=== PATIENT | male | born 1940 | race Caucasian/White ===

== ENCOUNTER 2018-10-14 11:51 | Inpatient (IN) | payer MEDICARE, OTHER ==
[~2018-10-14] VITALS: Ht 162.6 cm; Wt 87.8 kg
[~2018-10-14 11:51] MED LIST: ALLO300T2 PO; AMIO200T4 PO; BUPR1PAT22 TD; LISI-552 PO; LOVA20TA2 PO; METF-397 PO; OXYB5TAB9 PO; PIOG45TA65 PO
--- NOTE | 2018-10-14 13:44 | Physical Therapy Evaluation ---
PT Evaluation-General Medical Diagnosis Admission Date Medical Diagnosis: sepsis, spinal abscess Onset Date: Oct 07, 2018 Therapy Diagnosis Therapy Diagnosis: impaired mobility, strength, endurance Height/Weight Height (Feet): 5 Height (Inches): 4.00 Weight (Pounds): 186 Weight (Ounces): 0.0 Precautions Precautions/Isolations: Contact Isolation Referral Physician: Lauri Reason for Referral: Evaluation/Treatment Medical History Pertinent Medical History: Atrial Fib, CABG, CAD, DM, HTN Current History Patient admitted to ICU following hardware replacement of spine due to wound infection. Reviewed History: Yes Social History Home: Single Level Current Living Status: Spouse Entry Into Home: Stairs With Railing PT Steps Into Home: 3 Prior/Core FIM Prior Level of Function Functional [place] Measure 0=Not Assessed/NA 4=Minimal Assistance 1=Total Assistance 5=Supervision or Setup 2=Maximal Assistance 6=Modified [place] 3=Moderate Assistance 7=Complete IndependenceIRFPAI Quality Coding Scale 6 Independent with activity with or without an assistive device 5 Patient requires set up or clean up by helper. Patient completes activity by themselves 4 Supervision or touching assist (CGA). [place] provide cues , steadying assist 3 The helper provides less than half the effort to complete the activity 2 The helper provides more than half the effort to complete the activity 1 Dependent. The helper does all the effort to complete an activity 7 Patient refused to complete or attempt activity 9 The patient did not perform the activity before the current illness or injury 88 Not attempted due to Medical conditions or safety concerns Bed Mobility: 6 Transfers (B,C,W/C) (FIM): 6 Gait: 6 Stairs: 6 Wheelchair Mobility: 6 Patient states he already has a rolling walker, 4 wheeled walker, and wheelchair PT Evaluation-Current Subjective Patient in bed pre tx, agrees to PT, has 10/10 pain in low back and right hip and groin. Nurse notified and he got pain meds. Patient is very tired and has increased pain because he had a lot of bleeding from back earlier and doctor had to cauterize. Pt/Family Goals Patient states he wants fo be able to go back home and take care of himself. Objective Patient Orientation: Person, Place, Situation Attachments: Drains TLSO ROM/Strength ROM Lower Extremities WNL Strenght Lower Extremities 3+/5 gross bilateral lower extremities Neuromuscular (Tone, Coordination, Reflexes) NT Sensory Vision: Functional Hearing: Impaired Sensation Right Lower Extremit: Intact Sensation Left Lower Extremity: Intact Transfers Functional [place] Measure 0=Not Assessed/NA 4=Minimal Assistance 1=Total Assistance 5=Supervision or Setup 2=Maximal Assistance 6=Modified [place] 3=Moderate Assistance 7=Complete IndependenceIRFPAI Quality Coding Scale 6 Independent with activity with or without an assistive device 5 Patient requires set up or clean up by helper. Patient completes activity by themselves 4 Supervision or touching assist (CGA). [place] provide cues , steadying assist 3 The helper provides less than half the effort to complete the activity 2 The helper provides more than half the effort to complete the activity 1 Dependent. The helper does all the effort to complete an activity 7 Patient refused to complete or attempt activity 9 The patient did not perform the activity before the current illness or injury 88 Not attempted due to Medical conditions or safety concerns Transfers (B, C, W/C) (FIM): 3 Scootin Rollin Roll Left to Right (QC): 2 Supine to/from Sit: 3 Sit to/from Stand: 4 bed t/f WC(FIM only if WC use): 4 Sit to Lying (QC): 2 Lying to Sitting/Side of Bed(Q: 2 Sit to Stand (QC): 3 Chair/Obr-hk-Ltcjs Xfer(QC): 3 Patient was only able to perform bed mobility and transfers and a little ambulation. By the time he got to rehab he insisted on going back to bed due to pain and fatigue. Patient performs bed mobility with mod assist, supine <- > sit with mod assist, sit <-> stand with min assist, transfers with min assist. Cues for safety and hand placement. Gait Does the Patient Walk?: Yes Mode of Locomotion: Walk Anticipated Mode of Locomotion: Walk Gait (FIM): 1 Walk 10 feet (QC): 4 Walk 50 ft with 2 Turns(QC): 88 Walk 150 ft (QC): 88 Walking 10ft/uneven surface-QC: 88 Distance: 10' Gait Level of Assist: 4 Gait Persons Needed: 1 Gait Assistive Device: FWW Comments/Gait Description Patient ambulated 10' with a rolling walker with CGA. Gait is very antalgic, slow. He could not walk any more due to pain and fatigue. Wheelchair Training Does the Pt Use a Wheelchair?: Yes Wheelchair (FIM): 1 Type of Wheelchair: Manual Stairs If not tested on admit;explain Patient could not perform stairs due to pain and fatigue. He had recent blood loss from wound in back and had to be cauterized and came to rehab right after. Balance Sitting Static: Fair Sitting Dynamic: Fair Standing Static: Fair Standing Dynamic: Fair Assessment/Needs Patient has impaired mobility, strength, endurance post spinal surgery. He also has a wound vac in back. Rehab Potential: Guarded PT Short Term Goals Short Term Goals Time Frame: Oct 21, 2018 Transfers (B,C,W/C) (FIM): 4 Gait (FIM): 2 Gait Distance Comment: 50' Gait Level of Assist: 4 Gait Assistive Device: FWW PT Equipment Planner Goals Equipment Planner Goals PT Equipment Planner Goals Time Frame: Nov 04, 2018 Transfers (B,C,W/C) (FIM): 5 Sit to Lying (QC): 4 Lying-Sitting on Side/Bed(QC): 4 Sit to Stand (QC): 4 Rollin Roll Left to Right (QC): 4 Chair/Phf-rn-Wgllz Xfer(QC): 4 Car Transfer (QC): 4 Gait (FIM): 5 Distance: 150' Walk 10 feet (QC): 4 Walk 10ft-Uneven Surface(QC): 4 Walk 50ft with 2 Turns (QC): 4 Walk 150 ft (QC): 4 Gait Level of Assist: 5 Gait Assistive Device: FWW Stairs (FIM): 2 # of Steps: 4 1 Step (curb) (QC): 4 4 Steps (QC): 4 Stairs Level Of Assist: 4 PT Plan Problem List Problem List: Activity Tolerance, Functional Strength, Safety, Balance, Gait, Transfer, Bed Mobility, ROM Treatment/Plan Treatment Plan: Continue Plan of Care Treatment Plan: Bed Mobility, Concurrent Therapy, Education, Functional Activity Cris, Functional Strength, Group Therapy, Gait, Safety, Therapeutic Exercise, Transfers Treatment Duration: Nov 04, 2018 Frequency: Modified Program (IRF) Estimated Hrs Per Day: 1.5 hours per day Patient and/or Family Agrees t: Yes Safety Risks/Education Patient Education: Gait Training, Transfer Techniques, Reviewed Precautions, Correct Positioning, W/C Management, Safety Issues Teaching Recipient: Patient Teaching Methods: Demonstration, Discussion Response to Teaching: Reinforcement Needed Discharge Recommendations Plan Patient will perform bed mobility and transfer training, balance and endurance training, functional strengthening, stair training, gait training, and education , to improve functional mobility and independence at home. Therapy D/C Recommendations: Home w/ Family Support Time/GCodes Time In: 1300 Time Out: 1330 Total Billed Treatment Time: 30 Total Billed Treatment 1 visit SHERI 30' DAGOBERTO AGUILAR PT Oct 14, 2018 13:44
[2018-10-14 13:54] VITALS: BP 150/70
[2018-10-14] MEDS ORDERED: ACETAMINOPHEN 325 MG TABLET PO SCH (14:30)
[2018-10-14] MEDS ORDERED: ONDANSETRON 4 MG/2 ML (SDV) Z0FRAN IVP PRN (14:30)
--- NOTE | 2018-10-14 14:32 | Occupational Therapy Eval ---
OT Evaluation-General/PLF Medical Diagnosis Admission Date Oct 14, 2018 at 13:25 Medical Diagnosis: sepsis, spinal abscess Onset Date: Oct 07, 2018 Therapy Diagnosis Therapy Diagnosis: decr self care, weakness, decr funct mob, decr act rinku Height/Weight Height (Feet): 5 Height (Inches): 4.00 Weight (Pounds): 186 Weight (Ounces): 0.0 Precautions Precautions/Isolations: Contact Isolation, Contact/Enteric Isolation (c diff) Referral Physician: Lauri Referral Reason: Evaluation/Treatment Medical History Pertinent Medical History: Atrial Fib, CABG, CAD, DM, HTN Additional Medical History Chronic back pain. BPH, hyperlipidemia. Pt reported cataract surgery and two other surgeries on L eye Current History 05/11/18 back surgery. Has been in SNF and [facility]. Pt had spinal abscess and is now s/p 2 surgeries (10-08, 10-10) to replace hardware. Today he had bleeding in his back and would vac had to be replaced. Also had to cauterize bleeders in back. Reviewed History: Yes Social History Home: Single Level Current Living Status: Spouse Entry Into Home: Stairs With Railing Steps Into Home: 3 ADL-Prior Level of Function Functional [place] Measure 0=Not Assessed/NA 4=Minimal Assistance 1=Total Assistance 5=Supervision or Setup 2=Maximal Assistance 6=Modified [place] 3=Moderate Assistance 7=Complete [place] ADL PLOF Comments Pt and reported that, prior to back surgery in April, he did not need any help taking care of himself. He was able to manage all of his basic ADLs, do things around the house, manage medications and check book. 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 DME/Equipment: Bath Chair, Shower, Tall Toilet OT Current Status Subjective Pt seen in room, up in bed on his side, agreeable to OT. Pain reported 10/10 in back and in L groin. He had pain meds just prior to arrival on the unit. Appearance Alert, cooperative Mental Status/Objective Patient Orientation: Person, Situation Attachments: Central Line, IV, Other-See Comments (wound vac) Current Glasses/Contacts: Yes Hearing Aids: Yes Dentures/Partials: No Hand Dominance: Right Upper Extremity ROM Grossly WFL bilat Upper Extremity Strength Grossly 4/5 bilat ADL-Treatment ADL-Current Pt declined ADLs due to extreme fatigue and pain. He was able to walk only 10 feet with PT with FWW, CGA and needed mod assist with bed mobility. He reported that he hasn't felt like eating much since his surgery. TLSO Functional [place] Measure 0=Not Assessed/NA 4=Minimal Assistance 1=Total Assistance 5=Supervision or Setup 2=Maximal Assistance 6=Modified [place] 3=Moderate Assistance 7=Complete IndependenceIRFPAI Quality Coding Scale 6 Independent with activity with or without an assistive device 5 Patient requires set up or clean up by helper. Patient completes activity by themselves 4 Supervision or touching assist (CGA). [place] provide cues , steadying assist 3 The helper provides less than half the effort to complete the activity 2 The helper provides more than half the effort to complete the activity 1 Dependent. The helper does all the effort to complete an activity 7 Patient refused to complete or attempt activity 9 The patient did not perform the activity before the current illness or injury 88 Not attempted due to Medical conditions or safety concerns Education OT Patient Education: Purpose of tx/functional activities, Rehab process Teaching Recipient: Patient, Family Teaching Methods: Discussion Response to Teaching: Verbalize Understanding OT Short Term Goals Short Term Goals Time Frame: Oct 21, 2018 Eating(FIM): 5 Grooming(FIM): 5 Bathing(FIM): 3 Upper Body Dressing(FIM): 4 Lower Body Dressing(FIM): 3 Toileting(FIM): 3 Toilet/Commode Transfer(FIM): 4 Additional Short Term Goals: 1-Demonstrate ADL Tasks, 2-Verbalize Understanding , 3-ImproveStrength/Cris 1=Demonstrate adherence to instructed precautions during ADL tasks. 2=Patient will verbalize/demonstrate understanding of assistive devices/ modifications for ADL. 3=Patient will improve strength/tolerance for activity to enable patient to perform ADL's. OT Disk Operator Goals Fpc Goals Time Frame: Nov 04, 2018 Eating (FIM): 7 Eating (QC): 6 Groomin Oral Hygiene (QC): 6 Bathing(FIM): 6 Shower/Bathe Self (QC): 6 Upper Body Dressing(FIM): 6 Upper Body Dressing (QC): 6 Lower Body Dressing(FIM): 6 Lower Body Dressing (QC): 6 On/Off Footwear (QC): 6 Toileting(FIM): 6 Toileting Hygiene (QC): 6 Toilet/Commode Transfer(FIM): 6 Toilet/Commode Transfer (QC): 6 Shower Transfer(FIM): 5 (if allowed per wound vac) Additional Goals: 1-Demonstrate ADL Tasks, 2-Verbalize Understanding, 3- ImproveStrength/Cris 1=Demonstrate adherence to instructed precautions during ADL tasks. 2=Patient will verbalize/demonstrate understanding of assistive devices/ modifications for ADL. 3=Patient will improve strength/tolerance for activity to enable patient to perform ADL's. OT Education/Plan Problem List/Assessment Assessment: Decreased Activ Tolerance, Decreased UE Strength, Dependent Transfers, Impaired Bed Mobility, Impaired Self-Care Skills Pt would benefit from skilled OT to increase his independence in basic self care to allow him to safely return home after back surgery Discharge Recommendations Plan/Recommendations: Continue POC Treatment Plan/Plan of Care Treatment,Training & Education: Yes Patient would benefit from OT for education, treatment and training to promote independence in ADL's, mobility, safety and/or upper extremity function for ADL' s. Plan of Care: ADL Retraining, Functional Mobility, Group Exercise/Act as Ind ( education, exercise, activity tolerance, functional activities, socialization), UE Funct Exercise/Act, UE Neuromus Re-Ed/Coord, W/C Management Training Treatment Duration: Nov 04, 2018 Frequency: Modified Program (IRF) Estimated Hrs Per Day: 1.5 hours per day (1.25 to 1.5) Agreement: Yes Rehab Potential: Fair Time/GCodes Start Time: 13:30 Stop Time: 14:10 Total Time Billed (hr/min): 40 Billed Treatment Time visit, 40 minutes evaluation moderate intensity CRISTIAN MERIDA OT Oct 14, 2018 14:32
--- NOTE | 2018-10-14 14:49 | ST Cognitive Linguistic Eval ---
Speech Evaluation-General Medical Diagnosis sepsis, spinal abscess Onset Date: Oct 07, 2018 Therapy Diagnosis Therapy Diagnosis: Cognitive-communication Precautions Precautions: Fall Precautions/Isolations: Contact Isolation Medical History Pertinent Medical History: Atrial Fib, CABG, CAD, DM, HTN Reviewed History: Yes Social History Current Living Status: Spouse Speech PLF-Current Status Prior Level of Function Patient lived at home with his . Prior to back surgery in August he was independent with all daily living tasks. Subjective Patient was pleasant and cooperative. Language Eval: Auditory Comprehends Simple Yes/No Ques: Functional Follows 1-Step Commands: Mild Follows Complex Directions: Moderate Follows General Conversations: Mild Language Eval: Verbal Language Completes Spontaneous Greeting: Functional Produces Auto, Serial Info: Functional Imitates Simple Words/Phrases: Functional Word Finding: Mild Requests Basic Needs: Mild States Basic Personal Info: Mild Expresses Complex Ideas: Moderate Language Evaluation: Reading Did not test. Cognitive Patient Orientation Patient is oriented to all concepts. Objective Cognitive Domain Attention: Mild Memory: Moderate Problem Solving: Mild Executive Functions: Mild Objective Formal/Standardized Tests [facility] Cognitive/Communication Results Memory: for Immediate Recall 3:3, Delayed Recall 3:3, Advanced Recall: 2:3 with cues, Organization/Sequencin-4 step: 3:4, Reasoning Skills: 3:4, Verbal Expression: Automatic: Mild deficit, Responsive Naming: Mild deficit Oral Motor/Speech Production Within Functional Limits Impression Patient is an alert and oriented 78 y/o male who recently underwent back surgery. Formal testing indicates he has mild to moderate memory and problem solving deficits related to his daily needs and immediate living environment. He is recommended for skilled services to address these deficits to achieve his highest potential functional level for optimal safety and independence, Communication/Social Cognition Comprehension: 4 Expression: 4 Social Interaction: 4 Problem Solvin Memory: 3 Speech Patient Assess Expression of Ideas/Wants: Frequently (2) Understanding Verbal Content: Sometimes Understands(2) Brief Interview-Mental Status: Yes Repetition of Three Words: Two (2) Temporal Orientation: Year: Correct (3) Temporal Orientation: Month: Accurate within 5 days(2) Temporal Orientation: Day: Correct (1) Recall : Wear to say "Sock": Yes,after cueing (1) Recall : Color: Yes, no cue required (2) Recall : Bed: Yes, no cue required (2) Memory/Recall Ability: Current season, That he or she is in a hsp/hsp unit Speech Short Term Goals Short Term Goals Short Term Goals 1) Patient will complete memory tasks with 90% accuracy given minimal cuing. 2) Patient will complete problem solving tasks with 90% accuracy given minimal cuing. Time Frame-ST week Speech Business Professor Goals Business Professor Goals Patient will improve memory and problem solving tasks with minimal cues for increased safety and independence at 90% accuracy. Speech-Plan Patient/Family Goals Patient/Family Goals: Patient plans to mreturn home with his after rehab. Treatment Plan Speech Therapy Treatment Plan: Continue Plan of Care Patient will work on memory and problem solving while on the rehab unit. Frequency: Modified Program (IRF) Estimated Hrs Per Day: .5 hour per day Rehab Potential: Guarded Barriers to Learning: Memory Pt/Family Agrees to Plan: Yes Safety Risks/Education Teaching Recipient: Patient, Significant Other Teaching Methods: Discussion Response to Teaching: Verbalize Understanding Time Speech Therapy Time In: 14:15 Speech Therapy Time Out: 14:30 Total Billed Time: 15 Billed Treatment Time 1, MORAIMA Diaz Oct 14, 2018 14:49
[2018-10-14] MEDS: metFORMIN 500 MG (GLUCOPHAGE) TAB PO SCH (16:55)
[2018-10-14] MEDS: LACTOBACILLUS Acidoph/Bulgar 1 GM (LACTINEX) PACKET PO SCH ×2 (16:56→20:18)
[2018-10-14] MEDS: ACETAMINOPHEN 325 MG TABLET PO SCH (17:02)
[2018-10-14] MEDS: VANCOMYCIN ORAL 250 MG/5 ML 120 ML PO SCH ×2 (17:05)
[2018-10-14] MEDS: inSUlin ASPART (NovoLOG) 1 UNIT/0.01 ML (CHARGE PER UNIT) SC SCH ×2 (17:08→20:59)
[2018-10-14] MEDS: CHOLESTYRAMINE 4 GM (QUESTRAN LITE, PREVALITE) PKT PO SCH ×2 (17:08→21:51)
--- NOTE | 2018-10-14 17:12 | Cardiology Progress Note ---
Cardiology SOAP Progress Note Subjective: No cardiac compliants Objective: I&O/Vital Signs 10/14/18 13:54 Temp 98.9 Pulse 70 Resp 16 B/P (MAP) 150/70 (96) Pulse Ox 100 O2 Delivery Room Air Weight (Pounds): 193 Weight (Ounces): 8.0 Weight (Calculated Kilograms): 87.751235 Constitutional: No appears stated age; AAO x 3; No apparent distress, No PERRL , No well-developed, No well-nourished, No other Respiratory: No accessory muscle use, No respiratory distress, No chest tender , No chest expansion is symmetric; chest is bilaterally symmetric; No lungs clear to percussion; lungs clear to auscultation; No crackles, No rhonchi, No rales, No stridor, No wheezing, No pleural rub, No other Cardiovascular: regular rate-rhythm; No irregularly irregular, No extra beats, No parasternal heave is noted, No JVD, No edema, No bradycardia, No tachycardia , No point of maximal impulse, No cardiac thrills are palpable; S1 and S2; No gallop/S3, No gallop/S4, No diastolic murmur, No systolic murmur, No friction rub, No click, No other Gastrointestional: No tender, No soft, No round, No distended, No pulsatile mass, No organomegaly, No guarding, No rebound, No tenderness, No hernia, No mass, No audible bowel sounds, No abnormal bowel sounds, No abdominal bruits, No spleenomegaly, No other Extremities: No normal range of motion, No non-tender, No normal inspection, No pedal edema, No calf tenderness, No normal capillary refill, No pelvis stable , No calf tenderness, No inflammation, No pedal edema, No slow capillary refill , No swelling, No other, No abrasion, No clubbing, No cyanosis, No ecchymosis, No laceration, No no lower extremity edema bilateral, No significant edema, No tenderness, No wound Neurologic/Psychiatric: no motor/sensory deficits, alert, normal mood/affect, oriented x 3 Skin: No normal color, No warm/dry, No cyanosis, No cool, No diaphoresis, No damp, No ecchymosis, No jaundice, No mottled, No pallor, No rash, No tattoos/ piercings, No ulcerations, No rash on exposed areas, No ulcerations on exposed areas, No other A/P: Assessment/Dx: Assessment/Dx: Spinal abscess, Sepsis, UTI, History of CAD, CABG, Atrial fibrillation on amiodarone. LVH, Diastolic dysfunction. Plan: Spinal abscessstatus post I&D. Sepsiscontinue broad-spectrum IV antibiotics as per Dr. Harrison. C. difficile, on contact precautions. Paroxysmal atrial fibrillationcurrently in sinus rhythm. Continue amiodarone. I might consider discontinuing amiodarone but since the patient follows Dr. Soliman in [place] I may defer that decision to him. CAD/history of CABGcontinue lisinopril and statin therapy. Aspirin low dose once okay with Dr. Harrison and Dr. Mc. Will add low dose beta carlie for atrial fibrillation and CAD. LVH, Diastolic dysfunction, Echocardiogram showed normal LV function. Patient follows with Dr. Soliman in [place]. Thank you for your consultation. Please call me if you have any questions. Chato Moyer MD, FACP, FACC, FSCAI, FHRS, CCDS Interventional Cardiology Cardiac Electrophysiology Vascular Medicine and Endovascular Interventions Kiarra MOYER MD Oct 14, 2018 17:12
[2018-10-14 18:00] VITALS: BP 169/79
[2018-10-14] MEDS ORDERED: VANCOMYCIN ORAL SUSPENSION 60 ML BOTTLE PO SCH (18:00)
[2018-10-14] MEDS ORDERED: TROUGH ORDER-PHARMACY XX ONE (19:00)
[2018-10-14 20:00] VITALS: BP 168/74
[2018-10-14] MEDS ORDERED: VANCOMYCIN INJECTION 1,250 MG in NS (IVPB) 250 ML IV SCH (20:00)
[2018-10-14] MEDS: VANCOMYCIN INJECTION 1,000 MG in NS (IVPB) 250 ML IV SCH (20:16)
[2018-10-14] MEDS: OXYBUTYNIN (DITROPAN) 5 MG TAB PO SCH (20:18)
[2018-10-14] MEDS: meTOprolol TARTRATE 25 MG (LOPRESSOR) TABLET PO SCH (20:18)
[2018-10-14] MEDS ORDERED: POLYETHYLENE GLYCOL 17 GM (MIRALAX) PACK PO SCH (21:00)
--- NOTE | 2018-10-14 21:25 | PM&R Post Admission Assessment ---
Post Admission Physician Asses Date seen by provider: Oct 14, 2018 Time seen by provider: 20:55 The preadmission screen agrees with the post admission assessment that the patient is a good candidate for inpatient rehabilitation. The patient will have a comprehensive program of inpatient rehabilitation with a goal of maximizing level of functional independence prior to discharge home with spouse. The patient will have PT/OT ninety minutes per day, each discipline, five days a week for for 2 weeks for gait, strengthening, conditioning, balance, ADLs, any patient/family/caregiver training as necessary. Speech therapy to do cognitive assessment and treat as indicated for 3 to 5 days a week for 2 weeks for 30 to 45 min per day. Rehabilitation nursing to assist with bowel, bladder, skin, wound care,wound vac administration , medication administration, pain management. Core Finisher to assist with discharge planning, community reentry. SCD's for DVT prophylaxis. He appears to be well motivated to participate in three hours of therapy a day. He should be able to tolerate three hours of therapy a day from a medical and surgical standpoint. He should benefit from the three hours of therapy a day. He has a reasonable discharge plan, reasonable discharge rehabilitation goals and a supportive family. He has various comorbidities that need to be closely monitored with medications and treatments adjusted on a daily basis as needed. he may require a 15/7 therapy schedule initially. These include: Postop spinal abscess A FIB DM Hyponatremia Barriers to discharge for this patient who had been independent prior to this are for him to be modified independent to supervision for ADLs and mobility skills prior to discharge home with spouse, so as to lessen the burden of the caregivers. Risks for this patient include: 1. Fall 2. Fracture 3. DVT 4. Pulmonary embolism 5. Wound infection 6. Skin breakdown 7. Contractures 8. Poorly controlled pain 9. Urinary retention 10. UTI 11. Respiratory infection 12. Aspiration 13.recurrent A FIB Estimated Length of Stay: 14 days Prognosis: Rehab prognosis appears good for goal of discharge home with spouse modified independent to supervision for ADLs and mobility skills. Date Identified: Oct 14, 2018 Time Identified: 20:30 Action Plan to Resolve CSMI: Transfer meds reviewed with RN General: Alert, Cooperative, No Acute Distress HEENT: Atraumatic, PERRLA, EOMI, Mucous Memb Moist/Grove, Other ([place] has hearing aids but out for the evening) Neck: Supple, No JVD Lungs: Clear to Auscultation Heart: Regular Rate Abdomen: Normal Bowel Sounds, Soft, No Tenderness Extremities: No Edema Skin: Other (has wound vac over incision) Neuro: Other (cognitive impairment with memory strength 4/5 uppers 3+/5 lowers sensation intact) Psych/Mental Status: Other (Mild memory impairment) SERENA SANTIAGO MD Oct 14, 2018 21:25
--- NOTE | 2018-10-14 23:12 | HISTORY AND PHYSICAL ---
DATE OF SERVICE: 10/14/2018 CHIEF COMPLAINT: Difficulty with walking. HISTORY OF PRESENT ILLNESS: The patient is an 78-year-old male who recently had spinal surgery earlier this year, then had a complication of an infection. He had another procedure 09/02/2018, but still had problems and he was on rehab unit in [place] as well as a senior living unit in [place]. He was eventually transferred to [facility] and followed by his orthospine Dr. Mc and seen in consultation by hospitalist service and cardiology. The patient was placed on IV antibiotics for a spinal abscess associated with fever and sepsis, tachycardia, leukocytosis, rigors. This was brought under control. He had a recent UTI enterococcus, had a course of Cipro for that. He had postop anemia, had a unit packed red blood cells. He had some bleeding from the incision site and he received a cautery with Dr. Mc's staff prior to transfer to rehab unit. He currently has a wound VAC in place. Currently, he fatigues easily. His presents with him and stays overnight. 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 His original spinal surgery was 05/11/2018. He is mod assist for bed mobility. He has a TLSO worn up. He complains of fatigue and pain with ambulation 10 feet with a front wheel walker, contact guard. Speech therapy noted some cognitive deficits and the patient's indicates that this has been since his surgery 09/02/2018. He is mod to max assist for transfers. He requires assistance for his dressing, bathing. He is modified independent for eating, set up for grooming. The patient also developed C. diff bowel colitis, currently is on p.o. vancomycin and has contact precautions. PAST MEDICAL HISTORY: Atrial fibrillation, on amiodarone, left ventricular hypertrophy,Diastolic dysfunction, coronary artery disease status post CABG. PAST SURGICAL HISTORY: As per above. ALLERGIES: KEFLEX, HYDROCODONE. FAMILY HISTORY: Noncontributory. SOCIAL HISTORY: Essentially as per above. They live in a one story home in [place], [place]. indicates that the patient had been independent prior to all this. He is quite hard of hearing and does not have his hearing aids currently. REVIEW OF SYSTEMS: A 10-point review of systems significant for weakness, fatigue, back pain, hearing loss. MEDICATIONS: Vancomycin q.6h. p.o., amiodarone 200 mg p.o. daily, Lipitor 5 mg p.o. daily, amlodipine 5 mg p.o. daily, lisinopril 20 mg p.o. daily, allopurinol 300 mg p.o. daily, Actos 45 mg p.o. daily, MiraLax 17 grams p.o. at bedtime, Lopressor 25 mg p.o. b.i.d., Ditropan 5 mg p.o. t.i.d., Tylenol 650 mg p.o. q.6 hours, metformin 500 mg p.o. b.i.d., Questran 4 grams p.o. q.i.d. a.c. and at bedtime, Lactinex 1 gram p.o. q.i.d. a.c. and at bedtime, sliding scale insulin regimen, Zofran 4 mg q.6 hours p.r.n. nausea or vomiting, tramadol 50 mg 1-2 tablets p.o. q.4 hours p.r.n. moderate pain. PHYSICAL EXAMINATION: GENERAL: Significant for an elderly male lying in bed, quite hard of hearing. No acute distress. VITAL SIGNS: He is afebrile, pulse 79, respirations 20, blood pressure 168/74, O2 sat 93% on room air. HEENT: Quite hard of hearing. Vision and speech grossly intact. No oral lesion is noted. NECK: Supple without mass. HEART: Regular rhythm. CHEST: Clear. ABDOMEN: Soft, nontender, bowel sounds present. EXTREMITIES: No leg edema, no calf tenderness. SKIN: Wound VAC in place. MUSCULOSKELETAL: He has functional active range of motion in all four limbs. NEUROLOGIC: Sensation is grossly intact to touch. Cognition and memory mildly impaired. Strength both lower limbs 3+/5, upper limbs 4/5. He is right hand dominant. IMPRESSION: 1. Ambulatory dysfunction secondary to spinal abscess with sepsis, treated now with wound VAC. 2. Clostridium difficile bowel colitis, on vancomycin p.o. and contact precautions. 3. Atrial fibrillation, controlled with medication. 4. Coronary artery disease, status post CABG. 5. Diabetes mellitus, controlled with medication. 6. Postop anemia status post transfusion. 7. Hyperlipidemia. PLAN: The patient is admitted for a comprehensive program of inpatient rehabilitation with goal of maximizing level of functional independence prior to discharge home with spouse. The patient will have PT, OT 90 minutes per day each discipline 5 days a week for 2 weeks for the above goals in mind. Please see post-admission physician evaluation, which is a separate document for details of plan of care. Speech therapy has done cognitive assessment, will treat as indicated 3 to 5 times a week for 30 to 45 minutes per day regarding improving cognition, memory, compensatory techniques. Rehabilitation nursing assist with bowel, bladder, skin, wound care, medication administration, wound VAC administration, pain management and social media developer with discharge planning, community reentry. Follow up with hospital service and Dr. Mc and cardiology as per the schedule. ESTIMATED LENGTH OF STAY: Two weeks. PROGNOSIS: Rehab prognosis appears good for goal of discharging home with spouse, modified independent to supervision for ADLs and mobility skills. DIET: Regular. CODE STATUS: Full code. Job ID: [id number] DocumentID: [id number] Dictated Date: 10/14/2018 21:39:25 Oil Refinery Process Technician Date: 10/14/2018 23:11:48 Dictated By: SERENA SANTIAGO MD MTDD
[2018-10-15] MEDS: ACETAMINOPHEN 325 MG TABLET PO SCH ×5 (00:12→23:49)
[2018-10-15] MEDS: VANCOMYCIN ORAL 250 MG/5 ML 120 ML PO SCH ×10 (00:12→23:55)
[2018-10-15 06:00] VITALS: BP 160/73
[2018-10-15] MEDS: inSUlin ASPART (NovoLOG) 1 UNIT/0.01 ML (CHARGE PER UNIT) SC SCH ×4 (06:00→21:00)
[2018-10-15] MEDS: CHOLESTYRAMINE 4 GM (QUESTRAN LITE, PREVALITE) PKT PO SCH ×2 (06:20→11:23)
[2018-10-15] MEDS: PIOGLITAZONE 30MG (ACTOS) TAB PO SCH (06:48)
[2018-10-15] MEDS: LACTOBACILLUS Acidoph/Bulgar 1 GM (LACTINEX) PACKET PO SCH ×4 (06:48→20:13)
[2018-10-15] MEDS: metFORMIN 500 MG (GLUCOPHAGE) TAB PO SCH ×2 (06:48→16:49)
--- NOTE | 2018-10-15 08:11 | PM & R (SOAP) Progress Note ---
Subjective This was a face to face visit with the patient. Date Seen by Provider: Oct 15, 2018 Time Seen by Provider: 07:45 Subjective/Events-last exam Patient was seen in his room this AM Patients spouse spent the night Patient c/ o rt groin pain but non tender to palpation and Patient denies hx of OA of the hip will monitor Patient without diarrhea or loose stools but remains with contact precautions due to C DIF bowel colitis continues on Vancomycin, Adjusting well to unit but may require 15/7 therapy schedule due to pain and easy fatigue.Patient mod assist for transfers Review of Systems Musculoskeletal: leg pain Objective Physician Exam Last Set of Vital Signs Vital Signs Date Time Temp Pulse Resp B/P (MAP) Pulse Ox O2 Delivery O2 Flow Rate FiO2 10/15/18 06:00 98.1 71 18 160/73 (102) 93 Room Air Capillary Refill : I&O Intake and Output 10/15/18 00:00 Intake Total 450 ml Output Total 225 ml Balance 225 ml Intake Oral 200 ml IV Total 250 ml Output Urine Total 225 ml # Bowel Movements 1 Daily Weight Change No General: Alert, Cooperative, No Acute Distress HEENT: Atraumatic, PERRLA, EOMI, Mucous Memb Moist/[place], Other ([facility] has hearing aids but out for the evening) Neck: Supple, No JVD Lungs: Clear to Auscultation Heart: Regular Rate Abdomen: Normal Bowel Sounds, Soft, No Tenderness Extremities: No Edema Skin: Other (has wound vac over incision) Neuro: Other (cognitive impairment with memory strength 4/5 uppers 3+/5 lowers sensation intact) Psych/Mental Status: Other (Mild memory impairment) Results Lab Data Laboratory Tests 10/14/18 18:42: Vancomycin Level Trough 20.6H 10/15/18 06:22: Glucometer 119H Assessment/Plan Assessment and Plan Spinal abscess s/p Spinal surgery OSH now with wound vac C dif bowel colitis on Vanco po urinary retention Monitor for improvement with Bladder scanning Consult as needed A FIB controlled with med CAD s/p CABG DM controlled with med Postop anemia s/p transfusion HLP Plan Continue PT/OT/Antibiotics/contact precautions Team Conference 10-19-18 Goal return home with spouse F/U with DR Mc and Hospitalist and [employer] Co-Morbidities that are continuing to impact the rehab process: (include details ) SERENA SANTIAGO MD Oct 15, 2018 08:11
[2018-10-15 09:38] VITALS: BP 153/76
[2018-10-15] MEDS: ALLOPURINOL 300 MG (ZYLOPRIM) TAB PO SCH (09:39)
[2018-10-15] MEDS: OXYBUTYNIN (DITROPAN) 5 MG TAB PO SCH ×3 (09:39→20:13)
[2018-10-15] MEDS: amLODIPine 5 MG (NORVASC) TAB PO SCH (09:39)
[2018-10-15] MEDS: AMIODARONE 200 MG (CORDARONE) TAB PO SCH (09:39)
[2018-10-15] MEDS: lisINopril 20 MG (PRINIVIL) TABLET PO SCH (09:39)
[2018-10-15] MEDS: meTOprolol TARTRATE 25 MG (LOPRESSOR) TABLET PO SCH ×2 (09:39→20:13)
[2018-10-15] MEDS: ATORVASTATIN 10 MG (LIPITOR) TABLET PO SCH (09:40)
--- NOTE | 2018-10-15 09:41 | Physical Therapy Daily Note ---
PT Daily Note-Current Subjective Pt reports (R) groin and lumbar pain 7-8/10 with movement and when sitting upright. Pain Numeric Pain Scale: 7 Location: Right Location Body Site: Thigh Pain Description: Ache, Dull Mental Status Patient Orientation: Person, Place, Time, Situation Attachments: Central Line, Other-See Comments wound vac on lumbar spine Transfers Functional [place] Measure 0=Not Assessed/NA 4=Minimal Assistance 1=Total Assistance 5=Supervision or Setup 2=Maximal Assistance 6=Modified [place] 3=Moderate Assistance 7=Complete IndependenceIRFPAI Quality Coding Scale 6 Independent with activity with or without an assistive device 5 Patient requires set up or clean up by helper. Patient completes activity by themselves 4 Supervision or touching assist (CGA). [place] provide cues , steadying assist 3 The helper provides less than half the effort to complete the activity 2 The helper provides more than half the effort to complete the activity 1 Dependent. The helper does all the effort to complete an activity 7 Patient refused to complete or attempt activity 9 The patient did not perform the activity before the current illness or injury 88 Not attempted due to Medical conditions or safety concerns Transfers (B, C, W/C) (FIM): 3 Scootin Rollin Roll Left to Right (QC): 3 Supine to/from Sit: 3 Sit to/from Stand: 3 Sit to Lying (QC): 3 Sit to Stand (QC): 3 Chair/Loq-vm-Noxrb Xfer(QC): 3 Bed to/from Chair: 3 Car Transfer (QC): 88 Pt was not able to perform the car transfer due to limited activity tolerance and limited ambulation tolerance. Gait Training Does the Patient Walk?: Yes Distance (FIM): 1=up to 49 ft Distance: 18ft Walk 10 feet (QC): 1 Walk 50 ft with 2 Turns(QC): 88 Walk 150 ft (QC): 88 Walking 10ft/uneven surface-QC: 88 Gait Level of Assist: 3 Gait Persons Needed: 2 Gait Assistive Device: FWW Unable to tolerate distance greater than 18ft due to (R) groin and lumbar pain. Wheelchair Training Does the Pt Use a Wheelchair?: No Stair Training Stairs (FIM): 88 Limited activity tolerance in standing, with pt unable to attempt stairs at this time. Exercises Supine Ex: LE Protocol Supine Reps: 15 Seated Therapy Exercises: LE Protocol Seated Reps: 15 Treatments Performed a co-treat with OT. Performed supine roll to side, supine to sit transfer, and worked on seated balance and posture training while sitting edge of bed. Worked with pt on seated exercises and reaching while seated. Pt bathed with OT, and was able to sit edge of bed with pressure applied to the back due to lumbar pain. Pt worked on reaching and balance while donning clothes. Pt performed a SPT from the bed to the commode, and then the commode to the recliner. He required mod assist for all transfers, and +1 for managing the wound vac hardware. Pt shown seated and reclining exercises for (B) UEs and LEs. He was correctly able to demonstrate all of the exercises demonstrated. Assessment Current Status: Good Progress Pt is very willing to participate, and as the pain dissipates, he should be able to transition to more (I) with activity. PT Short Term Goals Short Term Goals Time Frame: Oct 21, 2018 Gait (FIM): 2 Gait Distance Comment: 50' Gait Level of Assist: 4 Gait Assistive Device: FWW PT Halfway Goals Roofing Applicator Goals PT Halfway Goals Time Frame: Nov 04, 2018 Transfers (B,C,W/C) (FIM): 5 Sit to Lying (QC): 4 Lying-Sitting on Side/Bed(QC): 4 Sit to Stand (QC): 4 Rollin Roll Left to Right (QC): 4 Chair/Mgq-sz-Wjuan Xfer(QC): 4 Car Transfer (QC): 4 Gait (FIM): 5 Distance: 150' Walk 10 feet (QC): 4 Walk 10ft-Uneven Surface(QC): 4 Walk 50ft with 2 Turns (QC): 4 Walk 150 ft (QC): 4 Gait Level of Assist: 5 Gait Assistive Device: FWW Stairs (FIM): 2 # of Steps: 4 1 Step (curb) (QC): 4 4 Steps (QC): 4 Stairs Level Of Assist: 4 PT Plan Treatment/Plan Treatment Plan: Continue Plan of Care Treatment Plan: Bed Mobility, Concurrent Therapy, Education, Functional Activity Cris, Functional Strength, Group Therapy, Gait, Safety, Therapeutic Exercise, Transfers Treatment Duration: Nov 04, 2018 Frequency: Modified Program (IRF) Estimated Hrs Per Day: 1.5 hours per day Patient and/or Family Agrees t: Yes Time/GCodes Time In: 0840 Time Out: 929 Total Billed Treatment Time: 50 Total Billed Treatment 1, zahra (50) YI FERNANDEZ PT Oct 15, 2018 09:41
--- NOTE | 2018-10-15 10:05 | Occupational Ther Daily Note ---
OT Current Status-Daily Note Subjective Pt seen in room, up in bed, agreeable to OT. Pain reported 7-8/10 and had recent pain meds. Appearance Alert, cooperative Mental Status/Objective Functional [place] Measure 0=Not Assessed/NA 4=Minimal Assistance 1=Total Assistance 5=Supervision or Setup 2=Maximal Assistance 6=Modified [place] 3=Moderate Assistance 7=Complete [place] Attachments: Central Line, Other-See Comments (wound vac) ADL-Treatment Co-treat with PT due to significant decreased activity tolerance, pain, need for two different professionals to address needs. PT worked on bed mobility, balance, transfers while OT worked on ADLs, UE function. Pt sup-sit EOB for sponge bath, dressing, requiring supine rest breaks due to pain. Toilet/ transfer to [facility] beside bed, then pt walked briefly, using FWW, requiring second person assist to manage wound vac safely. Returned to recliner to brush teeth. Needed help to put TLSO on/off. Pt given one bilat UE ex to do when up and also provided with pink sponge with instructions to squeeze it 20 reps, both to help increase UE strength and manage edema in UEs. Pt left up in recliner, all needs met. Functional [place] Measure 0=Not Assessed/NA 4=Minimal Assistance 1=Total Assistance 5=Supervision or Setup 2=Maximal Assistance 6=Modified [place] 3=Moderate Assistance 7=Complete IndependenceIRFPAI Quality Coding Scale 6 Independent with activity with or without an assistive device 5 Patient requires set up or clean up by helper. Patient completes activity by themselves 4 Supervision or touching assist (CGA). [place] provide cues , steadying assist 3 The helper provides less than half the effort to complete the activity 2 The helper provides more than half the effort to complete the activity 1 Dependent. The helper does all the effort to complete an activity 7 Patient refused to complete or attempt activity 9 The patient did not perform the activity before the current illness or injury 88 Not attempted due to Medical conditions or safety concerns Eating (FIM): 5 (Setup. Able to feed himself and get a drink. No dentures) Eating (QC): 5 (setup) Grooming (FIM): 5 (Setup to brush teeth, wash face and hands, seated) Oral Hygiene (QC): 5 (setup) Bathing (FIM): 3 (70%. Sponge bath, seated at EOB. Rolled side to side for washing bottom.) Bathing Location: L Arm, R Arm, L Upper Leg, R Upper Leg, Chest, Abdomen, Perineal Area Shower/Bathe Self (QC): 3 Upper Body (FIM): 5 (Donned t shirt with setup. Setup to don TLSO) Upper Body Dressing (QC): 5 (setup) Lower Body Dressing (FIM): 2 (Help to doff/don slipper socks, help to get pants over feet. Pt pulled pants to thigh, then help to get pants up over bottom. Stood mod assist) Lower Body Dressing (QC): 2 On/Off Footwear (QC): 1 (Unable ) Toileting (FIM): 1 (Two person assist when using BSC, one to manage standing and one to manage clothing. Unable to wipe in back. Setup with urinal, needing help to empty it) Toileting Hygiene (QC): 1 (Two person) Toilet/Commode Transfer (FIM): 3 (Mod assist bed to BSC beside bed) Toilet Transfer (QC): 3 Shower Transfer(FIM): 0 (Not addressed due to wound vac) Education OT Patient Education: Exercise program, Modified ADL techniques, Progress toward Goal/Update tx plan, Purpose of tx/functional activities, Safety issues, Transfer techniques, Use of adapted equipment Teaching Recipient: Patient, Family Teaching Methods: Demonstration, Discussion Response to Teaching: Verbalize Understanding, Return Demonstration, Reinforcement Needed OT Short Term Goals Short Term Goals Time Frame: Oct 21, 2018 Eating(FIM): 5 Grooming(FIM): 5 Bathing(FIM): 3 Upper Body Dressing(FIM): 4 Lower Body Dressing(FIM): 3 Toileting(FIM): 3 Toilet/Commode Transfer(FIM): 4 Additional Short Term Goals: 1-Demonstrate ADL Tasks, 2-Verbalize Understanding , 3-ImproveStrength/Cris 1=Demonstrate adherence to instructed precautions during ADL tasks. 2=Patient will verbalize/demonstrate understanding of assistive devices/ modifications for ADL. 3=Patient will improve strength/tolerance for activity to enable patient to perform ADL's. OT Special Education Teachers Goals Care Home Goals Time Frame: Nov 04, 2018 Eating (FIM): 7 Eating (QC): 6 Groomin Oral Hygiene (QC): 6 Bathing(FIM): 6 Shower/Bathe Self (QC): 6 Upper Body Dressing(FIM): 6 Upper Body Dressing (QC): 6 Lower Body Dressing(FIM): 6 Lower Body Dressing (QC): 6 On/Off Footwear (QC): 6 Toileting(FIM): 6 Toileting Hygiene (QC): 6 Toilet/Commode Transfer(FIM): 6 Toilet/Commode Transfer (QC): 6 Shower Transfer(FIM): 5 (if allowed per wound vac) Additional Goals: 1-Demonstrate ADL Tasks, 2-Verbalize Understanding, 3- ImproveStrength/Cris 1=Demonstrate adherence to instructed precautions during ADL tasks. 2=Patient will verbalize/demonstrate understanding of assistive devices/ modifications for ADL. 3=Patient will improve strength/tolerance for activity to enable patient to perform ADL's. OT Education/Plan Problem List/Assessment Pt would benefit from skilled OT to increase his independence in basic self care to allow him to safely return home after back surgery Discharge Recommendations Plan/Recommendations: Continue POC Treatment Plan/Plan of Care Patient would benefit from OT for education, treatment and training to promote independence in ADL's, mobility, safety and/or upper extremity function for ADL' s. Plan of Care: ADL Retraining, Functional Mobility, Group Exercise/Act as Ind ( education, exercise, activity tolerance, functional activities, socialization), UE Funct Exercise/Act, UE Neuromus Re-Ed/Coord, W/C Management Training Treatment Duration: Nov 04, 2018 Frequency: Modified Program (IRF) Estimated Hrs Per Day: 1.5 hours per day (1.25 to 1.5) Agreement: Yes Rehab Potential: Fair Time/GCodes Start Time: 08:40 Stop Time: 09:30 Total Time Billed (hr/min): 50 Billed Treatment Time visit, 45 minutes ADL, 5 minutes exercise Co-tx with PT CRISTIAN MERIDA OT Oct 15, 2018 10:05
[2018-10-15] MEDS ORDERED: ENOXAPARIN 40 MG/0.4 ML (LOVENOX) SYR SQ SCH (10:45)
--- NOTE | 2018-10-15 11:53 | Cardiology Progress Note ---
Cardiology SOAP Progress Note Subjective: No cardiac complaints. Objective: I&O/Vital Signs 10/15/18 10/15/18 06:00 09:38 Temp 98.1 Pulse 71 82 Resp 18 B/P (MAP) 160/73 (102) 153/76 (101) Pulse Ox 93 O2 Delivery Room Air 10/15/18 00:00 Intake Total 450 ml Output Total 225 ml Balance 225 ml Weight (Pounds): 193 Weight (Ounces): 8.0 Weight (Calculated Kilograms): 87.473595 Constitutional: No appears stated age; AAO x 3; No apparent distress, No PERRL , No well-developed, No well-nourished, No other Respiratory: No accessory muscle use, No respiratory distress, No chest tender , No chest expansion is symmetric; chest is bilaterally symmetric; No lungs clear to percussion; lungs clear to auscultation; No crackles, No rhonchi, No rales, No stridor, No wheezing, No pleural rub, No other Cardiovascular: regular rate-rhythm; No irregularly irregular, No extra beats, No parasternal heave is noted, No JVD, No edema, No bradycardia, No tachycardia , No point of maximal impulse, No cardiac thrills are palpable; S1 and S2; No gallop/S3, No gallop/S4, No diastolic murmur, No systolic murmur, No friction rub, No click, No other Gastrointestional: No tender, No soft, No round, No distended, No pulsatile mass, No organomegaly, No guarding, No rebound, No tenderness, No hernia, No mass, No audible bowel sounds, No abnormal bowel sounds, No abdominal bruits, No spleenomegaly, No other Extremities: No normal range of motion, No non-tender, No normal inspection, No pedal edema, No calf tenderness, No normal capillary refill, No pelvis stable , No calf tenderness, No inflammation, No pedal edema, No slow capillary refill , No swelling, No other, No abrasion, No clubbing, No cyanosis, No ecchymosis, No laceration, No no lower extremity edema bilateral, No significant edema, No tenderness, No wound Neurologic/Psychiatric: no motor/sensory deficits, alert, normal mood/affect, oriented x 3 Skin: No normal color, No warm/dry, No cyanosis, No cool, No diaphoresis, No damp, No ecchymosis, No jaundice, No mottled, No pallor, No rash, No tattoos/ piercings, No ulcerations, No rash on exposed areas, No ulcerations on exposed areas, No other Results/Procedures: Labs Laboratory Tests 10/14/18 18:42: Vancomycin Level Trough 20.6H 10/15/18 06:22: Glucometer 119H 10/15/18 11:20: Glucometer 125H A/P: Assessment/Dx: Assessment/Dx: Spinal abscess, Sepsis, UTI, History of CAD, CABG, Atrial fibrillation on amiodarone. LVH, Diastolic dysfunction. Plan: Spinal abscessstatus post I&D. Sepsiscontinue broad-spectrum IV antibiotics as per Dr. Harrison. C. difficile, on contact precautions. Paroxysmal atrial fibrillationcurrently in sinus rhythm. Continue amiodarone. I might consider discontinuing amiodarone but since the patient follows Dr. Soliman in [place] I may defer that decision to him. CAD/history of CABGcontinue lisinopril and statin therapy. Aspirin low dose once okay with Dr. Harrison and Dr. Mc. Will add low dose beta carlie for atrial fibrillation and CAD. LVH, Diastolic dysfunction, Echocardiogram showed normal LV function. Patient follows with Dr. Soliman in [place]. Thank you for your consultation. Please call me if you have any questions. Chato Moyer MD, FACP, FACC, FSCAI, FHRS, CCDS Interventional Cardiology Cardiac Electrophysiology Vascular Medicine and Endovascular Interventions Kiarra MOYER MD Oct 15, 2018 11:53 am
--- NOTE | 2018-10-15 13:05 | Progress Note-Hospitalist ---
Subjective HPI/CC On Admission Date Seen by Provider: Oct 15, 2018 Time Seen by Provider: 12:00 Subjective/Events-last exam Patient doing well Lovenox was approved by Dr. Mc since so far out from the spinal surgery No diarrhea and actually constipated so will discontinue Questran and start on gentle dose of MiraLAX and low-dose senna Pain is well-controlled but taking pain medication regularly He reports fatigue and that is likely due to recent critical illness in addition to regular use of narcotics so I counseled him to use the minimal amount Review of Systems General: Fatigue Gastrointestinal: Constipation Musculoskeletal: back pain Objective Exam Vital Signs Vital Signs Date Time Temp Pulse Resp B/P (MAP) Pulse Ox O2 Delivery O2 Flow Rate FiO2 10/15/18 09:38 82 153/76 (101) 10/15/18 06:00 98.1 18 93 Room Air Capillary Refill : General Appearance: No Apparent Distress, WD/WN, Chronically ill Respiratory: Chest Non Tender, Lungs Clear, Normal Breath Sounds, No Accessory Muscle Use, No Respiratory Distress Cardiovascular: Regular Rate, Rhythm, No Edema, No Gallop, No JVD, No Murmur, Normal Peripheral Pulses Neurologic/Psychiatric: Alert, Oriented x3, No Motor/Sensory Deficits, Normal Mood/Affect Results/Procedures Lab Patient resulted labs reviewed. Assessment/Plan Assessment and Plan Assess & Plan/Chief Complaint Assessment: Debility following spinal abscess status post 2 I&D's uncomplicated per Dr Mc C. difficile colitis now appears to be resolved but maintain on face and DC Questran and start MiraLAX Severe anemia due to acute blood loss status post 4 units of blood while on MedSurg and ICU CAD DM CRI Plan: Limit pain meds Miralax and senna Hold Questran Vanc PO Diagnosis/Problems Diagnosis/Problems (1) Intraspinal abscess and granuloma Status: Resolved Resolution Date/Time: 10/15/18 @ 14:02 (2) C. difficile colitis Status: Acute (3) Renal insufficiency Status: Resolved Resolution Date/Time: 10/10/18 @ 09:41 (4) Leukocytosis Status: Resolved Resolution Date/Time: 10/15/18 @ 14:02 (5) Transfusion of blood during current hospitalization Status: Resolved Resolution Date/Time: 10/15/18 @ 14:02 (6) Advanced age Status: Chronic (7) CAD (coronary artery disease) Status: Chronic Qualifiers: Coronary Disease-Associated Artery/Lesion type: [place] artery [place] vs. transplanted heart: [place] heart Associated angina: without angina Qualified Codes: I25.10 - Atherosclerotic heart disease of [place] coronary artery without angina pectoris (8) Atrial fibrillation Status: Chronic Qualifiers: Atrial fibrillation type: paroxysmal Qualified Codes: I48.0 - Paroxysmal atrial fibrillation (9) Hx of CABG Status: Chronic Clinical Quality Measures DVT/VTE Risk/Contraindication: RFS Level Per Nursing on Admit: 4+=Very High MARQUEZ DELATORRE DO Oct 15, 2018 13:05
[2018-10-15] MEDS: POLYETHYLENE GLYCOL 17 GM (MIRALAX) PACK PO SCH ×2 (14:41→20:23)
[2018-10-15] MEDS: SENNA W/DOCUSATE (SENOKOT S) TABLET PO SCH ×2 (14:41→20:23)
[2018-10-15 18:00] VITALS: BP 134/74
[2018-10-15] MEDS: VANCOMYCIN INJECTION 1,000 MG in NS (IVPB) 250 ML IV SCH (20:08)
[2018-10-16 05:30] VITALS: BP 155/75
[2018-10-16] MEDS: VANCOMYCIN ORAL 250 MG/5 ML 120 ML PO SCH ×6 (06:00→18:39)
[2018-10-16] MEDS: inSUlin ASPART (NovoLOG) 1 UNIT/0.01 ML (CHARGE PER UNIT) SC SCH ×4 (06:00→20:24)
[2018-10-16] MEDS: ACETAMINOPHEN 325 MG TABLET PO SCH ×3 (06:10→18:38)
[2018-10-16] MEDS: LACTOBACILLUS Acidoph/Bulgar 1 GM (LACTINEX) PACKET PO SCH ×4 (06:10→20:25)
[2018-10-16] MEDS: PIOGLITAZONE 30MG (ACTOS) TAB PO SCH (06:58)
[2018-10-16] MEDS: metFORMIN 500 MG (GLUCOPHAGE) TAB PO SCH ×2 (06:58→17:04)
[2018-10-16] MEDS: ALLOPURINOL 300 MG (ZYLOPRIM) TAB PO SCH (09:19)
[2018-10-16] MEDS: AMIODARONE 200 MG (CORDARONE) TAB PO SCH (09:19)
[2018-10-16] MEDS: OXYBUTYNIN (DITROPAN) 5 MG TAB PO SCH (09:19)
[2018-10-16] MEDS: lisINopril 20 MG (PRINIVIL) TABLET PO SCH (09:19)
[2018-10-16] MEDS: meTOprolol TARTRATE 25 MG (LOPRESSOR) TABLET PO SCH ×2 (09:19→20:25)
[2018-10-16] MEDS: amLODIPine 5 MG (NORVASC) TAB PO SCH (09:19)
[2018-10-16] MEDS: ATORVASTATIN 10 MG (LIPITOR) TABLET PO SCH (09:20)
[2018-10-16] MEDS: SENNA W/DOCUSATE (SENOKOT S) TABLET PO SCH ×2 (09:21→20:25)
[2018-10-16] MEDS: POLYETHYLENE GLYCOL 17 GM (MIRALAX) PACK PO SCH ×2 (09:22→20:32)
--- NOTE | 2018-10-16 12:25 | Progress Note-Hospitalist ---
Subjective HPI/CC On Admission Date Seen by Provider: Oct 16, 2018 Time Seen by Provider: 12:15 Subjective/Events-last exam Urinary retention noted Urecholine and Pyridium and Flomax will be started and leo cath will be placed if retention continues He did have a leo in the ICU Diarrhea resolved then constipation but now the bowels are moving today with Miralax C diff colitis treatment tolerated well Pain is controlled Constantly wants to go home. Checked meds and labs Review of Systems Gastrointestinal: Constipation Genitourinary: Retention Objective Exam Vital Signs Vital Signs Date Time Temp Pulse Resp B/P (MAP) Pulse Ox O2 Delivery O2 Flow Rate FiO2 10/16/18 09:00 Room Air 10/16/18 05:30 97.8 74 20 155/75 (101) 94 Capillary Refill : General Appearance: No Apparent Distress, WD/WN Respiratory: Chest Non Tender, Lungs Clear, Normal Breath Sounds, No Accessory Muscle Use, No Respiratory Distress Cardiovascular: Regular Rate, Rhythm, No Edema, No Gallop, No JVD, No Murmur, Normal Peripheral Pulses Gastrointestinal: Normal Bowel Sounds, No Organomegaly, No Pulsatile Mass, Non Tender, Soft Neurologic/Psychiatric: Alert, Oriented x3, No Motor/Sensory Deficits, Normal Mood/Affect Results/Procedures Lab Patient resulted labs reviewed. Assessment/Plan Assessment and Plan Assess & Plan/Chief Complaint Assessment: Debility following spinal abscess status post 2 I&D's uncomplicated per Dr Mc Urinary retention acute C. difficile colitis improved after constipation for 2 days now BM today after Miralx and DC Questran Severe anemia due to acute blood loss status post 4 units of blood while on MedSurg and ICU CAD DM CRI Plan: Leo cath prn Urecholine and Pyridium Limit pain meds Miralax and senna Hold Questran Vanc PO Diagnosis/Problems Diagnosis/Problems (1) Intraspinal abscess and granuloma Status: Resolved Resolution Date/Time: 10/15/18 @ 14:02 (2) C. difficile colitis Status: Acute (3) Renal insufficiency Status: Resolved Resolution Date/Time: 10/10/18 @ 09:41 (4) Leukocytosis Status: Resolved Resolution Date/Time: 10/15/18 @ 14:02 (5) Transfusion of blood during current hospitalization Status: Resolved Resolution Date/Time: 10/15/18 @ 14:02 (6) Advanced age Status: Chronic (7) CAD (coronary artery disease) Status: Chronic Qualifiers: Coronary Disease-Associated Artery/Lesion type: [place] artery [place] vs. transplanted heart: [place] heart Associated angina: without angina Qualified Codes: I25.10 - Atherosclerotic heart disease of [place] coronary artery without angina pectoris (8) Atrial fibrillation Status: Chronic Qualifiers: Atrial fibrillation type: paroxysmal Qualified Codes: I48.0 - Paroxysmal atrial fibrillation (9) Hx of CABG Status: Chronic (10) Urinary retention Status: Acute Clinical Quality Measures DVT/VTE Risk/Contraindication: RFS Level Per Nursing on Admit: 4+=Very High MARQUEZ DELATORRE DO Oct 16, 2018 12:25
[2018-10-16] MEDS ORDERED: PHENAZOPYRIDINE 100 MG (PYRIDIUM) TABLET PO ONE (12:30)
[2018-10-16] MEDS: PHENAZOPYRIDINE 100 MG (PYRIDIUM) TABLET PO SCH ×2 (12:56→18:38)
[2018-10-16] MEDS: BETHANECHOL 10 MG (URECHOLINE) TAB PO SCH ×3 (12:56→20:25)
--- NOTE | 2018-10-16 13:17 | Cardiology Progress Note ---
Cardiology SOAP Progress Note Subjective: No cardiac complaints. Objective: I&O/Vital Signs 10/16/18 09:00 O2 Delivery Room Air 10/16/18 00:00 Intake Total 1030 ml Output Total 325 ml Balance 705 ml Weight (Pounds): 193 Weight (Ounces): 8.0 Weight (Calculated Kilograms): [id number] Constitutional: No appears stated age; AAO x 3; No apparent distress, No PERRL , No well-developed, No well-nourished, No other Respiratory: No accessory muscle use, No respiratory distress, No chest tender , No chest expansion is symmetric; chest is bilaterally symmetric; No lungs clear to percussion; lungs clear to auscultation; No crackles, No rhonchi, No rales, No stridor, No wheezing, No pleural rub, No other Cardiovascular: regular rate-rhythm; No irregularly irregular, No extra beats, No parasternal heave is noted, No JVD, No edema, No bradycardia, No tachycardia , No point of maximal impulse, No cardiac thrills are palpable; S1 and S2; No gallop/S3, No gallop/S4, No diastolic murmur, No systolic murmur, No friction rub, No click, No other Gastrointestional: No tender, No soft, No round, No distended, No pulsatile mass, No organomegaly, No guarding, No rebound, No tenderness, No hernia, No mass, No audible bowel sounds, No abnormal bowel sounds, No abdominal bruits, No spleenomegaly, No other Extremities: No normal range of motion, No non-tender, No normal inspection, No pedal edema, No calf tenderness, No normal capillary refill, No pelvis stable , No calf tenderness, No inflammation, No pedal edema, No slow capillary refill , No swelling, No other, No abrasion, No clubbing, No cyanosis, No ecchymosis, No laceration, No no lower extremity edema bilateral, No significant edema, No tenderness, No wound Neurologic/Psychiatric: no motor/sensory deficits, alert, normal mood/affect, oriented x 3 Skin: No normal color, No warm/dry, No cyanosis, No cool, No diaphoresis, No damp, No ecchymosis, No jaundice, No mottled, No pallor, No rash, No tattoos/ piercings, No ulcerations, No rash on exposed areas, No ulcerations on exposed areas, No other Results/Procedures: Labs Laboratory Tests 10/16/18 06:09: Glucometer 87 10/16/18 11:31: Glucometer 148H 10/16/18 16:19: Glucometer 159H A/P: Assessment/Dx: Assessment/Dx: Spinal abscess, Sepsis, UTI, History of CAD, CABG, Atrial fibrillation on amiodarone. LVH, Diastolic dysfunction. Plan: Spinal abscessstatus post I&D. Sepsiscontinue broad-spectrum IV antibiotics as per Dr. Harrison. C. difficile, on contact precautions. Paroxysmal atrial fibrillationcurrently in sinus rhythm. Continue amiodarone. I might consider discontinuing amiodarone but since the patient follows Dr. Soliman in [place] I may defer that decision to him. CAD/history of CABGcontinue lisinopril and statin therapy. Aspirin low dose once okay with Dr. Harrison and Dr. Mc. Will add low dose beta carlie for atrial fibrillation and CAD. LVH, Diastolic dysfunction, Echocardiogram showed normal LV function. Patient follows with Dr. Soliman in [place]. Thank you for your consultation. Please call me if you have any questions. Chato Moyer MD, FACP, FACC, FSCAI, FHRS, CCDS Interventional Cardiology Cardiac Electrophysiology Vascular Medicine and Endovascular Interventions Kiarra MOYER MD Oct 16, 2018 1:17 pm
[2018-10-16 18:00] VITALS: BP 168/71
[2018-10-16] MEDS: TAMSULOSIN 0.4 MG (FLOMAX) CAP PO SCH (18:38)
[2018-10-16] MEDS: VANCOMYCIN INJECTION 1,000 MG in NS (IVPB) 250 ML IV SCH (20:26)
[2018-10-17] MEDS: VANCOMYCIN ORAL 250 MG/5 ML 120 ML PO SCH ×8 (00:28→17:49)
[2018-10-17] MEDS: ACETAMINOPHEN 325 MG TABLET PO SCH ×4 (00:28→17:47)
[2018-10-17 05:23] VITALS: BP 124/71
[2018-10-17] MEDS: inSUlin ASPART (NovoLOG) 1 UNIT/0.01 ML (CHARGE PER UNIT) SC SCH ×4 (06:43→20:37)
[2018-10-17] MEDS: LACTOBACILLUS Acidoph/Bulgar 1 GM (LACTINEX) PACKET PO SCH ×4 (06:43→20:37)
[2018-10-17] MEDS: BETHANECHOL 10 MG (URECHOLINE) TAB PO SCH ×4 (06:43→20:37)
[2018-10-17] MEDS: PIOGLITAZONE 30MG (ACTOS) TAB PO SCH (06:43)
[2018-10-17] MEDS: metFORMIN 500 MG (GLUCOPHAGE) TAB PO SCH ×2 (06:43→17:47)
[2018-10-17 07:03] LABS: BASOPHILS % (AUTO) 0 % (0-10); EOSINOPHILS # (AUTO) 0.2 10^3/uL (0.0-0.3); EOSINOPHILS % (AUTO) 1 % (0-10); HEMATOCRIT 28 % (40-54); HEMOGLOBIN 9.5 G/DL (13.3-17.7); LYMPHOCYTES % (AUTO) 15 % (12-44); MEAN CORPUSCULAR HEMOGLOBIN 30 PG (25-34); MEAN CORPUSCULAR HGB CONC 34 G/DL (32-36); MEAN CORPUSCULAR VOLUME 89 FL (80-99); MEAN PLATELET VOLUME 9.7 FL (7.4-10.4); MONOCYTES # (AUTO) 1.5 X 10^3 (0.0-1.0); MONOCYTES % (AUTO) 11 % (0-12); NEUTROPHILS # (AUTO) 9.7 X 10^3 (1.8-7.8); NEUTROPHILS % (AUTO) 73 % (42-75); PLATELET COUNT 447 10^3/uL (130-400); RED BLOOD COUNT 3.17 10^6/uL (4.35-5.85); WHITE BLOOD COUNT 13.3 10^3/uL (4.3-11.0)
[2018-10-17 07:30] LABS: ALANINE AMINOTRANSFERASE 45 U/L (0-55); ALBUMIN 2.4 GM/DL (3.2-4.5); ALKALINE PHOSPHATASE 189 U/L (40-136); BILIRUBIN,TOTAL 0.4 MG/DL (0.1-1.0); BUN/CREATININE RATIO 13; CALCIUM 8.9 MG/DL (8.5-10.1); CARBON DIOXIDE 20 MMOL/L (21-32); CHLORIDE 106 MMOL/L (98-107); CREATININE SERUM 0.85 MG/DL (0.60-1.30); GFR ESTIMATED > 60; GLUCOSE 135 MG/DL (70-105); SODIUM 135 MMOL/L (135-145); TOTAL PROTEIN 4.7 GM/DL (6.4-8.2)
[2018-10-17] MEDS: ALLOPURINOL 300 MG (ZYLOPRIM) TAB PO SCH (08:12)
[2018-10-17] MEDS: PHENAZOPYRIDINE 100 MG (PYRIDIUM) TABLET PO SCH ×3 (08:12→17:47)
[2018-10-17] MEDS: AMIODARONE 200 MG (CORDARONE) TAB PO SCH (08:13)
[2018-10-17] MEDS: ATORVASTATIN 10 MG (LIPITOR) TABLET PO SCH (08:13)
[2018-10-17] MEDS: meTOprolol TARTRATE 25 MG (LOPRESSOR) TABLET PO SCH ×2 (08:13→20:37)
[2018-10-17] MEDS: lisINopril 20 MG (PRINIVIL) TABLET PO SCH (08:13)
[2018-10-17] MEDS: amLODIPine 5 MG (NORVASC) TAB PO SCH (08:13)
[2018-10-17] MEDS: POLYETHYLENE GLYCOL 17 GM (MIRALAX) PACK PO SCH ×2 (08:16→20:29)
[2018-10-17] MEDS: SENNA W/DOCUSATE (SENOKOT S) TABLET PO SCH ×2 (08:16→20:29)
--- NOTE | 2018-10-17 09:05 | Occupational Ther Daily Note ---
OT Current Status-Daily Note Subjective Pt alert, sitting in recliner. Pt agrees to therapy. Pt c/o pain 8/10, reported to nrsg. Mental Status/Objective Functional [place] Measure 0=Not Assessed/NA 4=Minimal Assistance 1=Total Assistance 5=Supervision or Setup 2=Maximal Assistance 6=Modified [place] 3=Moderate Assistance 7=Complete [place] Attachments: Hunt Catheter, IV ADL-Treatment Co-treat with PT for skilled techniques/care due to increased pain, significant fatigue and decreased activity tolerance. PT worked on transfers and ambulation. OT worked on UE strengthening, lower body dressing and handwashing. Pt required multiple recovery breaks throughout each task. Max A with lower body dressing. Pt attempted to hike pants over hips though could not complete on own. Assist to don over feet and pull up thighs. Pt stood at sink, leaning on counter, to wash hands required assist to get soap. Pt c/o inability to stand for long due to back pain. Pt instructed to use UE/LE to propel w/c to and from therapy gym. Functional [place] Measure 0=Not Assessed/NA 4=Minimal Assistance 1=Total Assistance 5=Supervision or Setup 2=Maximal Assistance 6=Modified [place] 3=Moderate Assistance 7=Complete IndependenceIRFPAI Quality Coding Scale 6 Independent with activity with or without an assistive device 5 Patient requires set up or clean up by helper. Patient completes activity by themselves 4 Supervision or touching assist (CGA). [place] provide cues , steadying assist 3 The helper provides less than half the effort to complete the activity 2 The helper provides more than half the effort to complete the activity 1 Dependent. The helper does all the effort to complete an activity 7 Patient refused to complete or attempt activity 9 The patient did not perform the activity before the current illness or injury 88 Not attempted due to Medical conditions or safety concerns Lower Body Dressing (FIM): 2 Lower Body Dressing (QC): 2 Other Treatment Pt required multiple recovery breaks when propelling w/c to and from gym, c/o fatigue and back/groin pain. UE strengthening with ambulation while using parallel bars and attempted to complete UE exercises. Pt became nauseated and vomited, reported to nrsg. Attempted to have pt ambulate a few feet to bed, pt unable to push to feet. PT completed SPT to bed then pt able to lay down in bed from EOB. After therapy, in room, pt lying in bed with call light/ phone in reach. All needs met in room. OT Short Term Goals Short Term Goals Time Frame: Oct 21, 2018 Eating(FIM): 5 Grooming(FIM): 5 Bathing(FIM): 3 Upper Body Dressing(FIM): 4 Lower Body Dressing(FIM): 3 Toileting(FIM): 3 Toilet/Commode Transfer(FIM): 4 Additional Short Term Goals: 1-Demonstrate ADL Tasks, 2-Verbalize Understanding , 3-ImproveStrength/Cris 1=Demonstrate adherence to instructed precautions during ADL tasks. 2=Patient will verbalize/demonstrate understanding of assistive devices/ modifications for ADL. 3=Patient will improve strength/tolerance for activity to enable patient to perform ADL's. OT Senior Living Goals Trauma Coordinator Goals Time Frame: Nov 04, 2018 Eating (FIM): 7 Eating (QC): 6 Groomin Oral Hygiene (QC): 6 Bathing(FIM): 6 Shower/Bathe Self (QC): 6 Upper Body Dressing(FIM): 6 Upper Body Dressing (QC): 6 Lower Body Dressing(FIM): 6 Lower Body Dressing (QC): 6 On/Off Footwear (QC): 6 Toileting(FIM): 6 Toileting Hygiene (QC): 6 Toilet/Commode Transfer(FIM): 6 Toilet/Commode Transfer (QC): 6 Shower Transfer(FIM): 5 (if allowed per wound vac) Additional Goals: 1-Demonstrate ADL Tasks, 2-Verbalize Understanding, 3- ImproveStrength/Cris 1=Demonstrate adherence to instructed precautions during ADL tasks. 2=Patient will verbalize/demonstrate understanding of assistive devices/ modifications for ADL. 3=Patient will improve strength/tolerance for activity to enable patient to perform ADL's. OT Education/Plan Problem List/Assessment Pt would benefit from skilled OT to increase his independence in basic self care to allow him to safely return home after back surgery Discharge Recommendations Plan/Recommendations: Continue POC Treatment Plan/Plan of Care Patient would benefit from OT for education, treatment and training to promote independence in ADL's, mobility, safety and/or upper extremity function for ADL' s. Plan of Care: ADL Retraining, Functional Mobility, Group Exercise/Act as Ind ( education, exercise, activity tolerance, functional activities, socialization), UE Funct Exercise/Act, UE Neuromus Re-Ed/Coord, W/C Management Training Treatment Duration: Nov 04, 2018 Frequency: Modified Program (IRF) Estimated Hrs Per Day: 1.5 hours per day (1.25 to 1.5) Agreement: Yes Rehab Potential: Fair Time/GCodes Start Time: 08:10 Stop Time: 09:00 Total Time Billed (hr/min): 50 Billed Treatment Time 1 visit-ADL 1 (15 min) FA 2 (35 min) EKTA DONATO Oct 17, 2018 09:05
--- NOTE | 2018-10-17 09:46 | Progress Note-Hospitalist ---
MARQUEZ DELATORRE 10/17/18 0946: Subjective HPI/CC On Admission Date Seen by Provider: Oct 17, 2018 Time Seen by Provider: 09:30 Subjective/Events-last exam Patient participating with therapies Still wants to go home TERI at bedside Wound vac in place Pain is controlled Urinary retention required leo catheter placement and I have consulted and conferred with Dr Cortes who will see the patient Review of Systems Genitourinary: Retention Objective Exam Vital Signs Vital Signs Date Time Temp Pulse Resp B/P (MAP) Pulse Ox O2 Delivery O2 Flow Rate FiO2 10/17/18 05:23 98.7 72 18 124/71 (88) 96 Room Air Capillary Refill : General Appearance: No Apparent Distress, WD/WN, Chronically ill Respiratory: Chest Non Tender, Lungs Clear, Normal Breath Sounds, No Accessory Muscle Use, No Respiratory Distress Cardiovascular: Regular Rate, Rhythm, No Edema, No Gallop, No JVD, No Murmur, Normal Peripheral Pulses Neurologic/Psychiatric: Alert, Oriented x3, No Motor/Sensory Deficits, Normal Mood/Affect Results/Procedures Lab Laboratory Tests 10/17/18 06:45 Patient resulted labs reviewed. Assessment/Plan Assessment and Plan Assess & Plan/Chief Complaint Assessment: Debility following spinal abscess status post 2 I&D's uncomplicated per Dr Mc Urinary retention acute C. difficile colitis improved after constipation for 2 days now BM today after Miralx and DC Questran Severe anemia due to acute blood loss status post 4 units of blood while on MedSurg and ICU CAD DM CRI Plan: Leo cath and consult Dr Cortes Urecholine and Pyridium to be maintained Limit pain meds Miralax and senna Hold Questran Vanc PO Diagnosis/Problems Diagnosis/Problems (1) Intraspinal abscess and granuloma Status: Resolved Resolution Date/Time: 10/15/18 @ 14:02 (2) C. difficile colitis Status: Acute (3) Renal insufficiency Status: Resolved Resolution Date/Time: 10/10/18 @ 09:41 (4) Leukocytosis Status: Resolved Resolution Date/Time: 10/15/18 @ 14:02 (5) Transfusion of blood during current hospitalization Status: Resolved Resolution Date/Time: 10/15/18 @ 14:02 (6) Advanced age Status: Chronic (7) CAD (coronary artery disease) Status: Chronic Qualifiers: Coronary Disease-Associated Artery/Lesion type: [place] artery [place] vs. transplanted heart: [place] heart Associated angina: without angina Qualified Codes: I25.10 - Atherosclerotic heart disease of [place] coronary artery without angina pectoris (8) Atrial fibrillation Status: Chronic Qualifiers: Atrial fibrillation type: paroxysmal Qualified Codes: I48.0 - Paroxysmal atrial fibrillation (9) Hx of CABG Status: Chronic (10) Urinary retention Status: Acute Clinical Quality Measures DVT/VTE Risk/Contraindication: RFS Level Per Nursing on Admit: 4+=Very High ANTHONY GIRON MED STUDENT 10/17/18 1038: Subjective Subjective/Events-last exam Patient states that he feels very well He states that the diarrhea is mostly resolved He feels that he is getting stronger He complains of no pain Objective Exam General Appearance: No Apparent Distress, WD/WN Respiratory: Chest Non Tender, Lungs Clear, Normal Breath Sounds, No Accessory Muscle Use, No Respiratory Distress Cardiovascular: Regular Rate, Rhythm, No Edema, No Gallop, No JVD, No Murmur Neurologic/Psychiatric: Alert, Oriented x3, No Motor/Sensory Deficits, Normal Mood/Affect Skin: Normal Color, Warm/Dry Assessment/Plan Assessment and Plan Assess & Plan/Chief Complaint Assessment: 1) C. diff colitis 2) Weakness due to prolonged illness Plan: 1) Continue oral abx therapy 2) Continue inpatient physical rehabilitation MARQUEZ DELATORRE DO Oct 17, 2018 09:46 ANTHONY GIRON MED STUDENT Oct 17, 2018 10:38
--- NOTE | 2018-10-17 10:00 | Speech Therapy Daily Note ---
Speech Daily Progress Note Subjective Date Seen by Provider: Oct 17, 2018 Time Seen by Provider: 00:30 Patient awake and alert. He had just finished his PT and was tired. Objective Patient completed beginning level memory tasks with 80% accuracy given min to mod verbal cuing. Assessment Assessment Current Status: Fair Progress Treatment Plan Continue Plan of Care Communication Comprehension: 4 Expression: 4 Social Cognition Social Interaction: 4 Problem Solvin Memory: 3 Speech Short Term Goals Short Term Goals Short Term Goals 1) Patient will complete memory tasks with 90% accuracy given minimal cuing. 2) Patient will complete problem solving tasks with 90% accuracy given minimal cuing. Time Frame-ST week Speech Therapist Occupational Goals Correction Goals Patient will improve memory and problem solving tasks with minimal cues for increased safety and independence at 90% accuracy. Speech-Plan Patient/Family Goals Patient/Family Goals: Patient plans to return home as soon as he can with his . Treatment Plan Speech Therapy Treatment Plan: Continue Plan of Care Patient beginning therapy for memory and problem solving. Frequency: Modified Program (IRF) Estimated Hrs Per Day: .5 hour per day Rehab Potential: Fair Pt/Family Agrees to Plan: Yes Safety Risks/Education Teaching Recipient: Patient, Significant Other Teaching Methods: Discussion Response to Teaching: Verbalize Understanding Education Topics Provided: Following procedures for safety and precautions. Time Speech Therapy Time In: 09:15 Speech Therapy Time Out: 09:45 Total Billed Time: 30 Billed Treatment Time 1[address] Oct 17, 2018 10:00
--- NOTE | 2018-10-17 10:33 | Physical Therapy Daily Note ---
PT Daily Note-Current Subjective Patient on bedside commode pre tx, agrees to PT, will be co-treating with OT for most of treatment. Patient has 8/10 pain in back. Patient needs brief put on which will require patient to perform sit to stand several times. Appearance Patient in bed post tx with nurse call, phone, tray, family in the room. Mental Status Patient Orientation: Person, Place, Situation wound vac Transfers Functional [place] Measure 0=Not Assessed/NA 4=Minimal Assistance 1=Total Assistance 5=Supervision or Setup 2=Maximal Assistance 6=Modified [place] 3=Moderate Assistance 7=Complete IndependenceIRFPAI Quality Coding Scale 6 Independent with activity with or without an assistive device 5 Patient requires set up or clean up by helper. Patient completes activity by themselves 4 Supervision or touching assist (CGA). [place] provide cues , steadying assist 3 The helper provides less than half the effort to complete the activity 2 The helper provides more than half the effort to complete the activity 1 Dependent. The helper does all the effort to complete an activity 7 Patient refused to complete or attempt activity 9 The patient did not perform the activity before the current illness or injury 88 Not attempted due to Medical conditions or safety concerns Transfers (B, C, W/C) (FIM): 3 Scootin Rollin Supine to/from Sit: 3 Sit to/from Stand: 4 Bed to/from Chair: 4 mod assist to get both legs into bed, min assist for sit to stand and transfers , needs cues for hand placement and safety. Gait Training Gait (FIM): 1 Distance: 16'x4 Gait Level of Assist: 4 Gait Persons Needed: 1 Gait Assistive Device: Parallel Bars Patient ambulated in the parallel bars with min assist, very antalgic. Wheelchair Training Does the Pt Use a Wheelchair?: Yes Wheelchair (FIM): 2 Distance: 100'x2 Wheelchair Level of Assist: 4 Type of Wheelchair: Manual Treatments bed mobility and transfers, ambulation, wheelchair mobility, dressing, cleaning up on commode Assessment Current Status: Poor Progress Patient is declining with ambulation since being upstairs. He has constant intense pain and often has to stop therapy due to it. Patient got nauseated and threw up a little at the end of treatment. Patient has little awareness of his surroundings and needs cues for obstacles and safety and will get tangled in lines easily. He needs constant cues for hand placement during transfers and will often sit before being completely in position. PT Short Term Goals Short Term Goals Time Frame: Oct 21, 2018 Gait (FIM): 2 Gait Distance Comment: 50' Gait Level of Assist: 4 Gait Assistive Device: FWW PT Security Police Goals Fpc Goals PT Fpc Goals Time Frame: Nov 04, 2018 Transfers (B,C,W/C) (FIM): 5 Sit to Lying (QC): 4 Lying-Sitting on Side/Bed(QC): 4 Sit to Stand (QC): 4 Rollin Roll Left to Right (QC): 4 Chair/Qfg-ys-Pgtnt Xfer(QC): 4 Car Transfer (QC): 4 Gait (FIM): 5 Distance: 150' Walk 10 feet (QC): 4 Walk 10ft-Uneven Surface(QC): 4 Walk 50ft with 2 Turns (QC): 4 Walk 150 ft (QC): 4 Gait Level of Assist: 5 Gait Assistive Device: FWW Stairs (FIM): 2 # of Steps: 4 1 Step (curb) (QC): 4 4 Steps (QC): 4 Stairs Level Of Assist: 4 PT Plan Problem List Problem List: Activity Tolerance, Functional Strength, Safety, Balance, Gait, Transfer, Bed Mobility, ROM Treatment/Plan Treatment Plan: Continue Plan of Care Treatment Plan: Bed Mobility, Concurrent Therapy, Education, Functional Activity Cris, Functional Strength, Group Therapy, Gait, Safety, Therapeutic Exercise, Transfers Treatment Duration: Nov 04, 2018 Frequency: Modified Program (IRF) Estimated Hrs Per Day: 1.5 hours per day Patient and/or Family Agrees t: Yes Safety Risks/Education Patient Education: Gait Training, Transfer Techniques, Correct Positioning, W/ C Management, Safety Issues Teaching Recipient: Patient Teaching Methods: Demonstration, Discussion Response to Teaching: Reinforcement Needed Time/GCodes Time In: 0800 Time Out: 0900 Total Billed Treatment Time: 60 Total Billed Treatment 1 visit [facility] 15' GT 30' FA 15' Co-treated with OT for 50 min from [id number]. PT worked on transfers, bed mobility, ambulation, balance during dressing and cleaning. OT worked on dressing, cleaning, UE positioning during ambulation. DAGOBERTO AGUILAR PT Oct 17, 2018 10:33
--- NOTE | 2018-10-17 11:47 | Occupational Ther Daily Note ---
OT Current Status-Daily Note Subjective Pt seen in room, up in bed, agreeable to OT. Pain mentioned in groin and pt unsure if it's from his back or from his bladder. Pt stated that this is the best hospital he has been in. Appearance Alert, cooperative Mental Status/Objective Functional [place] Measure 0=Not Assessed/NA 4=Minimal Assistance 1=Total Assistance 5=Supervision or Setup 2=Maximal Assistance 6=Modified [place] 3=Moderate Assistance 7=Complete [place] ADL-Treatment Pt requested changing clothes. Supine to sit with mod assist to help lift trunk and sit to supine with mod assist to lift legs into bed. Pt rolled side to side without help, using bed rail, and also helped pull himself up in bed, although two people needed. Sat EOB to change shirt with setup, then needed to lie back down. Rolled side to side and helped pull pants down over hips. Unable to get pants off lower legs or pant on over feet. Pt rolled to help pull pants up over hips. Now has Hunt catheter and assistance needed to thread Hunt bag through pants leg. Functional [place] Measure 0=Not Assessed/NA 4=Minimal Assistance 1=Total Assistance 5=Supervision or Setup 2=Maximal Assistance 6=Modified [place] 3=Moderate Assistance 7=Complete IndependenceIRFPAI Quality Coding Scale 6 Independent with activity with or without an assistive device 5 Patient requires set up or clean up by helper. Patient completes activity by themselves 4 Supervision or touching assist (CGA). [place] provide cues , steadying assist 3 The helper provides less than half the effort to complete the activity 2 The helper provides more than half the effort to complete the activity 1 Dependent. The helper does all the effort to complete an activity 7 Patient refused to complete or attempt activity 9 The patient did not perform the activity before the current illness or injury 88 Not attempted due to Medical conditions or safety concerns Upper Body (FIM): 5 Lower Body Dressing (FIM): 2 Other Treatment Pt provided with yellow theraband and shown 4 different exercises, which he did 10 reps each. Pt also has red therabad which he used for LE exercise which has an UE component. Pt did 10 reps squeezes with foam block and shown intrinsic ex with block as well. Pt and education on edema management. Provided information on laundry to . Pt left up in bed, all needs met, 4 rails up. Education OT Patient Education: Exercise program, Instructions to caregiver, Modified ADL techniques, Progress toward Goal/Update tx plan, Purpose of tx/functional activities Teaching Recipient: Patient, Family Teaching Methods: Demonstration, Discussion Response to Teaching: Verbalize Understanding, Return Demonstration, Reinforcement Needed OT Short Term Goals Short Term Goals Time Frame: Oct 21, 2018 Eating(FIM): 5 Grooming(FIM): 5 Bathing(FIM): 3 Upper Body Dressing(FIM): 4 Lower Body Dressing(FIM): 3 Toileting(FIM): 3 Toilet/Commode Transfer(FIM): 4 Additional Short Term Goals: 1-Demonstrate ADL Tasks, 2-Verbalize Understanding , 3-ImproveStrength/Cris 1=Demonstrate adherence to instructed precautions during ADL tasks. 2=Patient will verbalize/demonstrate understanding of assistive devices/ modifications for ADL. 3=Patient will improve strength/tolerance for activity to enable patient to perform ADL's. OT Pediatric Nurse Goals [facility] Goals Time Frame: Nov 04, 2018 Eating (FIM): 7 Eating (QC): 6 Groomin Oral Hygiene (QC): 6 Bathing(FIM): 6 Shower/Bathe Self (QC): 6 Upper Body Dressing(FIM): 6 Upper Body Dressing (QC): 6 Lower Body Dressing(FIM): 6 Lower Body Dressing (QC): 6 On/Off Footwear (QC): 6 Toileting(FIM): 6 Toileting Hygiene (QC): 6 Toilet/Commode Transfer(FIM): 6 Toilet/Commode Transfer (QC): 6 Shower Transfer(FIM): 5 (if allowed per wound vac) Additional Goals: 1-Demonstrate ADL Tasks, 2-Verbalize Understanding, 3- ImproveStrength/Cris 1=Demonstrate adherence to instructed precautions during ADL tasks. 2=Patient will verbalize/demonstrate understanding of assistive devices/ modifications for ADL. 3=Patient will improve strength/tolerance for activity to enable patient to perform ADL's. OT Education/Plan Problem List/Assessment Pt would benefit from skilled OT to increase his independence in basic self care to allow him to safely return home after back surgery Discharge Recommendations Plan/Recommendations: Continue POC Treatment Plan/Plan of Care Patient would benefit from OT for education, treatment and training to promote independence in ADL's, mobility, safety and/or upper extremity function for ADL' s. Plan of Care: ADL Retraining, Functional Mobility, Group Exercise/Act as Ind ( education, exercise, activity tolerance, functional activities, socialization), UE Funct Exercise/Act, UE Neuromus Re-Ed/Coord, W/C Management Training Treatment Duration: Nov 04, 2018 Frequency: Modified Program (IRF) Estimated Hrs Per Day: 1.5 hours per day (1.25 to 1.5) Agreement: Yes Rehab Potential: Fair Time/GCodes Start Time: 10:55 Stop Time: 11:25 Total Time Billed (hr/min): 30 Billed Treatment Time visit, 15 minutes ADL, 15 minutes exercise CRISTIAN MERIDA OT Oct 17, 2018 11:47
--- NOTE | 2018-10-17 14:29 | Physical Therapy Daily Note ---
PT Daily Note-Current Subjective Pt awake in bed watching tv with his when PT arrived. Pt agreed to get up and work with PT. Pain Numeric Pain Scale: 10-Worst Possible Pain Location: Posterior Location Body Site: Back Pain Description: Acute Mental Status Patient Orientation: Mumbles, Normal For Age Attachments: Drains, Hunt Catheter Wound Vac Transfers Functional [place] Measure 0=Not Assessed/NA 4=Minimal Assistance 1=Total Assistance 5=Supervision or Setup 2=Maximal Assistance 6=Modified [place] 3=Moderate Assistance 7=Complete IndependenceIRFPAI Quality Coding Scale 6 Independent with activity with or without an assistive device 5 Patient requires set up or clean up by helper. Patient completes activity by themselves 4 Supervision or touching assist (CGA). [place] provide cues , steadying assist 3 The helper provides less than half the effort to complete the activity 2 The helper provides more than half the effort to complete the activity 1 Dependent. The helper does all the effort to complete an activity 7 Patient refused to complete or attempt activity 9 The patient did not perform the activity before the current illness or injury 88 Not attempted due to Medical conditions or safety concerns Transfers (B, C, W/C) (FIM): 4 Scootin Rollin Supine to/from Sit: 4 Sit to/from Stand: 4 Weight Bearing Right Lower Extremity: Right Full Weight Bearing Left Lower Extremity: Left Full Weight Bearing Gait Training Does the Patient Walk?: Yes Gait (FIM): 1 Distance (FIM): 1=up to 49 ft Distance: 10' Gait Level of Assist: 3 Gait Persons Needed: 1 Gait Assistive Device: FWW Patient requires Mod A when ambulating with FWW Assessment Pt worked on bed/mat mobility at the start of therapy before transferring to wheel chair. Pt went with with PT to therapy gym where he worked on sit/stand transfers in parallel bars. Pt needed cueing on body weight shifts when changing position from sit/stand. Patient is Min A when sit/stand and requires Mod A when ambulating with FWW. PT Short Term Goals Short Term Goals Time Frame: Oct 21, 2018 Gait (FIM): 2 Gait Distance Comment: 50' Gait Level of Assist: 4 Gait Assistive Device: FWW Wheelchair Distance: 100'x2 PT Junior Buyer Goals Junior Buyer Goals PT Junior Buyer Goals Time Frame: Nov 04, 2018 Transfers (B,C,W/C) (FIM): 5 Sit to Lying (QC): 4 Lying-Sitting on Side/Bed(QC): 4 Sit to Stand (QC): 4 Rollin Roll Left to Right (QC): 4 Chair/Iaj-ze-Dfhri Xfer(QC): 4 Car Transfer (QC): 4 Gait (FIM): 5 Distance: 150' Walk 10 feet (QC): 4 Walk 10ft-Uneven Surface(QC): 4 Walk 50ft with 2 Turns (QC): 4 Walk 150 ft (QC): 4 Gait Level of Assist: 5 Gait Assistive Device: FWW Stairs (FIM): 2 # of Steps: 4 1 Step (curb) (QC): 4 4 Steps (QC): 4 Stairs Level Of Assist: 4 PT Plan Problem List Problem List: Activity Tolerance, Functional Strength, Safety, Balance, Gait, Transfer, Bed Mobility, ROM Treatment/Plan Treatment Plan: Continue Plan of Care Treatment Plan: Bed Mobility, Concurrent Therapy, Education, Functional Activity Cris, Functional Strength, Group Therapy, Gait, Safety, Therapeutic Exercise, Transfers Treatment Duration: Nov 04, 2018 Frequency: Modified Program (IRF) Estimated Hrs Per Day: 1.5 hours per day Patient and/or Family Agrees t: Yes Time/GCodes Time In: 1312 Time Out: 1342 Total Billed Treatment Time: 30 Total Billed Treatment 1 Visit FA x 2 - 30' KAL VERMA PT Oct 17, 2018 14:29
--- NOTE | 2018-10-17 16:22 | PM & R (SOAP) Progress Note ---
Subjective This was a face to face visit with the patient. Date Seen by Provider: Oct 17, 2018 Time Seen by Provider: 14:50 Subjective/Events-last exam Patient was seen in his room this afternoon Discussed case with RN Appreciate Hospitalist and Cardiologists notes and orders Patient with persistent urinary retention DR Cortes, consulted patient min assist for transfers RN clarifying need for TLSO to be on when up as interferes somewhat with Wound vac. Date Identified: Oct 17, 2018 Time Identified: 15:00 Medication Intervention: Meds adjusted for Urinary retention Review of Systems Genitourinary: Retention Musculoskeletal: back pain Neurological: Weakness Objective Physician Exam Last Set of Vital Signs Vital Signs Date Time Temp Pulse Resp B/P (MAP) Pulse Ox O2 Delivery O2 Flow Rate FiO2 10/17/18 09:00 Room Air 10/17/18 05:23 98.7 72 18 124/71 (88) 96 Capillary Refill : I&O Intake and Output 10/17/18 00:00 Intake Total 1490 ml Output Total 1150 ml Balance 340 ml Intake Oral 1240 ml IV Total 250 ml Output Urine Total 1150 ml Bladder Scan Volume Amount 323 ml 380 ml 357 ml # Voids 1 # Bowel Movements 1 General: Alert, Cooperative, No Acute Distress HEENT: Atraumatic, PERRLA, EOMI, Mucous Memb Moist/[place], Other ([facility] has hearing aids but out for the evening) Neck: Supple, No JVD Lungs: Clear to Auscultation Heart: Regular Rate Abdomen: Normal Bowel Sounds, Soft, No Tenderness Extremities: No Edema Skin: Other (has wound vac over incision) Neuro: Other (cognitive impairment with memory strength 4/5 uppers 3+/5 lowers sensation intact) Psych/Mental Status: Other (Mild memory impairment) Results Lab Data Laboratory Tests 10/14/18 18:42: Vancomycin Level Trough 20.6H 10/15/18 06:22: Glucometer 119H 10/15/18 11:20: Glucometer 125H 10/16/18 06:09: Glucometer 87 10/16/18 11:31: Glucometer 148H 10/16/18 16:19: Glucometer 159H 10/16/18 20:23: Glucometer 187H 10/17/18 06:39: Glucometer 135H 10/17/18 06:45: White Blood Count 13.3H, Red Blood Count 3.17L, Hemoglobin 9.5L, Hematocrit 28L , Mean Corpuscular Volume 89, Mean Corpuscular Hemoglobin 30, Mean Corpuscular Hemoglobin Concent 34, Red Cell Distribution Width 17.0H, Platelet Count 447H, Mean Platelet Volume 9.7, Neutrophils (%) (Auto) 73, Lymphocytes (%) (Auto) 15, Monocytes (%) (Auto) 11, Eosinophils (%) (Auto) 1, Basophils (%) (Auto) 0, Neutrophils # (Auto) 9.7H, Lymphocytes # (Auto) 2.0, Monocytes # (Auto) 1.5H, Eosinophils # (Auto) 0.2, Basophils # (Auto) 0.0, Sodium Level 135, Potassium Level 4.0, Chloride Level 106, Carbon Dioxide Level 20L, Anion Gap 9, Blood Urea Nitrogen 11, Creatinine 0.85, Estimat Glomerular Filtration Rate > 60, BUN/ Creatinine Ratio 13, Glucose Level 135H, Calcium Level 8.9, Corrected Calcium 10.2H, Total Bilirubin 0.4, Aspartate Amino Transf (AST/SGOT) 49H, Alanine Aminotransferase (ALT/SGPT) 45, Alkaline Phosphatase 189H, Total Protein 4.7L, Albumin 2.4L 10/17/18 11:06: Glucometer 142H Assessment/Plan Assessment and Plan Spinal abscess with sepsis s/p spinal surgery off antibiotics and on Wound vac Urinary retention postop to see CD Bowel infection on Vanco and contact precautions A FIB controlled with med CAD s/p CABG DM controlled with med Postop anemia s/p Transfusion HLP Plan Continue PT/OT on 05/06 schedule for therapies F/U with DR Mc re concerns with Wound vac and TLSO F/U with re urinary retention Team Conference 10-19-18 Co-Morbidities that are continuing to impact the rehab process: (include details ) SERENA SANTIAGO MD Oct 17, 2018 16:22
--- NOTE | 2018-10-17 16:27 | Individualized Plan of Care ---
Individualized Plan of Care Rehab Nursing IPOC Order Admission Date Oct 14, 2018 at 13:25 Current Orders Orders Admission Arrival Bed Request (10/14/18 13:25) Admission Order(Inpt,Obs,Sdc) (10/14/18 13:25) Initiate Admission Nursing Pro .admission (10/14/18 13:25) Isolation Central Supply Req (10/14/18 13:25) Ambulate 08,12,20 (10/14/18 14:05) Sequential Compression Device 08,20 (10/14/18 14:05) Dvt/Vte Risk - Notifiy Physici 08 (10/14/18 14:05) Cho 60g/M 0snack (16-2000 Kevin) (10/14/18 Lunch) Consult Physician (10/14/18 14:10) Patient Visit (10/14/18 ) Pt Eval Moderate Complexity (10/14/18 ) Accucheck Achs ACHS (10/14/18 14:26) Ambulate 08,12,20 (10/14/18 14:26) Incentive Spirometry (Nursing) Q2H (10/14/18 14:26) Oxygen-Administer 07,19 (10/14/18 14:26) Wound V.A.C Application Ord/In .application order (10/14/18 14:26) Wound V.A.C Nursing Assessment 06,18 (10/14/18 14:26) Disposal Tray (Paper/Plastic) (10/14/18 14:26) Acetaminophen Tablet/Caplet (Tylenol T (10/14/18 14:30) Amiodarone Tablet (Cordarone Tablet) (10/15/18 09:00) Atorvastatin Tablet (Lipitor Tablet) (10/15/18 09:00) Cholestyramine Lite Powder (Questran Lit (10/14/18 16:00) Lactobacillus/Bulgaricus Granu (Lactinex (10/14/18 16:00) Ondansetron Injection (Zofran Injectio (10/14/18 14:30) Pioglitazone Tablet (Actos Tablet) (10/15/18 07:00) Polyethylene Glycol Powder Pkt (Miralax (10/14/18 21:00) Trough Order (Trough Order-Pharmacy Orde (10/14/18 19:00) Vancomycin Injection (Vancomycin Injecti (10/14/18 20:00) Amlodipine Tablet (Norvasc Tablet) (10/15/18 09:00) Insulin Aspart (Novolog) (Novolog (Charg (10/14/18 16:00) Lisinopril Tablet (Zestril Tablet) (10/15/18 09:00) Metoprolol Tartrate (Ir) Tab (Lopressor (10/14/18 21:00) Metformin Tablet (Glucophage Tablet) (10/14/18 17:00) Tramadol Tablet (Ultram Tablet) (10/14/18 14:30) Incentive Spirometry Initial (10/14/18 14:26) Rt Request For Service (10/14/18 14:26) Wound V.A.C Q4hr Inspection-St Q4HR (10/14/18 14:26) Incentive Spirometry (Nursing) Q2H (10/14/18 14:26) Allopurinol Tablet (Zyloprim Tablet) (10/15/18 09:00) Oxybutynin Tablet (Ditropan Tablet) (10/14/18 21:00) Vancomycin,Trough (10/14/18 19:00) Vancomycin Oral Suspension (Vancomycin O (10/22/18 06:01) Acetaminophen Tablet/Caplet (Tylenol T (10/14/18 18:00) Lozoya Syrup (Lozoya Syrup) 60 Ml, Vanco (10/14/18 18:00) Nursing Communication (Order) (10/14/18 15:01) Patient Visit (10/14/18 ) Speech Sound Lang Comp (10/14/18 ) Consult Cardiology (10/14/18 17:25) Consult Physician (10/14/18 17:25) Physical Therapy Oder (10/14/18 17:58) Occupational Therapy Order (10/14/18 17:58) Speech Therapy Orders (10/14/18 17:58) Vancomycin Injection (Vancomycin Injecti (10/14/18 20:00) Enoxaparin Injection (Lovenox Injection) (10/15/18 10:45) Patient Visit (10/15/18 ) Functional Activities, Ea 15 (10/15/18 ) Polyethylene Glycol Powder Pkt (Miralax (10/15/18 13:15) Senna S Tablet (Senokot S Tablet) (10/15/18 13:15) Sequential Compression Device 08,20 (10/15/18 18:27) Straight Cath (Urinary) (10/16/18 05:09) Hunt Cath (10/16/18 12:25) Bethanechol Tablet (Urecholine Tablet) (10/16/18 12:30) Tamsulosin Capsule (Flomax Capsule) (10/16/18 18:00) Phenazopyridine Tablet (Pyridium Tablet) (10/16/18 12:30) Phenazopyridine Tablet (Pyridium Tablet) (10/16/18 13:00) Cbc With Automated Diff (10/17/18 06:00) Comprehensive Metabolic Panel (10/17/18 06:00) Bladder Scan (10/16/18 14:19) Catheter(Urinary) Insert & Ass 03,15 (10/16/18 15:36) Trough Order (Trough Order-Pharmacy Orde (10/17/18 19:00) Vancomycin,Trough (10/17/18 19:00) Consult Physician (10/17/18 09:45) Patient Visit (10/17/18 ) Gait Training, Ea 15 Min (10/17/18 ) Wheelchair Mgmt/Propulsn 15min (10/17/18 ) Functional Activities, Ea 15 (10/17/18 ) Patient Visit (10/17/18 ) Treat. Speech/Lang/Voice (10/17/18 ) Patient Visit (10/17/18 ) Functional Activities, Ea 15 (10/17/18 ) Nursing Communication (Order) (10/17/18 14:53) Rehab Nursing Orders: Ongoing Assess. of Cognitive Status, Ongoing Assess. of Function Status, Bladder Management, Disease Management & Educaiton, DVT Prophylaxis, Fall Prevention, Infection Prevention, Medication Management & Education, Management of Risks & Complications, Management of Skin Intergrity, Nutrition Management, Pain Management, Patient/Family Support, Wound Management Intensity of Therapy to be met Patient to be seen: 15 hrs over 7 cons. days PT IPOC Problem List: Activity Tolerance, Functional Strength, Safety, Balance, Gait, Transfer, Bed Mobility, ROM Treatment Plan: Continue Plan of Care Bed Mobility, Concurrent Therapy, Education, Functional Activity Cris, Functional Strength, Group Therapy, Gait, Safety, Therapeutic Exercise, Transfers Treatment Duration: Nov 04, 2018 Frequency: Modified Program (IRF) Estimated Hrs Per Day: 1.5 hours per day OT IPOC Problems: Decreased Activ Tolerance, Decreased UE Strength, Dependent Transfers , Impaired Bed Mobility, Impaired Self-Care Skills OT Treatment, Training and Edu: Yes OT Problems Pt would benefit from skilled OT to increase his independence in basic self care to allow him to safely return home after back surgery Plan of Care: ADL Retraining, Functional Mobility, Group Exercise/Act as Ind ( education, exercise, activity tolerance, functional activities, socialization), UE Funct Exercise/Act, UE Neuromus Re-Ed/Coord, W/C Management Training Treatment Duration: Nov 04, 2018 Frequency: Modified Program (IRF) Estimated Hrs Per Day: 1.5 hours per day (1.25 to 1.5) ST IPOC Speech Therapy Treatment Plan: Continue Plan of Care Treatment Duration: Nov 04, 2018 Frequency: Modified Program (IRF) Estimated Hrs Per Day: .5 hour per day Hotel General Manager/Case Mgmt Hotel General Manager/Case Managemen: Discharge Planning, Patient/Family Counseling Dietitian/Tool Dispatcher Dietitian/Tool Dispatcher to monitor nutritional status and make changes and/or recommendations as needed and work with speech pathology on dietary upgrades as the occur. Physician IPOC Medical Issues being managed closely and that require the 24 hour availability of a physician: Wound vac Postop anemia Post op urinary retention A FIB C DIF bowel colitis CAD DM HLP Medical Issues: Bowel/Bladder Function, DVT Prophylaxis, Infection Protection, Pain Management, Wound Care, Other (List) (as per above) Brief Synthesis of Preadmission Screen, Post-Admission Evaluation, and Therapy Evaluations: 78 yo male who has had a long course s/p spinal surgery earlier this year complicated by Spinal abscess now s/p Redo surgery and wound vac Has post op Urinary retention and to see.PMH as per above Had been Independent and living with his spouse in [place] prior to surgery referred to [facility] for ongoing care and therapies Medical Prognosis: Good Anticipated Length of Stay: 12-14-18 Modified Independent to supervision for ADLS and mobility skills Continence of bowel and bladder and voiding well Anticipated d/c Destination: Home with spouse and [facility] SERENA SANTIAGO MD Oct 17, 2018 16:27
--- NOTE | 2018-10-17 17:14 | Cardiology Progress Note ---
Cardiology SOAP Progress Note Subjective: No cardiac complaints. Objective: I&O/Vital Signs 10/17/18 10/17/18 05:23 09:00 Temp 98.7 Pulse 72 Resp 18 B/P (MAP) 124/71 (88) Pulse Ox 96 O2 Delivery Room Air Room Air 10/17/18 00:00 Intake Total 1090 ml Output Total 475 ml Balance 615 ml Weight (Pounds): 193 Weight (Ounces): 8.0 Weight (Calculated Kilograms): 87.692838 Constitutional: No appears stated age; AAO x 3; No apparent distress, No PERRL , No well-developed, No well-nourished, No other Respiratory: No accessory muscle use, No respiratory distress, No chest tender , No chest expansion is symmetric; chest is bilaterally symmetric; No lungs clear to percussion; lungs clear to auscultation; No crackles, No rhonchi, No rales, No stridor, No wheezing, No pleural rub, No other Cardiovascular: regular rate-rhythm; No irregularly irregular, No extra beats, No parasternal heave is noted, No JVD, No edema, No bradycardia, No tachycardia , No point of maximal impulse, No cardiac thrills are palpable; S1 and S2; No gallop/S3, No gallop/S4, No diastolic murmur, No systolic murmur, No friction rub, No click, No other Gastrointestional: No tender, No soft, No round, No distended, No pulsatile mass, No organomegaly, No guarding, No rebound, No tenderness, No hernia, No mass, No audible bowel sounds, No abnormal bowel sounds, No abdominal bruits, No spleenomegaly, No other Extremities: No normal range of motion, No non-tender, No normal inspection, No pedal edema, No calf tenderness, No normal capillary refill, No pelvis stable , No calf tenderness, No inflammation, No pedal edema, No slow capillary refill , No swelling, No other, No abrasion, No clubbing, No cyanosis, No ecchymosis, No laceration, No no lower extremity edema bilateral, No significant edema, No tenderness, No wound Neurologic/Psychiatric: no motor/sensory deficits, alert, normal mood/affect, oriented x 3 Skin: No normal color, No warm/dry, No cyanosis, No cool, No diaphoresis, No damp, No ecchymosis, No jaundice, No mottled, No pallor, No rash, No tattoos/ piercings, No ulcerations, No rash on exposed areas, No ulcerations on exposed areas, No other Results/Procedures: Labs Laboratory Tests 10/16/18 20:23: Glucometer 187H 10/17/18 06:39: Glucometer 135H 10/17/18 06:45: White Blood Count 13.3H, Red Blood Count 3.17L, Hemoglobin 9.5L, Hematocrit 28L , Mean Corpuscular Volume 89, Mean Corpuscular Hemoglobin 30, Mean Corpuscular Hemoglobin Concent 34, Red Cell Distribution Width 17.0H, Platelet Count 447H, Mean Platelet Volume 9.7, Neutrophils (%) (Auto) 73, Lymphocytes (%) (Auto) 15, Monocytes (%) (Auto) 11, Eosinophils (%) (Auto) 1, Basophils (%) (Auto) 0, Neutrophils # (Auto) 9.7H, Lymphocytes # (Auto) 2.0, Monocytes # (Auto) 1.5H, Eosinophils # (Auto) 0.2, Basophils # (Auto) 0.0, Sodium Level 135, Potassium Level 4.0, Chloride Level 106, Carbon Dioxide Level 20L, Anion Gap 9, Blood Urea Nitrogen 11, Creatinine 0.85, Estimat Glomerular Filtration Rate > 60, BUN/ Creatinine Ratio 13, Glucose Level 135H, Calcium Level 8.9, Corrected Calcium 10.2H, Total Bilirubin 0.4, Aspartate Amino Transf (AST/SGOT) 49H, Alanine Aminotransferase (ALT/SGPT) 45, Alkaline Phosphatase 189H, Total Protein 4.7L, Albumin 2.4L 10/17/18 11:06: Glucometer 142H 10/17/18 16:12: Glucometer 177H A/P: Assessment/Dx: Assessment/Dx: Spinal abscess, Sepsis, UTI, History of CAD, CABG, Atrial fibrillation on amiodarone. LVH, Diastolic dysfunction. Plan: Spinal abscessstatus post I&D. Sepsiscontinue broad-spectrum IV antibiotics as per Dr. Harrison. C. difficile, on contact precautions. Paroxysmal atrial fibrillationcurrently in sinus rhythm. Continue amiodarone. I might consider discontinuing amiodarone but since the patient follows Dr. Soliman in [place] I may defer that decision to him. CAD/history of CABGcontinue lisinopril and statin therapy. Aspirin low dose once okay with Dr. Harrison and Dr. Mc. Will add low dose beta carlie for atrial fibrillation and CAD. LVH, Diastolic dysfunction, Echocardiogram showed normal LV function. Patient follows with Dr. Soliman in [place]. Thank you for your consultation. Please call me if you have any questions. Chato Moyer MD, FACP, FACC, FSCAI, FHRS, CCDS Interventional Cardiology Cardiac Electrophysiology Vascular Medicine and Endovascular Interventions Kiarra MOYER MD Oct 17, 2018 5:14 pm
[2018-10-17] MEDS: TAMSULOSIN 0.4 MG (FLOMAX) CAP PO SCH (17:47)
[2018-10-17 18:00] VITALS: BP 137/78
[2018-10-17] MEDS ORDERED: TROUGH ORDER-PHARMACY XX NR (19:00)
[2018-10-17] MEDS: VANCOMYCIN INJECTION 1,000 MG in NS (IVPB) 250 ML IV SCH (20:37)
[2018-10-18] MEDS: VANCOMYCIN ORAL 250 MG/5 ML 120 ML PO SCH ×8 (00:19→18:24)
[2018-10-18] MEDS: ACETAMINOPHEN 325 MG TABLET PO SCH ×4 (00:19→18:23)
[2018-10-18] MEDS: BETHANECHOL 10 MG (URECHOLINE) TAB PO SCH ×4 (05:28→21:02)
[2018-10-18] MEDS: LACTOBACILLUS Acidoph/Bulgar 1 GM (LACTINEX) PACKET PO SCH ×4 (05:28→21:02)
[2018-10-18] MEDS: metFORMIN 500 MG (GLUCOPHAGE) TAB PO SCH ×2 (05:28→16:16)
[2018-10-18] MEDS: PIOGLITAZONE 30MG (ACTOS) TAB PO SCH (05:29)
[2018-10-18 06:48] VITALS: BP 154/66
[2018-10-18] MEDS: inSUlin ASPART (NovoLOG) 1 UNIT/0.01 ML (CHARGE PER UNIT) SC SCH ×4 (06:54→21:04)
[2018-10-18] MEDS ORDERED: fentaNYL PATCH 25 MCG (DURAGESIC) TD SCH (08:00)
[2018-10-18] MEDS: PHENAZOPYRIDINE 100 MG (PYRIDIUM) TABLET PO SCH ×3 (08:15→18:24)
[2018-10-18] MEDS: amLODIPine 5 MG (NORVASC) TAB PO SCH (08:15)
[2018-10-18] MEDS: meTOprolol TARTRATE 25 MG (LOPRESSOR) TABLET PO SCH ×2 (08:15→21:02)
[2018-10-18] MEDS: AMIODARONE 200 MG (CORDARONE) TAB PO SCH (08:15)
[2018-10-18] MEDS: lisINopril 20 MG (PRINIVIL) TABLET PO SCH (08:15)
[2018-10-18] MEDS: ALLOPURINOL 300 MG (ZYLOPRIM) TAB PO SCH (08:15)
[2018-10-18] MEDS: ATORVASTATIN 10 MG (LIPITOR) TABLET PO SCH (08:16)
[2018-10-18] MEDS: SENNA W/DOCUSATE (SENOKOT S) TABLET PO SCH ×2 (08:23→19:05)
[2018-10-18] MEDS: POLYETHYLENE GLYCOL 17 GM (MIRALAX) PACK PO SCH ×2 (08:23→19:05)
--- NOTE | 2018-10-18 09:19 | Physical Therapy Daily Note ---
PT Daily Note-Current Subjective Pt laying Supine in bed upon arrival. Nurse present visiting with pt & sp. Pt agrees to PT. OT will join tx shortly. Pain Numeric Pain Scale: 10-Worst Possible Pain Location Body Site: Back Pain Description: Stabbing, Tightness, Sharp Mental Status Patient Orientation: Person, Place, Situation Attachments: Hunt Catheter, Other-See Comments (Wound Vac), IV Transfers Functional [place] Measure 0=Not Assessed/NA 4=Minimal Assistance 1=Total Assistance 5=Supervision or Setup 2=Maximal Assistance 6=Modified [place] 3=Moderate Assistance 7=Complete IndependenceIRFPAI Quality Coding Scale 6 Independent with activity with or without an assistive device 5 Patient requires set up or clean up by helper. Patient completes activity by themselves 4 Supervision or touching assist (CGA). [place] provide cues , steadying assist 3 The helper provides less than half the effort to complete the activity 2 The helper provides more than half the effort to complete the activity 1 Dependent. The helper does all the effort to complete an activity 7 Patient refused to complete or attempt activity 9 The patient did not perform the activity before the current illness or injury 88 Not attempted due to Medical conditions or safety concerns Scootin Rollin Roll Left to Right (QC): 1 Supine to/from Sit: 1 Sit to Lying (QC): 1 Weight Bearing Right Lower Extremity: Right Full Weight Bearing Left Lower Extremity: Left Full Weight Bearing Exercises Supine Ex: Ankle pumps, Quad Set, Heel Slides Supine Reps: 10 Treatments FRUIT DRYER discusses pain control and medical history given by pt before OT arrives. Pt reports pain and does not feel that Therapy could be completed today. OT arrives and FRUIT DRYER & OT encourage pt for participation. Pt. is dressed. States that he just put these on this morning, but spouse corrects him that it was yesterday. Pt. states that he does not want to change clothing or bathe. States that he is having "too much pain." OT/PT co-treat due to pt's pain level , and need for skilled care. Pt. is unable to tolerate very much movement. Pt. does agree to wash his face, but only in supine. OT attempts to initiate ADLs but pt. states that he can't sit long enough. Pt. is unable to doff/don socks in supine, and is dependent with this task. PT initiates transfer supine- sit. Pt. is educated on log roll. Unable to bend left LE to push with. OT assists with this and pt. grimaces with pain. Pt. requires max x 2 for roll and supine-sit. Pt. yells out in pain and states that he can't "do it." Pt. is encouraged to sit long enough to take his pills by mouth. Nursing has put them in cup for pt. Pt. unable to take them from therapist, as he is unable to let go of the bed. Pt. is educated to deep breathe to relax. Takes pills with his mouth while they are put into his mouth. Immediately states that he needs to lay back down. Max assist sit-supine. Pt. is positioned to comfort level and encouraged rest/relax before attempting next transfer. Pt. agrees to let OT put bed into chair position, but as soon as OT starts it, pt. begins to yell in pain again and states that he needs to go back down. Pt. is encouraged to sit up somewhat to clear lungs. Educated about pneumonia. Pt. verbalizes understanding and states that he wants to get better. Pt. wants to know why he is in so much pain. OT/PT alternate assisting pt. with UE/LE AROM/PROM exercises at bed level. Pt. completes 2 UE exercises x 10 reps each, and then 2 LE exercises x 10 reps each. OT and PT then facilitate PROM exercises with knee bends to toleration level, as pt. is unable to do this on his own. Pt. is made comfortable in supine and all needs are met. Assessment Current Status: Poor Progress Pt wants to get better and participate in Therapy but pain limits. PT Short Term Goals Short Term Goals Time Frame: Oct 21, 2018 Gait (FIM): 2 Gait Distance Comment: 50' Gait Level of Assist: 4 Gait Assistive Device: FWW Wheelchair Distance: 100'x2 PT Fpc Goals Fpc Goals PT Transit Operator Goals Time Frame: Nov 04, 2018 Transfers (B,C,W/C) (FIM): 5 Sit to Lying (QC): 4 Lying-Sitting on Side/Bed(QC): 4 Sit to Stand (QC): 4 Rollin Roll Left to Right (QC): 4 Chair/Iyz-ug-Jjksg Xfer(QC): 4 Car Transfer (QC): 4 Gait (FIM): 5 Distance: 150' Walk 10 feet (QC): 4 Walk 10ft-Uneven Surface(QC): 4 Walk 50ft with 2 Turns (QC): 4 Walk 150 ft (QC): 4 Gait Level of Assist: 5 Gait Assistive Device: FWW Stairs (FIM): 2 # of Steps: 4 1 Step (curb) (QC): 4 4 Steps (QC): 4 Stairs Level Of Assist: 4 PT Plan Problem List Problem List: Activity Tolerance, Functional Strength, Safety, Balance, Gait, Transfer, Bed Mobility Treatment/Plan Treatment Plan: Continue Plan of Care Treatment Plan: Bed Mobility, Concurrent Therapy, Education, Functional Activity Cris, Functional Strength, Group Therapy, Gait, Safety, Therapeutic Exercise, Transfers Treatment Duration: Nov 04, 2018 Frequency: Modified Program (IRF) Estimated Hrs Per Day: 1.5 hours per day Patient and/or Family Agrees t: Yes Safety Risks/Education Patient Education: Transfer Techniques, Reviewed Precautions, Correct Positioning, Safety Issues Teaching Recipient: Patient, Significant Other Teaching Methods: Discussion Response to Teaching: Verbalize Understanding, Reinforcement Needed Time/GCodes Time In: 800 Time Out: 915 Total Billed Treatment Time: 75 Total Billed Treatment 1, FA x3 (45m) & EX x2 (30m) Co-treat w/OT 50m ([id number]) G Codes Necessary: BENJAMIN Flores PTA Oct 18, 2018 09:19
--- NOTE | 2018-10-18 10:21 | Progress Note-Hospitalist ---
Subjective HPI/CC On Admission Date Seen by Provider: Oct 18, 2018 Time Seen by Provider: 10:30 Subjective/Events-last exam Patient had been doing well then now not doing well and therapists thinks he is losing ground Same pain as he had in the initial presentation so I check labs and notified Dr Mc No loose stools indicating good response of C diff to Vanc PO so that would not be causing elevated wbc CT lumbar spine was ordered at Dr Mc request Leo cath was hopefully going to be removed tomorrow per Dr Cortes Review of Systems Musculoskeletal: back pain Objective Exam Vital Signs Vital Signs Date Time Temp Pulse Resp B/P (MAP) Pulse Ox O2 Delivery O2 Flow Rate FiO2 10/18/18 18:26 98.1 78 20 143/56 (85) 98 Room Air Capillary Refill : General Appearance: No Apparent Distress, WD/WN, Chronically ill Respiratory: Chest Non Tender, Lungs Clear, Normal Breath Sounds, No Accessory Muscle Use, No Respiratory Distress Cardiovascular: Regular Rate, Rhythm, No Edema, No Gallop, No JVD, No Murmur, Normal Peripheral Pulses Neurologic/Psychiatric: Alert, Oriented x3, No Motor/Sensory Deficits, Normal Mood/Affect Skin: Normal Color, Warm/Dry Results/Procedures Lab Laboratory Tests 10/18/18 11:50 Patient resulted labs reviewed. Assessment/Plan Assessment and Plan Assess & Plan/Chief Complaint Assessment: Recurrent severe back pain with referred lower abdominal pain similar to initial presentation obtaining labs and CT scan and Dr Mc consultation Debility following spinal abscess status post 2 I&D's uncomplicated per Dr Mc Urinary retention acute maintained with leo but Dr Cortes consulted C. difficile colitis improved after constipation for 2 days now BM yesterday after Miralax and DC Questran Severe anemia due to acute blood loss status post 4 units of blood while on MedSurg and ICU CAD DM CRI Plan: Leo cath and consult Dr Cortes is appreciated Urecholine and Pyridium to be maintained Limit pain meds Miralax and senna Hold Questran Vanc PO Check labs CT scan l-spine Appreciate Dr Mc Diagnosis/Problems Diagnosis/Problems (1) Intraspinal abscess and granuloma Status: Resolved Resolution Date/Time: 10/15/18 @ 14:02 (2) C. difficile colitis Status: Acute (3) Renal insufficiency Status: Resolved Resolution Date/Time: 10/10/18 @ 09:41 (4) Leukocytosis Status: Resolved Resolution Date/Time: 10/15/18 @ 14:02 (5) Transfusion of blood during current hospitalization Status: Resolved Resolution Date/Time: 10/15/18 @ 14:02 (6) Advanced age Status: Chronic (7) CAD (coronary artery disease) Status: Chronic Qualifiers: Coronary Disease-Associated Artery/Lesion type: [place] artery [place] vs. transplanted heart: [place] heart Associated angina: without angina Qualified Codes: I25.10 - Atherosclerotic heart disease of [place] coronary artery without angina pectoris (8) Atrial fibrillation Status: Chronic Qualifiers: Atrial fibrillation type: paroxysmal Qualified Codes: I48.0 - Paroxysmal atrial fibrillation (9) Hx of CABG Status: Chronic (10) Urinary retention Status: Acute Clinical Quality Measures DVT/VTE Risk/Contraindication: RFS Level Per Nursing on Admit: 4+=Very High MARQUEZ DELATORRE DO Oct 18, 2018 10:21
--- NOTE | 2018-10-18 10:33 | Occupational Ther Daily Note ---
OT Current Status-Daily Note Subjective Pt. reports "severe" pain in back, down left side, and in bilateral groin areas during and throughout treatment with movement of legs, and with sitting position. Does not state pain number, but yells out whenever he is in pain. Appearance Pt. in bed supine when OT enters room. Agrees to work with therapy. Mental Status/Objective Patient Orientation: Person, Place Functional [place] Measure 0=Not Assessed/NA 4=Minimal Assistance 1=Total Assistance 5=Supervision or Setup 2=Maximal Assistance 6=Modified [place] 3=Moderate Assistance 7=Complete [place] Attachments: Hunt Catheter, IV Wound vac ADL-Treatment Functional [place] Measure 0=Not Assessed/NA 4=Minimal Assistance 1=Total Assistance 5=Supervision or Setup 2=Maximal Assistance 6=Modified [place] 3=Moderate Assistance 7=Complete IndependenceIRFPAI Quality Coding Scale 6 Independent with activity with or without an assistive device 5 Patient requires set up or clean up by helper. Patient completes activity by themselves 4 Supervision or touching assist (CGA). [place] provide cues , steadying assist 3 The helper provides less than half the effort to complete the activity 2 The helper provides more than half the effort to complete the activity 1 Dependent. The helper does all the effort to complete an activity 7 Patient refused to complete or attempt activity 9 The patient did not perform the activity before the current illness or injury 88 Not attempted due to Medical conditions or safety concerns Lower Body Dressing (QC): 1 On/Off Footwear (QC): 1 Other Treatment Pt. is dressed. States that he just put these on this morning, but spouse corrects him that it was yesterday. Pt. states that he does not want to change clothing or bathe. States that he is having "too much pain." OT/PT co-treat due to pt's pain level, and need for skilled care. Pt. is unable to tolerate very much movement. Pt. does agree to wash his face, but only in supine. OT attempts to initiate ADLs but pt. states that he can't sit long enough. Pt. is unable to doff/don socks in supine, and is dependent with this task. PT initiates transfer supine-sit. Pt. is educated on log roll. Unable to bend left LE to push with. OT assists with this and pt. grimaces with pain. Pt. requires max x 2 for roll and supine-sit. Pt. yells out in pain and states that he can't "do it." Pt. is encouraged to sit long enough to take his pills by mouth. Nursing has put them in cup for pt. Pt. unable to take them from therapist, as he is unable to let go of the bed. Pt. is educated to deep breathe to relax. Takes pills with his mouth while they are put into his mouth. Immediately states that he needs to lay back down. Max assist sit- supine. Pt. is positioned to comfort level and encouraged rest/relax before attempting next transfer. Pt. agrees to let OT put bed into chair position, but as soon as OT starts it, pt. begins to yell in pain again and states that he needs to go back down. Pt. is encouraged to sit up somewhat to clear lungs. Educated about pneumonia. Pt. verbalizes understanding and states that he wants to get better. Pt. wants to know why he is in so much pain. OT/PT alternate assisting pt. with UE/LE AROM/PROM exercises at bed level. Pt. completes 2 UE exercises x 10 reps each, and then 2 LE exercises x 10 reps each. OT and PT then facilitate PROM exercises with knee bends to toleration level, as pt. is unable to do this on his own. Pt. is made comfortable in supine and all needs are met. Education OT Patient Education: Correct positioning, Exercise program, Modified ADL techniques, Progress toward Goal/Update tx plan, Purpose of tx/functional activities, Reviewed precautions, Rehab process, Transfer techniques Teaching Recipient: Patient, Significant Other Teaching Methods: Demonstration, Discussion Response to Teaching: Verbalize Understanding, Return Demonstration OT Short Term Goals Short Term Goals Time Frame: Oct 21, 2018 Eating(FIM): 5 Grooming(FIM): 5 Bathing(FIM): 3 Upper Body Dressing(FIM): 4 Lower Body Dressing(FIM): 3 Toileting(FIM): 3 Toilet/Commode Transfer(FIM): 4 Additional Short Term Goals: 1-Demonstrate ADL Tasks, 2-Verbalize Understanding , 3-ImproveStrength/Cris 1=Demonstrate adherence to instructed precautions during ADL tasks. 2=Patient will verbalize/demonstrate understanding of assistive devices/ modifications for ADL. 3=Patient will improve strength/tolerance for activity to enable patient to perform ADL's. OT Mechanical Spreader Operator Goals Mechanical Spreader Operator Goals Time Frame: Nov 04, 2018 Eating (FIM): 7 Eating (QC): 6 Groomin Oral Hygiene (QC): 6 Bathing(FIM): 6 Shower/Bathe Self (QC): 6 Upper Body Dressing(FIM): 6 Upper Body Dressing (QC): 6 Lower Body Dressing(FIM): 6 Lower Body Dressing (QC): 6 On/Off Footwear (QC): 6 Toileting(FIM): 6 Toileting Hygiene (QC): 6 Toilet/Commode Transfer(FIM): 6 Toilet/Commode Transfer (QC): 6 Shower Transfer(FIM): 5 (if allowed per wound vac) Additional Goals: 1-Demonstrate ADL Tasks, 2-Verbalize Understanding, 3- ImproveStrength/Cris 1=Demonstrate adherence to instructed precautions during ADL tasks. 2=Patient will verbalize/demonstrate understanding of assistive devices/ modifications for ADL. 3=Patient will improve strength/tolerance for activity to enable patient to perform ADL's. OT Education/Plan Problem List/Assessment Assessment: Decreased Activ Tolerance, Decreased UE Strength, Dependent Transfers, Impaired Bed Mobility, Impaired Funct Balance, Impaired I ADL's, Impaired Self-Care Skills, Restricted Funct UE ROM Pt would benefit from skilled OT to increase his independence in basic self care to allow him to safely return home after back surgery Discharge Recommendations Plan/Recommendations: Continue POC Therapy D/C Recommendations: 24 hr Supervision Treatment Plan/Plan of Care Treatment,Training & Education: Yes Patient would benefit from OT for education, treatment and training to promote independence in ADL's, mobility, safety and/or upper extremity function for ADL' s. Plan of Care: ADL Retraining, Functional Mobility, Group Exercise/Act as Ind ( education, exercise, activity tolerance, functional activities, socialization), UE Funct Exercise/Act, UE Neuromus Re-Ed/Coord, W/C Management Training Treatment Duration: Nov 04, 2018 Frequency: At least 5 of 7 days/Wk (IRF) Estimated Hrs Per Day: 1.5 hours per day (1.25 to 1.5) Agreement: Yes Rehab Potential: Fair Time/GCodes Start Time: 08:20 Stop Time: 09:10 Total Time Billed (hr/min): 50 Billed Treatment Time 1, FA x 50minutes BOBBY NAVAS OT Oct 18, 2018 10:33
--- NOTE | 2018-10-18 11:25 | CONSULTATION REPORT ---
DATE OF SERVICE: 10/18/2018 ATTENDING PHYSICIAN: Dr. Harrison - Dr. Carreon. SUMMARY: An 78-year-old white man, who had three back surgeries lately and intraspinal abscess and then all complicated by C. diff, actually now on p.o. vancomycin. He was found to have urinary retention and catheter was inserted. He was started on Flomax 0.4 mg daily and Urecholine 10 mg q.i.d. before meals and at bedtime. The patient does have a history of voiding symptoms in the form of nocturia x4 to 5, slowing of the stream, incomplete emptying of the bladder. He has never been treated for that. He has not had any prostate or bladder surgeries. Physical exam was deferred for now because of the Clostridium infection and possible diarrhea. IMPRESSION: Urinary retention, combination of benign prostatic hyperplasia and neurogenic bladder. PLAN: Continue present management. We will give him a trial of voiding tomorrow. Later on, if all fail, he may need a cystoscopy and rectal exam once the C. diff is under control. Thank you for letting me participate in the care of this patient. We will follow with you. Job ID: [id number] DocumentID: [id number] Dictated Date: 10/18/2018 07:41:23 Chief Of Pediatric Urology Date: 10/18/2018 11:24:59 Dictated By: COLE BLUM MD
[2018-10-18 11:53] LABS: BASOPHILS % (AUTO) 0 % (0-10); EOSINOPHILS # (AUTO) 0.1 10^3/uL (0.0-0.3); EOSINOPHILS % (AUTO) 1 % (0-10); HEMATOCRIT 27 % (40-54); HEMOGLOBIN 9.2 G/DL (13.3-17.7); LYMPHOCYTES # (AUTO) 1.2 X 10^3 (1.0-4.0); LYMPHOCYTES % (AUTO) 10 % (12-44); MEAN CORPUSCULAR HEMOGLOBIN 30 PG (25-34); MEAN CORPUSCULAR HGB CONC 34 G/DL (32-36); MEAN CORPUSCULAR VOLUME 90 FL (80-99); MEAN PLATELET VOLUME 9.6 FL (7.4-10.4); MONOCYTES # (AUTO) 1.1 X 10^3 (0.0-1.0); MONOCYTES % (AUTO) 9 % (0-12); NEUTROPHILS # (AUTO) 9.2 X 10^3 (1.8-7.8); NEUTROPHILS % (AUTO) 79 % (42-75); PLATELET COUNT 410 10^3/uL (130-400); RED BLOOD COUNT 3.05 10^6/uL (4.35-5.85); RED CELL DISTRIBUTION WIDTH 17.1 % (10.0-14.5); WHITE BLOOD COUNT 11.6 10^3/uL (4.3-11.0)
[2018-10-18 12:16] LABS: ALANINE AMINOTRANSFERASE 38 U/L (0-55); ALBUMIN 2.4 GM/DL (3.2-4.5); ALKALINE PHOSPHATASE 179 U/L (40-136); BILIRUBIN,TOTAL 0.4 MG/DL (0.1-1.0); BUN/CREATININE RATIO 12; CALCIUM 8.7 MG/DL (8.5-10.1); CARBON DIOXIDE 21 MMOL/L (21-32); CHLORIDE 105 MMOL/L (98-107); CREATININE SERUM 0.81 MG/DL (0.60-1.30); GFR ESTIMATED > 60; GLUCOSE 147 MG/DL (70-105); POTASSIUM 4.3 MMOL/L (3.6-5.0); SODIUM 134 MMOL/L (135-145); TOTAL PROTEIN 4.6 GM/DL (6.4-8.2)
--- NOTE | 2018-10-18 12:18 | PM & R (SOAP) Progress Note ---
Subjective This was a face to face visit with the patient. Date Seen by Provider: Oct 18, 2018 Time Seen by Provider: 07:50 Subjective/Events-last exam Patient was seen in his room this AM Patient describes pain in low back with radiation into both buttocks and rt groin more than left.D Patch ordered for pain control Will text ortho-spine to see if F/U imaging study can be done.Patient fairly dependent for transfers with pain limiting progress as well as weakness Date Identified: Oct 18, 2018 Time Identified: 07:45 Medication Intervention: D Patch ordered for enhanced pain control Review of Systems Musculoskeletal: back pain, leg pain Neurological: Weakness Objective Physician Exam Last Set of Vital Signs Vital Signs Date Time Temp Pulse Resp B/P (MAP) Pulse Ox O2 Delivery O2 Flow Rate FiO2 10/18/18 09:00 Room Air 10/18/18 06:48 98.1 80 20 154/66 (95) 96 Capillary Refill : I&O Intake and Output 10/18/18 00:00 Intake Total 1290 ml Output Total 900 ml Balance 390 ml Intake Oral 1040 ml IV Total 250 ml Output Urine Total 900 ml # Bowel Movements 2 General: Alert, Cooperative, No Acute Distress HEENT: Atraumatic, PERRLA, EOMI, Mucous Memb Moist/[place], Other ([facility] has hearing aids but out for the evening) Neck: Supple, No JVD Lungs: Clear to Auscultation Heart: Regular Rate Abdomen: Normal Bowel Sounds, Soft, No Tenderness Extremities: No Edema Skin: Other (has wound vac over incision) Neuro: Other (cognitive impairment with memory strength 4/5 uppers 3+/5 lowers sensation intact) Psych/Mental Status: Other (Mild memory impairment) Results Lab Data Laboratory Tests 10/16/18 06:09: Glucometer 87 10/16/18 11:31: Glucometer 148H 10/16/18 16:19: Glucometer 159H 10/16/18 20:23: Glucometer 187H 10/17/18 06:39: Glucometer 135H 10/17/18 06:45: White Blood Count 13.3H, Red Blood Count 3.17L, Hemoglobin 9.5L, Hematocrit 28L , Mean Corpuscular Volume 89, Mean Corpuscular Hemoglobin 30, Mean Corpuscular Hemoglobin Concent 34, Red Cell Distribution Width 17.0H, Platelet Count 447H, Mean Platelet Volume 9.7, Neutrophils (%) (Auto) 73, Lymphocytes (%) (Auto) 15, Monocytes (%) (Auto) 11, Eosinophils (%) (Auto) 1, Basophils (%) (Auto) 0, Neutrophils # (Auto) 9.7H, Lymphocytes # (Auto) 2.0, Monocytes # (Auto) 1.5H, Eosinophils # (Auto) 0.2, Basophils # (Auto) 0.0, Sodium Level 135, Potassium Level 4.0, Chloride Level 106, Carbon Dioxide Level 20L, Anion Gap 9, Blood Urea Nitrogen 11, Creatinine 0.85, Estimat Glomerular Filtration Rate > 60, BUN/ Creatinine Ratio 13, Glucose Level 135H, Calcium Level 8.9, Corrected Calcium 10.2H, Total Bilirubin 0.4, Aspartate Amino Transf (AST/SGOT) 49H, Alanine Aminotransferase (ALT/SGPT) 45, Alkaline Phosphatase 189H, Total Protein 4.7L, Albumin 2.4L 10/17/18 11:06: Glucometer 142H 10/17/18 16:12: Glucometer 177H 10/17/18 19:30: Vancomycin Level Trough 18.1 10/17/18 20:35: Glucometer 136H 10/18/18 05:26: Glucometer 130H 10/18/18 11:50: White Blood Count 11.6H, Red Blood Count 3.05L, Hemoglobin 9.2L, Hematocrit 27L , Mean Corpuscular Volume 90, Mean Corpuscular Hemoglobin 30, Mean Corpuscular Hemoglobin Concent 34, Red Cell Distribution Width 17.1H, Platelet Count 410H, Mean Platelet Volume 9.6, Neutrophils (%) (Auto) 79H, Lymphocytes (%) (Auto) 10L , Monocytes (%) (Auto) 9, Eosinophils (%) (Auto) 1, Basophils (%) (Auto) 0, Neutrophils # (Auto) 9.2H, Lymphocytes # (Auto) 1.2, Monocytes # (Auto) 1.1H, Eosinophils # (Auto) 0.1, Basophils # (Auto) 0.0 Assessment/Plan Assessment and Plan Spinal abscess with sepsis s/p spinal surgery off antibiotics and on wound vac Urinary retention DR Cortes managing C D bowel colitis under treatment and with contact precautions RN states that stools are soft A FIB controlled with med CAD s/p CABG DM controlled with med Postop anemia s/p transfusion HLP Plan Continue PT/OT Pain management-D patch ordered Team Conference tomorrow F/U with DR Mc re reimaging study Co-Morbidities that are continuing to impact the rehab process: (include details ) SERENA SANTIAGO MD Oct 18, 2018 12:18
--- NOTE | 2018-10-18 12:41 | Speech Therapy Daily Note ---
Speech Daily Progress Note Subjective Date Seen by Provider: Oct 18, 2018 Time Seen by Provider: 00:30 Patient stated he didn't sleep much last night due to his pain level. He has had a pain patch placed this am which seems to be helping. Objective Patient completed memory tasks with 60% accuracy given mod verbal cues. Assessment Assessment Current Status: Fair Progress Treatment Plan Continue Plan of Care Communication Comprehension: 4 Expression: 4 Social Cognition Social Interaction: 4 Problem Solvin Memory: 3 Speech Short Term Goals Short Term Goals Short Term Goals 1) Patient will complete memory tasks with 90% accuracy given minimal cuing. 2) Patient will complete problem solving tasks with 90% accuracy given minimal cuing. Time Frame-ST week Speech Mud Cleaner Operator Goals Mud Cleaner Operator Goals Patient will improve memory and problem solving tasks with minimal cues for increased safety and independence at 90% accuracy. Speech-Plan Patient/Family Goals Patient/Family Goals: Patient plans to return home with his as soon as he is able. Treatment Plan Speech Therapy Treatment Plan: Continue Plan of Care Patient is experiencing a lot of pain. He participates well with ST activities. Treatment Duration: Nov 04, 2018 Frequency: Modified Program (IRF) Estimated Hrs Per Day: .5 hour per day Rehab Potential: Fair Barriers to Learning: Patient is [place]. Pt/Family Agrees to Plan: Yes Safety Risks/Education Teaching Recipient: Patient, Significant Other Teaching Methods: Discussion Response to Teaching: Verbalize Understanding Time Speech Therapy Time In: 09:15 Speech Therapy Time Out: 09:45 Total Billed Time: 30 Billed Treatment Time 1, MORAIMA Tao Oct 18, 2018 12:41
--- NOTE | 2018-10-18 12:55 | Progress Note (SOAP) ---
Subjective Date Seen by a Provider: Oct 18, 2018 Time Seen by a Provider: 12:51 Subjective/Events-last exam Worsening pain again, was better, but now worse again. Hurts in back and wraps around the front, and hurts into groins. Weak with hip flexion. Objective Exam Vital Signs Date Time Temp Pulse Resp B/P (MAP) Pulse Ox O2 Delivery O2 Flow Rate FiO2 10/18/18 09:00 Room Air 10/18/18 06:48 98.1 80 20 154/66 (95) 96 Room Air 10/17/18 20:30 Room Air 10/17/18 18:00 99.2 72 20 137/78 (97) 96 Room Air I & O 10/18/18 07:00 Intake Total 1240 ml Output Total 1175 ml Balance 65 ml Capillary Refill : General Appearance: No Apparent Distress Neck: Supple Respiratory: No Accessory Muscle Use, No Respiratory Distress Cardiovascular: Normal Peripheral Pulses Gastrointestinal: non tender, soft Extremity: No Calf Tenderness Neurologic/Psychiatric: Motor Weakness, Other (weakness in hip flexors, no pain with hip rom) Skin: Other (incision in back open, wound vac in place, looks ok.) Results Lab Laboratory Tests 10/17/18 16:12: Glucometer 177H 10/17/18 19:30: Vancomycin Level Trough 18.1 10/17/18 20:35: Glucometer 136H 10/18/18 05:26: Glucometer 130H 10/18/18 11:50: White Blood Count 11.6H, Red Blood Count 3.05L, Hemoglobin 9.2L, Hematocrit 27L , Mean Corpuscular Volume 90, Mean Corpuscular Hemoglobin 30, Mean Corpuscular Hemoglobin Concent 34, Red Cell Distribution Width 17.1H, Platelet Count 410H, Mean Platelet Volume 9.6, Neutrophils (%) (Auto) 79H, Lymphocytes (%) (Auto) 10L , Monocytes (%) (Auto) 9, Eosinophils (%) (Auto) 1, Basophils (%) (Auto) 0, Neutrophils # (Auto) 9.2H, Lymphocytes # (Auto) 1.2, Monocytes # (Auto) 1.1H, Eosinophils # (Auto) 0.1, Basophils # (Auto) 0.0, Sodium Level 134L, Potassium Level 4.3, Chloride Level 105, Carbon Dioxide Level 21, Anion Gap 8, Blood Urea Nitrogen 10, Creatinine 0.81, Estimat Glomerular Filtration Rate > 60, BUN/ Creatinine Ratio 12, Glucose Level 147H, Calcium Level 8.7, Corrected Calcium 10.0, Total Bilirubin 0.4, Aspartate Amino Transf (AST/SGOT) 44H, Alanine Aminotransferase (ALT/SGPT) 38, Alkaline Phosphatase 179H, Total Protein 4.6L, Albumin 2.4L Assessment/Plan Assessment/Plan Assess & Plan/Chief Complaint Persistent back pain, groin pain Possible early hardware failure vs psoas abscess Plan: Check MRI scan L spine and esr/crp. Clinical Quality Measures DVT/VTE Risk/Contraindication: RFS Level Per Nursing on Admit: 4+=Very High LEO BRANHAM MD Oct 18, 2018 12:55
--- NOTE | 2018-10-18 13:00 | Diagnostic Imaging Report ---
PROCEDURE: CT lumbar spine without contrast. TECHNIQUE: Multiple contiguous axial images were obtained through the lumbar spine without the use of intravenous contrast. Sagittal and coronal reformations were then performed. INDICATION: Back pain with recent lumbar surgery. COMPARISON: None available. FINDINGS: There is approximately 4 mm of retrolisthesis of L2 on L3. No additional spondylolisthesis is seen. There has been laminectomies from L3-L5 and within the midline soft tissue surgical bed, there are low attenuation with foci of air that could represent postoperative soft tissue gas and fluid. Imaging cannot differentiate between infected and noninfected fluid. Posterior instrumented fusion has been performed with paired transpedicular screws at L2, L4, L5 and S1. At L3, there are screw tracks which have been filled with hyperdense particles likely bone graft material. Some of these particles of presumed bone graft are within the L2-L3 disc space. Vertical spanning rods are present with a cross-link at the L3 vertebra level. No hardware fracture. The tips of the L2 transpedicular screws terminate within the L1-L2 disc space. Discectomies have been performed from L3-L4 through L5-S1 and there are bone cages in place. No subsidence of the cages. No fracture within the visualized sacrum. SI joints are normal in alignment. No definitive fluid collection within the visualized retroperitoneum. Trace pleural effusions are noted bilaterally. There is no high-grade spinal stenosis by non-myelogram imaging. IMPRESSION: 1. There appear to be recent changes from posterior decompression and instrumented fusion. This includes low-attenuation and scattered foci of air within the midline laminectomy defects from L2-L5. There is no definitive loculated fluid collection although assessment is limited by CT. If there is concern for abscess, ultrasound could be utilized to assess for fluid collection that may be amenable to aspiration. 2. Posterior instrumented fusion from L2-S1. The bilateral transpedicular screws at L2 have tips terminating within the L1-L2 disc space. Dictated by: Dictated on workstation # [id number]
--- NOTE | 2018-10-18 13:08 | Cardiology Progress Note ---
Cardiology SOAP Progress Note Subjective: Complains of back discomfort. Objective: I&O/Vital Signs 10/18/18 10/18/18 06:48 09:00 Temp 98.1 Pulse 80 Resp 20 B/P (MAP) 154/66 (95) Pulse Ox 96 O2 Delivery Room Air Room Air 10/18/18 00:00 Intake Total 990 ml Output Total 575 ml Balance 415 ml Weight (Pounds): 193 Weight (Ounces): 8.0 Weight (Calculated Kilograms): 87.626679 Constitutional: No appears stated age; AAO x 3; No apparent distress, No PERRL , No well-developed, No well-nourished, No other Respiratory: No accessory muscle use, No respiratory distress, No chest tender , No chest expansion is symmetric; chest is bilaterally symmetric; No lungs clear to percussion; lungs clear to auscultation; No crackles, No rhonchi, No rales, No stridor, No wheezing, No pleural rub, No other Cardiovascular: regular rate-rhythm; No irregularly irregular, No extra beats, No parasternal heave is noted, No JVD, No edema, No bradycardia, No tachycardia , No point of maximal impulse, No cardiac thrills are palpable; S1 and S2; No gallop/S3, No gallop/S4, No diastolic murmur, No systolic murmur, No friction rub, No click, No other Gastrointestional: No tender, No soft, No round, No distended, No pulsatile mass, No organomegaly, No guarding, No rebound, No tenderness, No hernia, No mass, No audible bowel sounds, No abnormal bowel sounds, No abdominal bruits, No spleenomegaly, No other Extremities: No normal range of motion, No non-tender, No normal inspection, No pedal edema, No calf tenderness, No normal capillary refill, No pelvis stable , No calf tenderness, No inflammation, No pedal edema, No slow capillary refill , No swelling, No other, No abrasion, No clubbing, No cyanosis, No ecchymosis, No laceration, No no lower extremity edema bilateral, No significant edema, No tenderness, No wound Neurologic/Psychiatric: no motor/sensory deficits, alert, normal mood/affect, oriented x 3 Skin: No normal color, No warm/dry, No cyanosis, No cool, No diaphoresis, No damp, No ecchymosis, No jaundice, No mottled, No pallor, No rash, No tattoos/ piercings, No ulcerations, No rash on exposed areas, No ulcerations on exposed areas, No other Results/Procedures: Labs Laboratory Tests 10/17/18 16:12: Glucometer 177H 10/17/18 19:30: Vancomycin Level Trough 18.1 10/17/18 20:35: Glucometer 136H 10/18/18 05:26: Glucometer 130H 10/18/18 11:50: White Blood Count 11.6H, Red Blood Count 3.05L, Hemoglobin 9.2L, Hematocrit 27L , Mean Corpuscular Volume 90, Mean Corpuscular Hemoglobin 30, Mean Corpuscular Hemoglobin Concent 34, Red Cell Distribution Width 17.1H, Platelet Count 410H, Mean Platelet Volume 9.6, Neutrophils (%) (Auto) 79H, Lymphocytes (%) (Auto) 10L , Monocytes (%) (Auto) 9, Eosinophils (%) (Auto) 1, Basophils (%) (Auto) 0, Neutrophils # (Auto) 9.2H, Lymphocytes # (Auto) 1.2, Monocytes # (Auto) 1.1H, Eosinophils # (Auto) 0.1, Basophils # (Auto) 0.0, Sodium Level 134L, Potassium Level 4.3, Chloride Level 105, Carbon Dioxide Level 21, Anion Gap 8, Blood Urea Nitrogen 10, Creatinine 0.81, Estimat Glomerular Filtration Rate > 60, BUN/ Creatinine Ratio 12, Glucose Level 147H, Calcium Level 8.7, Corrected Calcium 10.0, Total Bilirubin 0.4, Aspartate Amino Transf (AST/SGOT) 44H, Alanine Aminotransferase (ALT/SGPT) 38, Alkaline Phosphatase 179H, Total Protein 4.6L, Albumin 2.4L A/P: Assessment/Dx: Assessment/Dx: Spinal abscess, Sepsis, UTI, History of CAD, CABG, Atrial fibrillation on amiodarone. LVH, Diastolic dysfunction. Plan: Spinal abscessstatus post I&D. Still complains of back discomfort. Dr. Carreon aware. Sepsiscontinue broad-spectrum IV antibiotics as per Dr. Harrison. C. difficile, on contact precautions. Paroxysmal atrial fibrillationcurrently in sinus rhythm. Continue amiodarone. I might consider discontinuing amiodarone but since the patient follows Dr. Soliman in [place] I may defer that decision to him. CAD/history of CABGcontinue lisinopril and statin therapy. Aspirin low dose once okay with Dr. Harrison and Dr. Mc. Will add low dose beta carlie for atrial fibrillation and CAD. LVH, Diastolic dysfunction, Echocardiogram showed normal LV function. Patient follows with Dr. Soliman in [place]. Thank you for your consultation. Please call me if you have any questions. Chato Moyer MD, FACP, FACC, FSCAI, FHRS, CCDS Interventional Cardiology Cardiac Electrophysiology Vascular Medicine and Endovascular Interventions Kiarra MOYER MD Oct 18, 2018 1:08 pm
--- NOTE | 2018-10-18 13:29 | Occ Therapy Progress Note ---
Therapy Progress Note Per physician, pt. on hold for therapy until further testing. 1330 BOBBY NAVAS OT Oct 18, 2018 13:29
[2018-10-18] MEDS: TAMSULOSIN 0.4 MG (FLOMAX) CAP PO SCH (18:24)
[2018-10-18 18:26] VITALS: BP 143/56
[2018-10-18] MEDS: VANCOMYCIN INJECTION 1,000 MG in NS (IVPB) 250 ML IV SCH (21:01)
[2018-10-19] MEDS: VANCOMYCIN ORAL 250 MG/5 ML 120 ML PO SCH ×8 (00:29→17:42)
[2018-10-19] MEDS: ACETAMINOPHEN 325 MG TABLET PO SCH ×4 (00:29→17:43)
[2018-10-19] MEDS: BETHANECHOL 10 MG (URECHOLINE) TAB PO SCH (06:19)
[2018-10-19] MEDS: PIOGLITAZONE 30MG (ACTOS) TAB PO SCH (06:19)
[2018-10-19] MEDS: LACTOBACILLUS Acidoph/Bulgar 1 GM (LACTINEX) PACKET PO SCH ×4 (06:19→21:18)
[2018-10-19] MEDS: metFORMIN 500 MG (GLUCOPHAGE) TAB PO SCH ×2 (06:19→17:40)
[2018-10-19 06:33] LABS: BASOPHILS % (AUTO) 0 % (0-10); EOSINOPHILS # (AUTO) 0.3 10^3/uL (0.0-0.3); EOSINOPHILS % (AUTO) 3 % (0-10); HEMATOCRIT 27 % (40-54); HEMOGLOBIN 8.7 G/DL (13.3-17.7); LYMPHOCYTES # (AUTO) 1.9 X 10^3 (1.0-4.0); LYMPHOCYTES % (AUTO) 17 % (12-44); MEAN CORPUSCULAR HEMOGLOBIN 29 PG (25-34); MEAN CORPUSCULAR HGB CONC 33 G/DL (32-36); MEAN CORPUSCULAR VOLUME 90 FL (80-99); MEAN PLATELET VOLUME 9.7 FL (7.4-10.4); MONOCYTES # (AUTO) 1.1 X 10^3 (0.0-1.0); MONOCYTES % (AUTO) 10 % (0-12); NEUTROPHILS # (AUTO) 7.9 X 10^3 (1.8-7.8); NEUTROPHILS % (AUTO) 70 % (42-75); PLATELET COUNT 431 10^3/uL (130-400); RED BLOOD COUNT 2.97 10^6/uL (4.35-5.85); WHITE BLOOD COUNT 11.2 10^3/uL (4.3-11.0)
[2018-10-19 06:38] VITALS: BP 130/62
--- NOTE | 2018-10-19 06:56 | Progress Note-Urology ---
Progress Note-Urology Progress Notes/Assess & Plan Progress/Assessment & Plan TOV TODAY Final Diagnosis URINE RETENTION COLE BLUM MD Oct 19, 2018 6:56 am
[2018-10-19 06:57] LABS: ALANINE AMINOTRANSFERASE 33 U/L (0-55); ALBUMIN 2.3 GM/DL (3.2-4.5); ALKALINE PHOSPHATASE 169 U/L (40-136); BILIRUBIN,TOTAL 0.4 MG/DL (0.1-1.0); BUN/CREATININE RATIO 12; CALCIUM 8.5 MG/DL (8.5-10.1); CARBON DIOXIDE 21 MMOL/L (21-32); CHLORIDE 106 MMOL/L (98-107); CREATININE SERUM 0.82 MG/DL (0.60-1.30); GFR ESTIMATED > 60; GLUCOSE 100 MG/DL (70-105); SODIUM 135 MMOL/L (135-145); TOTAL PROTEIN 4.4 GM/DL (6.4-8.2)
[2018-10-19] MEDS: inSUlin ASPART (NovoLOG) 1 UNIT/0.01 ML (CHARGE PER UNIT) SC SCH ×4 (07:48→21:18)
[2018-10-19 08:51] VITALS: BP 146/69
--- NOTE | 2018-10-19 08:52 | PM & R (SOAP) Progress Note ---
Subjective This was a face to face visit with the patient. Date Seen by Provider: Oct 19, 2018 Time Seen by Provider: 07:50 Subjective/Events-last exam Patient was seen in his room this AM Appreciate DR Gudino note and CT of the Lumbar spine Patient to have redo surgery tomorrow due to loosening hardware.Discussed with staff Patient may have therapy as tolerated today according to ortho-spine Review of Systems Musculoskeletal: back pain, leg pain Objective Physician Exam Last Set of Vital Signs Vital Signs Date Time Temp Pulse Resp B/P (MAP) Pulse Ox O2 Delivery O2 Flow Rate FiO2 10/19/18 06:38 98.2 71 18 130/62 (84) 95 Room Air Capillary Refill : I&O Intake and Output 10/19/18 00:00 Intake Total 750 ml Output Total 1150 ml Balance -400 ml Intake Oral 750 ml Output Urine Total 1150 ml # Bowel Movements 1 General: Alert, Cooperative, No Acute Distress HEENT: Atraumatic, PERRLA, EOMI, Mucous Memb Moist/[place], Other ([facility] has hearing aids but out for the evening) Neck: Supple, No JVD Lungs: Clear to Auscultation Heart: Regular Rate Abdomen: Normal Bowel Sounds, Soft, No Tenderness Extremities: No Edema Skin: Other (has wound vac over incision) Neuro: Other (cognitive impairment with memory strength 4/5 uppers 3+/5 lowers sensation intact) Psych/Mental Status: Other (Mild memory impairment) Results Lab Data Laboratory Tests 10/16/18 11:31: Glucometer 148H 10/16/18 16:19: Glucometer 159H 10/16/18 20:23: Glucometer 187H 10/17/18 06:39: Glucometer 135H 10/17/18 06:45: White Blood Count 13.3H, Red Blood Count 3.17L, Hemoglobin 9.5L, Hematocrit 28L , Mean Corpuscular Volume 89, Mean Corpuscular Hemoglobin 30, Mean Corpuscular Hemoglobin Concent 34, Red Cell Distribution Width 17.0H, Platelet Count 447H, Mean Platelet Volume 9.7, Neutrophils (%) (Auto) 73, Lymphocytes (%) (Auto) 15, Monocytes (%) (Auto) 11, Eosinophils (%) (Auto) 1, Basophils (%) (Auto) 0, Neutrophils # (Auto) 9.7H, Lymphocytes # (Auto) 2.0, Monocytes # (Auto) 1.5H, Eosinophils # (Auto) 0.2, Basophils # (Auto) 0.0, Sodium Level 135, Potassium Level 4.0, Chloride Level 106, Carbon Dioxide Level 20L, Anion Gap 9, Blood Urea Nitrogen 11, Creatinine 0.85, Estimat Glomerular Filtration Rate > 60, BUN/ Creatinine Ratio 13, Glucose Level 135H, Calcium Level 8.9, Corrected Calcium 10.2H, Total Bilirubin 0.4, Aspartate Amino Transf (AST/SGOT) 49H, Alanine Aminotransferase (ALT/SGPT) 45, Alkaline Phosphatase 189H, Total Protein 4.7L, Albumin 2.4L 10/17/18 11:06: Glucometer 142H 10/17/18 16:12: Glucometer 177H 10/17/18 19:30: Vancomycin Level Trough 18.1 10/17/18 20:35: Glucometer 136H 10/18/18 05:26: Glucometer 130H 10/18/18 11:50: White Blood Count 11.6H, Red Blood Count 3.05L, Hemoglobin 9.2L, Hematocrit 27L , Mean Corpuscular Volume 90, Mean Corpuscular Hemoglobin 30, Mean Corpuscular Hemoglobin Concent 34, Red Cell Distribution Width 17.1H, Platelet Count 410H, Mean Platelet Volume 9.6, Neutrophils (%) (Auto) 79H, Lymphocytes (%) (Auto) 10L , Monocytes (%) (Auto) 9, Eosinophils (%) (Auto) 1, Basophils (%) (Auto) 0, Neutrophils # (Auto) 9.2H, Lymphocytes # (Auto) 1.2, Monocytes # (Auto) 1.1H, Eosinophils # (Auto) 0.1, Basophils # (Auto) 0.0, Erythrocyte Sedimentation Rate 30, Sodium Level 134L, Potassium Level 4.3, Chloride Level 105, Carbon Dioxide Level 21, Anion Gap 8, Blood Urea Nitrogen 10, Creatinine 0.81, Estimat Glomerular Filtration Rate > 60, BUN/Creatinine Ratio 12, Glucose Level 147H, Calcium Level 8.7, Corrected Calcium 10.0, Total Bilirubin 0.4, Aspartate Amino Transf (AST/SGOT) 44H, Alanine Aminotransferase (ALT/SGPT) 38, Alkaline Phosphatase 179H, C-Reactive Protein High Sensitivity 4.54H, Total Protein 4.6L , Albumin 2.4L 10/18/18 16:09: Glucometer 190H 10/18/18 21:00: Glucometer 144H 10/19/18 06:25: White Blood Count 11.2H, Red Blood Count 2.97L, Hemoglobin 8.7L, Hematocrit 27L , Mean Corpuscular Volume 90, Mean Corpuscular Hemoglobin 29, Mean Corpuscular Hemoglobin Concent 33, Red Cell Distribution Width 17.0H, Platelet Count 431H, Mean Platelet Volume 9.7, Neutrophils (%) (Auto) 70, Lymphocytes (%) (Auto) 17, Monocytes (%) (Auto) 10, Eosinophils (%) (Auto) 3, Basophils (%) (Auto) 0, Neutrophils # (Auto) 7.9H, Lymphocytes # (Auto) 1.9, Monocytes # (Auto) 1.1H, Eosinophils # (Auto) 0.3, Basophils # (Auto) 0.0, Sodium Level 135, Potassium Level 4.0, Chloride Level 106, Carbon Dioxide Level 21, Anion Gap 8, Blood Urea Nitrogen 10, Creatinine 0.82, Estimat Glomerular Filtration Rate > 60, BUN/ Creatinine Ratio 12, Glucose Level 100, Calcium Level 8.5, Corrected Calcium 9.9 , Total Bilirubin 0.4, Aspartate Amino Transf (AST/SGOT) 42H, Alanine Aminotransferase (ALT/SGPT) 33, Alkaline Phosphatase 169H, Total Protein 4.4L, Albumin 2.3L Assessment/Plan Assessment and Plan Hardware failure lumbar spine surgery Spinal abscess with sepsis s/p spinal surgery of antibiotics but on wound vac Urinary retention Hunt to remain in due to pending surgery C dif bowel colitis under treatment and with contact precautions A FIB controlled with med CAD s/p CABG DM controlled with med Postop anemia s/p transfusion HLP Plan Hold therapy today Redo surgery tomorrow with DR Mc Team Conference to be held later today-see report for full functional update and POC Will f/u with SW/Team re disposition after redo surgery Co-Morbidities that are continuing to impact the rehab process: (include details ) SERENA SANTIAGO MD Oct 19, 2018 08:52
[2018-10-19] MEDS: lisINopril 20 MG (PRINIVIL) TABLET PO SCH (08:53)
[2018-10-19] MEDS: ALLOPURINOL 300 MG (ZYLOPRIM) TAB PO SCH (08:53)
[2018-10-19] MEDS: meTOprolol TARTRATE 25 MG (LOPRESSOR) TABLET PO SCH ×2 (08:53→21:18)
[2018-10-19] MEDS: amLODIPine 5 MG (NORVASC) TAB PO SCH (08:53)
[2018-10-19] MEDS: ATORVASTATIN 10 MG (LIPITOR) TABLET PO SCH (08:53)
[2018-10-19] MEDS: SENNA W/DOCUSATE (SENOKOT S) TABLET PO SCH ×2 (08:55→21:18)
[2018-10-19] MEDS: POLYETHYLENE GLYCOL 17 GM (MIRALAX) PACK PO SCH ×2 (08:55→21:18)
[2018-10-19] MEDS: AMIODARONE 200 MG (CORDARONE) TAB PO SCH (08:57)
[2018-10-19] MEDS: PHENAZOPYRIDINE 100 MG (PYRIDIUM) TABLET PO SCH ×3 (09:06→17:43)
--- NOTE | 2018-10-19 11:57 | Progress Note-Hospitalist ---
MARQUEZ DELATORRE 10/19/18 1157: Subjective HPI/CC On Admission Date Seen by Provider: Oct 19, 2018 Time Seen by Provider: 11:30 Subjective/Events-last exam Updated patient on the plan Pain is well controlled Stools are soft no diarrhea Review of Systems Musculoskeletal: back pain Objective Exam Vital Signs Vital Signs Date Time Temp Pulse Resp B/P (MAP) Pulse Ox O2 Delivery O2 Flow Rate FiO2 10/19/18 18:00 99.4 67 20 114/54 (74) 91 Room Air Capillary Refill : General Appearance: No Apparent Distress, WD/WN, Chronically ill Respiratory: Chest Non Tender, Lungs Clear, Normal Breath Sounds, No Accessory Muscle Use, No Respiratory Distress Cardiovascular: Regular Rate, Rhythm, No Edema, No Gallop, No JVD, No Murmur, Normal Peripheral Pulses Gastrointestinal: Normal Bowel Sounds, No Organomegaly, No Pulsatile Mass, Non Tender, Soft Neurologic/Psychiatric: Alert, Oriented x3, No Motor/Sensory Deficits, Normal Mood/Affect Results/Procedures Lab Laboratory Tests 10/19/18 06:25 Patient resulted labs reviewed. Assessment/Plan Assessment and Plan Assess & Plan/Chief Complaint Assessment: Recurrent severe back pain with referred lower abdominal pain similar to initial presentation obtained labs and CT scan and Dr Mc consultation which revealed displaced hardware in need of repeat surgery tomorrow 10/20/18 Debility following spinal abscess status post 2 I&D's uncomplicated per Dr Mc Urinary retention acute maintained with leo but Dr Cortes consulted C. difficile colitis improved after constipation for 3 days now BM 2 days ago after Miralax and DC Questran Severe anemia due to acute blood loss status post 4 units of blood while on MedSurg and ICU CAD DM CRI Plan: Hardware modification tomorrow Leo cath and consult Dr Cortes is appreciated Urecholine and Pyridium to be maintained Limit pain meds Miralax and senna Hold Questran Vanc PO Check labs in am Appreciate Dr Mc Diagnosis/Problems Diagnosis/Problems (1) Loosening of hardware in spine Status: Acute (2) Intraspinal abscess and granuloma Status: Resolved Resolution Date/Time: 10/15/18 @ 14:02 (3) C. difficile colitis Status: Acute (4) Renal insufficiency Status: Resolved Resolution Date/Time: 10/10/18 @ 09:41 (5) Leukocytosis Status: Resolved Resolution Date/Time: 10/15/18 @ 14:02 (6) Transfusion of blood during current hospitalization Status: Resolved Resolution Date/Time: 10/15/18 @ 14:02 (7) Advanced age Status: Chronic (8) CAD (coronary artery disease) Status: Chronic Qualifiers: Coronary Disease-Associated Artery/Lesion type: [place] artery [place] vs. transplanted heart: [place] heart Associated angina: without angina Qualified Codes: I25.10 - Atherosclerotic heart disease of [place] coronary artery without angina pectoris (9) Atrial fibrillation Status: Chronic Qualifiers: Atrial fibrillation type: paroxysmal Qualified Codes: I48.0 - Paroxysmal atrial fibrillation (10) Hx of CABG Status: Chronic (11) Urinary retention Status: Acute Clinical Quality Measures DVT/VTE Risk/Contraindication: RFS Level Per Nursing on Admit: 4+=Very High ANTHONY GIRON MED STUDENT 10/19/18 1515: Subjective Subjective/Events-last exam Patient states that he is feeling much better this morning He reports no pain He says that his appetite is returning Physical therapy is on hold He is scheduled to have back surgery today to repair failed equipment Objective Exam General Appearance: No Apparent Distress, WD/WN Respiratory: Chest Non Tender, Lungs Clear, Normal Breath Sounds, No Accessory Muscle Use, No Respiratory Distress Cardiovascular: Regular Rate, Rhythm, No Edema, No Gallop, No JVD, No Murmur Gastrointestinal: Normal Bowel Sounds, No Organomegaly, No Pulsatile Mass, Non Tender, Soft Neurologic/Psychiatric: Alert, Oriented x3, No Motor/Sensory Deficits, Normal Mood/Affect Skin: Normal Color, Warm/Dry Assessment/Plan Assessment and Plan Assess & Plan/Chief Complaint Assessment: 1) Back pain due to equipment failure 2) Debility due to repeated illness Plan: 1) Orthopedic surgery today 2) Inpatient rehabilitation MARQUEZ DELATORRE DO Oct 19, 2018 11:57 ANTHONY GIRON MED STUDENT Oct 19, 2018 15:15
--- NOTE | 2018-10-19 13:47 | Physical Therapy Progress Note ---
Therapy Progress Note Pt on hold, pending surgical intervention 10/20/18. EKTA CHAVEZ PT Oct 19, 2018 13:47
--- NOTE | 2018-10-19 14:25 | Cardiology Progress Note ---
Cardiology SOAP Progress Note Subjective: No cardiac complaints. Objective: I&O/Vital Signs 10/19/18 10/19/18 10/19/18 06:38 08:51 09:00 Temp 98.2 Pulse 71 74 Resp 18 B/P (MAP) 130/62 (84) 146/69 (94) Pulse Ox 95 O2 Delivery Room Air Room Air 10/19/18 00:00 Intake Total 500 ml Output Total 550 ml Balance -50 ml Weight (Pounds): 193 Weight (Ounces): 8.0 Weight (Calculated Kilograms): 87.786244 Constitutional: No appears stated age; AAO x 3; No apparent distress, No PERRL , No well-developed, No well-nourished, No other Respiratory: No accessory muscle use, No respiratory distress, No chest tender , No chest expansion is symmetric; chest is bilaterally symmetric; No lungs clear to percussion; lungs clear to auscultation; No crackles, No rhonchi, No rales, No stridor, No wheezing, No pleural rub, No other Cardiovascular: regular rate-rhythm; No irregularly irregular, No extra beats, No parasternal heave is noted, No JVD, No edema, No bradycardia, No tachycardia , No point of maximal impulse, No cardiac thrills are palpable; S1 and S2; No gallop/S3, No gallop/S4, No diastolic murmur, No systolic murmur, No friction rub, No click, No other Gastrointestional: No tender, No soft, No round, No distended, No pulsatile mass, No organomegaly, No guarding, No rebound, No tenderness, No hernia, No mass, No audible bowel sounds, No abnormal bowel sounds, No abdominal bruits, No spleenomegaly, No other Extremities: No normal range of motion, No non-tender, No normal inspection, No pedal edema, No calf tenderness, No normal capillary refill, No pelvis stable , No calf tenderness, No inflammation, No pedal edema, No slow capillary refill , No swelling, No other, No abrasion, No clubbing, No cyanosis, No ecchymosis, No laceration, No no lower extremity edema bilateral, No significant edema, No tenderness, No wound Neurologic/Psychiatric: no motor/sensory deficits, alert, normal mood/affect, oriented x 3 Skin: No normal color, No warm/dry, No cyanosis, No cool, No diaphoresis, No damp, No ecchymosis, No jaundice, No mottled, No pallor, No rash, No tattoos/ piercings, No ulcerations, No rash on exposed areas, No ulcerations on exposed areas, No other Results/Procedures: Labs Laboratory Tests 10/18/18 16:09: Glucometer 190H 10/18/18 21:00: Glucometer 144H 10/19/18 06:25: White Blood Count 11.2H, Red Blood Count 2.97L, Hemoglobin 8.7L, Hematocrit 27L , Mean Corpuscular Volume 90, Mean Corpuscular Hemoglobin 29, Mean Corpuscular Hemoglobin Concent 33, Red Cell Distribution Width 17.0H, Platelet Count 431H, Mean Platelet Volume 9.7, Neutrophils (%) (Auto) 70, Lymphocytes (%) (Auto) 17, Monocytes (%) (Auto) 10, Eosinophils (%) (Auto) 3, Basophils (%) (Auto) 0, Neutrophils # (Auto) 7.9H, Lymphocytes # (Auto) 1.9, Monocytes # (Auto) 1.1H, Eosinophils # (Auto) 0.3, Basophils # (Auto) 0.0, Sodium Level 135, Potassium Level 4.0, Chloride Level 106, Carbon Dioxide Level 21, Anion Gap 8, Blood Urea Nitrogen 10, Creatinine 0.82, Estimat Glomerular Filtration Rate > 60, BUN/ Creatinine Ratio 12, Glucose Level 100, Calcium Level 8.5, Corrected Calcium 9.9 , Total Bilirubin 0.4, Aspartate Amino Transf (AST/SGOT) 42H, Alanine Aminotransferase (ALT/SGPT) 33, Alkaline Phosphatase 169H, Total Protein 4.4L, Albumin 2.3L 10/19/18 11:47: Glucometer 115H 10/19/18 12:00: A/P: Assessment/Dx: Assessment/Dx: Spinal abscess, Sepsis, UTI, History of CAD, CABG, Atrial fibrillation on amiodarone. LVH, Diastolic dysfunction. Plan: Spinal abscessstatus post I&D. Still complains of back discomfort. Dr. Carreon aware. post re-operation tomorrow. Sepsiscontinue broad-spectrum IV antibiotics as per Dr. Harrison. C. difficile, on contact precautions. Paroxysmal atrial fibrillationcurrently in sinus rhythm. Continue amiodarone. I might consider discontinuing amiodarone but since the patient follows Dr. Soliman in [place] I may defer that decision to him. CAD/history of CABGcontinue lisinopril and statin therapy. Aspirin low dose once okay with Dr. Harrison and Dr. Mc. Will add low dose beta carlie for atrial fibrillation and CAD. LVH, Diastolic dysfunction, Echocardiogram showed normal LV function. Patient follows with Dr. Soliman in [place]. Thank you for your consultation. Please call me if you have any questions. Chato Moyer MD, FACP, FACC, FSCAI, FHRS, CCDS Interventional Cardiology Cardiac Electrophysiology Vascular Medicine and Endovascular Interventions Kiarra MOYER MD Oct 19, 2018 2:25 pm
[2018-10-19] MEDS: TAMSULOSIN 0.4 MG (FLOMAX) CAP PO SCH (17:39)
[2018-10-19 18:00] VITALS: BP 114/54
[2018-10-19] MEDS: VANCOMYCIN INJECTION 1,000 MG in NS (IVPB) 250 ML IV SCH (21:18)
[2018-10-20] MEDS: ACETAMINOPHEN 325 MG TABLET PO SCH ×3 (05:38→12:32)
[2018-10-20] MEDS: VANCOMYCIN ORAL 250 MG/5 ML 120 ML PO SCH ×6 (05:38→12:33)
[2018-10-20] MEDS: LACTOBACILLUS Acidoph/Bulgar 1 GM (LACTINEX) PACKET PO SCH ×2 (05:38→11:20)
[2018-10-20] MEDS: BETHANECHOL 10 MG (URECHOLINE) TAB PO SCH ×2 (05:39→11:20)
[2018-10-20] MEDS: inSUlin ASPART (NovoLOG) 1 UNIT/0.01 ML (CHARGE PER UNIT) SC SCH ×2 (05:40→11:20)
[2018-10-20] MEDS: metFORMIN 500 MG (GLUCOPHAGE) TAB PO SCH (05:40)
[2018-10-20] MEDS: PIOGLITAZONE 30MG (ACTOS) TAB PO SCH (05:40)
[2018-10-20 06:00] VITALS: BP 145/69
[2018-10-20 06:15] LABS: BASOPHILS % (AUTO) 0 % (0-10); EOSINOPHILS # (AUTO) 0.2 10^3/uL (0.0-0.3); EOSINOPHILS % (AUTO) 2 % (0-10); HEMATOCRIT 27 % (40-54); HEMOGLOBIN 8.8 G/DL (13.3-17.7); LYMPHOCYTES # (AUTO) 1.7 X 10^3 (1.0-4.0); LYMPHOCYTES % (AUTO) 16 % (12-44); MEAN CORPUSCULAR HEMOGLOBIN 30 PG (25-34); MEAN CORPUSCULAR HGB CONC 33 G/DL (32-36); MEAN CORPUSCULAR VOLUME 90 FL (80-99); MEAN PLATELET VOLUME 9.9 FL (7.4-10.4); MONOCYTES # (AUTO) 1.1 X 10^3 (0.0-1.0); MONOCYTES % (AUTO) 10 % (0-12); NEUTROPHILS # (AUTO) 7.5 X 10^3 (1.8-7.8); NEUTROPHILS % (AUTO) 71 % (42-75); PLATELET COUNT 437 10^3/uL (130-400); RED BLOOD COUNT 2.96 10^6/uL (4.35-5.85); WHITE BLOOD COUNT 10.5 10^3/uL (4.3-11.0)
[2018-10-20 06:37] LABS: ALANINE AMINOTRANSFERASE 32 U/L (0-55); ALBUMIN 2.2 GM/DL (3.2-4.5); ALKALINE PHOSPHATASE 183 U/L (40-136); BILIRUBIN,TOTAL 0.3 MG/DL (0.1-1.0); BUN/CREATININE RATIO 15; CALCIUM 8.3 MG/DL (8.5-10.1); CARBON DIOXIDE 20 MMOL/L (21-32); CHLORIDE 107 MMOL/L (98-107); CREATININE SERUM 0.89 MG/DL (0.60-1.30); GFR ESTIMATED > 60; GLUCOSE 93 MG/DL (70-105); POTASSIUM 4.4 MMOL/L (3.6-5.0); SODIUM 136 MMOL/L (135-145); TOTAL PROTEIN 4.3 GM/DL (6.4-8.2)
[2018-10-20] MEDS: meTOprolol TARTRATE 25 MG (LOPRESSOR) TABLET PO SCH (08:21)
[2018-10-20] MEDS: PHENAZOPYRIDINE 100 MG (PYRIDIUM) TABLET PO SCH ×2 (08:21→13:02)
[2018-10-20] MEDS: lisINopril 20 MG (PRINIVIL) TABLET PO SCH (08:22)
[2018-10-20] MEDS: ATORVASTATIN 10 MG (LIPITOR) TABLET PO SCH (08:22)
[2018-10-20] MEDS: ALLOPURINOL 300 MG (ZYLOPRIM) TAB PO SCH (08:22)
[2018-10-20] MEDS: SENNA W/DOCUSATE (SENOKOT S) TABLET PO SCH (08:22)
[2018-10-20] MEDS: amLODIPine 5 MG (NORVASC) TAB PO SCH (08:22)
[2018-10-20] MEDS: AMIODARONE 200 MG (CORDARONE) TAB PO SCH (08:22)
[2018-10-20] MEDS: POLYETHYLENE GLYCOL 17 GM (MIRALAX) PACK PO SCH (08:22)
--- NOTE | 2018-10-20 08:34 | Occ Therapy Progress Note ---
Therapy Progress Note Late entry for 10/19/18 Pt on hold pending surgery on back on 10/20/18. CRISTIAN MERIDA OT Oct 20, 2018 08:34
--- NOTE | 2018-10-20 09:30 | Therapy Team Discharge Summary ---
Therapy Discharge Summary Discharge Recommendations Date of Discharge 10/20/2018 Therapy D/C Recommendations: 24 hr Supervision Physical Therapy This patient was transferred to ARU from acute care post surgical intervention to replace hardware in his back due to sepsis and spinal abscess. Prior to acute hospital stay, he was mod indep with all mobility using a fWW. Upon admit to ARU, he was mod assist with transfers and walked 10 ft with FWW with CGA. Treatment was limited as pt began having progressive pain that limited his abilty to participate with skilled therapy. Treatment did consist of LE strength, functional transfers and gait. However, at last visit he was nearly dependent for all mobility due to pain and it was found that the hardware had failed. He is to discharge this date and return to surgery for repair. DC PT. Occupational Therapy Decreased Activ Tolerance, Decreased UE Strength, Dependent Transfers, Impaired Bed Mobility, Impaired Funct Balance, Impaired I ADL's, Impaired Self-Care Skills, Restricted Funct UE ROM PT Longterm Goals Longterm Goals PT Longterm Goals Time Frame: Nov 04, 2018 Transfers (B,C,W/C) (FIM): 5 Roll Left to Right (QC): 4 Sit to Lying (QC): 4 Lying-Sitting on Side/Bed(QC): 4 Sit to Stand (QC): 4 Chair/Nem-db-Ondsh Xfer(QC): 4 Car Transfer (QC): 4 Gait (FIM): 5 Distance: 150' Walk 10 feet (QC): 4 Walk 10ft-Uneven Surface(QC): 4 Walk 50ft with 2 Turns (QC): 4 Walk 150 ft (QC): 4 Gait Level of Assist: 5 Gait Assistive Device: FWW Stairs (FIM): 2 # of Steps: 4 1 Step (curb) (QC): 4 4 Steps (QC): 4 Stairs Level Of Assist: 4 No goals met OT Longterm Goals Longterm Goals Time Frame: Nov 04, 2018 Eating (FIM): 7 Eating (QC): 6 Oral Hygiene (QC): 6 Grooming(FIM): 6 Bathing(FIM): 6 Shower/Bathe Self (QC): 6 Upper Body Dressing(FIM): 6 Upper Body Dressing (QC): 6 Lower Body Dressing(FIM): 6 Lower Body Dressing (QC): 6 On/Off Footwear (QC): 6 Toileting(FIM): 6 Toileting Hygiene (QC): 6 Toilet/Commode Transfer(FIM): 6 Toilet/Commode Transfer (QC): 6 Shower Transfer(FIM): 5 (if allowed per wound vac) Additional Goals: 1-Demonstrate ADL Tasks, 2-Verbalize Understanding, 3- ImproveStrength/Cris 1=Demonstrate adherence to instructed precautions during ADL tasks. 2=Patient will verbalize/demonstrate understanding of assistive devices/ modifications for ADL. 3=Patient will improve strength/tolerance for activity to enable patient to perform ADL's. Speech Shot Grinder Operator Goals Shot Grinder Operator Goals Patient will improve memory and problem solving tasks with minimal cues for increased safety and independence at 90% accuracy. EKTA CHAVEZ PT Oct 20, 2018 09:30
--- NOTE | 2018-10-20 10:24 | Progress Note-Hospitalist ---
Subjective HPI/CC On Admission Date Seen by Provider: Oct 20, 2018 Time Seen by Provider: 09:45 Subjective/Events-last exam Patient will have his hardware replaced today at [address] Mc Resting comfortably on his left side at bedside and appears to be discouraged but I tried to reassure Stools are not diarrhea status Pain is well-controlled Review of Systems Musculoskeletal: back pain Objective Exam Vital Signs Vital Signs Date Time Temp Pulse Resp B/P (MAP) Pulse Ox O2 Delivery O2 Flow Rate FiO2 10/20/18 08:33 Room Air 10/20/18 06:00 98.9 77 21 145/69 (94) 94 Capillary Refill : General Appearance: No Apparent Distress, WD/WN, Chronically ill Respiratory: Chest Non Tender, Lungs Clear, Normal Breath Sounds, No Accessory Muscle Use, No Respiratory Distress Cardiovascular: Regular Rate, Rhythm, No Edema, No Gallop, No JVD, No Murmur, Normal Peripheral Pulses Skin: Normal Color, Warm/Dry Results/Procedures Lab Laboratory Tests 10/20/18 05:50 Patient resulted labs reviewed. Assessment/Plan Assessment and Plan Assess & Plan/Chief Complaint Assessment: Recurrent severe back pain with referred lower abdominal pain similar to initial presentation obtained labs and CT scan and Dr Mc consultation which revealed displaced hardware in need of repeat surgery today 10/20/18 Debility following spinal abscess status post 2 I&D's uncomplicated per Dr Mc Urinary retention acute maintained with leo but Dr Cortes consulted C. difficile colitis improved after constipation for 3 days now BM 2 days ago after Miralax and DC Questran Severe anemia due to acute blood loss status post 4 units of blood while on MedSurg and ICU CAD DM CRI Plan: Hardware modification today Leo cath and consult Dr Cortes is appreciated Urecholine and Pyridium to be maintained Limit pain meds Miralax and senna Hold Questran Vanc PO Check labs in am Appreciate Dr Mc Diagnosis/Problems Diagnosis/Problems (1) Loosening of hardware in spine Status: Acute (2) Intraspinal abscess and granuloma Status: Resolved Resolution Date/Time: 10/15/18 @ 14:02 (3) C. difficile colitis Status: Acute (4) Renal insufficiency Status: Resolved Resolution Date/Time: 10/10/18 @ 09:41 (5) Leukocytosis Status: Resolved Resolution Date/Time: 10/15/18 @ 14:02 (6) Transfusion of blood during current hospitalization Status: Resolved Resolution Date/Time: 10/15/18 @ 14:02 (7) Advanced age Status: Chronic (8) CAD (coronary artery disease) Status: Chronic Qualifiers: Coronary Disease-Associated Artery/Lesion type: [place] artery [place] vs. transplanted heart: [place] heart Associated angina: without angina Qualified Codes: I25.10 - Atherosclerotic heart disease of [place] coronary artery without angina pectoris (9) Atrial fibrillation Status: Chronic Qualifiers: Atrial fibrillation type: paroxysmal Qualified Codes: I48.0 - Paroxysmal atrial fibrillation (10) Hx of CABG Status: Chronic (11) Urinary retention Status: Acute Clinical Quality Measures DVT/VTE Risk/Contraindication: RFS Level Per Nursing on Admit: 4+=Very High MARQUEZ DELATORRE DO Oct 20, 2018 10:24
[2018-10-20] MEDS ORDERED: METO-333 PO (10:46)
[2018-10-20] MEDS ORDERED: TRAM50TA2 PO (10:46)
[2018-10-20] MEDS ORDERED: PHEN-826 PO (10:46)
[2018-10-20] MEDS ORDERED: AMLO5TAB7 PO (10:46)
[2018-10-20] MEDS ORDERED: FENT1PAT8 TD (10:46)
[2018-10-20] MEDS ORDERED: BETH10TA PO (10:46)
[2018-10-20] MEDS ORDERED: TAMS0.4C98 PO (10:46)
[2018-10-20] MEDS ORDERED: ACID1GRA2 PO (10:46)
[2018-10-20] MEDS ORDERED: INSU100V16 SC (10:47)
--- NOTE | 2018-10-20 10:51 | PM & R (SOAP) Progress Note ---
Subjective This was a face to face visit with the patient. Date Seen by Provider: Oct 20, 2018 Time Seen by Provider: 07:45 Subjective/Events-last exam Patient was seen in his room this AM Informed by Nursing that patient will be discharged from rehab and then to redo spinal surgery with DR Mc this afternoon with transfer to ICU or Med/surg floor postop Discharge orders completed Date Identified: Oct 20, 2018 Time Identified: 10:45 Medication Intervention: Transfer meds reviewed Review of Systems Musculoskeletal: back pain, leg pain Objective Physician Exam Last Set of Vital Signs Vital Signs Date Time Temp Pulse Resp B/P (MAP) Pulse Ox O2 Delivery O2 Flow Rate FiO2 10/20/18 08:33 Room Air 10/20/18 06:00 98.9 77 21 145/69 (94) 94 Capillary Refill : I&O Intake and Output 10/20/18 00:00 Intake Total 920 ml Output Total 1100 ml Balance -180 ml Intake Oral 920 ml Output Urine Total 1100 ml General: Alert, Cooperative, No Acute Distress HEENT: Atraumatic, PERRLA, EOMI, Mucous Memb Moist/[place], Other ([facility] has hearing aids but out for the evening) Neck: Supple, No JVD Lungs: Clear to Auscultation Heart: Regular Rate Abdomen: Normal Bowel Sounds, Soft, No Tenderness Extremities: No Edema Skin: Other (has wound vac over incision) Neuro: Other (cognitive impairment with memory strength 4/5 uppers 3+/5 lowers sensation intact) Psych/Mental Status: Other (Mild memory impairment) Results Lab Data Laboratory Tests 10/17/18 11:06: Glucometer 142H 10/17/18 16:12: Glucometer 177H 10/17/18 19:30: Vancomycin Level Trough 18.1 10/17/18 20:35: Glucometer 136H 10/18/18 05:26: Glucometer 130H 10/18/18 11:50: White Blood Count 11.6H, Red Blood Count 3.05L, Hemoglobin 9.2L, Hematocrit 27L , Mean Corpuscular Volume 90, Mean Corpuscular Hemoglobin 30, Mean Corpuscular Hemoglobin Concent 34, Red Cell Distribution Width 17.1H, Platelet Count 410H, Mean Platelet Volume 9.6, Neutrophils (%) (Auto) 79H, Lymphocytes (%) (Auto) 10L , Monocytes (%) (Auto) 9, Eosinophils (%) (Auto) 1, Basophils (%) (Auto) 0, Neutrophils # (Auto) 9.2H, Lymphocytes # (Auto) 1.2, Monocytes # (Auto) 1.1H, Eosinophils # (Auto) 0.1, Basophils # (Auto) 0.0, Erythrocyte Sedimentation Rate 30, Sodium Level 134L, Potassium Level 4.3, Chloride Level 105, Carbon Dioxide Level 21, Anion Gap 8, Blood Urea Nitrogen 10, Creatinine 0.81, Estimat Glomerular Filtration Rate > 60, BUN/Creatinine Ratio 12, Glucose Level 147H, Calcium Level 8.7, Corrected Calcium 10.0, Total Bilirubin 0.4, Aspartate Amino Transf (AST/SGOT) 44H, Alanine Aminotransferase (ALT/SGPT) 38, Alkaline Phosphatase 179H, C-Reactive Protein High Sensitivity 4.54H, Total Protein 4.6L , Albumin 2.4L 10/18/18 16:09: Glucometer 190H 10/18/18 21:00: Glucometer 144H 10/19/18 06:25: White Blood Count 11.2H, Red Blood Count 2.97L, Hemoglobin 8.7L, Hematocrit 27L , Mean Corpuscular Volume 90, Mean Corpuscular Hemoglobin 29, Mean Corpuscular Hemoglobin Concent 33, Red Cell Distribution Width 17.0H, Platelet Count 431H, Mean Platelet Volume 9.7, Neutrophils (%) (Auto) 70, Lymphocytes (%) (Auto) 17, Monocytes (%) (Auto) 10, Eosinophils (%) (Auto) 3, Basophils (%) (Auto) 0, Neutrophils # (Auto) 7.9H, Lymphocytes # (Auto) 1.9, Monocytes # (Auto) 1.1H, Eosinophils # (Auto) 0.3, Basophils # (Auto) 0.0, Sodium Level 135, Potassium Level 4.0, Chloride Level 106, Carbon Dioxide Level 21, Anion Gap 8, Blood Urea Nitrogen 10, Creatinine 0.82, Estimat Glomerular Filtration Rate > 60, BUN/ Creatinine Ratio 12, Glucose Level 100, Calcium Level 8.5, Corrected Calcium 9.9 , Total Bilirubin 0.4, Aspartate Amino Transf (AST/SGOT) 42H, Alanine Aminotransferase (ALT/SGPT) 33, Alkaline Phosphatase 169H, Total Protein 4.4L, Albumin 2.3L 10/19/18 11:47: Glucometer 115H 10/19/18 12:00: Iron Level 22L 10/19/18 16:21: Glucometer 85 10/20/18 05:50: White Blood Count 10.5, Red Blood Count 2.96L, Hemoglobin 8.8L, Hematocrit 27L, Mean Corpuscular Volume 90, Mean Corpuscular Hemoglobin 30, Mean Corpuscular Hemoglobin Concent 33, Red Cell Distribution Width 17.0H, Platelet Count 437H, Mean Platelet Volume 9.9, Neutrophils (%) (Auto) 71, Lymphocytes (%) (Auto) 16, Monocytes (%) (Auto) 10, Eosinophils (%) (Auto) 2, Basophils (%) (Auto) 0, Neutrophils # (Auto) 7.5, Lymphocytes # (Auto) 1.7, Monocytes # (Auto) 1.1H, Eosinophils # (Auto) 0.2, Basophils # (Auto) 0.0, Sodium Level 136, Potassium Level 4.4, Chloride Level 107, Carbon Dioxide Level 20L, Anion Gap 9, Blood Urea Nitrogen 13, Creatinine 0.89, Estimat Glomerular Filtration Rate > 60, BUN/ Creatinine Ratio 15, Glucose Level 93, Calcium Level 8.3L, Corrected Calcium 9.7 , Total Bilirubin 0.3, Aspartate Amino Transf (AST/SGOT) 44H, Alanine Aminotransferase (ALT/SGPT) 32, Alkaline Phosphatase 183H, Total Protein 4.3L, Albumin 2.2L Assessment/Plan Assessment and Plan Discharge from IRU as per above Will f/u with staff postop re disposition May require SNU placement See orders Co-Morbidities that are continuing to impact the rehab process: (include details ) SERENA SANTIAGO MD Oct 20, 2018 10:51
--- NOTE | 2018-10-20 10:51 | Therapy Team Discharge Summary ---
Therapy Discharge Summary Discharge Recommendations Date of Discharge 10-20-18 Therapy D/C Recommendations: Other, See Comments Occupational Therapy Pt. has been seen by occupational therapy to increase overall strength and independence with daily tasks. Pt. is having surgery this date for change in medical status. Will discharge OT services at this time pending new orders. No goals met at this time. Decreased Activ Tolerance, Decreased UE Strength, Dependent Transfers, Impaired Bed Mobility, Impaired Funct Balance, Impaired I ADL's, Impaired Self-Care Skills, Restricted Funct UE ROM PT Fpc Goals Fpc Goals PT Bridal Service Sales And Management Goals Time Frame: Nov 04, 2018 Transfers (B,C,W/C) (FIM): 5 Roll Left to Right (QC): 4 Sit to Lying (QC): 4 Lying-Sitting on Side/Bed(QC): 4 Sit to Stand (QC): 4 Chair/Rus-ws-Ymyfq Xfer(QC): 4 Car Transfer (QC): 4 Gait (FIM): 5 Distance: 150' Walk 10 feet (QC): 4 Walk 10ft-Uneven Surface(QC): 4 Walk 50ft with 2 Turns (QC): 4 Walk 150 ft (QC): 4 Gait Level of Assist: 5 Gait Assistive Device: FWW Stairs (FIM): 2 # of Steps: 4 1 Step (curb) (QC): 4 4 Steps (QC): 4 Stairs Level Of Assist: 4 OT Bridal Service Sales And Management Goals Bridal Service Sales And Management Goals Time Frame: Nov 04, 2018 Eating (FIM): 7 (not met) Eating (QC): 6 (not met) Oral Hygiene (QC): 6 (not met) Grooming(FIM): 6 (not met) Bathing(FIM): 6 (not met) Shower/Bathe Self (QC): 6 (not met) Upper Body Dressing(FIM): 6 (not met) Upper Body Dressing (QC): 6 (not met) Lower Body Dressing(FIM): 6 (not met) Lower Body Dressing (QC): 6 (not met) On/Off Footwear (QC): 6 (not met) Toileting(FIM): 6 (not met) Toileting Hygiene (QC): 6 (not met) Toilet/Commode Transfer(FIM): 6 (not met) Toilet/Commode Transfer (QC): 6 (not met) Shower Transfer(FIM): 5 (if allowed per wound vac) Additional Goals: 1-Demonstrate ADL Tasks, 2-Verbalize Understanding, 3- ImproveStrength/Cris 1=Demonstrate adherence to instructed precautions during ADL tasks. 2=Patient will verbalize/demonstrate understanding of assistive devices/ modifications for ADL. 3=Patient will improve strength/tolerance for activity to enable patient to perform ADL's. Speech Bridal Service Sales And Management Goals Bridal Service Sales And Management Goals Patient will improve memory and problem solving tasks with minimal cues for increased safety and independence at 90% accuracy. BOBBY NAVAS OT Oct 20, 2018 10:51
--- NOTE | 2018-10-20 12:25 | Cardiology Progress Note ---
Cardiology SOAP Progress Note Subjective: No cardiac complaints. Objective: I&O/Vital Signs 10/20/18 10/20/18 06:00 08:33 Temp 98.9 Pulse 77 Resp 21 B/P (MAP) 145/69 (94) Pulse Ox 94 O2 Delivery Room Air Room Air 10/20/18 00:00 Intake Total 720 ml Output Total 450 ml Balance 270 ml Weight (Pounds): 193 Weight (Ounces): 8.0 Weight (Calculated Kilograms): 87.450960 Constitutional: No appears stated age; AAO x 3; No apparent distress, No PERRL , No well-developed, No well-nourished, No other Respiratory: No accessory muscle use, No respiratory distress, No chest tender , No chest expansion is symmetric; chest is bilaterally symmetric; No lungs clear to percussion; lungs clear to auscultation; No crackles, No rhonchi, No rales, No stridor, No wheezing, No pleural rub, No other Cardiovascular: regular rate-rhythm; No irregularly irregular, No extra beats, No parasternal heave is noted, No JVD, No edema, No bradycardia, No tachycardia , No point of maximal impulse, No cardiac thrills are palpable; S1 and S2; No gallop/S3, No gallop/S4, No diastolic murmur, No systolic murmur, No friction rub, No click, No other Gastrointestional: No tender, No soft, No round, No distended, No pulsatile mass, No organomegaly, No guarding, No rebound, No tenderness, No hernia, No mass, No audible bowel sounds, No abnormal bowel sounds, No abdominal bruits, No spleenomegaly, No other Extremities: No normal range of motion, No non-tender, No normal inspection, No pedal edema, No calf tenderness, No normal capillary refill, No pelvis stable , No calf tenderness, No inflammation, No pedal edema, No slow capillary refill , No swelling, No other, No abrasion, No clubbing, No cyanosis, No ecchymosis, No laceration, No no lower extremity edema bilateral, No significant edema, No tenderness, No wound Neurologic/Psychiatric: no motor/sensory deficits, alert, normal mood/affect, oriented x 3 Skin: No normal color, No warm/dry, No cyanosis, No cool, No diaphoresis, No damp, No ecchymosis, No jaundice, No mottled, No pallor, No rash, No tattoos/ piercings, No ulcerations, No rash on exposed areas, No ulcerations on exposed areas, No other Results/Procedures: Labs Laboratory Tests 10/19/18 16:21: Glucometer 85 10/20/18 05:50: White Blood Count 10.5, Red Blood Count 2.96L, Hemoglobin 8.8L, Hematocrit 27L, Mean Corpuscular Volume 90, Mean Corpuscular Hemoglobin 30, Mean Corpuscular Hemoglobin Concent 33, Red Cell Distribution Width 17.0H, Platelet Count 437H, Mean Platelet Volume 9.9, Neutrophils (%) (Auto) 71, Lymphocytes (%) (Auto) 16, Monocytes (%) (Auto) 10, Eosinophils (%) (Auto) 2, Basophils (%) (Auto) 0, Neutrophils # (Auto) 7.5, Lymphocytes # (Auto) 1.7, Monocytes # (Auto) 1.1H, Eosinophils # (Auto) 0.2, Basophils # (Auto) 0.0, Sodium Level 136, Potassium Level 4.4, Chloride Level 107, Carbon Dioxide Level 20L, Anion Gap 9, Blood Urea Nitrogen 13, Creatinine 0.89, Estimat Glomerular Filtration Rate > 60, BUN/ Creatinine Ratio 15, Glucose Level 93, Calcium Level 8.3L, Corrected Calcium 9.7 , Total Bilirubin 0.3, Aspartate Amino Transf (AST/SGOT) 44H, Alanine Aminotransferase (ALT/SGPT) 32, Alkaline Phosphatase 183H, Total Protein 4.3L, Albumin 2.2L 10/20/18 10:58: Glucometer 106 A/P: Assessment/Dx: Assessment/Dx: Spinal abscess, Sepsis, UTI, History of CAD, CABG, Atrial fibrillation on amiodarone. LVH, Diastolic dysfunction. Plan: Spinal abscessstatus post I&D. Still complains of back discomfort. Dr. Carreon aware. Reoperation today. Sepsiscontinue broad-spectrum IV antibiotics as per Dr. Harrison. C. difficile, on contact precautions. Paroxysmal atrial fibrillationcurrently in sinus rhythm. Continue amiodarone. I might consider discontinuing amiodarone but since the patient follows Dr. Soliman in [place] I may defer that decision to him. CAD/history of CABGcontinue lisinopril and statin therapy. Aspirin low dose once okay with Dr. Harrison and Dr. Mc. Will add low dose beta carlie for atrial fibrillation and CAD. LVH, Diastolic dysfunction, Echocardiogram showed normal LV function. Patient follows with Dr. Soliman in [place]. Thank you for your consultation. Please call me if you have any questions. Chato Moyer MD, FACP, FACC, FSCAI, FHRS, CCDS Interventional Cardiology Cardiac Electrophysiology Vascular Medicine and Endovascular Interventions Kiarra MOYER MD Oct 20, 2018 12:25
--- NOTE | 2018-10-20 12:27 | Therapy Team Discharge Summary ---
Therapy Discharge Summary Discharge Recommendations Date of Discharge Therapy D/C Recommendations: Other, See Comments Occupational Therapy Decreased Activ Tolerance, Decreased UE Strength, Dependent Transfers, Impaired Bed Mobility, Impaired Funct Balance, Impaired I ADL's, Impaired Self-Care Skills, Restricted Funct UE ROM Speech-Language Pathology Patient was seen initially due to back surgeries and his admit to the rehab unit. At that time he was evaluated for cognitive function. It was determined based on his scores that he had deficits in memory and problem solving. He was seen for 2 visits with focus on memory and problem solving related to his safety and independence. Due to decreased skilled ST days minimal progress was made. He is being discharged due to being scheduled for another back surgery. PT Munitions Handler Goals Senior Care Goals PT Senior Care Goals Time Frame: Nov 04, 2018 Transfers (B,C,W/C) (FIM): 5 Roll Left to Right (QC): 4 Sit to Lying (QC): 4 Lying-Sitting on Side/Bed(QC): 4 Sit to Stand (QC): 4 Chair/Kos-tg-Vigjl Xfer(QC): 4 Car Transfer (QC): 4 Gait (FIM): 5 Distance: 150' Walk 10 feet (QC): 4 Walk 10ft-Uneven Surface(QC): 4 Walk 50ft with 2 Turns (QC): 4 Walk 150 ft (QC): 4 Gait Level of Assist: 5 Gait Assistive Device: FWW Stairs (FIM): 2 # of Steps: 4 1 Step (curb) (QC): 4 4 Steps (QC): 4 Stairs Level Of Assist: 4 OT Senior Care Goals Senior Care Goals Time Frame: Nov 04, 2018 Eating (FIM): 7 (not met) Eating (QC): 6 (not met) Oral Hygiene (QC): 6 (not met) Grooming(FIM): 6 (not met) Bathing(FIM): 6 (not met) Shower/Bathe Self (QC): 6 (not met) Upper Body Dressing(FIM): 6 (not met) Upper Body Dressing (QC): 6 (not met) Lower Body Dressing(FIM): 6 (not met) Lower Body Dressing (QC): 6 (not met) On/Off Footwear (QC): 6 (not met) Toileting(FIM): 6 (not met) Toileting Hygiene (QC): 6 (not met) Toilet/Commode Transfer(FIM): 6 (not met) Toilet/Commode Transfer (QC): 6 (not met) Shower Transfer(FIM): 5 (if allowed per wound vac) Additional Goals: 1-Demonstrate ADL Tasks, 2-Verbalize Understanding, 3- ImproveStrength/Cris 1=Demonstrate adherence to instructed precautions during ADL tasks. 2=Patient will verbalize/demonstrate understanding of assistive devices/ modifications for ADL. 3=Patient will improve strength/tolerance for activity to enable patient to perform ADL's. Speech Senior Care Goals Munitions Handler Goals Patient will improve memory and problem solving tasks with minimal cues for increased safety and independence at 90% accuracy. Goal not met. Completed at 60 % accuracy. MORAIMA KWONG Oct 20, 2018 12:27
[2018-10-20] MEDS ORDERED: MIDAZOLAM 2 MG/2 ML (VERSED) VIAL ONE (12:49)
[2018-10-20] MEDS ORDERED: LIDOCAINE PF 2% 5 ML (XYLOCAINE) VIAL ONE (12:49)
[2018-10-20] MEDS ORDERED: SEVOFLURANE (ULTANE) 15 ML INHAL SOLN ONE ×11 (12:49→17:31)
[2018-10-20] MEDS ORDERED: fentaNYL INJECTION 100 MCG/2 ML AMP ONE (12:49)
[2018-10-20] MEDS ORDERED: ROCURONIUM 10 MG/ML 5 ML SYRINGE IV ONE (12:49)
[2018-10-20] MEDS ORDERED: ONDANSETRON 4 MG/2 ML (SDV) Z0FRAN ONE (12:49)
[2018-10-20] MEDS ORDERED: proPOfol 200 MG/20 ML (DIPRIVAN) VIAL IV ONE ×3 (12:49→16:02)
--- NOTE | 2018-10-20 13:56 | Progress Note-Pre Operative ---
Pre-Operative Progress Note H&P Reviewed The H&P was reviewed, patient examined and no changes noted. Date Seen by Provider: Oct 20, 2018 Time Seen by Provider: 13:48 Date H&P Reviewed: Oct 20, 2018 Time H&P Reviewed: 13:48 Pre-Operative Diagnosis: Hardware failure, lumbar wound infection. LEO BRANHAM MD Oct 20, 2018 1:56 pm
[2018-10-20] MEDS ORDERED: PHENYLEPHRINE INJ 10 MG/ML (NEO-SYNEPHRINE 1%) ONE ×3 (15:42→16:33)
--- NOTE | 2018-10-20 18:03 | Diagnostic Imaging Report ---
INDICATION: None given. EXAMINATION: Intraoperative fluoroscopy used during lumbar fusion per Dr. Mc. FINDINGS: There are pedicle screws seen from L4-S1 with Fusion of the SI joints on both sides. There are disc prostheses at L4-L5 and L5-S1. There are also pedicle screws visualized at the thoracolumbar junction. FLUOROSCOPY TIME: 23 seconds of fluoroscopy time was used in surgery. IMPRESSION: Intraoperative fluoroscopy was used during fusion of thoracolumbar spine and lumbosacral spine per Dr. Mc. Dictated by: Dictated on workstation # [id number]
[2018-10-21] MEDS ORDERED: PATCH REMOVAL TP SCH (08:45)
[2018-10-22] MEDS ORDERED: VANCOMYCIN ORAL SUSPENSION 60 ML BOTTLE PO SCH (06:01)
== END 2018-10-20 13:13 | disposition short-term general hospital (02) | DRG 559 ==
PROVIDERS: ADMIT Physical Medicine & Rehabilitation; ATTEND Internal Medicine
DX: Z47.89 Encounter for other orthopedic aftercare (principal); T81.44XA Sepsis following a procedure, initial encounter; G06.1 Intraspinal abscess and granuloma; D62 Acute posthemorrhagic anemia; A04.72 Enterocolitis due to Clostridium difficile, not specified as recurrent; T84.216A Breakdown (mechanical) of internal fixation device of vertebrae, initial encounter; I48.0 Paroxysmal atrial fibrillation; I25.10 Atherosclerotic heart disease of native coronary artery without angina pectoris; I12.9 Hypertensive chronic kidney disease with stage 1 through stage 4 chronic kidney disease, or unspecified chronic kidney disease; N18.9 Chronic kidney disease, unspecified; E11.9 Type 2 diabetes mellitus without complications; N40.1 Benign prostatic hyperplasia with lower urinary tract symptoms; R33.9 Retention of urine, unspecified; N31.9 Neuromuscular dysfunction of bladder, unspecified; K59.00 Constipation, unspecified; E78.5 Hyperlipidemia, unspecified; Z87.891 Personal history of nicotine dependence; Z79.4 Long term (current) use of insulin; Z95.1 Presence of aortocoronary bypass graft
CPT/HCPCS: 36415; 72131; 80053; 80202; 82962; 83540; 85025; 85652; 86141; 87081

== ENCOUNTER 2018-10-20 12:23 | Inpatient (IN) | payer MEDICARE, OTHER ==
[~2018-10-20] VITALS: Ht 162.6 cm; Wt 103.9 kg
[2018-10-20] VITALS (8 sets, daily range): BP systolic 87–123; BP diastolic 42–107
[~2018-10-20 12:23] MED LIST changes: +ACID1GRA2 PO; +AMLO5TAB7 PO; +BETH10TA PO; +FENT1PAT8 TD; +INSU100V16 SC; +METO-333 PO; +PHEN-826 PO; +TAMS0.4C98 PO; +TRAM50TA2 PO
[2018-10-20] MEDS ORDERED: GENTAMICIN 40 MG/ML 2 ML INJ SDV ONE ×2 (13:03→14:05)
[2018-10-20] MEDS ORDERED: VANCOMYCIN 1000 MG/VIAL ONE (13:03)
[2018-10-20] MEDS ORDERED: D5 1/2 NS W/KCL 20 MEQ/L 1,000 ML IV SCH (13:57)
--- NOTE | 2018-10-20 13:57 | Progress Note-Pre Operative ---
Pre-Operative Progress Note H&P Reviewed The H&P was reviewed, patient examined and no changes noted. Time Seen by Provider: 13:48 Date H&P Reviewed: Oct 20, 2018 Time H&P Reviewed: 13:48 Pre-Operative Diagnosis: Lumbar Hardware Failure and wound infection LEO BRANHAM MD Oct 20, 2018 1:57 pm
[2018-10-20] MEDS ORDERED: PROMETHAZINE 12.5 MG (PHENERGAN) SUPP PR PRN (14:00)
[2018-10-20] MEDS ORDERED: METOCLOPRAMIDE 10 MG (REGLAN) TAB PO PRN (14:00)
[2018-10-20] MEDS ORDERED: PROMETHAZINE INJ 25 MG/ML (PHENERGAN) AMP IV PRN (14:00)
[2018-10-20] MEDS ORDERED: PROMETHAZINE 25 MG (PHENERGAN) TAB PO PRN (14:00)
[2018-10-20] MEDS ORDERED: oxyCODONE/APAP 5/325MG (PERCOCET 5) TABLET PO PRN (14:00)
[2018-10-20] MEDS ORDERED: METOCLOPRAMIDE INJ 10 MG/2 ML (REGLAN) IV PRN (14:00)
[2018-10-20] MEDS ORDERED: ONDANSETRON 4 MG/2 ML (SDV) Z0FRAN IV PRN (14:00)
[2018-10-20] MEDS ORDERED: MILK OF MAGNESIA 400 MG/5 ML 30 ML UDC PO PRN (14:00)
[2018-10-20] MEDS ORDERED: PROPOFOL INJECTION 50 ML IV ONE (14:12)
[2018-10-20] MEDS ORDERED: VANCOMYCIN INJECTION 1,000 MG in NS (IVPB) 250 ML IV SCH (14:30)
[2018-10-20] MEDS ORDERED: NS (IVPB) 100 ML ONE ×3 (14:35→17:17)
[2018-10-20] MEDS ORDERED: SUCCINYLCHOLINE INJ 100 MG/5 ML SYR ONE (14:38)
[2018-10-20] MEDS ORDERED: PHENYLEPHRINE INJ 10 MG/ML (NEO-SYNEPHRINE 1%) ONE ×4 (14:38→17:35)
[2018-10-20] MEDS ORDERED: PHENYLEPHRINE 100 MCG/ML 10 ML (ANESTHESIA) SYR ONE ×2 (14:38→16:15)
[2018-10-20] MEDS ORDERED: LIDOCAINE PF 2% 5 ML (XYLOCAINE) VIAL ONE (14:38)
[2018-10-20] MEDS ORDERED: proPOfol 200 MG/20 ML (DIPRIVAN) VIAL IV ONE (14:38)
[2018-10-20] MEDS ORDERED: ROCURONIUM 10 MG/ML 5 ML SYRINGE IV ONE (14:38)
[2018-10-20] MEDS ORDERED: ONDANSETRON 4 MG/2 ML (SDV) Z0FRAN ONE (14:38)
[2018-10-20] MEDS ORDERED: fentaNYL INJECTION 100 MCG/2 ML AMP ONE (14:45)
[2018-10-20] MEDS: NS 1000 ML IV BAG IV PRN ×2 (15:59→16:50)
[2018-10-20] MEDS ORDERED: NEOSTIGMINE 1 MG/ML 5 ML SYRINGE ONE (16:20)
[2018-10-20] MEDS ORDERED: GLYCOPYRROLATE 0.2 MG/ML (ROBINUL) 2 ML VIAL ONE ×2 (16:20→16:31)
--- NOTE | 2018-10-20 16:28 | Progress Note-Post Operative ---
Post-Operative Progess Note Surgeon (s)/Enrollment Services Dean (s) Surgeon LEO BRANHAM MD Enrollment Services Dean: Gaudencio Genao, SIGRID Pre-Operative Diagnosis Lumbar Hardware Failure and wound infection Post-Operative Diagnosis Same Procedure & Operative Findings Date of Procedure 10/20/18 Procedure Performed/Findings [id number] with revision debridement Anesthesia Type GETA Estimated Blood Loss Estimated blood loss (mL): 500 Specimens/Packing Specimens Removed None LEO BRANHAM MD Oct 20, 2018 4:28 pm
[2018-10-20] MEDS ORDERED: RT-LEVALBUTEROL (XOPENEX) 1.25 MG/3 ML NEB NON-FORMULARY ONE (17:06)
[2018-10-20] MEDS ORDERED: EPINEPHrine INJECTION 1 MG/ML AMP ONE (17:26)
[2018-10-20] MEDS ORDERED: NS (IVPB) 250 ML ONE (17:35)
[2018-10-20] MEDS ORDERED: NS IV 1000 ML 1,000 ML IV SCH (19:15)
[2018-10-20] MEDS: VANCOMYCIN INJECTION 1,000 MG in NS (IVPB) 250 ML IV SCH (21:50)
[2018-10-20] MEDS: DOCUSATE SODIUM 100 MG (COLACE) CAP PO SCH (22:00)
[2018-10-20] MEDS: SENNOSIDES 8.6 MG (SENOKOT) TAB PO SCH (22:00)
[2018-10-20] MEDS: FAMOTIDINE 20 MG (PEPCID) TABLET PO SCH (22:00)
[2018-10-20 22:23] LABS: HEMOGLOBIN 9.3 G/DL (13.3-17.7)
[2018-10-21] VITALS (20 sets, daily range): BP systolic 106–135; BP diastolic 34–81
--- NOTE | 2018-10-21 00:38 | OPERATIVE REPORT ---
DATE OF SERVICE: 10/20/2018 PREOPERATIVE DIAGNOSES: Lumbar hardware failure, lumbar wound infection, lumbago. POSTOPERATIVE DIAGNOSES: Lumbar hardware failure, lumbar wound infection, lumbago. PROCEDURE PERFORMED: Removal of segmental instrumentation L2-S1 with reinsertion of spinal fixation and new instrumentation from thoracic 10 to the pelvis with pelvic fixation at the caudal end of the construct and T10-11, T11-12, T12-L1 and L1-L2 posterior spinal fusion, debridement of lumbar spine, superficial and deep. DATE AND TIME OF SURGERY: Please see anesthesia record. IMPLANTS USED: NuVasive Reline instrumentation and DBM bone graft. SURGEON: David Mc MD RESIDENT INSPECTOR: SIGRID Ibanez ROLE OF MATH TUTOR: Aid in retraction of the procedure, aid in implantation, instrumentation and wound closure. ANESTHESIA: General endotracheal. ESTIMATED BLOOD LOSS: 500 mL. INTRAVENOUS FLUIDS: Please see anesthesia record. ANTIBIOTICS: Vancomycin. COMPLICATIONS: None. INDICATIONS FOR PROCEDURE: The patient is an 78-year-old male previous fusion, he has had acute early breakdown above the construct with hardware failure, pain, desires operative treatment. DESCRIPTION OF PROCEDURE: The patient was taken to the preoperative holding area and brought back to the operative suite. After adequate induction of general anesthesia, preoperative antibiotics, placed supine, neuro monitoring was placed, carefully turned prone on the Jesus table, careful padding to all extremities. Previous wound was opened and carried proximally. Hardware was exposed. It was noted that L2 screws were acutely loose bilaterally. His spine was unstable at this segment. Hardware was removed. Wounds were debrided. Soft tissues, bone and hematoma were removed and pulse lavage irrigation with gentamicin was utilized to further clean the wound and then bilateral T10, T11, T12 and L1 screws were placed, checked with fluoroscopy noted to be satisfactory and bilateral pelvic screws were placed. The screws at L4, L5 and S1 were left in place as they were solid and the new rods were fashioned and contoured from T10 to the pelvis. Cross connectors were placed. Final tightening was performed. High-speed bur was used to decorticate the posterior elements from T10 to L2 and then local autograft and allograft bone was placed. Deep drain was placed. Wound was closed deep and packed open at the top. The patient was transferred to recovery room in stable condition having tolerated the procedure well. Job ID: [id number] DocumentID: [id number] Dictated Date: 10/20/2018 16:31:38 Line Mover Date: 10/21/2018 00:37:43 Dictated By: DAVID MC MD MTDD
[2018-10-21 04:40] LABS: HEMOGLOBIN 8.9 G/DL (13.3-17.7); MEAN PLATELET VOLUME 9.8 FL (7.4-10.4); RED BLOOD COUNT 2.99 10^6/uL (4.35-5.85); WHITE BLOOD COUNT 16.9 10^3/uL (4.3-11.0)
[2018-10-21 05:01] LABS: ALANINE AMINOTRANSFERASE 37 U/L (0-55); ALBUMIN 2.2 GM/DL (3.2-4.5); ALKALINE PHOSPHATASE 155 U/L (40-136); BILIRUBIN,TOTAL 0.4 MG/DL (0.1-1.0); BUN/CREATININE RATIO 14; CALCIUM 7.8 MG/DL (8.5-10.1); CARBON DIOXIDE 16 MMOL/L (21-32); CHLORIDE 108 MMOL/L (98-107); CREATININE SERUM 1.11 MG/DL (0.60-1.30); GFR ESTIMATED > 60; GLUCOSE 150 MG/DL (70-105); POTASSIUM 4.9 MMOL/L (3.6-5.0); SODIUM 135 MMOL/L (135-145); TOTAL PROTEIN 4.3 GM/DL (6.4-8.2)
[2018-10-21] MEDS: MULTIVIT W/MINERALS TAB (THERAGRAN M) PO SCH (06:00)
--- NOTE | 2018-10-21 06:48 | Progress Note (SOAP) ---
Subjective Date Seen by a Provider: Oct 21, 2018 Time Seen by a Provider: 06:46 Subjective/Events-last exam Feels much better, awake alert, legs moving better and pain more tolerable. Objective Exam Vital Signs Date Time Temp Pulse Resp B/P (MAP) Pulse Ox O2 Delivery O2 Flow Rate FiO2 10/21/18 06:00 91 22 122/51 (74) 96 Simple Mask 2.00 10/21/18 05:00 91 29 121/48 (72) 97 Simple Mask 2.00 10/21/18 04:00 92 9 126/54 (78) 97 Simple Mask 2.00 10/21/18 04:00 Simple Mask 10/21/18 03:56 99.7 10/21/18 03:00 96 14 133/76 (95) 94 Simple Mask 2.00 10/21/18 02:00 92 21 117/62 (80) 97 Simple Mask 2.00 10/21/18 01:00 94 10/21/18 01:00 92 19 127/57 (80) 99 Simple Mask 2.00 10/21/18 00:00 99.8 10/21/18 00:00 87 23 125/53 (77) 94 Simple Mask 2.00 10/21/18 00:00 Simple Mask 10/20/18 23:00 87 19 122/65 (84) 97 Simple Mask 2.00 10/20/18 22:34 98 OxyMask 2.00 10/20/18 22:00 91 23 114/54 (74) 97 Simple Mask 2.00 10/20/18 21:00 92 19 123/62 (82) 97 Simple Mask 2.00 10/20/18 20:00 Simple Mask 10/20/18 20:00 97.2 90 16 91/80 (84) 98 Simple Mask 2.00 10/20/18 19:38 92 10/20/18 19:00 92 20 87/51 (63) 100 10/20/18 18:45 91 17 104/68 (80) 97 10/20/18 18:40 OxyMask 5.00 10/20/18 18:30 91 17 105/42 (63) 97 10/20/18 18:03 92 10/20/18 18:00 92 118/107 (111) 10/20/18 18:00 92 I & O 10/21/18 07:00 Intake Total 2690 ml Output Total 1005 ml Balance 1685 ml Capillary Refill : General Appearance: No Apparent Distress Respiratory: No Accessory Muscle Use, No Respiratory Distress Cardiovascular: Regular Rate, Rhythm, Normal Peripheral Pulses Extremity: No Calf Tenderness Neurologic/Psychiatric: Alert, Oriented x3, No Motor/Sensory Deficits Results Lab Laboratory Tests 10/20/18 22:00: Hemoglobin 9.3L, Hematocrit 28L 10/21/18 04:28: Hemoglobin 8.9L, Hematocrit 27L, White Blood Count 16.9H, Red Blood Count 2.99L , Mean Corpuscular Volume 90, Mean Corpuscular Hemoglobin 30, Mean Corpuscular Hemoglobin Concent 33, Red Cell Distribution Width 17.0H, Platelet Count 409H, Mean Platelet Volume 9.8, Sodium Level 135, Potassium Level 4.9, Chloride Level 108H, Carbon Dioxide Level 16L, Anion Gap 11, Blood Urea Nitrogen 15, Creatinine 1.11, Estimat Glomerular Filtration Rate > 60, BUN/Creatinine Ratio 14, Glucose Level 150H, Calcium Level 7.8L, Corrected Calcium 9.2, Total Bilirubin 0.4, Aspartate Amino Transf (AST/SGOT) 54H, Alanine Aminotransferase ( ALT/SGPT) 37, Alkaline Phosphatase 155H, Total Protein 4.3L, Albumin 2.2L Assessment/Plan Assessment/Plan Assess & Plan/Chief Complaint Lumbar Wound infection with Staph Epi Lumbar Hardware Failure Deconditioning Acute Blood Loss anemia Plan: Continue to monitor blood count Mobilize Fit with TLSO Clamshell Brace when up OOB Clinical Quality Measures DVT/VTE Risk/Contraindication: Risk Factor Score Per Nursin RFS Level Per Nursing on Admit: 4+=Very High LEO BRANHAM MD Oct 21, 2018 06:48
--- NOTE | 2018-10-21 06:58 | Anesthesia-General Post-Op ---
General Patient Condition Mental Status/LOC: Same as Preop Cardiovascular: Satisfactory Nausea/Vomiting: Absent Respiratory: Satisfactory Pain: Controlled Complications: Absent Post Op Complications Complications None Follow Up Care/Instructions Patient Instructions None needed. Anesthesia/Patient Condition Patient Condition Patient is doing well, no complaints, stable vital signs, no apparent adverse anesthesia problems. No complications reported per nursing. D/C home per [facility] Criteria: SHERRIE Esteban CRNA Oct 21, 2018 06:58
[2018-10-21] MEDS: DOCUSATE SODIUM 100 MG (COLACE) CAP PO SCH ×2 (08:32→20:42)
[2018-10-21] MEDS: SENNOSIDES 8.6 MG (SENOKOT) TAB PO SCH ×2 (08:32→20:42)
[2018-10-21] MEDS: FAMOTIDINE 20 MG (PEPCID) TABLET PO SCH ×2 (08:33→20:42)
--- NOTE | 2018-10-21 11:41 | Physical Therapy Evaluation ---
PT Evaluation-General Medical Diagnosis Admission Date 10/21/18 Medical Diagnosis: Lumbar hardware failure, Wound infection Onset Date: Oct 21, 2018 Therapy Diagnosis Therapy Diagnosis: General weakness / Debility Height/Weight Height (Feet): 5 Height (Inches): 4.00 Weight (Pounds): 179 Weight (Ounces): 0.0 Precautions Precautions/Isolations: Fall Prevention, Standard Precautions Weight Bear Status Right Lower Extremity: Right Weight Bearing/Tolerated Left Lower Extremity: Left Weight Bearing/Tolerated Referral Physician: Jesusita Reason for Referral: Evaluation/Treatment Medical History Pertinent Medical History: Atrial Fib, CABG, CAD, DM, HTN Current History 4th major back surgery in the past 6 weeks, [id number] revision with wound debridement. Reviewed History: Yes Social History Home: Single Level Current Living Status: Spouse Prior/Core FIM Prior Level of Function Therapy Code Descriptions/Definitions Functional [place] Measure: 0=Not Assessed/NA 4=Minimal Assistance 1=Total Assistance 5=Supervision or Setup 2=Maximal Assistance 6=Modified [place] 3=Moderate Assistance 7=Complete [place] Therapy Quality Codes: 6 Independent with activity with or without an assistive device 5 Patient requires set up or clean up by helper. Patient completes activity by themselves 4 Supervision or touching assist (CGA). [place] provide cues , steadying assist 3 The helper provides less than half the effort to complete the activity 2 The helper provides more than half the effort to complete the activity 1 Dependent. The helper does all the effort to complete an activity 7 Patient refused to complete or attempt activity 9 The patient did not perform the activity before the current illness or injury 88 Not attempted due to Medical conditions or safety concerns Functional Abilities and Goals: Independent: Patient completed the activities by him/herself, with or without an assistive device, with no assistance from a helper. Needed Some Help: Patient needed partial assistance from another person to complete activities. Dependent: A helper completed the activities for the patient. Unknown: Not Applicable: Bed Mobility: 6 Transfers (B,C,W/C) (FIM): 6 Gait: 6 Stairs: 6 Indoor Mobility (Ambulation): Needed Some Help Stairs: Needed Some Help Prior Devices Use: Walker PT Evaluation-Current Subjective Pt awake in room with when PT and OT arrived. Pt agreed to get up and transfer to bedside recliner. Pain Numeric Pain Scale: 7 Location: Posterior Location Body Site: Back Pain Description: Acute Objective Patient Orientation: Normal For Age Problem Solving: Fair Attachments: Oxygen, Hunt Catheter, IV wound vac ROM/Strength ROM Upper Extremities WNL ROM Lower Extremities WNL Strength Upper Extremities WNL Strength Lower Extremities 3+/5 BLE Integumentary/Posture Integumentary refer to nursing notes (wound vac T 10 - pelvis) Bowel Incontinence: No Bladder Incontinence: Hunt Cath Posture WFL Neuromuscular (Tone, Coordination, Reflexes) Gross motor coordination intact Sensory Vision: Functional Hearing: Hearing Aid/Aides Sensation Right Upper Extremit: Intact Sensation Left Upper Extremity: Intact Sensation Right Lower Extremit: Intact Sensation Left Lower Extremity: Intact Transfers Therapy Code Descriptions/Definitions Functional [place] Measure: 0=Not Assessed/NA 4=Minimal Assistance 1=Total Assistance 5=Supervision or Setup 2=Maximal Assistance 6=Modified [place] 3=Moderate Assistance 7=Complete [place] Transfers (B, C, W/C) (FIM): 2 Scootin Rollin Supine to/from Sit: 2 Sit to/from Stand: 2 x 2 assistants for transfers Gait Mode of Locomotion: Walk Anticipated Mode of Locomotion: Walk Gait (FIM): 1 Distance (FIM): 1=up to 49 ft Distance: 5' Gait Level of Assist: 2 Gait Persons Needed: 2 Gait Assistive Device: None Comments/Gait Description with assist of PT x 2 Balance Sitting Static: Fair Sitting Dynamic: Fair Standing Static: Fair Standing Dynamic: Fair Assessment/Needs Patient currently has 3+/5 BLE for gross motor strength. Patient is max assist for transfers and requires the assistance of two therapist. Patient fatigues easily and O2 Sat dropped to 82 during transfer to bedside chair. Pts O2 increased to 4L of oxygen and his 02 Sat recovered to mid 90s within a minute. Rehab Potential: Fair PT Short Term Goals Short Term Goals Time Frame: Oct 29, 2018 Transfers (B,C,W/C) (FIM): 3 Gait (FIM): 1 Distance (FIM): 1=up to 49 ft Gait Distance Comment: 20' Gait Level of Assist: 3 Gait Assistive Device: FWW PT Package Center Supervisor Goals Package Center Supervisor Goals PT Package Center Supervisor Goals Time Frame: Nov 12, 2018 Transfers (B,C,W/C) (FIM): 6 Gait (FIM): 6 Gait distance (FIM): 3=150 ft Distance: 150' Gait Level of Assist: 6 Gait Assistive Device: FWW PT Plan Problem List Problem List: Activity Tolerance, Functional Strength, Safety, Balance, Gait, Transfer, Bed Mobility, ROM Treatment/Plan Treatment Plan: Continue Plan of Care Treatment Plan: Bed Mobility, Education, Functional Activity Cris, Functional Strength, Gait, Safety, Therapeutic Exercise, Transfers Treatment Duration: Nov 12, 2018 Frequency: 11 times per week Estimated Hrs Per Day: .5 hour per day Patient and/or Family Agrees t: Yes Discharge Recommendations Therapy D/C Recommendations: Acute Rehab Time/GCodes Time In: 1250 Time Out: 1310 Total Billed Treatment Time: 20 [facility] KAL VERMA PT Oct 21, 2018 11:41
[2018-10-21] MEDS: NS IV 1000 ML 1,000 ML IV SCH (11:50)
--- NOTE | 2018-10-21 11:55 | Consultation-Hospitalist ---
MARQUEZ DELATORRE DO 10/21/18 1155: HPI History of Present Illness: HPI/Chief Complaint CC: s/p spinal hardware failure replacement HPI: This is an 78-year-old white male who was transferred from inpatient rehabilitation department to ICU for close monitoring following spinal hardware failure replacement yesterday. He had an uncomplicated surgery and is currently recovering and doing well overall. Urinary output has decreased and blood pressure is 115 so will initiate low flow IV fluid of normal saline and encouraged him to take in nutrition and fluids today. He will be fitted for a shell back brace and then we will get him out of bed. Overall patient is doing much better was updated and patient feels better overall. Source: patient Exam Limitations: no limitations Date Seen 10/21/18 Attending Physician David Mc MD PCP No,Local Physician Referring Physician Date of Admission Home Medications & Allergies Home Medications Reviewed patient Home Medication Reconciliation performed by pharmacy medication reconciliations signals collection technician and/or nursing. Patients Allergies have been reviewed. Allergies Allergies Coded Allergies cephalexin (Verified Allergy, Unknown, 10/07/18) hydrocodone (Verified Allergy, Unknown, 10/07/18) Past Nldpzhh-Acycfs-Kpfrna Hx Past Med/Social Hx: Reviewed Nursing Past Med/Soc Hx, Reviewed and Corrections made Patient Social History Marrital Status: Employed/Student: retired Alcohol Use: Rarely Uses Number of Drinks Today: 0 Alcohol Beverage of Choice: Wine Recreational Drug Use: No Smoking Status: Never a Smoker Physical Abuse Screen: No Sexual Abuse: No Recent Foreign Travel: No Contact w/other who traveled: No Recent Hopitalizations: Yes Recent Infectious Disease Expo: No Immunizations Up To Date Pediatric: Yes Date of Pneumonia Vaccine: Sep 05, 2017 Date of Influenza Vaccine: Aug 22, 2018 Seasonal Allergies Seasonal Allergies: No Past Medical History Surgeries: CABG, Neurological, Orthopedic Currently Using CPAP: No Cardiac: Atrial Fibrillation, Coronary Artery Disease, High Cholesterol, Hypertension Sexually Transmitted Disease: No HIV/AIDS: No Genitourinary: Benign Prostatic Hyperpl, Bladder Infection Gastrointestinal: C-Diff Musculoskeletal: Chronic Back Pain Endocrine: Diabetes, Non-Insulin dep HEENT: Double Vision Loss of Vision: Bilateral Hearing Impairment: Bilateral Hearing Aide History of Blood Disorders: Yes Adverse Reaction to Blood [place]: No Family History Alzheimer's disease (MOTHER AND SISTER) Diabetes mellitus (MOTHER,) Heart Disease Review of Systems Constitutional: see HPI, weakness EENTM: no symptoms reported Respiratory: no symptoms reported Cardiovascular: no symptoms reported Gastrointestinal: no symptoms reported Genitourinary: no symptoms reported Musculoskeletal: back pain Skin: no symptoms reported Psychiatric/Neurological: No Symptoms Reported All Other Systems Reviewed Negative Unless Noted: Yes Physical Exam Physical Exam Vital Signs Vital Signs - First Documented 10/20/18 10/20/18 10/20/18 18:00 18:30 18:40 Pulse 92 Resp 17 B/P (MAP) 118/107 (111) Pulse Ox 97 O2 Delivery OxyMask O2 Flow Rate 5.00 Capillary Refill : Height, Weight, BMI Height: 5'4.00" Weight: 179lbs. 0.0oz. [id number]; 30.4 BMI Method: General Appearance: No Apparent Distress, WD/WN, Chronically ill, Obese Eyes: Bilateral Eye Normal Inspection, Bilateral Eye PERRL HEENT: PERRL/EOMI, Normal ENT Inspection, Pharynx Normal Neck: Full Range of Motion, Normal Inspection, Non Tender, Supple, Carotid Bruit Respiratory: Chest Non Tender, Lungs Clear, Normal Breath Sounds, No Accessory Muscle Use, No Respiratory Distress Cardiovascular: Regular Rate, Rhythm, No Edema, No Gallop, No JVD, No Murmur, Normal Peripheral Pulses Gastrointestinal: Normal Bowel Sounds, No Organomegaly, No Pulsatile Mass, Non Tender, Soft Back: Decreased Range of Motion Extremity: Normal Capillary Refill, Normal Inspection, Normal Range of Motion, Non Tender, No Calf Tenderness, No Pedal Edema Neurologic/Psychiatric: Alert, Oriented x3, No Motor/Sensory Deficits, Normal Mood/Affect Skin: Normal Color, Warm/Dry Lymphatic: No Adenopathy Results Results/Procedures Labs Laboratory Tests 10/20/18 22:00 10/21/18 04:28 Patient resulted labs reviewed. Assessment/Plan Assessment and Plan Assess & Plan/Chief Complaint Assessment: Recurrent severe back pain with referred lower abdominal pain similar to initial presentation obtained labs and CT scan and Dr Mc consultation which revealed displaced hardware in need of repeat surgery s/p on 10/20/18 Debility following spinal abscess status post 2 I&D's uncomplicated per Dr Mc Urinary retention acute maintained with leo but Dr Cortes consulted C. difficile colitis improved after constipation resolved Severe anemia due to acute blood loss status post 4 units of blood while on MedSurg and ICU CAD DM CRI Plan: Pain control IVF gently to increase UOP Increase PO nutrition and fluids Diagnosis/Problems Diagnosis/Problems (1) Loosening of hardware in spine Status: Acute (2) Intraspinal abscess and granuloma Status: Resolved Resolution Date/Time: 10/15/18 @ 14:02 (3) Urinary retention Status: Acute (4) Transfusion of blood during current hospitalization Status: Resolved Resolution Date/Time: 10/15/18 @ 14:02 (5) Advanced age Status: Chronic (6) C. difficile colitis Status: Acute (7) Renal insufficiency Status: Resolved Resolution Date/Time: 10/10/18 @ 09:41 (8) Leukocytosis Status: Resolved Resolution Date/Time: 10/15/18 @ 14:02 (9) CAD (coronary artery disease) Status: Chronic (10) Atrial fibrillation Status: Chronic Clinical Quality Measures DVT/VTE Risk/Contraindication: Risk Factor Score Per Nursin RFS Level Per Nursing on Admit: 4+=Very High ANTHONY GIRON MED STUDENT 10/21/18 1217: HPI History of Present Illness: HPI/Chief Complaint The patient is recovering in the ICU after a repeat back surgery to stabilize failed equipment from previous back surgery. He is comfortable and complaining of pain in his back when he moves. He states that the pain in his pelvis and lower abdomen has resolved. He reports that he slept very well last night and seems to be in much better spirits than yesterday. Source: patient Exam Limitations: no limitations Home Medications & Allergies Home Medications Active Scripts Medications Dose Route/Sig Max Daily Dose Days Date Category Novolog (Insulin Aspart) 100 Unit/1 Ml Susp 0 Unit SC ACHS 10/20/18 Rx Floranex Granules Packet (L. Acidophilus/Bulgaricus) 1 Each Gran.pack 1 Gm PO ACHS 10/20/18 Rx Phenazopyridine HCl 100 Mg Tablet 100 Mg PO TIDPC 10/20/18 Rx Tramadol HCl 50 Mg Tablet 50-100 Mg PO Q4H PRN 10/20/18 Rx Fentanyl Patch 25 MCG (Fentanyl) 1 Each Patch.td72 25 Mcg TD Q72H 10/20/18 Rx Amlodipine Besylate 5 Mg Tablet 5 Mg PO DAILY 10/20/18 Rx Metoprolol Tartrate 25 Mg Tablet 25 Mg PO BID 10/20/18 Rx Flomax (Tamsulosin HCl) 0.4 Mg Cap 0.4 Mg PO DAILY@1800 30 10/20/18 Rx Bethanechol Chloride 10 Mg Tablet 10 Mg PO ACHS 30 10/20/18 Rx Amiodarone HCl 200 Mg Tablet 200 Mg PO DAILY 10/09/18 Reported Buprenorphine 1 Each Patch.tdwk 1 Patch TD WEEK 10/08/18 Reported Metformin HCl 500 Mg Tablet 500 Mg PO BID 10/08/18 Reported Pioglitazone HCl 45 Mg Tablet 45 Mg PO DAILY 10/08/18 Reported Lovastatin 20 Mg Tablet 20 Mg PO DAILY 10/08/18 Reported Allopurinol 300 Mg Tablet 300 Mg PO DAILY 10/08/18 Reported Lisinopril 20 Mg Tablet 20 Mg PO DAILY 10/08/18 Reported Oxybutynin Chloride 5 Mg Tablet 5 Mg PO TID 10/08/18 Reported Past Bnelvbz-Ejdrjm-Trcqtg Hx Patient Social History Marrital Status: Alcohol Use: Rarely Uses Alcohol Beverage of Choice: Wine Recreational Drug Use: No Smoking Status: Never a Smoker Past Medical History Surgeries: CABG, Neurological, Orthopedic Cardiac: Atrial Fibrillation, Coronary Artery Disease, High Cholesterol, Hypertension Genitourinary: Benign Prostatic Hyperpl, Bladder Infection Musculoskeletal: Chronic Back Pain Endocrine: Diabetes, Non-Insulin dep Hearing Impairment: Bilateral Hearing Aide Family History Alzheimer's disease (MOTHER AND SISTER) Diabetes mellitus (MOTHER,) Review of Systems Constitutional: weakness EENTM: no symptoms reported Respiratory: no symptoms reported Cardiovascular: no symptoms reported Gastrointestinal: no symptoms reported Genitourinary: no symptoms reported Musculoskeletal: back pain Skin: no symptoms reported Psychiatric/Neurological: No Symptoms Reported Physical Exam Physical Exam General Appearance: No Apparent Distress, WD/WN Respiratory: Chest Non Tender, Lungs Clear, Normal Breath Sounds, No Accessory Muscle Use, No Respiratory Distress Cardiovascular: Regular Rate, Rhythm, No Edema, No Gallop, No JVD, No Murmur Gastrointestinal: Normal Bowel Sounds, No Organomegaly, No Pulsatile Mass, Non Tender, Soft Neurologic/Psychiatric: Alert, Oriented x3, No Motor/Sensory Deficits, Normal Mood/Affect Skin: Normal Color, Warm/Dry Assessment/Plan Assessment and Plan Assess & Plan/Chief Complaint Assessment: 1) Spinal equipment failure 2) Diabetes Mellitus Plan: 1) ICU observation 2) Inpatient rehabilitation MARQUEZ DELATORRE DO Oct 21, 2018 11:55 ANTHONY GIRON STUDENT Oct 21, 2018 12:17
--- NOTE | 2018-10-21 14:47 | Occupational Therapy Eval ---
OT Evaluation-General/PLF Medical Diagnosis Admission Date Oct 20, 2018 Medical Diagnosis: Lumbar hardware failure, Wound infection Onset Date: Oct 21, 2018 Therapy Diagnosis Therapy Diagnosis: impaired self care skills Height/Weight Height (Feet): 5 Height (Inches): 4.00 Weight (Pounds): 179 Weight (Ounces): 0.0 Precautions Precautions/Isolations: Fall Prevention, Standard Precautions Safety Interventions: Bed Exit Alarm Comments Pt is to be fitted with TLSO, but per physician order is okay to get out of bed without brace until it is available. Referral Physician: Jesusita Medical History Pertinent Medical History: Atrial Fib, CABG, CAD, DM, HTN Additional Medical History chronic back pain, BPH Current History Pt underwent [id number] revision with wound debridement. This is pt's 4th back surgery since August Social History Home: Single Level Current Living Status: Spouse Entry Into Home: Stairs With Railing Steps Into Home: 3 ADL-Prior Level of Function Therapy Code Descriptions/Definitions Functional [place] Measure: 0=Not Assessed/NA 4=Minimal Assistance 1=Total Assistance 5=Supervision or Setup 2=Maximal Assistance 6=Modified [place] 3=Moderate Assistance 7=Complete [place] Therapy Quality Codes: 6 Independent with activity with or without an assistive device 5 Patient requires set up or clean up by helper. Patient completes activity by themselves 4 Supervision or touching assist (CGA). Kimball provide cues , steadying assist 3 The helper provides less than half the effort to complete the activity 2 The helper provides more than half the effort to complete the activity 1 Dependent. The helper does all the effort to complete an activity 7 Patient refused to complete or attempt activity 9 The patient did not perform the activity before the current illness or injury 88 Not attempted due to Medical conditions or safety concerns Functional Abilities and Goals: Independent: Patient completed the activities by him/herself, with or without an assistive device, with no assistance from a helper. Needed Some Help: Patient needed partial assistance from another person to complete activities. Dependent: A helper completed the activities for the patient. Unknown: Not Applicable: ADL PLOF Comments Pt has been requiring assist with ADLs and mobility since back surgery in August. Prior to that, pt was able to complete ADLs independently. Self Care: Needed Some Help OT Current Status Subjective Pt agreeable to OT/PT, reports 7/10 back pain, but states he is feeling better today. Mental Status/Objective Patient Orientation: Person Attachments: Drains, Hunt Catheter, IV, Oxygen, Other-See Comments (wound vac) Current Upper Extremity ROM Shoulder ROM to ~90degrees. Remainder grossly WFL Upper Extremity Coordination Fair Upper Extremity Strength decreased bilaterally ADL-Treatment ADL-Current Pt transferred supine to sit and bed to chair with PT with assist x2 for safety. While seated in chair pt participated in UE assessment. Pt washed face with set up while seated in chair. Requires verbal cues for task completion. Pt fatigues with mobility and ADLs and requires rest breaks. Spouse states she assisted pt with eating lunch today. Education provided regarding plan of care. Pt states understanding and is in agreement with plan. Pt sitting in chair with needs met and spouse present. RN notified. Therapy Code Descriptions/Definitions Functional [place] Measure: 0=Not Assessed/NA 4=Minimal Assistance 1=Total Assistance 5=Supervision or Setup 2=Maximal Assistance 6=Modified [place] 3=Moderate Assistance 7=Complete [place] Therapy Quality Codes: 6 Independent with activity with or without an assistive device 5 Patient requires set up or clean up by helper. Patient completes activity by themselves 4 Supervision or touching assist (CGA). Kimball provide cues , steadying assist 3 The helper provides less than half the effort to complete the activity 2 The helper provides more than half the effort to complete the activity 1 Dependent. The helper does all the effort to complete an activity 7 Patient refused to complete or attempt activity 9 The patient did not perform the activity before the current illness or injury 88 Not attempted due to Medical conditions or safety concerns Education OT Patient Education: Rehab process Teaching Recipient: Patient Teaching Methods: Discussion Response to Teaching: Verbalize Understanding, Reinforcement Needed OT Short Term Goals Short Term Goals Time Frame: Oct 28, 2018 Eating(FIM): 5 Upper Body Dressing(FIM): 4 Lower Body Dressing(FIM): 3 Transfers (B,C,W/C) (FIM): 3 Additional Short Term Goals: 1-Demonstrate ADL Tasks, 2-Verbalize Understanding , 3-ImproveStrength/Cris 1=Demonstrate adherence to instructed precautions during ADL tasks. 2=Patient will verbalize/demonstrate understanding of assistive devices/ modifications for ADL. 3=Patient will improve strength/tolerance for activity to enable patient to perform ADL's. OT Mental Health Social Worker Goals Mental Health Social Worker Goals Time Frame: Nov 04, 2018 Grooming(FIM): 5 Upper Body Dressing(FIM): 5 Lower Body Dressing(FIM): 4 Toileting(FIM): 4 Toilet/Commode Transfer(FIM): 4 Additional Goals: 1-Demonstrate ADL Tasks, 2-Verbalize Understanding, 3- ImproveStrength/Cris 1=Demonstrate adherence to instructed precautions during ADL tasks. 2=Patient will verbalize/demonstrate understanding of assistive devices/ modifications for ADL. 3=Patient will improve strength/tolerance for activity to enable patient to perform ADL's. OT Education/Plan Problem List/Assessment Assessment: Decreased Activ Tolerance, Decreased Safety Aware, Decreased UE Strength, Dependent Transfers, Impaired Funct Balance, Impaired I ADL's, Impaired Self-Care Skills Pt to benefit from skilled OT intervention for ADL training, transfers, strengthening, adaptive equipment training, and safety education to increase functional independence. Discharge Recommendations Plan/Recommendations: Continue POC Treatment Plan/Plan of Care Treatment,Training & Education: Yes Patient would benefit from OT for education, treatment and training to promote independence in ADL's, mobility, safety and/or upper extremity function for ADL' s. Plan of Care: ADL Retraining, Functional Mobility, UE Funct Exercise/Act Treatment Duration: Nov 04, 2018 Frequency: 5 times per week Estimated Hrs Per Day: .25 hour per day Rehab Potential: Fair Time/GCodes Start Time: 13:10 Stop Time: 13:22 Total Time Billed (hr/min): 12 Billed Treatment Time 1 visit, JUSTINA(12minutes) KASANDRA JMI OT Oct 21, 2018 14:47
[2018-10-21] MEDS ORDERED: FUROSEMIDE 40 MG/4 ML INJ (LASIX) ONE (14:49)
[2018-10-21] MEDS ORDERED: FUROSEMIDE 40 MG/4 ML INJ (LASIX) IVP NR (15:15)
[2018-10-21] MEDS: VANCOMYCIN INJECTION 1,000 MG in NS (IVPB) 250 ML IV SCH (20:42)
[2018-10-22] VITALS (24 sets, daily range): BP systolic 92–152; BP diastolic 44–100
[2018-10-22 03:39] LABS: BASOPHILS % (AUTO) 0 % (0-10); EOSINOPHILS # (AUTO) 0.1 10^3/uL (0.0-0.3); EOSINOPHILS % (AUTO) 1 % (0-10); HEMATOCRIT 23 % (40-54); HEMOGLOBIN 7.6 G/DL (13.3-17.7); LYMPHOCYTES # (AUTO) 1.4 X 10^3 (1.0-4.0); LYMPHOCYTES % (AUTO) 10 % (12-44); MEAN CORPUSCULAR HEMOGLOBIN 30 PG (25-34); MEAN CORPUSCULAR HGB CONC 33 G/DL (32-36); MEAN CORPUSCULAR VOLUME 90 FL (80-99); MEAN PLATELET VOLUME 9.9 FL (7.4-10.4); MONOCYTES # (AUTO) 1.5 X 10^3 (0.0-1.0); MONOCYTES % (AUTO) 11 % (0-12); NEUTROPHILS # (AUTO) 10.7 X 10^3 (1.8-7.8); NEUTROPHILS % (AUTO) 78 % (42-75); PLATELET COUNT 315 10^3/uL (130-400); RED BLOOD COUNT 2.55 10^6/uL (4.35-5.85); WHITE BLOOD COUNT 13.7 10^3/uL (4.3-11.0)
[2018-10-22] MEDS: NS IV 1000 ML 1,000 ML IV SCH ×2 (03:39→20:14)
[2018-10-22 04:00] LABS: ALBUMIN 2.1 GM/DL (3.2-4.5); BILIRUBIN,TOTAL 0.4 MG/DL (0.1-1.0); CALCIUM 7.4 MG/DL (8.5-10.1); CREATININE SERUM 1.28 MG/DL (0.60-1.30); MAGNESIUM 1.1 MG/DL (1.8-2.4); PHOSPHORUS 2.6 MG/DL (2.3-4.7); POTASSIUM 4.2 MMOL/L (3.6-5.0)
[2018-10-22] MEDS: MULTIVIT W/MINERALS TAB (THERAGRAN M) PO SCH (06:54)
[2018-10-22] MEDS: SENNOSIDES 8.6 MG (SENOKOT) TAB PO SCH ×2 (08:00→20:15)
[2018-10-22] MEDS: DOCUSATE SODIUM 100 MG (COLACE) CAP PO SCH ×2 (08:00→20:15)
[2018-10-22] MEDS: FAMOTIDINE 20 MG (PEPCID) TABLET PO SCH (08:01)
--- NOTE | 2018-10-22 08:20 | Progress Note (SOAP) ---
Subjective Time Seen by a Provider: 08:14 Subjective/Events-last exam Pt is doing good. He has some low back pain, but resting comfortably for the most part. Feels that it's an improvement from before the procedure. Objective Exam Vital Signs Date Time Temp Pulse Resp B/P (MAP) Pulse Ox O2 Delivery O2 Flow Rate FiO2 10/22/18 07:56 98.6 10/22/18 06:00 71 20 116/52 (73) 97 Nasal Cannula 2.00 10/22/18 04:00 99.3 10/22/18 04:00 Nasal Cannula 2.00 10/22/18 01:33 99.5 93 33 121/58 (79) 96 Nasal Cannula 2.00 10/22/18 01:00 92 10/22/18 00:00 Nasal Cannula 2.00 10/21/18 23:00 93 36 96 Simple Mask 2.00 10/21/18 20:00 Nasal Cannula 2.00 10/21/18 20:00 98.5 10/21/18 20:00 96 28 135/57 (83) 93 Simple Mask 2.00 10/21/18 19:00 95 10/21/18 19:00 98 20 95 Simple Mask 2.00 10/21/18 18:00 92 31 135/81 (99) 96 Simple Mask 2.00 10/21/18 17:00 91 43 114/34 (60) 96 Simple Mask 2.00 10/21/18 16:42 Nasal Cannula 2.00 10/21/18 16:34 97.8 10/21/18 16:06 Nasal Cannula 2.00 10/21/18 16:00 90 47 117/40 (65) 96 Simple Mask 2.00 10/21/18 15:00 97 21 113/37 (62) 96 Simple Mask 2.00 10/21/18 14:00 91 22 122/48 (72) 94 Simple Mask 2.00 10/21/18 13:39 93 10/21/18 13:00 98 41 116/37 (63) Simple Mask 2.00 10/21/18 13:00 98 10/21/18 12:00 93 29 118/50 (72) 96 Simple Mask 2.00 10/21/18 11:53 97.6 10/21/18 11:52 Nasal Cannula 2.00 10/21/18 11:00 92 22 114/42 (66) 95 Simple Mask 2.00 10/21/18 10:00 89 25 110/42 (64) 97 Simple Mask 2.00 10/21/18 09:00 90 23 109/48 (68) 92 Simple Mask 2.00 10/21/18 08:30 Nasal Cannula 2.00 I & O 10/22/18 07:00 Intake Total 1000 ml Output Total 905 ml Balance 95 ml Capillary Refill : General Appearance: No Apparent Distress, WD/WN Respiratory: No Accessory Muscle Use, No Respiratory Distress Extremity: No Calf Tenderness Neurologic/Psychiatric: Alert, Oriented x3, No Motor/Sensory Deficits Results Lab Laboratory Tests 10/21/18 09:55: 10/21/18 11:31: Glucometer 168H 10/21/18 16:28: Glucometer 221H 10/22/18 03:30: White Blood Count 13.7H, Red Blood Count 2.55L, Hemoglobin 7.6L, Hematocrit 23L , Mean Corpuscular Volume 90, Mean Corpuscular Hemoglobin 30, Mean Corpuscular Hemoglobin Concent 33, Red Cell Distribution Width 17.0H, Platelet Count 315, Mean Platelet Volume 9.9, Neutrophils (%) (Auto) 78H, Lymphocytes (%) (Auto) 10L , Monocytes (%) (Auto) 11, Eosinophils (%) (Auto) 1, Basophils (%) (Auto) 0, Neutrophils # (Auto) 10.7H, Lymphocytes # (Auto) 1.4, Monocytes # (Auto) 1.5H, Eosinophils # (Auto) 0.1, Basophils # (Auto) 0.0, Sodium Level 133L, Potassium Level 4.2, Chloride Level 106, Carbon Dioxide Level 18L, Anion Gap 9, Blood Urea Nitrogen 20H, Creatinine 1.28, Estimat Glomerular Filtration Rate 54, BUN/ Creatinine Ratio 16, Glucose Level 152H, Calcium Level 7.4L, Corrected Calcium 8.9, Phosphorus Level 2.6, Magnesium Level 1.1L, Total Bilirubin 0.4, Aspartate Amino Transf (AST/SGOT) 36H, Alanine Aminotransferase (ALT/SGPT) 29, Alkaline Phosphatase 148H, Total Protein 4.0L, Albumin 2.1L Assessment/Plan Assessment/Plan Assess & Plan/Chief Complaint S/P revision R91-Exesam fusion ABLA Transfuse 2 units today Continue PT and pain control ENMANUEL 60, can remove if output less than 50 in 8 hrs Clinical Quality Measures DVT/VTE Risk/Contraindication: Risk Factor Score Per Nursin RFS Level Per Nursing on Admit: 4+=Very High BRIELLE COUCH Oct 22, 2018 08:20
[2018-10-22] MEDS ORDERED: FUROSEMIDE 40 MG/4 ML INJ (LASIX) IVP NR (08:30)
--- NOTE | 2018-10-22 10:03 | Diagnostic Imaging Report ---
INDICATION: Thoracolumbar fusion. Time of Exam 9:43 AM FINDINGS: Further spinal fixation has occurred since the prior CT from 10/18/2018. There are now vertical corky extending from T10 through the sacrum with biventricular screws at T10, T11 and T12 as well as L1. The screws at L2 have been removed. There are bipedicle screws at L4, L5, S1 and S2. The vertebral body heights are maintained. Antibiotic beads now within the disc space at L2-3 level are noted. There is intervertebral prostheses at L3-4, L4-5 and L5 S. S1 levels which appear to be in stable position. Atherosclerotic throughout the aorta are noted IMPRESSION: Revision of previously noted posterior instrumented fusion of the lumbar spine, which extends from T10-S2. Hardware appears to be intact. Overall alignment is anatomic. Dictated by: Dictated on workstation # [id number]
--- NOTE | 2018-10-22 12:12 | Physical Therapy Progress Note ---
Therapy Progress Note 1105am Pt receiving blood transfusion. No PT treatment today. NOHEMI ALCARAZ PTA Oct 22, 2018 12:12
--- NOTE | 2018-10-22 12:38 | Progress Note-Hospitalist ---
Subjective HPI/CC On Admission Date Seen by Provider: Oct 22, 2018 Time Seen by Provider: 11:00 CC: s/p spinal hardware failure replacement HPI: This is an 78-year-old white male who was transferred from inpatient rehabilitation department to ICU for close monitoring following spinal hardware failure replacement yesterday. He had an uncomplicated surgery and is currently recovering and doing well overall. Urinary output has decreased and blood pressure is 115 so will initiate low flow IV fluid of normal saline and encouraged him to take in nutrition and fluids today. He will be fitted for a shell back brace and then we will get him out of bed. Overall patient is doing much better was updated and patient feels better overall. Subjective/Events-last exam Patient is doing about the same Spine surgery ordered 2 more units of blood Patient not eating too well but drinking ensure Wheezing noted on first initial progress so encouraged use of incentive spirometer Bowels not moving today yet Catheter still in place Review of Systems General: Fatigue Genitourinary: Retention Musculoskeletal: back pain Objective Exam Vital Signs Vital Signs Date Time Temp Pulse Resp B/P (MAP) Pulse Ox O2 Delivery O2 Flow Rate FiO2 10/22/18 12:22 99.2 91 15 134/59 94 Nasal Cannula 2.00 Capillary Refill : General Appearance: No Apparent Distress, WD/WN, Chronically ill Respiratory: Chest Non Tender, Lungs Clear, Normal Breath Sounds, No Accessory Muscle Use, No Respiratory Distress Cardiovascular: Regular Rate, Rhythm, No Edema, No Gallop, No JVD, No Murmur, Normal Peripheral Pulses Neurologic/Psychiatric: Alert, Oriented x3, No Motor/Sensory Deficits, Normal Mood/Affect Skin: Normal Color, Warm/Dry Results/Procedures Lab Laboratory Tests 10/22/18 03:30 Patient resulted labs reviewed. Assessment/Plan Assessment and Plan Assess & Plan/Chief Complaint Assessment: Recurrent severe back pain with referred lower abdominal pain similar to initial presentation obtained labs and CT scan and Dr Mc consultation which revealed displaced hardware in need of repeat surgery s/p on 10/20/18 POD # 2 Debility following spinal abscess status post 2 I&D's uncomplicated per Dr Mc Urinary retention acute maintained with leo but Dr Cortes consulted C. difficile colitis resolved Severe anemia due to acute blood loss status post 4 units of blood while on MedSurg and ICU requiring another 2 units today CAD DM CRI Plan: Pain control Give blood Increase PO nutrition and fluids Use IS faithfully Diagnosis/Problems Diagnosis/Problems (1) Loosening of hardware in spine Status: Resolved Resolution Date/Time: 10/22/18 @ 12:52 (2) Intraspinal abscess and granuloma Status: Resolved Resolution Date/Time: 10/15/18 @ 14:02 (3) Urinary retention Status: Acute (4) Transfusion of blood during current hospitalization Status: Acute (5) Advanced age Status: Chronic (6) C. difficile colitis Status: Acute (7) Renal insufficiency Status: Resolved Resolution Date/Time: 10/10/18 @ 09:41 (8) Leukocytosis Status: Resolved Resolution Date/Time: 10/15/18 @ 14:02 (9) CAD (coronary artery disease) Status: Chronic (10) Atrial fibrillation Status: Chronic Qualifiers: Atrial fibrillation type: unspecified Qualified Codes: I48.91 - Unspecified atrial fibrillation Clinical Quality Measures DVT/VTE Risk/Contraindication: Risk Factor Score Per Nursin RFS Level Per Nursing on Admit: 4+=Very High MARQUEZ DELATORRE DO Oct 22, 2018 12:38
[2018-10-22] MEDS: IRON SUCROSE 200 MG/10 ML (VENOFER) VIAL IV SCH (13:46)
[2018-10-22] MEDS: CYCLOBENZAPRINE 10 MG (FLEXERIL) TAB PO PRN (14:09)
[2018-10-22] MEDS: MAGNESIUM 1 GM/100 ML IVPB IV SCH ×3 (15:48→17:50)
[2018-10-22] MEDS: VANCOMYCIN INJECTION 1,000 MG in NS (IVPB) 250 ML IV SCH (20:14)
[2018-10-23] VITALS (17 sets, daily range): BP systolic 123–150; BP diastolic 51–105
[2018-10-23 03:42] LABS: BASOPHILS % (AUTO) 0 % (0-10); EOSINOPHILS # (AUTO) 0.3 10^3/uL (0.0-0.3); EOSINOPHILS % (AUTO) 3 % (0-10); HEMATOCRIT 26 % (40-54); HEMOGLOBIN 8.9 G/DL (13.3-17.7); LYMPHOCYTES # (AUTO) 1.1 X 10^3 (1.0-4.0); LYMPHOCYTES % (AUTO) 10 % (12-44); MEAN CORPUSCULAR HEMOGLOBIN 30 PG (25-34); MEAN CORPUSCULAR HGB CONC 34 G/DL (32-36); MEAN CORPUSCULAR VOLUME 89 FL (80-99); MEAN PLATELET VOLUME 9.7 FL (7.4-10.4); MONOCYTES # (AUTO) 0.9 X 10^3 (0.0-1.0); MONOCYTES % (AUTO) 9 % (0-12); NEUTROPHILS # (AUTO) 8.7 X 10^3 (1.8-7.8); NEUTROPHILS % (AUTO) 79 % (42-75); PLATELET COUNT 318 10^3/uL (130-400); RED BLOOD COUNT 2.95 10^6/uL (4.35-5.85); RED CELL DISTRIBUTION WIDTH 16.3 % (10.0-14.5); WHITE BLOOD COUNT 11.1 10^3/uL (4.3-11.0)
[2018-10-23 03:58] LABS: MAGNESIUM 1.8 MG/DL (1.8-2.4)
[2018-10-23] MEDS: NS IV 1000 ML 1,000 ML IV SCH (04:14)
[2018-10-23 04:28] LABS: CALCIUM 7.6 MG/DL (8.5-10.1); CREATININE SERUM 1.2 MG/DL (0.60-1.30); POTASSIUM 4.1 MMOL/L (3.6-5.0)
[2018-10-23] MEDS: MULTIVIT W/MINERALS TAB (THERAGRAN M) PO SCH (05:33)
[2018-10-23] MEDS ORDERED: KCL 20 MEQ TAB (K-DUR) PO SCH ×2 (06:00)
[2018-10-23] MEDS ORDERED: POTASSIUM CL 10MEQ/50ML IVPB 50 ML IV SCH ×2 (06:00)
[2018-10-23] MEDS ORDERED: MAGNESIUM 1 GM/100 ML IVPB 100 ML IV SCH ×2 (06:00)
[2018-10-23] MEDS: CYCLOBENZAPRINE 10 MG (FLEXERIL) TAB PO PRN (09:00)
[2018-10-23] MEDS: DOCUSATE SODIUM 100 MG (COLACE) CAP PO SCH ×2 (09:01→20:28)
[2018-10-23] MEDS: SENNOSIDES 8.6 MG (SENOKOT) TAB PO SCH ×2 (09:01→20:28)
[2018-10-23] MEDS: FAMOTIDINE 20 MG (PEPCID) TABLET PO SCH (09:01)
[2018-10-23] MEDS: BISACODYL 10 MG SUPP (DULCOLAX) PR PRN (09:02)
[2018-10-23] MEDS: BISACODYL 5 MG (DULCOLAX) TABLET PO PRN (10:01)
[2018-10-23] MEDS ORDERED: FLEET ENEMA ADULT 1 EA BTL PR PRN (11:45)
--- NOTE | 2018-10-23 11:46 | Progress Note-Hospitalist ---
Subjective HPI/CC On Admission Date Seen by Provider: Oct 23, 2018 Time Seen by Provider: 11:15 CC: s/p spinal hardware failure replacement HPI: This is an 78-year-old white male who was transferred from inpatient rehabilitation department to ICU for close monitoring following spinal hardware failure replacement yesterday. He had an uncomplicated surgery and is currently recovering and doing well overall. Urinary output has decreased and blood pressure is 115 so will initiate low flow IV fluid of normal saline and encouraged him to take in nutrition and fluids today. He will be fitted for a shell back brace and then we will get him out of bed. Overall patient is doing much better was updated and patient feels better overall. Subjective/Events-last exam Patient doing better just slowly Repeat hgb improved after a total of 3 units of blood since 10/20/18 Shell back brace arrived yesterday Pain is improved Soft abdomen and good BS but he needs to have BM and had some cramps earlier Using IS Does have a cough but lungs are clear but will start Nebs Review of Systems General: Fatigue Pulmonary: Cough Gastrointestinal: Constipation Musculoskeletal: back pain Objective Exam Vital Signs Vital Signs Date Time Temp Pulse Resp B/P (MAP) Pulse Ox O2 Delivery O2 Flow Rate FiO2 10/23/18 14:00 85 16 124/51 (75) 99 Nasal Cannula 4.00 10/23/18 08:00 98.7 Capillary Refill : General Appearance: No Apparent Distress, WD/WN, Chronically ill Respiratory: Chest Non Tender, Lungs Clear, Normal Breath Sounds, No Accessory Muscle Use, No Respiratory Distress Cardiovascular: Regular Rate, Rhythm, No Edema, No Gallop, No JVD, No Murmur, Normal Peripheral Pulses Gastrointestinal: Normal Bowel Sounds, No Organomegaly, No Pulsatile Mass, Non Tender, Soft Neurologic/Psychiatric: Alert, Oriented x3, No Motor/Sensory Deficits, Normal Mood/Affect Results/Procedures Lab Laboratory Tests 10/23/18 03:35 Patient resulted labs reviewed. Assessment/Plan Assessment and Plan Assess & Plan/Chief Complaint Assessment: Recurrent severe back pain with referred lower abdominal pain similar to initial presentation obtained labs and CT scan and Dr Mc consultation which revealed displaced hardware in need of repeat surgery s/p on 10/20/18 POD # 3 Debility following spinal abscess status post 2 I&D's uncomplicated per Dr Mc Urinary retention acute maintained with leo but Dr Sebastian consulted C. difficile colitis resolved Severe anemia due to acute blood loss status post 4 units of blood while on MedSurg and ICU then 1 unit 10/20 then requiring another 2 units yesterday CAD DM CRI Plan: Pain control Increase PO nutrition and fluids Use IS faithfully Monitor cough BM regimen Nebs IRF versus SB Diagnosis/Problems Diagnosis/Problems (1) Loosening of hardware in spine Status: Resolved Resolution Date/Time: 10/22/18 @ 12:52 (2) Intraspinal abscess and granuloma Status: Resolved Resolution Date/Time: 10/15/18 @ 14:02 (3) Urinary retention Status: Acute (4) Transfusion of blood during current hospitalization Status: Acute (5) Advanced age Status: Chronic (6) C. difficile colitis Status: Acute (7) Renal insufficiency Status: Resolved Resolution Date/Time: 10/10/18 @ 09:41 (8) Leukocytosis Status: Resolved Resolution Date/Time: 10/15/18 @ 14:02 (9) CAD (coronary artery disease) Status: Chronic (10) Atrial fibrillation Status: Chronic Qualifiers: Atrial fibrillation type: unspecified Qualified Codes: I48.91 - Unspecified atrial fibrillation Clinical Quality Measures DVT/VTE Risk/Contraindication: Risk Factor Score Per Nursin RFS Level Per Nursing on Admit: 4+=Very High MARQUEZ DELATORRE DO Oct 23, 2018 11:46
--- NOTE | 2018-10-23 12:41 | Progress Note (SOAP) ---
Subjective Date Seen by a Provider: Oct 23, 2018 Time Seen by a Provider: 12:39 Subjective/Events-last exam Doing better, awake, alert, concerned about bloating. Objective Exam Vital Signs Date Time Temp Pulse Resp B/P (MAP) Pulse Ox O2 Delivery O2 Flow Rate FiO2 10/23/18 12:00 84 14 135/58 (83) 97 Nasal Cannula 4.00 10/23/18 11:00 86 19 129/60 (83) 97 Nasal Cannula 4.00 10/23/18 10:00 85 19 149/67 (94) 98 Nasal Cannula 4.00 10/23/18 09:00 80 16 129/56 (80) 98 Nasal Cannula 4.00 10/23/18 08:00 Nasal Cannula 2.00 10/23/18 08:00 87 21 141/52 (81) 97 Nasal Cannula 4.00 10/23/18 08:00 98.7 Nasal Cannula 4.00 10/23/18 07:00 80 10/23/18 07:00 80 28 131/53 (79) 97 Nasal Cannula 4.00 10/23/18 06:00 83 24 139/61 (87) 97 Nasal Cannula 4.00 10/23/18 05:00 83 20 135/60 (85) 97 Nasal Cannula 4.00 10/23/18 04:00 81 17 126/65 (85) 96 Nasal Cannula 4.00 10/23/18 04:00 98.7 10/23/18 04:00 Nasal Cannula 2.00 10/23/18 03:00 84 17 123/74 (90) 92 Nasal Cannula 4.00 10/23/18 02:00 84 18 132/55 (80) 96 Nasal Cannula 4.00 10/23/18 01:00 90 20 128/58 (81) 96 Nasal Cannula 4.00 10/23/18 01:00 90 10/23/18 00:00 98.8 10/23/18 00:00 Nasal Cannula 2.00 10/23/18 00:00 90 20 131/58 (82) 91 Nasal Cannula 4.00 10/22/18 23:00 89 19 127/63 (84) 94 Nasal Cannula 4.00 10/22/18 22:00 87 19 131/51 (77) 94 Nasal Cannula 4.00 10/22/18 21:00 87 19 130/60 (83) 97 Nasal Cannula 4.00 10/22/18 20:00 87 18 129/68 (88) 97 Nasal Cannula 4.00 10/22/18 20:00 Nasal Cannula 2.00 10/22/18 19:00 94 10/22/18 19:00 92 16 127/60 (82) 97 Nasal Cannula 4.00 10/22/18 18:00 98 15 146/62 (90) 92 Nasal Cannula 4.00 10/22/18 17:00 93 27 122/95 (104) 94 Nasal Cannula 2.00 10/22/18 16:30 Nasal Cannula 2.00 10/22/18 16:00 93 21 133/68 (89) 95 Nasal Cannula 2.00 10/22/18 15:49 99.8 90 27 134/62 95 Nasal Cannula 2.00 10/22/18 15:00 90 12 127/100 (109) 98 Nasal Cannula 2.00 10/22/18 14:00 90 23 108/65 (79) 92 Nasal Cannula 2.00 10/22/18 14:00 98.9 90 14 108/65 95 Nasal Cannula 2.00 10/22/18 13:36 99.0 90 19 148/56 97 Nasal Cannula 2.00 10/22/18 13:00 88 18 146/52 (83) 90 Nasal Cannula 2.00 10/22/18 13:00 89 I & O 10/23/18 07:00 Intake Total 700 ml Output Total 1840 ml Balance -1140 ml Capillary Refill : General Appearance: No Apparent Distress Neck: Non Tender, Supple Respiratory: No Accessory Muscle Use, No Respiratory Distress Cardiovascular: Regular Rate, Rhythm, Normal Peripheral Pulses Gastrointestinal: non tender, distended Extremity: Normal Capillary Refill, Swelling Neurologic/Psychiatric: Oriented x3, Motor Weakness Results Lab Laboratory Tests 10/22/18 17:42: Glucometer 204H 10/22/18 21:35: Magnesium Level 1.9 10/23/18 03:35: Magnesium Level 1.8, White Blood Count 11.1H, Red Blood Count 2.95L, Hemoglobin 8.9L, Hematocrit 26L, Mean Corpuscular Volume 89, Mean Corpuscular Hemoglobin 30 , Mean Corpuscular Hemoglobin Concent 34, Red Cell Distribution Width 16.3H, Platelet Count 318, Mean Platelet Volume 9.7, Neutrophils (%) (Auto) 79H, Lymphocytes (%) (Auto) 10L, Monocytes (%) (Auto) 9, Eosinophils (%) (Auto) 3, Basophils (%) (Auto) 0, Neutrophils # (Auto) 8.7H, Lymphocytes # (Auto) 1.1, Monocytes # (Auto) 0.9, Eosinophils # (Auto) 0.3, Basophils # (Auto) 0.0, Sodium Level 131L, Potassium Level 4.1, Chloride Level 105, Carbon Dioxide Level 19L, Anion Gap 7, Blood Urea Nitrogen 18, Creatinine 1.20, Estimat Glomerular Filtration Rate 58, BUN/Creatinine Ratio 15, Glucose Level 117H, Calcium Level 7.6L, Phosphorus Level 2.0L Assessment/Plan Assessment/Plan Assess & Plan/Chief Complaint Lumbar Wound infection with Staph Epi Lumbar Hardware Failure Deconditioning Acute Blood Loss anemia Plan: Continue to monitor blood count Mobilize Fit with TLSO Clamshell Brace when up OOB Check ultrasounds of 4 extremities. Clinical Quality Measures DVT/VTE Risk/Contraindication: Risk Factor Score Per Nursin RFS Level Per Nursing on Admit: 4+=Very High LEO BRANHAM MD Oct 23, 2018 12:41 pm
[2018-10-23] MEDS: RT-ALBUTEROL SULF 2.5 MG/3 ML PRE-MIX VIAL INH SCH ×2 (14:27→19:41)
[2018-10-23] MEDS: VANCOMYCIN INJECTION 1,000 MG in NS (IVPB) 250 ML IV SCH (20:33)
[2018-10-24 00:02] VITALS: BP 133/60
[2018-10-24 04:00] VITALS: BP 127/59
[2018-10-24 06:01] LABS: BASOPHILS % (AUTO) 0 % (0-10); EOSINOPHILS # (AUTO) 0.4 10^3/uL (0.0-0.3); EOSINOPHILS % (AUTO) 4 % (0-10); HEMATOCRIT 27 % (40-54); HEMOGLOBIN 9.1 G/DL (13.3-17.7); LYMPHOCYTES # (AUTO) 1.2 X 10^3 (1.0-4.0); LYMPHOCYTES % (AUTO) 12 % (12-44); MEAN CORPUSCULAR HEMOGLOBIN 30 PG (25-34); MEAN CORPUSCULAR HGB CONC 33 G/DL (32-36); MEAN CORPUSCULAR VOLUME 90 FL (80-99); MEAN PLATELET VOLUME 9.9 FL (7.4-10.4); MONOCYTES # (AUTO) 1.1 X 10^3 (0.0-1.0); MONOCYTES % (AUTO) 11 % (0-12); NEUTROPHILS # (AUTO) 7.4 X 10^3 (1.8-7.8); NEUTROPHILS % (AUTO) 73 % (42-75); PLATELET COUNT 320 10^3/uL (130-400); RED BLOOD COUNT 3.05 10^6/uL (4.35-5.85); RED CELL DISTRIBUTION WIDTH 16.2 % (10.0-14.5); WHITE BLOOD COUNT 10.1 10^3/uL (4.3-11.0)
[2018-10-24 06:21] LABS: ALANINE AMINOTRANSFERASE 35 U/L (0-55); ALKALINE PHOSPHATASE 171 U/L (40-136); BILIRUBIN,TOTAL 0.5 MG/DL (0.1-1.0); BUN/CREATININE RATIO 14; CALCIUM 7.9 MG/DL (8.5-10.1); CARBON DIOXIDE 20 MMOL/L (21-32); CHLORIDE 106 MMOL/L (98-107); CREATININE SERUM 1.08 MG/DL (0.60-1.30); GFR ESTIMATED > 60; GLUCOSE 103 MG/DL (70-105); POTASSIUM 4.4 MMOL/L (3.6-5.0); SODIUM 132 MMOL/L (135-145); TOTAL PROTEIN 3.8 GM/DL (6.4-8.2)
[2018-10-24] MEDS: IRON SUCROSE 200 MG/10 ML (VENOFER) VIAL IV SCH (08:05)
[2018-10-24] MEDS: FAMOTIDINE 20 MG (PEPCID) TABLET PO SCH (08:05)
[2018-10-24] MEDS: DOCUSATE SODIUM 100 MG (COLACE) CAP PO SCH ×2 (08:05→22:24)
[2018-10-24] MEDS: MULTIVIT W/MINERALS TAB (THERAGRAN M) PO SCH (08:05)
[2018-10-24] MEDS: SENNOSIDES 8.6 MG (SENOKOT) TAB PO SCH ×2 (08:05→22:24)
[2018-10-24] MEDS: RT-ALBUTEROL SULF 2.5 MG/3 ML PRE-MIX VIAL INH SCH ×3 (08:08→19:52)
--- NOTE | 2018-10-24 08:38 | Progress Note-Hospitalist ---
Subjective HPI/CC On Admission Date Seen by Provider: Oct 24, 2018 Time Seen by Provider: 08:15 CC: s/p spinal hardware failure replacement HPI: This is an 78-year-old white male who was transferred from inpatient rehabilitation department to ICU for close monitoring following spinal hardware failure replacement yesterday. He had an uncomplicated surgery and is currently recovering and doing well overall. Urinary output has decreased and blood pressure is 115 so will initiate low flow IV fluid of normal saline and encouraged him to take in nutrition and fluids today. He will be fitted for a shell back brace and then we will get him out of bed. Overall patient is doing much better was updated and patient feels better overall. Subjective/Events-last exam Patient having some delirium at night Bowels are moving Eating better Nebulizer treatments of cleared lungs Labs noted Inpatient rehabilitation eval Review of Systems General: Fatigue Neurological: Confusion Objective Exam Vital Signs Vital Signs Date Time Temp Pulse Resp B/P (MAP) Pulse Ox O2 Delivery O2 Flow Rate FiO2 10/24/18 08:59 98.4 86 20 174/76 (108) 96 Nasal Cannula 1.50 Capillary Refill : General Appearance: No Apparent Distress, WD/WN, Chronically ill Respiratory: Chest Non Tender, Lungs Clear, Normal Breath Sounds, No Accessory Muscle Use, No Respiratory Distress Cardiovascular: Regular Rate, Rhythm, No Edema, No Gallop, No JVD, No Murmur, Normal Peripheral Pulses Back: Decreased Range of Motion Neurologic/Psychiatric: Alert, Oriented x3, No Motor/Sensory Deficits, Normal Mood/Affect Results/Procedures Lab Laboratory Tests 10/24/18 05:50 Patient resulted labs reviewed. Assessment/Plan Assessment and Plan Assess & Plan/Chief Complaint Assessment: Recurrent severe back pain with referred lower abdominal pain similar to initial presentation obtained labs and CT scan and Dr Mc consultation which revealed displaced hardware in need of repeat surgery s/p on 10/20/18 POD # 4 Debility following spinal abscess status post 2 I&D's uncomplicated per Dr Mc Urinary retention acute maintained with leo but Dr Cortes consulted and he will see before DC catheter C. difficile colitis resolved Severe anemia due to acute blood loss status post 4 units of blood while on MedSurg and ICU then 1 unit 10/20 then requiring another 2 units 2 days ago CAD DM CRI Delirium Plan: Pain control Increase PO nutrition and fluids Use IS faithfully Monitor cough but cont nebs BM regimen Nebs IRF Diagnosis/Problems Diagnosis/Problems (1) Loosening of hardware in spine Status: Resolved Resolution Date/Time: 10/22/18 @ 12:52 (2) Intraspinal abscess and granuloma Status: Resolved Resolution Date/Time: 10/15/18 @ 14:02 (3) Urinary retention Status: Acute (4) Transfusion of blood during current hospitalization Status: Acute (5) Advanced age Status: Chronic (6) C. difficile colitis Status: Acute (7) Renal insufficiency Status: Resolved Resolution Date/Time: 10/10/18 @ 09:41 (8) Leukocytosis Status: Resolved Resolution Date/Time: 10/15/18 @ 14:02 (9) CAD (coronary artery disease) Status: Chronic (10) Atrial fibrillation Status: Chronic Qualifiers: Atrial fibrillation type: unspecified Qualified Codes: I48.91 - Unspecified atrial fibrillation (11) Delirium Status: Acute Clinical Quality Measures DVT/VTE Risk/Contraindication: Risk Factor Score Per Nursin RFS Level Per Nursing on Admit: 4+=Very High MARQUEZ DELATORRE DO Oct 24, 2018 08:38
[2018-10-24] MEDS ORDERED: BUPRENORPHINE TD SCH (08:45)
[2018-10-24 08:59] VITALS: BP 174/76
--- NOTE | 2018-10-24 09:52 | Progress Note-Urology ---
Progress Note-Urology Progress Notes/Assess & Plan Progress/Assessment & Plan TOV TODAY AND PLAN PER ORDERS Final Diagnosis URINE RETENTION COLE BLUM MD Oct 24, 2018 09:52
[2018-10-24] MEDS: CYCLOBENZAPRINE 10 MG (FLEXERIL) TAB PO PRN (10:07)
[2018-10-24] MEDS: BISACODYL 5 MG (DULCOLAX) TABLET PO PRN (10:14)
--- NOTE | 2018-10-24 10:40 | Physical Therapy Daily Note ---
PT Daily Note-Current Subjective Pt awake in bed watching tv with his when PT entered room. Pt requested assistance in transferring to commode. Pain Numeric Pain Scale: 7 Location: Posterior Location Body Site: Back Pain Description: Acute Mental Status Patient Orientation: Mumbles, Normal For Age Attachments: Drains, Hunt Catheter, IV Transfers Therapy Code Descriptions/Definitions Functional [place] Measure: 0=Not Assessed/NA 4=Minimal Assistance 1=Total Assistance 5=Supervision or Setup 2=Maximal Assistance 6=Modified [place] 3=Moderate Assistance 7=Complete [place] Therapy Quality Codes: 6 Independent with activity with or without an assistive device 5 Patient requires set up or clean up by helper. Patient completes activity by themselves 4 Supervision or touching assist (CGA). [place] provide cues , steadying assist 3 The helper provides less than half the effort to complete the activity 2 The helper provides more than half the effort to complete the activity 1 Dependent. The helper does all the effort to complete an activity 7 Patient refused to complete or attempt activity 9 The patient did not perform the activity before the current illness or injury 88 Not attempted due to Medical conditions or safety concerns Transfers (B, C, W/C) (FIM): 3 Scootin Rollin Supine to/from Sit: 3 Sit to/from Stand: 3 bed to commode to recliner Weight Bearing Right Lower Extremity: Right Weight Bearing/Tolerated Left Lower Extremity: Left Weight Bearing/Tolerated Exercises Supine Ex: Heel Slides, Hip abd/add Assessment Pt was able to perform LE exercises prior to being transferred to commode. Pt required Mod A to transfer from supine to sitting EOB. Patient is Mod A in sit/ stand when being transferred over to commode. Pt will continue therapy to increase overall level of function. Patient self limits due to pain. PT Short Term Goals Short Term Goals Time Frame: Oct 29, 2018 Transfers (B,C,W/C) (FIM): 3 Gait (FIM): 1 Distance (FIM): 1=up to 49 ft Gait Distance Comment: 20' Gait Level of Assist: 3 Gait Assistive Device: FWW PT Brazing Machine Operator Automatic Goals Brazing Machine Operator Automatic Goals PT Group Home Goals Time Frame: Nov 12, 2018 Transfers (B,C,W/C) (FIM): 6 Gait (FIM): 6 Gait distance (FIM): 3=150 ft Distance: 150' Gait Level of Assist: 6 Gait Assistive Device: FWW PT Plan Problem List Problem List: Activity Tolerance, Functional Strength, Safety, Balance, Gait, Transfer, Bed Mobility Treatment/Plan Treatment Plan: Continue Plan of Care Treatment Plan: Bed Mobility, Education, Functional Activity Cris, Functional Strength, Gait, Safety, Therapeutic Exercise, Transfers Treatment Duration: Nov 12, 2018 Frequency: 11 times per week Estimated Hrs Per Day: .5 hour per day Patient and/or Family Agrees t: Yes Time/GCodes Time In: 930 Time Out: 949 Total Billed Treatment Time: 19 Total Billed Treatment 1 Visit FA - 19' KAL VERMA PT Oct 24, 2018 10:39
[2018-10-24] MEDS: lisINopril 20 MG (PRINIVIL) TABLET PO SCH (10:58)
[2018-10-24] MEDS: BETHANECHOL 10 MG (URECHOLINE) TAB PO SCH ×3 (10:58→22:27)
[2018-10-24] MEDS: PIOGLITAZONE 30MG (ACTOS) TAB PO SCH (10:58)
[2018-10-24] MEDS: meTOprolol TARTRATE 25 MG (LOPRESSOR) TABLET PO SCH ×2 (10:58→22:24)
[2018-10-24] MEDS: AMIODARONE 200 MG (CORDARONE) TAB PO SCH (10:59)
[2018-10-24] MEDS: amLODIPine 5 MG (NORVASC) TAB PO SCH (10:59)
[2018-10-24] MEDS: LACTOBACILLUS Acidoph/Bulgar 1 GM (LACTINEX) PACKET PO SCH ×3 (10:59→22:24)
[2018-10-24] MEDS: ALLOPURINOL 300 MG (ZYLOPRIM) TAB PO SCH (10:59)
[2018-10-24] MEDS ORDERED: INSULIN VIAL ASPART for PUMP 100 UNIT/ML VIAL SQ SCH (11:00)
[2018-10-24] MEDS ORDERED: fentaNYL PATCH 25 MCG (DURAGESIC) TD SCH (11:31)
--- NOTE | 2018-10-24 11:57 | Physical Therapy Daily Note ---
PT Daily Note-Current Subjective Pt awake in chair when PT arrived. Pt agreed to be transferred back to bed. Pain Numeric Pain Scale: 7 Location: Posterior Location Body Site: Back Pain Description: Heavy Mental Status Patient Orientation: Mumbles, Normal For Age Attachments: Drains, IV Transfers Therapy Code Descriptions/Definitions Functional [place] Measure: 0=Not Assessed/NA 4=Minimal Assistance 1=Total Assistance 5=Supervision or Setup 2=Maximal Assistance 6=Modified [place] 3=Moderate Assistance 7=Complete [place] Therapy Quality Codes: 6 Independent with activity with or without an assistive device 5 Patient requires set up or clean up by helper. Patient completes activity by themselves 4 Supervision or touching assist (CGA). [place] provide cues , steadying assist 3 The helper provides less than half the effort to complete the activity 2 The helper provides more than half the effort to complete the activity 1 Dependent. The helper does all the effort to complete an activity 7 Patient refused to complete or attempt activity 9 The patient did not perform the activity before the current illness or injury 88 Not attempted due to Medical conditions or safety concerns Transfers (B, C, W/C) (FIM): 2 Scootin Supine to/from Sit: 2 Sit to/from Stand: 3 Weight Bearing Right Lower Extremity: Right Weight Bearing/Tolerated Left Lower Extremity: Left Weight Bearing/Tolerated Assessment Pt is transferred from bedside recliner back to bed with a standing pivot transfer. Patient needed cueing in shifting weight prior to transfer and is Mod A. Patient requires two therapist in transfer from sit/supine. PT Short Term Goals Short Term Goals Time Frame: Oct 29, 2018 Transfers (B,C,W/C) (FIM): 3 Gait (FIM): 1 Distance (FIM): 1=up to 49 ft Gait Distance Comment: 20' Gait Level of Assist: 3 Gait Assistive Device: FWW PT Security Solutions Engineer Goals Mcc Goals PT Security Solutions Engineer Goals Time Frame: Nov 12, 2018 Transfers (B,C,W/C) (FIM): 6 Gait (FIM): 6 Gait distance (FIM): 3=150 ft Distance: 150' Gait Level of Assist: 6 Gait Assistive Device: FWW PT Plan Problem List Problem List: Activity Tolerance, Functional Strength, Safety, Balance, Gait, Transfer, Bed Mobility, ROM Treatment/Plan Treatment Plan: Continue Plan of Care Treatment Plan: Bed Mobility, Education, Functional Activity Cris, Functional Strength, Gait, Safety, Therapeutic Exercise, Transfers Treatment Duration: Nov 12, 2018 Frequency: 11 times per week Estimated Hrs Per Day: .5 hour per day Patient and/or Family Agrees t: Yes Time/GCodes Time In: 1125 Time Out: 1138 Total Billed Treatment Time: 13 Total Billed Treatment 1 Visit FA - 13' KAL VERMA PT Oct 24, 2018 11:57
[2018-10-24 12:35] VITALS: BP 127/57
--- NOTE | 2018-10-24 13:02 | Progress Note (SOAP) ---
Subjective Date Seen by a Provider: Oct 24, 2018 Time Seen by a Provider: 13:00 Subjective/Events-last exam Doing ok, wishes he could have flatus and bowel movements easier. Hard to walk still. Swelling much better in his arms. Objective Exam Vital Signs Date Time Temp Pulse Resp B/P (MAP) Pulse Ox O2 Delivery O2 Flow Rate FiO2 10/24/18 12:35 98.6 76 18 127/57 (80) 96 Nasal Cannula 1.00 10/24/18 08:59 98.4 86 20 174/76 (108) 96 Nasal Cannula 1.50 10/24/18 08:09 97 Nasal Cannula 2.00 10/24/18 08:05 Nasal Cannula 1.00 10/24/18 04:00 98.9 88 18 127/59 (81) 93 Nasal Cannula 1.50 10/24/18 00:02 98.4 83 20 133/60 (84) 97 Nasal Cannula 1.50 10/23/18 21:15 97 Nasal Cannula 1.50 10/23/18 19:41 96 Nasal Cannula 2.00 10/23/18 19:30 98.6 87 24 128/58 (81) 96 Nasal Cannula 1.50 10/23/18 16:11 99 Nasal Cannula 2.00 10/23/18 15:35 99.5 82 20 150/70 (96) 96 Nasal Cannula 4.00 10/23/18 14:30 Nasal Cannula 2.00 10/23/18 14:00 85 16 124/51 (75) 99 Nasal Cannula 4.00 10/23/18 13:00 82 10/23/18 13:00 79 16 138/67 (90) 98 Nasal Cannula 4.00 I & O 10/24/18 07:00 Intake Total 1380 ml Output Total 1315 ml Balance 65 ml Capillary Refill : General Appearance: No Apparent Distress Respiratory: No Accessory Muscle Use, No Respiratory Distress Cardiovascular: Regular Rate, Rhythm, Normal Peripheral Pulses Neurologic/Psychiatric: Other (Stable) Skin: Other (Wound vac in place, looks ok.) Results Lab Laboratory Tests 10/24/18 05:50: White Blood Count 10.1, Red Blood Count 3.05L, Hemoglobin 9.1L, Hematocrit 27L, Mean Corpuscular Volume 90, Mean Corpuscular Hemoglobin 30, Mean Corpuscular Hemoglobin Concent 33, Red Cell Distribution Width 16.2H, Platelet Count 320, Mean Platelet Volume 9.9, Neutrophils (%) (Auto) 73, Lymphocytes (%) (Auto) 12, Monocytes (%) (Auto) 11, Eosinophils (%) (Auto) 4, Basophils (%) (Auto) 0, Neutrophils # (Auto) 7.4, Lymphocytes # (Auto) 1.2, Monocytes # (Auto) 1.1H, Eosinophils # (Auto) 0.4H, Basophils # (Auto) 0.0, Sodium Level 132L, Potassium Level 4.4, Chloride Level 106, Carbon Dioxide Level 20L, Anion Gap 6, Blood Urea Nitrogen 15, Creatinine 1.08, Estimat Glomerular Filtration Rate > 60, BUN/ Creatinine Ratio 14, Glucose Level 103, Calcium Level 7.9L, Corrected Calcium 9.5, Total Bilirubin 0.5, Aspartate Amino Transf (AST/SGOT) 58H, Alanine Aminotransferase (ALT/SGPT) 35, Alkaline Phosphatase 171H, Total Protein 3.8L, Albumin 2.0L 10/24/18 12:09: Lab Scanned Report Transfusion Reaction Form Assessment/Plan Assessment/Plan Assess & Plan/Chief Complaint Lumbar Wound infection with Staph Epi Lumbar Hardware Failure Deconditioning Acute Blood Loss anemia Continue post op care Continue to mobilize Bowel program Clinical Quality Measures DVT/VTE Risk/Contraindication: Risk Factor Score Per Nursin RFS Level Per Nursing on Admit: 4+=Very High LEO BRANHAM MD Oct 24, 2018 13:02
[2018-10-24] MEDS: PHENAZOPYRIDINE 100 MG (PYRIDIUM) TABLET PO SCH ×2 (13:17→18:06)
[2018-10-24] MEDS: OXYBUTYNIN (DITROPAN) 5 MG TAB PO SCH ×2 (13:17→22:24)
--- NOTE | 2018-10-24 14:18 | Occupational Ther Daily Note ---
OT Current Status-Daily Note Subjective Pt. states that he is waiting on his pain pill. Spouse in room. Does not report pain level, but nursing does come in to give him pain medication. Appearance Pt. is in bed. Somewhat groggy and confused. Mental Status/Objective Patient Orientation: Unable to Assess Therapy Code Descriptions/Definitions Functional [place] Measure: 0=Not Assessed/NA 4=Minimal Assistance 1=Total Assistance 5=Supervision or Setup 2=Maximal Assistance 6=Modified [place] 3=Moderate Assistance 7=Complete [place] Other Treatment Spouse in room. States that pt. has just been up and went back to bed. Pt. is encouraged several times to transfer to side of bed again. Pt. declines and states that he can't. Does agree to bilateral UE exercises with AROM for shoulder flexion/elbow flexion, x 15 reps. Pt. then completes 20 hand squeezes with therapy sponge, and then completes 2 bilateral UE exercises x 10 reps each with yellow theraband in multiple planes. TLSO brace has arrived and is sitting in chair. OT encourages pt. to try this on, as he has not had it on yet. Pt. declines, and continues to talk about the woman sitting in that chair on her phone. There is no woman in that chair, and spouse states that pt. has been confused. OT brings brace over to pt. and educates him and spouse on how it works, where the straps go, etc... Pt. feels the brace but states that he wants to wait until tomorrow. Nursing lets pt. know that a suppository will be given when pt. is able to turn the next time on his side. Pt. is encouraged to roll in bed, lay on side, etc.... Pt. declines at this time. States that he is comfortable where he is. All needs are met at this time. Education OT Patient Education: Correct positioning, Modified ADL techniques, Progress toward Goal/Update tx plan, Purpose of tx/functional activities, Reviewed precautions, Rehab process, Transfer techniques Teaching Recipient: Patient, Significant Other Teaching Methods: Demonstration, Discussion Response to Teaching: Verbalize Understanding OT Short Term Goals Short Term Goals Time Frame: Oct 28, 2018 Eating(FIM): 5 Upper Body Dressing(FIM): 4 Lower Body Dressing(FIM): 3 Transfers (B,C,W/C) (FIM): 3 Additional Short Term Goals: 1-Demonstrate ADL Tasks, 2-Verbalize Understanding , 3-ImproveStrength/Cris 1=Demonstrate adherence to instructed precautions during ADL tasks. 2=Patient will verbalize/demonstrate understanding of assistive devices/ modifications for ADL. 3=Patient will improve strength/tolerance for activity to enable patient to perform ADL's. OT Tool Room Lathe Operator Goals Long-Term Goals Time Frame: Nov 04, 2018 Grooming(FIM): 5 Upper Body Dressing(FIM): 5 Lower Body Dressing(FIM): 4 Toileting(FIM): 4 Toilet/Commode Transfer(FIM): 4 Additional Goals: 1-Demonstrate ADL Tasks, 2-Verbalize Understanding, 3- ImproveStrength/Cris 1=Demonstrate adherence to instructed precautions during ADL tasks. 2=Patient will verbalize/demonstrate understanding of assistive devices/ modifications for ADL. 3=Patient will improve strength/tolerance for activity to enable patient to perform ADL's. OT Education/Plan Problem List/Assessment Assessment: Decreased Activ Tolerance, Decreased UE Strength, Dependent Transfers, Impaired Bed Mobility, Impaired Cognition, Impaired Funct Balance, Impaired I ADL's, Impaired Self-Care Skills, Restricted Funct UE ROM Pt to benefit from skilled OT intervention for ADL training, transfers, strengthening, adaptive equipment training, and safety education to increase functional independence. Discharge Recommendations Plan/Recommendations: Continue POC Therapy D/C Recommendations: 24 hr Supervision Treatment Plan/Plan of Care Treatment,Training & Education: Yes Patient would benefit from OT for education, treatment and training to promote independence in ADL's, mobility, safety and/or upper extremity function for ADL' s. Plan of Care: ADL Retraining, Functional Mobility, UE Funct Exercise/Act Treatment Duration: Nov 04, 2018 Frequency: 5 times per week Estimated Hrs Per Day: .25 hour per day Agreement: Yes Rehab Potential: Fair Time/GCodes Start Time: 13:10 Stop Time: 13:30 Total Time Billed (hr/min): 20 Billed Treatment Time 1, EX BOBBY NAVAS OT Oct 24, 2018 14:18
[2018-10-24] MEDS: BISACODYL 10 MG SUPP (DULCOLAX) PR PRN (14:58)
[2018-10-24] MEDS: metFORMIN 500 MG (GLUCOPHAGE) TAB PO SCH (16:10)
[2018-10-24 16:30] VITALS: BP 123/57
[2018-10-24] MEDS: TAMSULOSIN 0.4 MG (FLOMAX) CAP PO SCH (18:05)
[2018-10-24 20:00] VITALS: BP 110/53
[2018-10-24] MEDS ORDERED: ZIPRASIDONE 20 MG INJ (GEODON) VIAL IM ONE (21:45)
[2018-10-24] MEDS: VANCOMYCIN INJECTION 1,000 MG in NS (IVPB) 250 ML IV SCH (22:23)
[2018-10-24] MEDS: SIMvastatin 10 MG (ZOCOR) TAB PO SCH (22:24)
[2018-10-24] MEDS ORDERED: BETHANECHOL 10 MG (URECHOLINE) TAB ONE (22:24)
[2018-10-25] VITALS (7 sets, daily range): BP systolic 107–144; BP diastolic 53–75
[2018-10-25] MEDS ORDERED: BETHANECHOL 10 MG (URECHOLINE) TAB ONE (06:16)
[2018-10-25] MEDS: PIOGLITAZONE 30MG (ACTOS) TAB PO SCH (06:38)
[2018-10-25] MEDS: BETHANECHOL 10 MG (URECHOLINE) TAB PO SCH (06:38)
[2018-10-25] MEDS: LACTOBACILLUS Acidoph/Bulgar 1 GM (LACTINEX) PACKET PO SCH ×4 (06:38→21:19)
[2018-10-25] MEDS: MULTIVIT W/MINERALS TAB (THERAGRAN M) PO SCH (06:38)
[2018-10-25] MEDS: metFORMIN 500 MG (GLUCOPHAGE) TAB PO SCH ×2 (06:38→17:45)
--- NOTE | 2018-10-25 06:53 | Progress Note (SOAP) ---
Subjective Date Seen by a Provider: Oct 25, 2018 Time Seen by a Provider: 06:51 Subjective/Events-last exam No new complaints Objective Exam Vital Signs Date Time Temp Pulse Resp B/P (MAP) Pulse Ox O2 Delivery O2 Flow Rate FiO2 10/25/18 04:00 98.1 76 20 124/53 (76) 94 Nasal Cannula 1.00 10/25/18 00:00 98.2 68 20 118/57 (77) 96 Nasal Cannula 1.00 10/24/18 21:00 Nasal Cannula 1.00 10/24/18 20:00 98.0 69 18 110/53 (72) 93 Room Air 10/24/18 16:30 99.1 68 18 123/57 (79) 98 Room Air 10/24/18 12:35 98.6 76 18 127/57 (80) 96 Nasal Cannula 1.00 10/24/18 08:59 98.4 86 20 174/76 (108) 96 Nasal Cannula 1.50 10/24/18 08:09 97 Nasal Cannula 2.00 10/24/18 08:05 Nasal Cannula 1.00 I & O 10/25/18 07:00 Intake Total 1580 ml Output Total 500 ml Balance 1080 ml Capillary Refill : General Appearance: No Apparent Distress, Obese (Up in chair, comfortable) Respiratory: No Accessory Muscle Use, No Respiratory Distress Cardiovascular: Normal Peripheral Pulses, Other (Swelling much better) Gastrointestinal: non tender, soft Extremity: Normal Capillary Refill, No Calf Tenderness Neurologic/Psychiatric: Other (Neuro unchanged) Results Lab Laboratory Tests 10/24/18 12:09: Lab Scanned Report Transfusion Reaction Form Assessment/Plan Assessment/Plan Assess & Plan/Chief Complaint Lumbar Wound infection with Staph Epi Lumbar Hardware Failure Deconditioning Acute Blood Loss anemia Continue current care Clinical Quality Measures DVT/VTE Risk/Contraindication: Risk Factor Score Per Nursin RFS Level Per Nursing on Admit: 4+=Very High LEO BRANHAM MD Oct 25, 2018 06:53
[2018-10-25] MEDS: PHENAZOPYRIDINE 100 MG (PYRIDIUM) TABLET PO SCH ×3 (08:26→17:45)
[2018-10-25] MEDS: AMIODARONE 200 MG (CORDARONE) TAB PO SCH (08:26)
[2018-10-25] MEDS: amLODIPine 5 MG (NORVASC) TAB PO SCH (08:26)
[2018-10-25] MEDS: SENNOSIDES 8.6 MG (SENOKOT) TAB PO SCH ×2 (08:26→21:19)
[2018-10-25] MEDS: meTOprolol TARTRATE 25 MG (LOPRESSOR) TABLET PO SCH ×2 (08:26→21:19)
[2018-10-25] MEDS: ALLOPURINOL 300 MG (ZYLOPRIM) TAB PO SCH (08:26)
[2018-10-25] MEDS: lisINopril 20 MG (PRINIVIL) TABLET PO SCH (08:27)
[2018-10-25] MEDS: FAMOTIDINE 20 MG (PEPCID) TABLET PO SCH (08:27)
[2018-10-25] MEDS: OXYBUTYNIN (DITROPAN) 5 MG TAB PO SCH ×3 (08:27→21:19)
[2018-10-25] MEDS: DOCUSATE SODIUM 100 MG (COLACE) CAP PO SCH ×2 (08:27→21:19)
[2018-10-25] MEDS: RT-ALBUTEROL SULF 2.5 MG/3 ML PRE-MIX VIAL INH SCH ×3 (09:42→20:25)
--- NOTE | 2018-10-25 09:59 | Progress Note-Hospitalist ---
NANDINIMARQUEZ DO 10/25/18 0959: Subjective HPI/CC On Admission Date Seen by Provider: Oct 25, 2018 Time Seen by Provider: 09:00 CC: s/p spinal hardware failure replacement HPI: This is an 78-year-old white male who was transferred from inpatient rehabilitation department to ICU for close monitoring following spinal hardware failure replacement yesterday. He had an uncomplicated surgery and is currently recovering and doing well overall. Urinary output has decreased and blood pressure is 115 so will initiate low flow IV fluid of normal saline and encouraged him to take in nutrition and fluids today. He will be fitted for a shell back brace and then we will get him out of bed. Overall patient is doing much better was updated and patient feels better overall. Subjective/Events-last exam Patient experiencing delirium Pt has been in the hospital and NH for 2 months contributing to this issue Fentanyl patch was replaced last night and his noted the increase in confusion so will stop Fentanyl patch and start on low dose Risperdal Pt angry and hallucinating Review of Systems General: Fatigue Musculoskeletal: back pain Neurological: Confusion Objective Exam Vital Signs Vital Signs Date Time Temp Pulse Resp B/P (MAP) Pulse Ox O2 Delivery O2 Flow Rate FiO2 10/25/18 16:00 98.1 71 18 109/62 (78) 97 Nasal Cannula 1.00 Capillary Refill : General Appearance: No Apparent Distress, WD/WN, Chronically ill Respiratory: Chest Non Tender, Lungs Clear, Normal Breath Sounds, No Accessory Muscle Use, No Respiratory Distress Cardiovascular: Regular Rate, Rhythm, No Edema, No Gallop, No JVD, No Murmur, Normal Peripheral Pulses Gastrointestinal: Normal Bowel Sounds, No Organomegaly, No Pulsatile Mass, Non Tender, Soft Neurologic/Psychiatric: Alert, No Motor/Sensory Deficits, writer editor II-XII Norm as Tested, Disoriented Skin: Normal Color, Warm/Dry Results/Procedures Lab Patient resulted labs reviewed. Assessment/Plan Assessment and Plan Assess & Plan/Chief Complaint Assessment: Acute and severe delirium will stop Fentanyl patch and start Risperdal Recurrent severe back pain with referred lower abdominal pain similar to initial presentation obtained labs and CT scan and Dr Mc consultation which revealed displaced hardware in need of repeat surgery s/p on 10/20/18 POD # 5 Debility following spinal abscess status post 2 I&D's uncomplicated per Dr Mc Urinary retention acute maintained with leo but Dr Cortes consulted and he will see before DC catheter C. difficile colitis resolved Severe anemia due to acute blood loss status post 4 units of blood while on MedSurg and ICU then 1 unit 10/20 then requiring another 2 units 3 days ago CAD DM CRI Delirium Plan: Pain control but will stop Fentanyl patch since I suspect that to be the main factor in delirium Increase PO nutrition and fluids Use IS faithfully Monitor cough but cont nebs BM regimen Nebs IRF if delirium resolves Diagnosis/Problems Diagnosis/Problems (1) Delirium Status: Acute (2) Loosening of hardware in spine Status: Resolved Resolution Date/Time: 10/22/18 @ 12:52 (3) Intraspinal abscess and granuloma Status: Resolved Resolution Date/Time: 10/15/18 @ 14:02 (4) Urinary retention Status: Acute (5) Transfusion of blood during current hospitalization Status: Acute (6) Advanced age Status: Chronic (7) C. difficile colitis Status: Acute (8) Renal insufficiency Status: Resolved Resolution Date/Time: 10/10/18 @ 09:41 (9) Leukocytosis Status: Resolved Resolution Date/Time: 10/15/18 @ 14:02 (10) CAD (coronary artery disease) Status: Chronic (11) Atrial fibrillation Status: Chronic Qualifiers: Atrial fibrillation type: unspecified Qualified Codes: I48.91 - Unspecified atrial fibrillation Clinical Quality Measures DVT/VTE Risk/Contraindication: Risk Factor Score Per Nursin RFS Level Per Nursing on Admit: 4+=Very High ANTHONY GIRON MED STUDENT 10/25/18 1013: Subjective Subjective/Events-last exam Patient is very confused today States that he is experiencing pain with ambulation Pain is well controlled otherwise Patient is aggravated with staff and wanting to leave Objective Exam General Appearance: No Apparent Distress, WD/WN Respiratory: Chest Non Tender, Lungs Clear, Normal Breath Sounds, No Accessory Muscle Use, No Respiratory Distress Cardiovascular: Regular Rate, Rhythm, No Edema, No Gallop, No JVD, No Murmur, Normal Peripheral Pulses Gastrointestinal: Normal Bowel Sounds, Non Tender Neurologic/Psychiatric: Alert, Disoriented Skin: Normal Color, Warm/Dry Assessment/Plan Assessment and Plan Assess & Plan/Chief Complaint Assessment: 1) Debility due to repeated back surgery 2) Spinal abscess 3) Delerium 4) Diabetes mellitus Plan: 1) Continue to monitor 2) Physical rehabilitation 3) Risperdal for delirium MARQUEZ DELATORRE DO Oct 25, 2018 09:59 ANTHONY GIRON MED STUDENT Oct 25, 2018 10:13
--- NOTE | 2018-10-25 10:09 | Progress Note-Urology ---
Progress Note-Urology Progress Notes/Assess & Plan Progress/Assessment & Plan DID NOT VOID ON OWN YET. STRAIGHT CATH TWICE FOR 750 AND 1150CC. URECHOLINE INCREASED TO 25 QID. TOLERATED WELL PLAN PER ORDERS Final Diagnosis URINE RETENTION COLE BLUM MD Oct 25, 2018 10:09
[2018-10-25] MEDS: BETHANECHOL 25 MG (URECHOLINE) TAB PO SCH ×3 (11:27→21:23)
[2018-10-25] MEDS: ENOXAPARIN 40 MG/0.4 ML (LOVENOX) SYR SC SCH (11:27)
[2018-10-25] MEDS: risperiDONE 0.25 MG (RisperDAL) TAB PO SCH ×2 (11:31→21:19)
[2018-10-25] MEDS: inSUlin ASPART (NovoLOG) 1 UNIT/0.01 ML (CHARGE PER UNIT) SC SCH ×3 (11:35→20:58)
--- NOTE | 2018-10-25 11:51 | Physical Therapy Daily Note ---
PT Daily Note-Current Subjective Pt awake in bed with when PT entered room. Patients reported Pt had an adverse reaction to pain medication and has been unstable recently. Patient will be kept in bed for supine exercises. Mental Status Patient Orientation: Confused Transfers Therapy Code Descriptions/Definitions Functional [place] Measure: 0=Not Assessed/NA 4=Minimal Assistance 1=Total Assistance 5=Supervision or Setup 2=Maximal Assistance 6=Modified [place] 3=Moderate Assistance 7=Complete [place] Therapy Quality Codes: 6 Independent with activity with or without an assistive device 5 Patient requires set up or clean up by helper. Patient completes activity by themselves 4 Supervision or touching assist (CGA). [place] provide cues , steadying assist 3 The helper provides less than half the effort to complete the activity 2 The helper provides more than half the effort to complete the activity 1 Dependent. The helper does all the effort to complete an activity 7 Patient refused to complete or attempt activity 9 The patient did not perform the activity before the current illness or injury 88 Not attempted due to Medical conditions or safety concerns Weight Bearing Right Lower Extremity: Right Weight Bearing/Tolerated Left Lower Extremity: Left Weight Bearing/Tolerated Exercises Supine Ex: Ankle pumps, Heel Slides, Straight leg raise, Hip abd/add Assessment Patient currently confused and had difficulty following directions. Patient taken through PROM for both LEs and was able to perform some AAROM. Patient will continue PT to maintain current level of function. PT Short Term Goals Short Term Goals Time Frame: Oct 29, 2018 Transfers (B,C,W/C) (FIM): 3 Gait (FIM): 1 Distance (FIM): 1=up to 49 ft Gait Distance Comment: 20' Gait Level of Assist: 3 Gait Assistive Device: FWW PT Longterm Goals Longterm Goals PT Police Superintendent Goals Time Frame: Nov 12, 2018 Transfers (B,C,W/C) (FIM): 6 Gait (FIM): 6 Gait distance (FIM): 3=150 ft Distance: 150' Gait Level of Assist: 6 Gait Assistive Device: FWW PT Plan Problem List Problem List: Activity Tolerance, Functional Strength, Safety, Balance, Gait, Transfer, Bed Mobility, ROM Treatment/Plan Treatment Plan: Continue Plan of Care Treatment Plan: Bed Mobility, Education, Functional Activity Cris, Functional Strength, Gait, Safety, Therapeutic Exercise, Transfers Treatment Duration: Nov 12, 2018 Frequency: 11 times per week Estimated Hrs Per Day: .5 hour per day Patient and/or Family Agrees t: Yes Time/GCodes Time In: 1110 Time Out: 1121 Total Billed Treatment Time: 11 Total Billed Treatment 1 Visit EX - 11' KAL VERMA PT Oct 25, 2018 11:51
--- NOTE | 2018-10-25 14:02 | Occupational Ther Daily Note ---
OT Current Status-Daily Note Subjective Pt in bed, agrees to therapy. Pt reports 8/10 pain. Mental Status/Objective Patient Orientation: Confused Therapy Code Descriptions/Definitions Functional [place] Measure: 0=Not Assessed/NA 4=Minimal Assistance 1=Total Assistance 5=Supervision or Setup 2=Maximal Assistance 6=Modified [place] 3=Moderate Assistance 7=Complete [place] ADL-Treatment Therapy Code Descriptions/Definitions Functional [place] Measure: 0=Not Assessed/NA 4=Minimal Assistance 1=Total Assistance 5=Supervision or Setup 2=Maximal Assistance 6=Modified [place] 3=Moderate Assistance 7=Complete [place] Therapy Quality Codes: 6 Independent with activity with or without an assistive device 5 Patient requires set up or clean up by helper. Patient completes activity by themselves 4 Supervision or touching assist (CGA). [place] provide cues , steadying assist 3 The helper provides less than half the effort to complete the activity 2 The helper provides more than half the effort to complete the activity 1 Dependent. The helper does all the effort to complete an activity 7 Patient refused to complete or attempt activity 9 The patient did not perform the activity before the current illness or injury 88 Not attempted due to Medical conditions or safety concerns Other Treatment Pt participated in bilateral UE exercises to increase strength and activity tolerance needed for functional task completion. Pt performed AROM x15 reps in all planes with rest breaks between exercises. Pt is easily distracted and requires cues to stay on task. Pt is confused and has some difficulty following cues for exercise technique. Requires verbal and tactile cues for completion. Bilateral hand field marketing specialist exercises x20 reps with moderate resistance therapy foam to increase field marketing specialist strength. Pt is confused during session and talks about a man sitting in the chair even though there is no one in his room. Pt resting in bed with needs met and nurse aide present after session. OT Short Term Goals Short Term Goals Time Frame: Oct 28, 2018 Eating(FIM): 5 Upper Body Dressing(FIM): 4 Lower Body Dressing(FIM): 3 Transfers (B,C,W/C) (FIM): 3 Additional Short Term Goals: 1-Demonstrate ADL Tasks, 2-Verbalize Understanding , 3-ImproveStrength/Cris 1=Demonstrate adherence to instructed precautions during ADL tasks. 2=Patient will verbalize/demonstrate understanding of assistive devices/ modifications for ADL. 3=Patient will improve strength/tolerance for activity to enable patient to perform ADL's. OT Penitentiary Goals Penitentiary Goals Time Frame: Nov 04, 2018 Groomin Upper Body Dressing(FIM): 5 Lower Body Dressing(FIM): 4 Toileting(FIM): 4 Toilet/Commode Transfer(FIM): 4 Additional Goals: 1-Demonstrate ADL Tasks, 2-Verbalize Understanding, 3- ImproveStrength/Cris 1=Demonstrate adherence to instructed precautions during ADL tasks. 2=Patient will verbalize/demonstrate understanding of assistive devices/ modifications for ADL. 3=Patient will improve strength/tolerance for activity to enable patient to perform ADL's. OT Education/Plan Problem List/Assessment Pt to benefit from skilled OT intervention for ADL training, transfers, strengthening, adaptive equipment training, and safety education to increase functional independence. Discharge Recommendations Plan/Recommendations: Continue POC Treatment Plan/Plan of Care Patient would benefit from OT for education, treatment and training to promote independence in ADL's, mobility, safety and/or upper extremity function for ADL' s. Plan of Care: ADL Retraining, Functional Mobility, UE Funct Exercise/Act Treatment Duration: Nov 04, 2018 Frequency: 5 times per week Estimated Hrs Per Day: .25 hour per day Agreement: Yes Rehab Potential: Fair Time/GCodes Start Time: 13:30 Stop Time: 13:43 Total Time Billed (hr/min): 13 Billed Treatment Time 1 visit, EX(13minutes) KASANDRA JIM OT Oct 25, 2018 14:02
--- NOTE | 2018-10-25 14:56 | Physical Therapy Daily Note ---
PT Daily Note-Current Subjective Patient awake in bed working with RT when PT arrived. Pt agreed to continue with therapy. Pain Numeric Pain Scale: 0-No Pain Location: No Pain Reported Location Body Site: Back Pain Description: Acute Mental Status Patient Orientation: Confused, Mumbles Attachments: IV Transfers Therapy Code Descriptions/Definitions Functional [place] Measure: 0=Not Assessed/NA 4=Minimal Assistance 1=Total Assistance 5=Supervision or Setup 2=Maximal Assistance 6=Modified [place] 3=Moderate Assistance 7=Complete [place] Therapy Quality Codes: 6 Independent with activity with or without an assistive device 5 Patient requires set up or clean up by helper. Patient completes activity by themselves 4 Supervision or touching assist (CGA). [place] provide cues , steadying assist 3 The helper provides less than half the effort to complete the activity 2 The helper provides more than half the effort to complete the activity 1 Dependent. The helper does all the effort to complete an activity 7 Patient refused to complete or attempt activity 9 The patient did not perform the activity before the current illness or injury 88 Not attempted due to Medical conditions or safety concerns Weight Bearing Right Lower Extremity: Right Weight Bearing/Tolerated Left Lower Extremity: Left Weight Bearing/Tolerated Exercises Supine Ex: Ankle pumps, Knee to chest, Hip abd/add Supine Reps: 20 Assessment Pt is able to perform AAROM LE exercises in supine. Pt will continue therapy to maintain current level of function. Due to confusion and lethargy, patient is unsafe to perform OOB activities. PT Short Term Goals Short Term Goals Time Frame: Oct 29, 2018 Transfers (B,C,W/C) (FIM): 3 Gait (FIM): 1 Distance (FIM): 1=up to 49 ft Gait Distance Comment: 20' Gait Level of Assist: 3 Gait Assistive Device: FWW PT Apple Packing Header Goals Apple Packing Header Goals PT [facility] Goals Time Frame: Nov 12, 2018 Transfers (B,C,W/C) (FIM): 6 Gait (FIM): 6 Gait distance (FIM): 3=150 ft Distance: 150' Gait Level of Assist: 6 Gait Assistive Device: FWW PT Plan Problem List Problem List: Activity Tolerance, Functional Strength, Safety, Balance, Gait, Transfer, Bed Mobility, ROM Treatment/Plan Treatment Plan: Continue Plan of Care Treatment Plan: Bed Mobility, Education, Functional Activity Cris, Functional Strength, Gait, Safety, Therapeutic Exercise, Transfers Treatment Duration: Nov 12, 2018 Frequency: 11 times per week Estimated Hrs Per Day: .5 hour per day Patient and/or Family Agrees t: Yes Time/GCodes Time In: 1430 Time Out: 1440 Total Billed Treatment Time: 10 Total Billed Treatment 1 Visit EX - 10' KAL VERMA PT Oct 25, 2018 14:56
[2018-10-25] MEDS: TAMSULOSIN 0.4 MG (FLOMAX) CAP PO SCH (17:45)
[2018-10-25] MEDS ORDERED: TROUGH ORDER-PHARMACY XX ONE (19:00)
[2018-10-25] MEDS: SIMvastatin 10 MG (ZOCOR) TAB PO SCH (21:19)
[2018-10-25] MEDS: HALOPERIDOL 5 MG/ML (HALDOL) AMP IM PRN (21:20)
--- NOTE | 2018-10-26 05:50 | Progress Note (SOAP) ---
Subjective Date Seen by a Provider: Oct 26, 2018 Time Seen by a Provider: 05:45 Subjective/Events-last exam Patient is s/p multiple lumbar wound I&Ds with hardware reinstrumentation secondary to lumbar abscess Acute delirium VSS Review of Systems General: No Chills Musculoskeletal: back pain; No: leg pain Neurological: Confusion Objective Exam Vital Signs Date Time Temp Pulse Resp B/P (MAP) Pulse Ox O2 Delivery O2 Flow Rate FiO2 10/25/18 23:20 98.7 72 18 127/64 (85) 97 Nasal Cannula 1.00 10/25/18 21:00 Nasal Cannula 1.00 10/25/18 20:00 98.3 74 18 107/55 (72) 98 Room Air 10/25/18 16:00 98.1 71 18 109/62 (78) 97 Nasal Cannula 1.00 10/25/18 14:28 96 Room Air 10/25/18 13:52 98.2 71 18 116/61 (79) 98 Nasal Cannula 1.00 10/25/18 09:42 95 Nasal Cannula 1.00 10/25/18 09:00 95 Nasal Cannula 1.00 10/25/18 08:47 98.6 75 22 144/75 (98) 98 Nasal Cannula 1.00 I & O 10/26/18 07:00 Intake Total 1800 ml Output Total 1260 ml Balance 540 ml Capillary Refill : General Appearance: No Apparent Distress Respiratory: No Respiratory Distress Gastrointestinal: soft Extremity: Pedal Edema, Other (Moves all 4 extremities) Neurologic/Psychiatric: Disoriented; No Facial Droop, No Motor Weakness Results Lab Laboratory Tests 10/25/18 11:35: Glucometer 111H 10/25/18 16:39: Glucometer 172H 10/25/18 19:30: Vancomycin Level Trough 24.3H 10/25/18 20:51: Glucometer 188H Assessment/Plan Assessment/Plan Assess & Plan/Chief Complaint Lumbar wound abscess S/P I&D with hardware re-instrumentation Acute Delirium DM 2 Will hold all narcotics and muscle relaxers at this time DC Phenergan Send UA Continue Risperdal and prn Haldol Clinical Quality Measures DVT/VTE Risk/Contraindication: Risk Factor Score Per Nursin RFS Level Per Nursing on Admit: 4+=Very High WILNER HEREDIA Oct 26, 2018 05:50
[2018-10-26 06:04] LABS: BASOPHILS % (AUTO) 0 % (0-10); EOSINOPHILS # (AUTO) 0.4 10^3/uL (0.0-0.3); EOSINOPHILS % (AUTO) 4 % (0-10); HEMATOCRIT 31 % (40-54); HEMOGLOBIN 10.2 G/DL (13.3-17.7); LYMPHOCYTES # (AUTO) 1.1 X 10^3 (1.0-4.0); LYMPHOCYTES % (AUTO) 11 % (12-44); MEAN CORPUSCULAR HEMOGLOBIN 30 PG (25-34); MEAN CORPUSCULAR HGB CONC 33 G/DL (32-36); MEAN CORPUSCULAR VOLUME 91 FL (80-99); MEAN PLATELET VOLUME 10.2 FL (7.4-10.4); MONOCYTES # (AUTO) 1.2 X 10^3 (0.0-1.0); MONOCYTES % (AUTO) 12 % (0-12); NEUTROPHILS # (AUTO) 7.6 X 10^3 (1.8-7.8); NEUTROPHILS % (AUTO) 73 % (42-75); PLATELET COUNT 345 10^3/uL (130-400); RED BLOOD COUNT 3.44 10^6/uL (4.35-5.85); RED CELL DISTRIBUTION WIDTH 16.4 % (10.0-14.5); WHITE BLOOD COUNT 10.3 10^3/uL (4.3-11.0)
[2018-10-26] MEDS: inSUlin ASPART (NovoLOG) 1 UNIT/0.01 ML (CHARGE PER UNIT) SC SCH ×4 (06:14→23:30)
[2018-10-26] MEDS: MULTIVIT W/MINERALS TAB (THERAGRAN M) PO SCH (06:52)
[2018-10-26] MEDS: BETHANECHOL 25 MG (URECHOLINE) TAB PO SCH ×4 (06:52→21:11)
[2018-10-26] MEDS: metFORMIN 500 MG (GLUCOPHAGE) TAB PO SCH ×2 (06:52→16:48)
[2018-10-26] MEDS: LACTOBACILLUS Acidoph/Bulgar 1 GM (LACTINEX) PACKET PO SCH ×4 (06:52→21:11)
[2018-10-26] MEDS: PIOGLITAZONE 30MG (ACTOS) TAB PO SCH (06:52)
[2018-10-26 07:03] LABS: ALANINE AMINOTRANSFERASE 42 U/L (0-55); ALBUMIN 2.6 GM/DL (3.2-4.5); ALKALINE PHOSPHATASE 205 U/L (40-136); BILIRUBIN,TOTAL 0.6 MG/DL (0.1-1.0); BUN/CREATININE RATIO 11; CALCIUM 8.8 MG/DL (8.5-10.1); CARBON DIOXIDE 22 MMOL/L (21-32); CHLORIDE 103 MMOL/L (98-107); CREATININE SERUM 1.09 MG/DL (0.60-1.30); GFR ESTIMATED > 60; GLUCOSE 115 MG/DL (70-105); POTASSIUM 4.5 MMOL/L (3.6-5.0); SODIUM 134 MMOL/L (135-145); TOTAL PROTEIN 5.1 GM/DL (6.4-8.2)
[2018-10-26 07:40] VITALS: BP 153/67
--- NOTE | 2018-10-26 08:25 | Progress Note-Urology ---
Progress Note-Urology Progress Notes/Assess & Plan Progress/Assessment & Plan STILL DID NOT VOID ON OWN WE WILL INCREASE URECHOLINE TO [address] DELATORRE Final Diagnosis URINE RETENTION COLE BLUM MD Oct 26, 2018 08:25
[2018-10-26] MEDS: RT-ALBUTEROL SULF 2.5 MG/3 ML PRE-MIX VIAL INH SCH ×2 (08:42→15:27)
[2018-10-26] MEDS: AMIODARONE 200 MG (CORDARONE) TAB PO SCH (09:28)
[2018-10-26] MEDS: FAMOTIDINE 20 MG (PEPCID) TABLET PO SCH (09:28)
[2018-10-26] MEDS: amLODIPine 5 MG (NORVASC) TAB PO SCH (09:29)
[2018-10-26] MEDS: meTOprolol TARTRATE 25 MG (LOPRESSOR) TABLET PO SCH ×2 (09:29→21:11)
[2018-10-26] MEDS: IRON SUCROSE 200 MG/10 ML (VENOFER) VIAL IV SCH (09:29)
[2018-10-26] MEDS: PHENAZOPYRIDINE 100 MG (PYRIDIUM) TABLET PO SCH ×3 (09:29→18:04)
[2018-10-26] MEDS: OXYBUTYNIN (DITROPAN) 5 MG TAB PO SCH ×3 (09:29→21:11)
[2018-10-26] MEDS: lisINopril 20 MG (PRINIVIL) TABLET PO SCH (09:29)
[2018-10-26] MEDS: ALLOPURINOL 300 MG (ZYLOPRIM) TAB PO SCH (09:29)
[2018-10-26] MEDS: DOCUSATE SODIUM 100 MG (COLACE) CAP PO SCH ×2 (09:29→21:10)
[2018-10-26] MEDS: SENNOSIDES 8.6 MG (SENOKOT) TAB PO SCH ×2 (09:29→21:10)
--- NOTE | 2018-10-26 09:32 | Physical Therapy Daily Note ---
PT Daily Note-Current Subjective Pt awake in bed when PT arrived. Pt agreed to transfer over to bedside recliner after requesting to use commode. Pain Numeric Pain Scale: 0-No Pain Location: No Pain Reported Appearance Patient in recliner post tx with nurse call, phone, tray, chair alarm on, sitter in the room. Mental Status Patient Orientation: Confused, Mumbles Attachments: Drains, IV wound vac Transfers Therapy Code Descriptions/Definitions Functional [place] Measure: 0=Not Assessed/NA 4=Minimal Assistance 1=Total Assistance 5=Supervision or Setup 2=Maximal Assistance 6=Modified [place] 3=Moderate Assistance 7=Complete [place] Therapy Quality Codes: 6 Independent with activity with or without an assistive device 5 Patient requires set up or clean up by helper. Patient completes activity by themselves 4 Supervision or touching assist (CGA). [place] provide cues , steadying assist 3 The helper provides less than half the effort to complete the activity 2 The helper provides more than half the effort to complete the activity 1 Dependent. The helper does all the effort to complete an activity 7 Patient refused to complete or attempt activity 9 The patient did not perform the activity before the current illness or injury 88 Not attempted due to Medical conditions or safety concerns Transfers (B, C, W/C) (FIM): 3 Scootin Rollin Supine to/from Sit: 3 Sit to/from Stand: 3 Bed to/from Chair: 3 Weight Bearing Right Lower Extremity: Right Weight Bearing/Tolerated Left Lower Extremity: Left Weight Bearing/Tolerated Gait Training Gait (FIM): 1 Distance: 3'x2 Gait Level of Assist: 3 Gait Persons Needed: 1 Gait Assistive Device: Handheld Assist Exercises Seated Therapy Exercises: Hip flexion, Kicking activity Seated Reps: 10 Standing: Sit to Stand Standing Reps: 5 Assessment Current Status: Fair Progress Pt is mod A in transfer from supine/EOB/commode. Patient needs cueing of foot placement and to weight shift. Patient transferred to bedside chair once he was done on the commode. Patient continued with LE exercises for the remainder of therapy. Pt left with belongings and call light before PT exited room. PT Short Term Goals Short Term Goals Time Frame: Oct 29, 2018 Transfers (B,C,W/C) (FIM): 3 Gait (FIM): 1 Distance (FIM): 1=up to 49 ft Gait Distance Comment: 20' Gait Level of Assist: 3 Gait Assistive Device: FWW PT User Experience Developer Goals User Experience Developer Goals PT Group Home Goals Time Frame: Nov 12, 2018 Transfers (B,C,W/C) (FIM): 6 Gait (FIM): 6 Gait distance (FIM): 3=150 ft Distance: 150' Gait Level of Assist: 6 Gait Assistive Device: FWW PT Plan Problem List Problem List: Activity Tolerance, Functional Strength, Safety, Balance, Gait, Transfer, Bed Mobility, ROM Treatment/Plan Treatment Plan: Continue Plan of Care Treatment Plan: Bed Mobility, Education, Functional Activity Cris, Functional Strength, Gait, Safety, Therapeutic Exercise, Transfers Treatment Duration: Nov 12, 2018 Frequency: 11 times per week Estimated Hrs Per Day: .5 hour per day Patient and/or Family Agrees t: Yes Safety Risks/Education Patient Education: Gait Training, Transfer Techniques, Correct Positioning, Safety Issues Teaching Recipient: Patient Teaching Methods: Demonstration, Discussion Response to Teaching: Reinforcement Needed Time/GCodes Time In: 902 Time Out: 925 Total Billed Treatment Time: 23 Total Billed Treatment 1 Visit FA - 13' EX - 10' DAGOBERTO AGUILAR PT Oct 26, 2018 09:32
[2018-10-26] MEDS: risperiDONE 0.25 MG (RisperDAL) TAB PO SCH ×2 (09:40→21:11)
--- NOTE | 2018-10-26 09:58 | Progress Note-Hospitalist ---
MARQUEZ DELATORRE 10/26/18 0958: Subjective HPI/CC On Admission Date Seen by Provider: Oct 26, 2018 Time Seen by Provider: 09:30 CC: s/p spinal hardware failure replacement HPI: This is an 78-year-old white male who was transferred from inpatient rehabilitation department to ICU for close monitoring following spinal hardware failure replacement yesterday. He had an uncomplicated surgery and is currently recovering and doing well overall. Urinary output has decreased and blood pressure is 115 so will initiate low flow IV fluid of normal saline and encouraged him to take in nutrition and fluids today. He will be fitted for a shell back brace and then we will get him out of bed. Overall patient is doing much better was updated and patient feels better overall. Subjective/Events-last exam Delirium is slowly improving but still present Patient has had 4 surgeries in past 8 weeks and 3 in the past 2 weeks Advanced age makes this case more complex by the day +BM Review of Systems General: Fatigue Musculoskeletal: back pain Neurological: Confusion Objective Exam Vital Signs Vital Signs Date Time Temp Pulse Resp B/P (MAP) Pulse Ox O2 Delivery O2 Flow Rate FiO2 10/26/18 15:05 97.5 69 20 104/55 (71) 95 Room Air 10/26/18 12:00 1.00 Capillary Refill : General Appearance: No Apparent Distress, WD/WN, Chronically ill Respiratory: Chest Non Tender, Lungs Clear, Normal Breath Sounds, No Accessory Muscle Use, No Respiratory Distress Cardiovascular: Regular Rate, Rhythm, No Edema, No Gallop, No JVD, No Murmur, Normal Peripheral Pulses Neurologic/Psychiatric: Alert, Disoriented Skin: Normal Color, Warm/Dry Results/Procedures Lab Laboratory Tests 10/26/18 05:36 10/26/18 06:30 Patient resulted labs reviewed. Assessment/Plan Assessment and Plan Assess & Plan/Chief Complaint Assessment: Acute and severe delirium s/p stopped Fentanyl patch and started Risperdal with some improvement Recurrent severe back pain with referred lower abdominal pain similar to initial presentation obtained labs and CT scan and Dr Mc consultation which revealed displaced hardware in need of repeat surgery s/p on 10/20/18 POD # 6 Debility following spinal abscess status post 2 I&D's uncomplicated per Dr Mc Urinary retention acute maintained with leo but Dr Cortes consulted and he is appreciated C. difficile colitis resolved Severe anemia due to acute blood loss status post 4 units of blood while on MedSurg and ICU then 1 unit 10/20 then requiring another 2 units 4 days ago CAD DM CRI Delirium Plan: Pain control but will stop Fentanyl patch since I suspect that to be the main factor in delirium Increase PO nutrition and fluids Use IS faithfully Monitor cough but cont nebs BM regimen Nebs IRF if delirium resolves Check UA Diagnosis/Problems Diagnosis/Problems (1) Delirium Status: Acute (2) Loosening of hardware in spine Status: Resolved Resolution Date/Time: 10/22/18 @ 12:52 (3) Intraspinal abscess and granuloma Status: Resolved Resolution Date/Time: 10/15/18 @ 14:02 (4) Urinary retention Status: Acute (5) Transfusion of blood during current hospitalization Status: Acute (6) Advanced age Status: Chronic (7) C. difficile colitis Status: Acute (8) Renal insufficiency Status: Resolved Resolution Date/Time: 10/10/18 @ 09:41 (9) Leukocytosis Status: Resolved Resolution Date/Time: 10/15/18 @ 14:02 (10) CAD (coronary artery disease) Status: Chronic (11) Atrial fibrillation Status: Chronic Qualifiers: Atrial fibrillation type: unspecified Qualified Codes: I48.91 - Unspecified atrial fibrillation Clinical Quality Measures DVT/VTE Risk/Contraindication: Risk Factor Score Per Nursin RFS Level Per Nursing on Admit: 4+=Very High ANTHONY GIRON MED STUDENT 10/26/18 1037: Subjective Subjective/Events-last exam Patient is still very confused today He states that he is not in pain Nurses are asking if a leo catheter could be placed Objective Exam General Appearance: No Apparent Distress, WD/WN Respiratory: Chest Non Tender, Lungs Clear, Normal Breath Sounds, No Accessory Muscle Use, No Respiratory Distress Cardiovascular: Regular Rate, Rhythm, No Edema, No Gallop, No JVD, No Murmur Gastrointestinal: Normal Bowel Sounds, Non Tender, Soft Neurologic/Psychiatric: Alert, Disoriented Skin: Normal Color, Warm/Dry Assessment/Plan Assessment and Plan Assess & Plan/Chief Complaint Assessment: 1) Acute delirium 2) Debility due to repeated spinal surgery 3) Diabetes Plan: 1) Discontinue fentanyl 2) Continue antipsychotic medications 3) Physical therapy MARQUEZ DELATORRE DO Oct 26, 2018 09:58 ANTHONY GIRON MED STUDENT Oct 26, 2018 10:37
[2018-10-26] MEDS ORDERED: BETHANECHOL 25 MG (URECHOLINE) TAB PO SCH (11:00)
[2018-10-26] MEDS: ENOXAPARIN 40 MG/0.4 ML (LOVENOX) SYR SC SCH (11:13)
[2018-10-26 12:00] VITALS: BP 108/55
--- NOTE | 2018-10-26 13:29 | Physical Therapy Daily Note ---
PT Daily Note-Current Subjective Pt on commode when PT entered room. Pt requested to be transferred back to chair /bed. Pain Numeric Pain Scale: 0-No Pain Location: No Pain Reported Mental Status Patient Orientation: Confused, Mumbles Attachments: Drains, IV wound vac Transfers Therapy Code Descriptions/Definitions Functional [place] Measure: 0=Not Assessed/NA 4=Minimal Assistance 1=Total Assistance 5=Supervision or Setup 2=Maximal Assistance 6=Modified [place] 3=Moderate Assistance 7=Complete [place] Therapy Quality Codes: 6 Independent with activity with or without an assistive device 5 Patient requires set up or clean up by helper. Patient completes activity by themselves 4 Supervision or touching assist (CGA). [place] provide cues , steadying assist 3 The helper provides less than half the effort to complete the activity 2 The helper provides more than half the effort to complete the activity 1 Dependent. The helper does all the effort to complete an activity 7 Patient refused to complete or attempt activity 9 The patient did not perform the activity before the current illness or injury 88 Not attempted due to Medical conditions or safety concerns Transfers (B, C, W/C) (FIM): 3 Scootin Rollin Supine to/from Sit: 3 Sit to/from Stand: 3 Bed to/from Chair: 3 Weight Bearing Right Lower Extremity: Right Weight Bearing/Tolerated Left Lower Extremity: Left Weight Bearing/Tolerated Gait Training Gait (FIM): 1 Distance (FIM): 1=up to 49 ft Distance: 3'x2 Gait Level of Assist: 2 Gait Persons Needed: 1 Gait Assistive Device: Handheld Assist Exercises Seated Therapy Exercises: Hip flexion, Kicking activity Seated Reps: 20 Standing: Sit to Stand Standing Reps: 5 Assessment Current Status: Fair Progress Pt is Mod A when transferring from commode to chair but decide to return to bed by end of visit. Pt performed kicking activity and hip flexion exercises while sitting in bedside recliner. Pt is Mod A in transferring back to bed and needs cueing through all activities. Pt will continue therapy to improve LE strength and endurance. PT Short Term Goals Short Term Goals Time Frame: Oct 29, 2018 Transfers (B,C,W/C) (FIM): 3 Gait (FIM): 1 Distance (FIM): 1=up to 49 ft Gait Distance Comment: 20' Gait Level of Assist: 3 Gait Assistive Device: FWW PT Waste Oil Pumper Goals Shelter Goals PT Waste Oil Pumper Goals Time Frame: Nov 12, 2018 Transfers (B,C,W/C) (FIM): 6 Gait (FIM): 6 Gait distance (FIM): 3=150 ft Distance: 150' Gait Level of Assist: 6 Gait Assistive Device: FWW PT Plan Problem List Problem List: Activity Tolerance, Functional Strength, Safety, Balance, Gait, Transfer, Bed Mobility, ROM Treatment/Plan Treatment Plan: Continue Plan of Care Treatment Plan: Bed Mobility, Education, Functional Activity Cris, Functional Strength, Gait, Safety, Therapeutic Exercise, Transfers Treatment Duration: Nov 12, 2018 Frequency: 11 times per week Estimated Hrs Per Day: .5 hour per day Patient and/or Family Agrees t: Yes Safety Risks/Education Patient Education: Gait Training, Transfer Techniques, Correct Positioning, Safety Issues Teaching Recipient: Patient Teaching Methods: Demonstration, Discussion Response to Teaching: Reinforcement Needed Time/GCodes Time In: 1303 Time Out: 1322 Total Billed Treatment Time: 17 Total Billed Treatment 1 Visit FA - 17' DAGOBERTO AGUILAR PT Oct 26, 2018 13:29
--- NOTE | 2018-10-26 13:47 | Occupational Ther Daily Note ---
OT Current Status-Daily Note Subjective Pt sitting in chair with spouse present, agrees to therapy. Mental Status/Objective Patient Orientation: Confused Therapy Code Descriptions/Definitions Functional [place] Measure: 0=Not Assessed/NA 4=Minimal Assistance 1=Total Assistance 5=Supervision or Setup 2=Maximal Assistance 6=Modified [place] 3=Moderate Assistance 7=Complete [place] Attachments: Drains, IV ADL-Treatment Pt sitting in recliner chair, confused and perseverating on when and how he will be leaving. Searching for items on bedside table. Pt able to wash face with SBA and multiple verbal cues for sequencing and task completion. Spouse states pt has already brushed teeth this morning. Pt picks up cup from bedside table and drinks from straw without assist. Attempted to have pt complete UE exercises to increase strength for functional tasks, but pt declined to participate at this time, states he doesn't want to. Pt does complete bilateral hand internal medicine doctor exercises x20 reps with therapy foam to increase internal medicine doctor strength. Pt has difficulty following commands and participating in therapeutic activities at this time. Will continue per plan of care and increase activity as pt able to tolerate. OT Short Term Goals Short Term Goals Time Frame: Oct 28, 2018 Eating(FIM): 5 Upper Body Dressing(FIM): 4 Lower Body Dressing(FIM): 3 Transfers (B,C,W/C) (FIM): 3 Additional Short Term Goals: 1-Demonstrate ADL Tasks, 2-Verbalize Understanding , 3-ImproveStrength/Cris 1=Demonstrate adherence to instructed precautions during ADL tasks. 2=Patient will verbalize/demonstrate understanding of assistive devices/ modifications for ADL. 3=Patient will improve strength/tolerance for activity to enable patient to perform ADL's. OT Detention Goals Detention Goals Time Frame: Nov 04, 2018 Grooming(FIM): 5 Upper Body Dressing(FIM): 5 Lower Body Dressing(FIM): 4 Toileting(FIM): 4 Toilet/Commode Transfer(FIM): 4 Additional Goals: 1-Demonstrate ADL Tasks, 2-Verbalize Understanding, 3- ImproveStrength/Cris 1=Demonstrate adherence to instructed precautions during ADL tasks. 2=Patient will verbalize/demonstrate understanding of assistive devices/ modifications for ADL. 3=Patient will improve strength/tolerance for activity to enable patient to perform ADL's. OT Education/Plan Problem List/Assessment Pt to benefit from skilled OT intervention for ADL training, transfers, strengthening, adaptive equipment training, and safety education to increase functional independence. Discharge Recommendations Plan/Recommendations: Continue POC Treatment Plan/Plan of Care Patient would benefit from OT for education, treatment and training to promote independence in ADL's, mobility, safety and/or upper extremity function for ADL' s. Plan of Care: ADL Retraining, Functional Mobility, UE Funct Exercise/Act Treatment Duration: Nov 04, 2018 Frequency: 5 times per week Estimated Hrs Per Day: .25 hour per day Agreement: Yes Rehab Potential: Fair Time/GCodes Start Time: 10:38 Stop Time: 10:52 Total Time Billed (hr/min): 14 Billed Treatment Time 1 visit, ADL(14minutes) KASANDRA JIM OT Oct 26, 2018 13:47
[2018-10-26 15:05] VITALS: BP 104/55
[2018-10-26] MEDS: TAMSULOSIN 0.4 MG (FLOMAX) CAP PO SCH (18:04)
[2018-10-26] MEDS ORDERED: TROUGH ORDER-PHARMACY XX NR (19:00)
[2018-10-26 19:30] VITALS: BP 111/57
[2018-10-26 20:41] LABS: BILIRUBIN,URINE 2+ (NEGATIVE); CLARITY,URINE CLEAR; GLUCOSE, URINE (UA) NEGATIVE (NEGATIVE); KETONES,URINE NEGATIVE (NEGATIVE); LEUKOCYTE ESTERASE ,URINE 2+ (NEGATIVE); NITRITE,URINE POSITIVE (NEGATIVE); PH,URINE 5 (5-9); PROTEIN,URINE 1+ (NEGATIVE); UROBILINOGEN,URINE 4 MG/DL (NORMAL)
[2018-10-26 20:55] LABS: AMORPHOUS SEDIMENT,UR FEW AMOR URATES /LPF; BACTERIA,URINE TRACE /HPF; COLOR,URINE ORANGE
[2018-10-26 20:56] LABS: YEAST,URINE MODERATE /HPF
[2018-10-26] MEDS: SIMvastatin 10 MG (ZOCOR) TAB PO SCH (21:11)
[2018-10-26 23:44] VITALS: BP 135/62
[2018-10-27 03:56] VITALS: BP 114/59
[2018-10-27] MEDS: RT-ALBUTEROL SULF 2.5 MG/3 ML PRE-MIX VIAL INH SCH ×4 (04:11→21:00)
[2018-10-27 05:55] LABS: BASOPHILS % (AUTO) 0 % (0-10); EOSINOPHILS # (AUTO) 0.3 10^3/uL (0.0-0.3); EOSINOPHILS % (AUTO) 3 % (0-10); HEMATOCRIT 29 % (40-54); HEMOGLOBIN 9.4 G/DL (13.3-17.7); LYMPHOCYTES # (AUTO) 1.3 X 10^3 (1.0-4.0); LYMPHOCYTES % (AUTO) 12 % (12-44); MEAN CORPUSCULAR HEMOGLOBIN 29 PG (25-34); MEAN CORPUSCULAR HGB CONC 33 G/DL (32-36); MEAN CORPUSCULAR VOLUME 90 FL (80-99); MEAN PLATELET VOLUME 9.5 FL (7.4-10.4); MONOCYTES # (AUTO) 1.2 X 10^3 (0.0-1.0); MONOCYTES % (AUTO) 11 % (0-12); NEUTROPHILS # (AUTO) 7.8 X 10^3 (1.8-7.8); NEUTROPHILS % (AUTO) 74 % (42-75); PLATELET COUNT 376 10^3/uL (130-400); RED BLOOD COUNT 3.19 10^6/uL (4.35-5.85); RED CELL DISTRIBUTION WIDTH 16.5 % (10.0-14.5); WHITE BLOOD COUNT 10.6 10^3/uL (4.3-11.0)
[2018-10-27] MEDS: inSUlin ASPART (NovoLOG) 1 UNIT/0.01 ML (CHARGE PER UNIT) SC SCH ×4 (06:04→20:53)
[2018-10-27 06:26] LABS: ALANINE AMINOTRANSFERASE 39 U/L (0-55); ALBUMIN 2.3 GM/DL (3.2-4.5); ALKALINE PHOSPHATASE 173 U/L (40-136); BILIRUBIN,TOTAL 0.5 MG/DL (0.1-1.0); BUN/CREATININE RATIO 9; CALCIUM 8.5 MG/DL (8.5-10.1); CARBON DIOXIDE 21 MMOL/L (21-32); CHLORIDE 104 MMOL/L (98-107); CREATININE SERUM 1.07 MG/DL (0.60-1.30); GFR ESTIMATED > 60; GLUCOSE 100 MG/DL (70-105); POTASSIUM 4.4 MMOL/L (3.6-5.0); SODIUM 134 MMOL/L (135-145); TOTAL PROTEIN 4.5 GM/DL (6.4-8.2)
--- NOTE | 2018-10-27 06:31 | Progress Note (SOAP) ---
Subjective Date Seen by a Provider: Oct 27, 2018 Time Seen by a Provider: 06:10 Subjective/Events-last exam Very confused this morning, history from his who has been at bedside all night. States he is comfortable, but mumbling and confused. Objective Exam Vital Signs Date Time Temp Pulse Resp B/P (MAP) Pulse Ox O2 Delivery O2 Flow Rate FiO2 10/27/18 03:56 99.1 78 18 114/59 (77) 95 Nasal Cannula 1.00 10/26/18 23:44 99.6 75 18 135/62 (86) 92 Nasal Cannula 1.00 10/26/18 21:00 Room Air 10/26/18 19:30 98.3 75 20 111/57 (75) 95 Nasal Cannula 1.00 10/26/18 15:05 97.5 69 20 104/55 (71) 95 Room Air 10/26/18 12:00 98.1 70 20 108/55 (72) 96 Nasal Cannula 1.00 10/26/18 08:42 95 Room Air 10/26/18 08:36 98 Nasal Cannula 1.00 10/26/18 07:40 98.8 80 18 153/67 (95) 98 Nasal Cannula 1.00 I & O 10/27/18 07:00 Intake Total 820 ml Output Total 1025 ml Balance -205 ml Capillary Refill : General Appearance: No Apparent Distress Respiratory: No Accessory Muscle Use, No Respiratory Distress Cardiovascular: Normal Peripheral Pulses Gastrointestinal: soft Extremity: Normal Capillary Refill Neurologic/Psychiatric: Disoriented Results Lab Laboratory Tests 10/26/18 06:30: Sodium Level 134L, Potassium Level 4.5, Chloride Level 103, Carbon Dioxide Level 22, Anion Gap 9, Blood Urea Nitrogen 12, Creatinine 1.09, Estimat Glomerular Filtration Rate > 60, BUN/Creatinine Ratio 11, Glucose Level 115H, Calcium Level 8.8, Corrected Calcium 9.9, Total Bilirubin 0.6, Aspartate Amino Transf (AST/SGOT) 54H, Alanine Aminotransferase (ALT/SGPT) 42, Alkaline Phosphatase 205H, Total Protein 5.1L, Albumin 2.6L, Vancomycin Level Trough 20.9H 10/26/18 10:54: Glucometer 130H 10/26/18 16:07: Glucometer 182H 10/26/18 19:45: Urine Color ORANGE, Urine Clarity CLEAR, Urine pH 5, Urine Specific [place] 1.010L, Urine Protein 1+H, Urine Glucose (UA) NEGATIVE, Urine Ketones NEGATIVE, Urine Nitrite POSITIVEH, Urine Bilirubin 2+H, Urine Urobilinogen 4H, Urine Leukocyte Esterase 2+H, Urine RBC (Auto) 1+H, Urine RBC 2-5H, Urine WBC 10-25H, Urine Crystals PRESENTH, Urine Amorphous Sediment FEW AUGUSTINE URATESH, Urine Bacteria TRACE, Urine Casts NONE, Urine Mucus NEGATIVE, Urine Yeast MODERATEH, Urine Culture Indicated YES 10/26/18 20:42: Glucometer 134H 10/27/18 05:45: White Blood Count 10.6, Red Blood Count 3.19L, Hemoglobin 9.4L, Hematocrit 29L, Mean Corpuscular Volume 90, Mean Corpuscular Hemoglobin 29, Mean Corpuscular Hemoglobin Concent 33, Red Cell Distribution Width 16.5H, Platelet Count 376, Mean Platelet Volume 9.5, Neutrophils (%) (Auto) 74, Lymphocytes (%) (Auto) 12, Monocytes (%) (Auto) 11, Eosinophils (%) (Auto) 3, Basophils (%) (Auto) 0, Neutrophils # (Auto) 7.8, Lymphocytes # (Auto) 1.3, Monocytes # (Auto) 1.2H, Eosinophils # (Auto) 0.3, Basophils # (Auto) 0.0, Sodium Level 134L, Potassium Level 4.4, Chloride Level 104, Carbon Dioxide Level 21, Anion Gap 9, Blood Urea Nitrogen 10, Creatinine 1.07, Estimat Glomerular Filtration Rate > 60, BUN/ Creatinine Ratio 9, Glucose Level 100, Calcium Level 8.5, Corrected Calcium 9.9 , Total Bilirubin 0.5, Aspartate Amino Transf (AST/SGOT) 52H, Alanine Aminotransferase (ALT/SGPT) 39, Alkaline Phosphatase 173H, Total Protein 4.5L, Albumin 2.3L 10/27/18 05:48: Glucometer 130H Assessment/Plan Assessment/Plan Assess & Plan/Chief Complaint Post-Op Delirium Lumbar Wound infection with Staph Epi Lumbar Hardware Failure Deconditioning Acute Blood Loss anemia Will continue to work on resolving delirium Clinical Quality Measures DVT/VTE Risk/Contraindication: Risk Factor Score Per Nursin RFS Level Per Nursing on Admit: 4+=Very High LEO BRANHAM MD Oct 27, 2018 06:30
[2018-10-27] MEDS: metFORMIN 500 MG (GLUCOPHAGE) TAB PO SCH ×2 (06:36→18:08)
[2018-10-27] MEDS: PIOGLITAZONE 30MG (ACTOS) TAB PO SCH (06:37)
[2018-10-27] MEDS: MULTIVIT W/MINERALS TAB (THERAGRAN M) PO SCH (06:37)
[2018-10-27] MEDS: LACTOBACILLUS Acidoph/Bulgar 1 GM (LACTINEX) PACKET PO SCH ×4 (06:37→22:28)
[2018-10-27] MEDS: BETHANECHOL 25 MG (URECHOLINE) TAB PO SCH ×4 (06:37→22:27)
[2018-10-27 06:39] LABS: VANCOMYCIN,TROUGH 15.4 UG/ML (10.0-20.0)
[2018-10-27] MEDS: PHENAZOPYRIDINE 100 MG (PYRIDIUM) TABLET PO SCH ×3 (07:36→18:01)
[2018-10-27] MEDS: HALOPERIDOL 5 MG/ML (HALDOL) AMP IM PRN (07:39)
[2018-10-27 07:52] VITALS: BP 124/60
[2018-10-27] MEDS: ALLOPURINOL 300 MG (ZYLOPRIM) TAB PO SCH (09:16)
[2018-10-27] MEDS: SENNOSIDES 8.6 MG (SENOKOT) TAB PO SCH ×2 (09:16→22:28)
[2018-10-27] MEDS: meTOprolol TARTRATE 25 MG (LOPRESSOR) TABLET PO SCH ×2 (09:16→22:28)
[2018-10-27] MEDS: ENOXAPARIN 40 MG/0.4 ML (LOVENOX) SYR SC SCH (09:17)
[2018-10-27] MEDS: DOCUSATE SODIUM 100 MG (COLACE) CAP PO SCH ×2 (09:17→22:27)
[2018-10-27] MEDS: FAMOTIDINE 20 MG (PEPCID) TABLET PO SCH (09:17)
[2018-10-27] MEDS: risperiDONE 0.25 MG (RisperDAL) TAB PO SCH ×2 (09:17→22:28)
[2018-10-27] MEDS: AMIODARONE 200 MG (CORDARONE) TAB PO SCH (09:17)
[2018-10-27] MEDS: amLODIPine 5 MG (NORVASC) TAB PO SCH (09:17)
[2018-10-27] MEDS: lisINopril 20 MG (PRINIVIL) TABLET PO SCH (09:17)
[2018-10-27] MEDS: OXYBUTYNIN (DITROPAN) 5 MG TAB PO SCH ×3 (09:18→22:28)
--- NOTE | 2018-10-27 09:36 | Physical Therapy Daily Note ---
PT Daily Note-Current Subjective Pt asleep in bed when PT arrived. PT woke to greeting and needed encouragement to transfer over to bedside recliner Pain Numeric Pain Scale: 5-Moderate Pain Location: Posterior, Incisional Location Body Site: Back Pain Description: Acute Mental Status Patient Orientation: Confused, Mumbles Attachments: Drains Transfers Therapy Code Descriptions/Definitions Functional [place] Measure: 0=Not Assessed/NA 4=Minimal Assistance 1=Total Assistance 5=Supervision or Setup 2=Maximal Assistance 6=Modified [place] 3=Moderate Assistance 7=Complete [place] Therapy Quality Codes: 6 Independent with activity with or without an assistive device 5 Patient requires set up or clean up by helper. Patient completes activity by themselves 4 Supervision or touching assist (CGA). [place] provide cues , steadying assist 3 The helper provides less than half the effort to complete the activity 2 The helper provides more than half the effort to complete the activity 1 Dependent. The helper does all the effort to complete an activity 7 Patient refused to complete or attempt activity 9 The patient did not perform the activity before the current illness or injury 88 Not attempted due to Medical conditions or safety concerns Transfers (B, C, W/C) (FIM): 1 Scootin Rollin Supine to/from Sit: 1 Sit to/from Stand: 2 Bed to/from Chair: 2 assist x 2 with all mobility due to weakness and confusion/PT donned clamshell back brace in sit EOB Weight Bearing Right Lower Extremity: Right Weight Bearing/Tolerated Left Lower Extremity: Left Weight Bearing/Tolerated Gait Training Gait (FIM): 1 Distance (FIM): 1=up to 49 ft Distance: 5' Gait Level of Assist: 2 Gait Persons Needed: 2 Gait Assistive Device: FWW Exercises Seated Therapy Exercises: Kicking activity Seated Reps: 10 Assessment Pt is dependent in bed mobility and needed two therapist to sit at EOB. Patients current clam shell brace does not fit properly and presses into his throat when sitting. Patient ambulated for 5' with a FWW requiring Max A with the assistance of two therapist. Patient performed LE exercises at bedside recliner before PT exited room. Pt left with belongings, call light, and med student when PT exited room. PT Short Term Goals Short Term Goals Time Frame: Oct 29, 2018 Transfers (B,C,W/C) (FIM): 3 Gait (FIM): 1 Distance (FIM): 1=up to 49 ft Gait Distance Comment: 20' Gait Level of Assist: 3 Gait Assistive Device: FWW PT Environmental Protection Officer Goals Environmental Protection Officer Goals PT Environmental Protection Officer Goals Time Frame: Nov 12, 2018 Transfers (B,C,W/C) (FIM): 6 Gait (FIM): 6 Gait distance (FIM): 3=150 ft Distance: 150' Gait Level of Assist: 6 Gait Assistive Device: FWW PT Plan Problem List Problem List: Activity Tolerance, Functional Strength, Safety, Balance, Gait, Transfer, Bed Mobility, ROM Treatment/Plan Treatment Plan: Continue Plan of Care Treatment Plan: Bed Mobility, Education, Functional Activity Cris, Functional Strength, Gait, Safety, Therapeutic Exercise, Transfers Treatment Duration: Nov 12, 2018 Frequency: 11 times per week Estimated Hrs Per Day: .5 hour per day Patient and/or Family Agrees t: Yes Time/GCodes Time In: 850 Time Out: 904 Total Billed Treatment Time: 14 Total Billed Treatment 1 Visit FA - 14' KAL VERMA PT Oct 27, 2018 09:36
[2018-10-27] MEDS: VANCOMYCIN INJECTION 1,000 MG in NS (IVPB) 250 ML IV SCH (09:41)
[2018-10-27] MEDS ORDERED: FLUCONAZOLE 200 MG/100 ML 50 ML, SYRINGE-IVPB 1 SYRINGE IV NR ×2 (10:45)
--- NOTE | 2018-10-27 11:19 | Progress Note-Hospitalist ---
MARQUEZ DELATORRE 10/27/18 1119: Subjective HPI/CC On Admission Date Seen by Provider: Oct 27, 2018 Time Seen by Provider: 11:00 CC: s/p spinal hardware failure replacement HPI: This is an 78-year-old white male who was transferred from inpatient rehabilitation department to ICU for close monitoring following spinal hardware failure replacement yesterday. He had an uncomplicated surgery and is currently recovering and doing well overall. Urinary output has decreased and blood pressure is 115 so will initiate low flow IV fluid of normal saline and encouraged him to take in nutrition and fluids today. He will be fitted for a shell back brace and then we will get him out of bed. Overall patient is doing much better was updated and patient feels better overall. Subjective/Events-last exam Patient is more confused today Haldol was given Patient now drowsy very tearful If patient cannot clear the delirium he may ultimately fail and decline rapidly Checked meds again to see if any other source of delirium but this issue is expected Review of Systems Neurological: Confusion Objective Exam Vital Signs Vital Signs Date Time Temp Pulse Resp B/P (MAP) Pulse Ox O2 Delivery O2 Flow Rate FiO2 10/28/18 07:35 92 Nasal Cannula 1.00 10/28/18 04:05 98.4 78 22 153/71 (98) Capillary Refill : General Appearance: No Apparent Distress, WD/WN, Chronically ill Respiratory: Chest Non Tender, Lungs Clear, Normal Breath Sounds, No Accessory Muscle Use, No Respiratory Distress Cardiovascular: Regular Rate, Rhythm, No Edema, No Gallop, No JVD, No Murmur, Normal Peripheral Pulses Neurologic/Psychiatric: Alert, Disoriented Results/Procedures Lab Laboratory Tests 10/28/18 05:00 Patient resulted labs reviewed. Assessment/Plan Assessment and Plan Assess & Plan/Chief Complaint Assessment: Acute and severe delirium s/p stopped Fentanyl patch and started Risperdal with some improvement but now worsened and required Haldol due to severe aggression and delusions Recurrent severe back pain with referred lower abdominal pain similar to initial presentation obtained labs and CT scan and Dr Mc consultation which revealed displaced hardware in need of repeat surgery s/p on 10/20/18 POD # 7 Debility following spinal abscess status post 2 I&D's uncomplicated per Dr Mc Urinary retention acute maintained with leo but Dr Cortes consulted and he is appreciated C. difficile colitis resolved Severe anemia due to acute blood loss status post 4 units of blood while on MedSurg and ICU then 1 unit 10/20 then requiring another 2 units 5 days ago CAD DM CRI Delirium Yeast UTI Plan: Pain control but stopped Fentanyl patch since I suspected that to be the main factor in delirium but still an issue so increasing Risperdal and give Haldol for severe aggression Increase PO nutrition and fluids Use IS faithfully Monitor cough but cont nebs BM regimen Nebs IRF if delirium resolves Diflucan for yeast in urine Diagnosis/Problems Diagnosis/Problems (1) Delirium Status: Acute (2) Yeast UTI Status: Acute (3) Loosening of hardware in spine Status: Resolved Resolution Date/Time: 10/22/18 @ 12:52 (4) Intraspinal abscess and granuloma Status: Resolved Resolution Date/Time: 10/15/18 @ 14:02 (5) Urinary retention Status: Acute (6) Transfusion of blood during current hospitalization Status: Acute (7) Advanced age Status: Chronic (8) C. difficile colitis Status: Acute (9) Renal insufficiency Status: Resolved Resolution Date/Time: 10/10/18 @ 09:41 (10) Leukocytosis Status: Resolved Resolution Date/Time: 10/15/18 @ 14:02 (11) CAD (coronary artery disease) Status: Chronic (12) Atrial fibrillation Status: Chronic Qualifiers: Atrial fibrillation type: unspecified Qualified Codes: I48.91 - Unspecified atrial fibrillation Clinical Quality Measures DVT/VTE Risk/Contraindication: Risk Factor Score Per Nursin RFS Level Per Nursing on Admit: 4+=Very High ANTHONY GIRON MED STUDENT 10/27/18 1146: Subjective Subjective/Events-last exam Patient is very confused this morning Patient was agitated and combative with nursing staff this morning Nurse administered Haldol to calm patient Patient was calm and did not report any pain stated that patient urinated twice this morning Objective Exam General Appearance: No Apparent Distress, WD/WN Respiratory: Chest Non Tender, Lungs Clear, Normal Breath Sounds, No Accessory Muscle Use, No Respiratory Distress Cardiovascular: Regular Rate, Rhythm, No Edema, No Gallop, No JVD, No Murmur Gastrointestinal: Normal Bowel Sounds Neurologic/Psychiatric: Alert, Disoriented Skin: Normal Color, Warm/Dry Assessment/Plan Assessment and Plan Assess & Plan/Chief Complaint Assessment: 1) Delirium 2) Debility due to multiple surgeries 3) Diabetes Plan: 1) Continue antipsychotic medications 2) Physical therapy 30 Continue diabetic medications MARQUEZ DELATORRE DO Oct 27, 2018 11:19 ANTHONY GIRON MED STUDENT Oct 27, 2018 11:46
--- NOTE | 2018-10-27 11:21 | Physical Therapy Progress Note ---
Therapy Progress Note Due to patient's current medical/mental condition and patient inability to follow simple direction and actively participate with therapy, PT to decrease frequency to 6/wk and will resume 11/wk when stable. KAL VERMA PT Oct 27, 2018 11:21
[2018-10-27] MEDS ORDERED: PATCH REMOVAL TP SCH (11:30)
[2018-10-27] MEDS ORDERED: FUROSEMIDE 40 MG/4 ML INJ (LASIX) IVP NR (11:30)
--- NOTE | 2018-10-27 11:46 | Progress Note-Urology ---
Progress Note-Urology Progress Notes/Assess & Plan Progress/Assessment & Plan STARTED VOIDING ON OWN. TOLERATED INCREASE URECHOLINE WELL. KEEP SAME PLAN Final Diagnosis URINE RETENTION COLE BLUM MD Oct 27, 2018 11:46
--- NOTE | 2018-10-27 11:59 | Occupational Ther Daily Note ---
OT Current Status-Daily Note Subjective Pt seen in room, up in bed, agreeable to OT. Pain not mentioned. Appearance Confused. Unable to state name or , mumbles and mutters and difficult to understand Mental Status/Objective Therapy Code Descriptions/Definitions Functional [place] Measure: 0=Not Assessed/NA 4=Minimal Assistance 1=Total Assistance 5=Supervision or Setup 2=Maximal Assistance 6=Modified [place] 3=Moderate Assistance 7=Complete [place] Other Treatment He was not able to follow verbal or visual cues to do bilat AROM with UEs. He was given yellow theraband and recalled enough to do 15-20 reps horizontal abd/ add and elbow extension. He did shoulder flexion actively, holding theraband in hands. Pt with difficulty following instructions due to confusion. Pt left up in bed with nursing present. Education OT Patient Education: Purpose of tx/functional activities Teaching Recipient: Patient Teaching Methods: Demonstration, Discussion Response to Teaching: Reinforcement Needed OT Short Term Goals Short Term Goals Time Frame: Oct 28, 2018 Eating(FIM): 5 Upper Body Dressing(FIM): 4 Lower Body Dressing(FIM): 3 Transfers (B,C,W/C) (FIM): 3 Additional Short Term Goals: 1-Demonstrate ADL Tasks, 2-Verbalize Understanding , 3-ImproveStrength/Cris 1=Demonstrate adherence to instructed precautions during ADL tasks. 2=Patient will verbalize/demonstrate understanding of assistive devices/ modifications for ADL. 3=Patient will improve strength/tolerance for activity to enable patient to perform ADL's. OT Skilled Nursing Goals Skilled Nursing Goals Time Frame: Nov 04, 2018 Grooming(FIM): 5 Upper Body Dressing(FIM): 5 Lower Body Dressing(FIM): 4 Toileting(FIM): 4 Toilet/Commode Transfer(FIM): 4 Additional Goals: 1-Demonstrate ADL Tasks, 2-Verbalize Understanding, 3- ImproveStrength/Cris 1=Demonstrate adherence to instructed precautions during ADL tasks. 2=Patient will verbalize/demonstrate understanding of assistive devices/ modifications for ADL. 3=Patient will improve strength/tolerance for activity to enable patient to perform ADL's. OT Education/Plan Problem List/Assessment Pt to benefit from skilled OT intervention for ADL training, transfers, strengthening, adaptive equipment training, and safety education to increase functional independence. Discharge Recommendations Plan/Recommendations: Continue POC Treatment Plan/Plan of Care Patient would benefit from OT for education, treatment and training to promote independence in ADL's, mobility, safety and/or upper extremity function for ADL' s. Plan of Care: ADL Retraining, Functional Mobility, UE Funct Exercise/Act Treatment Duration: Nov 04, 2018 Frequency: 5 times per week Estimated Hrs Per Day: .25 hour per day Agreement: Yes Rehab Potential: Fair Time/GCodes Start Time: 11:40 Stop Time: 11:50 Total Time Billed (hr/min): 10 Billed Treatment Time visit, 10 minutes exercise CRISTIAN MERIDA OT Oct 27, 2018 11:59
[2018-10-27 12:00] VITALS: BP 106/51
[2018-10-27 15:10] VITALS: BP 157/72
[2018-10-27] MEDS: TAMSULOSIN 0.4 MG (FLOMAX) CAP PO SCH (18:02)
[2018-10-27 19:05] VITALS: BP 141/74
[2018-10-27] MEDS: SIMvastatin 10 MG (ZOCOR) TAB PO SCH (22:28)
[2018-10-28 00:03] VITALS: BP 160/70
[2018-10-28 04:05] VITALS: BP 153/71
--- NOTE | 2018-10-28 04:42 | Progress Note (SOAP) ---
Subjective Date Seen by a Provider: Oct 28, 2018 Time Seen by a Provider: 04:40 Subjective/Events-last exam Patient continues to remain severely confused VSS UA positive for pseudomonas Review of Systems Pulmonary: No Cough Gastrointestinal: No: Vomiting Musculoskeletal: No: back pain Neurological: Confusion; No: Weakness Objective Exam Vital Signs Date Time Temp Pulse Resp B/P (MAP) Pulse Ox O2 Delivery O2 Flow Rate FiO2 10/28/18 04:05 98.4 78 22 153/71 (98) 92 Nasal Cannula 1.00 10/28/18 00:03 99.6 92 24 160/70 (100) 94 Nasal Cannula 1.00 10/27/18 21:13 93 Nasal Cannula 1.00 10/27/18 21:00 Room Air 10/27/18 19:05 100.8 90 20 141/74 (96) 93 Nasal Cannula 1.00 10/27/18 15:10 100.0 79 24 157/72 (100) 94 Nasal Cannula 1.00 10/27/18 12:00 99.6 76 20 106/51 (69) 94 Nasal Cannula 1.00 10/27/18 09:00 Room Air 10/27/18 07:52 99.6 92 20 124/60 (81) 94 Nasal Cannula 1.00 I & O 10/28/18 07:00 Intake Total 920 ml Output Total 1265 ml Balance -345 ml Capillary Refill : General Appearance: No Apparent Distress Gastrointestinal: soft Extremity: No Calf Tenderness, Swelling Neurologic/Psychiatric: No Motor/Sensory Deficits, computer numerical control programmer II-XII Norm as Tested, Disoriented Skin: Other (Wound Vac in place) Results Lab Laboratory Tests 10/27/18 05:45: White Blood Count 10.6, Red Blood Count 3.19L, Hemoglobin 9.4L, Hematocrit 29L, Mean Corpuscular Volume 90, Mean Corpuscular Hemoglobin 29, Mean Corpuscular Hemoglobin Concent 33, Red Cell Distribution Width 16.5H, Platelet Count 376, Mean Platelet Volume 9.5, Neutrophils (%) (Auto) 74, Lymphocytes (%) (Auto) 12, Monocytes (%) (Auto) 11, Eosinophils (%) (Auto) 3, Basophils (%) (Auto) 0, Neutrophils # (Auto) 7.8, Lymphocytes # (Auto) 1.3, Monocytes # (Auto) 1.2H, Eosinophils # (Auto) 0.3, Basophils # (Auto) 0.0, Sodium Level 134L, Potassium Level 4.4, Chloride Level 104, Carbon Dioxide Level 21, Anion Gap 9, Blood Urea Nitrogen 10, Creatinine 1.07, Estimat Glomerular Filtration Rate > 60, BUN/ Creatinine Ratio 9, Glucose Level 100, Calcium Level 8.5, Corrected Calcium 9.9 , Total Bilirubin 0.5, Aspartate Amino Transf (AST/SGOT) 52H, Alanine Aminotransferase (ALT/SGPT) 39, Alkaline Phosphatase 173H, Total Protein 4.5L, Albumin 2.3L, Vancomycin Level Trough 15.4 10/27/18 05:48: Glucometer 130H 10/27/18 11:23: Glucometer 103 10/27/18 15:49: Glucometer 99 10/27/18 20:14: Glucometer 130H Microbiology 10/26/18 Urine Culture - Preliminary, Resulted Pseudomonas aeruginosa Assessment/Plan Assessment/Plan Assess & Plan/Chief Complaint Lumbar wound abscess S/P I&D with hardware re-instrumentation Acute Delirium DM 2 Begin Levaquin for Pseudomonas- will await cultures Clinical Quality Measures DVT/VTE Risk/Contraindication: Risk Factor Score Per Nursin RFS Level Per Nursing on Admit: 4+=Very High WILNER HEREDIA Oct 28, 2018 04:42
[2018-10-28 05:09] LABS: BASOPHILS % (AUTO) 0 % (0-10); EOSINOPHILS # (AUTO) 0.1 10^3/uL (0.0-0.3); EOSINOPHILS % (AUTO) 0 % (0-10); HEMATOCRIT 27 % (40-54); HEMOGLOBIN 8.8 G/DL (13.3-17.7); LYMPHOCYTES # (AUTO) 1.7 X 10^3 (1.0-4.0); LYMPHOCYTES % (AUTO) 10 % (12-44); MEAN CORPUSCULAR HEMOGLOBIN 30 PG (25-34); MEAN CORPUSCULAR HGB CONC 33 G/DL (32-36); MEAN CORPUSCULAR VOLUME 91 FL (80-99); MEAN PLATELET VOLUME 9.4 FL (7.4-10.4); MONOCYTES # (AUTO) 1.6 X 10^3 (0.0-1.0); MONOCYTES % (AUTO) 10 % (0-12); NEUTROPHILS # (AUTO) 12.7 X 10^3 (1.8-7.8); NEUTROPHILS % (AUTO) 79 % (42-75); PLATELET COUNT 372 10^3/uL (130-400); RED BLOOD COUNT 2.97 10^6/uL (4.35-5.85); RED CELL DISTRIBUTION WIDTH 16.2 % (10.0-14.5)
[2018-10-28 05:29] LABS: ALBUMIN 2.2 GM/DL (3.2-4.5); BILIRUBIN,TOTAL 0.6 MG/DL (0.1-1.0); CALCIUM 8.5 MG/DL (8.5-10.1); CREATININE SERUM 1.18 MG/DL (0.60-1.30); POTASSIUM 3.9 MMOL/L (3.6-5.0); TOTAL PROTEIN 4.4 GM/DL (6.4-8.2)
[2018-10-28 05:56] LABS: ERYTHROCYTE SEDIMENTATION RATE 64 MM/HR (0-30)
[2018-10-28] MEDS: inSUlin ASPART (NovoLOG) 1 UNIT/0.01 ML (CHARGE PER UNIT) SC SCH ×4 (06:16→21:37)
[2018-10-28 06:33] LABS: LYMPHOCYTES % (MANUAL) 6 %; NEUTROPHILS % (MANUAL) 83 %
[2018-10-28 06:34] LABS: MONOCYTES % (MANUAL) 11 %
[2018-10-28] MEDS ORDERED: LEVOFLOXACIN 750 MG/150 ML IV 150 ML IV SCH (07:00)
[2018-10-28] MEDS: RT-ALBUTEROL SULF 2.5 MG/3 ML PRE-MIX VIAL INH SCH ×3 (07:35→19:58)
[2018-10-28] MEDS: PIOGLITAZONE 30MG (ACTOS) TAB PO SCH (07:50)
[2018-10-28] MEDS: MULTIVIT W/MINERALS TAB (THERAGRAN M) PO SCH (07:50)
[2018-10-28] MEDS: BETHANECHOL 25 MG (URECHOLINE) TAB PO SCH ×4 (07:50→21:24)
[2018-10-28] MEDS: LACTOBACILLUS Acidoph/Bulgar 1 GM (LACTINEX) PACKET PO SCH ×4 (07:50→21:24)
[2018-10-28] MEDS: metFORMIN 500 MG (GLUCOPHAGE) TAB PO SCH ×2 (07:50→16:45)
[2018-10-28] MEDS: risperiDONE 0.25 MG (RisperDAL) TAB PO SCH ×2 (09:59→21:24)
[2018-10-28] MEDS: PHENAZOPYRIDINE 100 MG (PYRIDIUM) TABLET PO SCH ×3 (09:59→16:48)
[2018-10-28] MEDS: meTOprolol TARTRATE 25 MG (LOPRESSOR) TABLET PO SCH ×2 (09:59→21:24)
[2018-10-28] MEDS: AMIODARONE 200 MG (CORDARONE) TAB PO SCH (09:59)
[2018-10-28] MEDS: lisINopril 20 MG (PRINIVIL) TABLET PO SCH (09:59)
[2018-10-28] MEDS: DOCUSATE SODIUM 100 MG (COLACE) CAP PO SCH ×2 (09:59→21:24)
[2018-10-28] MEDS: IRON SUCROSE 200 MG/10 ML (VENOFER) VIAL IV SCH (09:59)
[2018-10-28] MEDS: ALLOPURINOL 300 MG (ZYLOPRIM) TAB PO SCH (09:59)
[2018-10-28] MEDS: SENNOSIDES 8.6 MG (SENOKOT) TAB PO SCH ×2 (09:59→21:24)
[2018-10-28] MEDS: FAMOTIDINE 20 MG (PEPCID) TABLET PO SCH (09:59)
[2018-10-28] MEDS: amLODIPine 5 MG (NORVASC) TAB PO SCH (09:59)
[2018-10-28] MEDS: OXYBUTYNIN (DITROPAN) 5 MG TAB PO SCH ×3 (09:59→21:46)
[2018-10-28] MEDS: ENOXAPARIN 40 MG/0.4 ML (LOVENOX) SYR SC SCH (10:00)
[2018-10-28] MEDS: FLUCONAZOLE 200 MG/100 ML 50 ML, EMPTY IV BAG (PVC) 1 EA IV SCH ×2 (10:07)
--- NOTE | 2018-10-28 10:58 | Progress Note-Hospitalist ---
Subjective HPI/CC On Admission Date Seen by Provider: Oct 28, 2018 Time Seen by Provider: 10:30 CC: s/p spinal hardware failure replacement HPI: This is an 78-year-old white male who was transferred from inpatient rehabilitation department to ICU for close monitoring following spinal hardware failure replacement yesterday. He had an uncomplicated surgery and is currently recovering and doing well overall. Urinary output has decreased and blood pressure is 115 so will initiate low flow IV fluid of normal saline and encouraged him to take in nutrition and fluids today. He will be fitted for a shell back brace and then we will get him out of bed. Overall patient is doing much better was updated and patient feels better overall. Subjective/Events-last exam Patient now becoming even more complex Losing ground and recovery is very unlikely Delirium is worsened at bedside and updated Pseudomonas UTI so we'll start cefepime and maintain Diflucan for yeast Wound VAC changed and wound is very severe and profound Hemoglobin declining Overall such extreme poor prognosis I predict transition to comfort care either tomorrow or Wednesday Updated surgeon Review of Systems Musculoskeletal: back pain Neurological: Confusion Focused Exam Lactate Level 10/28/18 10:00: Lactic Acid Level 0.64 Lactic Acid Level Laboratory Tests Test 10/28/18 10:00 Lactic Acid Level 0.64 MMOL/L (0.50-2.00) Objective Exam Vital Signs Vital Signs Date Time Temp Pulse Resp B/P (MAP) Pulse Ox O2 Delivery O2 Flow Rate FiO2 10/28/18 07:35 92 Nasal Cannula 1.00 10/28/18 04:05 98.4 78 22 153/71 (98) Capillary Refill : General Appearance: No Apparent Distress, WD/WN, Chronically ill, Other ( confused, eyes closed, delirious ) Respiratory: Chest Non Tender, Lungs Clear, Normal Breath Sounds, No Accessory Muscle Use, No Respiratory Distress Neurologic/Psychiatric: Disoriented Results/Procedures Lab Laboratory Tests 10/28/18 05:00 Patient resulted labs reviewed. Assessment/Plan Assessment and Plan Assess & Plan/Chief Complaint Assessment: Acute and severe delirium s/p stopped Fentanyl patch and started Risperdal with some improvement but now worsened and required Haldol due to severe aggression and delusions and it appears terminal delirium Recurrent severe back pain with referred lower abdominal pain similar to initial presentation obtained labs and CT scan and Dr Mc consultation which revealed displaced hardware in need of repeat surgery s/p on 10/20/18 POD # 8 Debility following spinal abscess status post 2 I&D's uncomplicated per Dr Mc Urinary retention acute maintained with leo but Dr Cortes consulted and he is appreciated but will place in-dwelling catheter for comfort C. difficile colitis resolved Severe anemia due to acute blood loss status post 4 units of blood while on MedSurg and ICU then 1 unit 10/20 then requiring another 2 units 6 days ago CAD DM CRI Delirium Yeast UTI Pseudomonas UTI Plan: Pain control but stopped Fentanyl patch since I suspected that to be the main factor in delirium but still an issue so increasing Risperdal and give Haldol for severe aggression but now appears to be terminal delirium Nebs Cefepime for Pseudomonas Very poor prognosis Living will evaluation and needs DNR Likely will decline further and need comfort care this weekend palliative care Diagnosis/Problems Diagnosis/Problems (1) Terminal care Status: Acute (2) Pseudomonas urinary tract infection Status: Acute (3) Delirium Status: Acute (4) Yeast UTI Status: Acute (5) Loosening of hardware in spine Status: Resolved Resolution Date/Time: 10/22/18 @ 12:52 (6) Intraspinal abscess and granuloma Status: Resolved Resolution Date/Time: 10/15/18 @ 14:02 (7) Urinary retention Status: Acute (8) Transfusion of blood during current hospitalization Status: Acute (9) Advanced age Status: Chronic (10) C. difficile colitis Status: Acute (11) Renal insufficiency Status: Resolved Resolution Date/Time: 10/10/18 @ 09:41 (12) Leukocytosis Status: Resolved Resolution Date/Time: 10/15/18 @ 14:02 (13) CAD (coronary artery disease) Status: Chronic (14) Atrial fibrillation Status: Chronic Qualifiers: Atrial fibrillation type: unspecified Qualified Codes: I48.91 - Unspecified atrial fibrillation Clinical Quality Measures DVT/VTE Risk/Contraindication: Risk Factor Score Per Nursin RFS Level Per Nursing on Admit: 4+=Very High MARQUEZ DELATORRE DO Oct 28, 2018 10:58
[2018-10-28] MEDS: CEFEPIME INJECTION 1,000 MG in NS (IVPB) 50 ML IV SCH ×2 (11:35→21:23)
--- NOTE | 2018-10-28 12:07 | Physical Therapy Progress Note ---
Therapy Progress Note Patient is currently unable to follow simple direction for exercise or OOB activity. Patient has had a decline in medical status and will be on Hold until medically stable. Physician and RN notified. KAL VERMA PT Oct 28, 2018 12:07
--- NOTE | 2018-10-28 13:23 | Occ Therapy Progress Note ---
Therapy Progress Note Per PT report, pt is on hold for therapy at this time secondary to decline in medical status. Will continue to monitor. KASANDRA JIM OT Oct 28, 2018 13:23
--- NOTE | 2018-10-28 14:04 | Progress Note-Urology ---
Progress Note-Urology Progress Notes/Assess & Plan Progress/Assessment & Plan PLAN INDWELLING [facility] FOR NOW Final Diagnosis URINE RETENTION COLE BLUM MD Oct 28, 2018 14:04
[2018-10-28] MEDS ORDERED: LIDOCAINE UROJET 2% GEL 10 ML PKG ONE (15:19)
[2018-10-28 16:00] VITALS: BP 117/53
[2018-10-28] MEDS: TAMSULOSIN 0.4 MG (FLOMAX) CAP PO SCH (16:48)
[2018-10-28] MEDS: HALOPERIDOL 5 MG/ML (HALDOL) AMP IM PRN (16:54)
[2018-10-28] MEDS ORDERED: ACETAMINOPHEN 650 MG SUPP (TYLENOL) PR PRN (17:00)
[2018-10-28] MEDS ORDERED: ACETAMINOPHEN 325 MG TABLET ONE (17:17)
[2018-10-28] MEDS ORDERED: NS IV 1000 ML 1,000 ML ONE (17:17)
[2018-10-28] MEDS: NS IV 1000 ML 1,000 ML IV SCH (17:21)
[2018-10-28] MEDS: ACETAMINOPHEN 325 MG TABLET PO PRN (17:24)
[2018-10-28 20:00] VITALS: BP 128/74
[2018-10-28] MEDS: SIMvastatin 10 MG (ZOCOR) TAB PO SCH (21:24)
[2018-10-28 21:32] VITALS: BP 124/68
[2018-10-29 00:46] VITALS: BP 107/87
[2018-10-29] MEDS: HALOPERIDOL 5 MG/ML (HALDOL) AMP IM PRN (01:16)
[2018-10-29 04:00] VITALS: BP 140/60
[2018-10-29] MEDS: inSUlin ASPART (NovoLOG) 1 UNIT/0.01 ML (CHARGE PER UNIT) SC SCH ×4 (05:07→20:51)
[2018-10-29] MEDS: RT-ALBUTEROL SULF 2.5 MG/3 ML PRE-MIX VIAL INH SCH ×3 (06:35→20:18)
[2018-10-29] MEDS: LACTOBACILLUS Acidoph/Bulgar 1 GM (LACTINEX) PACKET PO SCH ×4 (07:53→20:30)
[2018-10-29] MEDS: PIOGLITAZONE 30MG (ACTOS) TAB PO SCH (07:54)
[2018-10-29] MEDS: MULTIVIT W/MINERALS TAB (THERAGRAN M) PO SCH (07:54)
[2018-10-29] MEDS: BETHANECHOL 25 MG (URECHOLINE) TAB PO SCH ×4 (07:54→20:31)
[2018-10-29] MEDS: metFORMIN 500 MG (GLUCOPHAGE) TAB PO SCH ×2 (07:54→16:21)
[2018-10-29] MEDS: NS IV 1000 ML 1,000 ML IV SCH ×2 (08:08→20:32)
[2018-10-29] MEDS: CEFEPIME INJECTION 1,000 MG in NS (IVPB) 50 ML IV SCH ×2 (08:09→20:32)
[2018-10-29] MEDS: FLUCONAZOLE 200 MG/100 ML 50 ML, EMPTY IV BAG (PVC) 1 EA IV SCH ×2 (08:35)
[2018-10-29] MEDS: DOCUSATE SODIUM 100 MG (COLACE) CAP PO SCH ×2 (09:11→20:31)
[2018-10-29] MEDS: PHENAZOPYRIDINE 100 MG (PYRIDIUM) TABLET PO SCH ×3 (09:11→16:38)
[2018-10-29] MEDS: lisINopril 20 MG (PRINIVIL) TABLET PO SCH (09:12)
[2018-10-29] MEDS: SENNOSIDES 8.6 MG (SENOKOT) TAB PO SCH ×2 (09:12→20:31)
--- NOTE | 2018-10-29 09:51 | Progress Note-Urology ---
Progress Note-Urology Progress Notes/Assess & Plan Progress/Assessment & Plan BETTER TODAY. [facility] IN. ONCE GENERAL AND ORTHO CONDITION BETTER, WE WILL TRY AGAIN TOV Final Diagnosis URINE RETENTION COLE BLUM MD Oct 29, 2018 09:51
[2018-10-29] MEDS: VANCOMYCIN INJECTION 1,000 MG in NS (IVPB) 250 ML IV SCH (09:55)
[2018-10-29] MEDS: risperiDONE 0.25 MG (RisperDAL) TAB PO SCH ×2 (09:55→20:31)
[2018-10-29] MEDS: AMIODARONE 200 MG (CORDARONE) TAB PO SCH (09:55)
[2018-10-29] MEDS: amLODIPine 5 MG (NORVASC) TAB PO SCH (09:55)
[2018-10-29] MEDS: ALLOPURINOL 300 MG (ZYLOPRIM) TAB PO SCH (09:55)
[2018-10-29] MEDS: meTOprolol TARTRATE 25 MG (LOPRESSOR) TABLET PO SCH ×2 (09:55→20:31)
[2018-10-29] MEDS: OXYBUTYNIN (DITROPAN) 5 MG TAB PO SCH ×3 (09:55→20:31)
[2018-10-29] MEDS: FAMOTIDINE 20 MG (PEPCID) TABLET PO SCH (09:56)
--- NOTE | 2018-10-29 10:02 | Progress Note (SOAP) ---
Subjective Date Seen by a Provider: Oct 29, 2018 Time Seen by a Provider: 09:52 Subjective/Events-last exam Patient s/p lumbar wound abscess requiring I&D and hardware revision Acute delirium requiring Haldol last night Patient's and son at bedside. Patient verbal and called me by name when I entered the room. Did have have some aphasia and confusion during the exam, but asked about his urinary tract infection, and if he would have to remain in bed. Review of Systems General: No Chills Pulmonary: Cough Genitourinary: Retention Musculoskeletal: No: leg pain Neurological: Confusion Focused Exam Lactate Level 10/28/18 10:00: Lactic Acid Level 0.64 Objective Exam Vital Signs Date Time Temp Pulse Resp B/P (MAP) Pulse Ox O2 Delivery O2 Flow Rate FiO2 10/29/18 09:15 Room Air 10/29/18 08:11 Room Air 10/29/18 04:00 73 20 140/60 (86) 94 Room Air 10/29/18 00:46 73 21 107/87 (94) 93 Room Air 10/28/18 21:32 70 124/68 (86) 10/28/18 21:00 Room Air 10/28/18 20:07 Room Air 10/28/18 20:00 98.6 73 22 128/74 (92) 95 Room Air 10/28/18 18:30 99.8 10/28/18 17:24 100.0 10/28/18 16:00 100.1 72 20 117/53 (74) 93 Room Air I & O 10/29/18 07:00 Intake Total 650 ml Output Total 1276 ml Balance -626 ml Capillary Refill : General Appearance: No Apparent Distress Respiratory: No Respiratory Distress Gastrointestinal: non tender, soft Extremity: No Calf Tenderness, Pedal Edema Neurologic/Psychiatric: Alert, No Motor/Sensory Deficits, 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 The patient does appear much better today, however he did receive Haldol last night, and has multiple comorbidities. Given his age, delirium, and current medical condition, my prognosis is still guarded. However, He does appear much better after completing 24 hours of IV antibiotics directed toward his urinary tract infection. I believe that the next 48 hours will be critical in deciding what treatment approach is most suited for the patient. Clinical Quality Measures DVT/VTE Risk/Contraindication: Risk Factor Score Per Nursin RFS Level Per Nursing on Admit: 4+=Very High WILNER HEREDIA Oct 29, 2018 10:02
[2018-10-29 10:04] VITALS: BP 148/65
[2018-10-29] MEDS: ENOXAPARIN 40 MG/0.4 ML (LOVENOX) SYR SC SCH (10:08)
[2018-10-29] MEDS: ACETAMINOPHEN 325 MG TABLET PO PRN (10:08)
--- NOTE | 2018-10-29 10:35 | Progress Note-Hospitalist ---
Subjective HPI/CC On Admission Date Seen by Provider: Oct 29, 2018 Time Seen by Provider: 10:00 CC: s/p spinal hardware failure replacement HPI: This is an 78-year-old white male who was transferred from inpatient rehabilitation department to ICU for close monitoring following spinal hardware failure replacement yesterday. He had an uncomplicated surgery and is currently recovering and doing well overall. Urinary output has decreased and blood pressure is 115 so will initiate low flow IV fluid of normal saline and encouraged him to take in nutrition and fluids today. He will be fitted for a shell back brace and then we will get him out of bed. Overall patient is doing much better was updated and patient feels better overall. Subjective/Events-last exam Delirium clearing just this morning Pt somewhat confused at times but much improved DNR obtained yesterday Updated and son outside in [place] Pt will need to motivate to recover since so many complexities to overcome I am unsure he can recover but will continue current treatment now Back pain at times Edema noted so will DC IVF and give Lasix since BP elevated aware of the prognosis Review of Systems General: Fatigue Musculoskeletal: back pain Neurological: Confusion Focused Exam Lactate Level 10/28/18 10:00: Lactic Acid Level 0.64 Objective Exam Vital Signs Vital Signs Date Time Temp Pulse Resp B/P (MAP) Pulse Ox O2 Delivery O2 Flow Rate FiO2 10/29/18 12:00 98.1 73 22 156/72 (100) 94 Room Air 10/28/18 07:35 1.00 Capillary Refill : General Appearance: No Apparent Distress, WD/WN, Chronically ill, Obese Respiratory: Chest Non Tender, Lungs Clear, Normal Breath Sounds, No Accessory Muscle Use, No Respiratory Distress Cardiovascular: Regular Rate, Rhythm, No Edema, No Gallop, No JVD, No Murmur, Normal Peripheral Pulses Neurologic/Psychiatric: Alert, 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 Assessment/Plan Assessment and Plan Assess & Plan/Chief Complaint Assessment: Acute and severe delirium s/p stopped Fentanyl patch and started Risperdal with some improvement but now worsened and required Haldol due to severe aggression and delusions and it appears terminal delirium but now recovered a bit today 10/29/18 Recurrent severe back pain with referred lower abdominal pain similar to initial presentation obtained labs and CT scan and Dr Mc consultation which revealed displaced hardware in need of repeat surgery s/p on 10/20/18 POD # 9 Debility following spinal abscess status post 2 I&D's uncomplicated per Dr Mc Urinary retention acute maintained with leo but Dr Cortes consulted and he is appreciated but will place in-dwelling catheter for comfort C. difficile colitis resolved Severe anemia due to acute blood loss status post 4 units of blood while on MedSurg and ICU then 1 unit 10/20 then requiring another 2 units 7 days ago CAD DM CRI Delirium Yeast UTI Pseudomonas UTI Plan: Pain control but stopped Fentanyl patch since I suspected that to be the main factor in delirium but still an issue so increasing Risperdal and give Haldol for severe aggression but now appears to be terminal delirium but cleared a bit today 10/29/18 Nebs Cefepime for Pseudomonas Very poor prognosis Living will evaluation and needs DNR Likely will decline further and need comfort care this weekend Palliative care Diagnosis/Problems Diagnosis/Problems (1) Terminal care Status: Acute (2) Pseudomonas urinary tract infection Status: Acute (3) Delirium Status: Acute (4) Yeast UTI Status: Acute (5) Loosening of hardware in spine Status: Resolved Resolution Date/Time: 10/22/18 @ 12:52 (6) Intraspinal abscess and granuloma Status: Resolved Resolution Date/Time: 10/15/18 @ 14:02 (7) Urinary retention Status: Acute (8) Transfusion of blood during current hospitalization Status: Acute (9) Advanced age Status: Chronic (10) C. difficile colitis Status: Acute (11) Renal insufficiency Status: Resolved Resolution Date/Time: 10/10/18 @ 09:41 (12) Leukocytosis Status: Resolved Resolution Date/Time: 10/15/18 @ 14:02 (13) CAD (coronary artery disease) Status: Chronic (14) Atrial fibrillation Status: Chronic Qualifiers: Atrial fibrillation type: unspecified Qualified Codes: I48.91 - Unspecified atrial fibrillation Clinical Quality Measures DVT/VTE Risk/Contraindication: Risk Factor Score Per Nursin RFS Level Per Nursing on Admit: 4+=Very High MARQUEZ DELATORRE DO Oct 29, 2018 10:35
[2018-10-29 12:00] VITALS: BP 156/72
[2018-10-29 12:32] LABS: BASOPHILS % (AUTO) 0 % (0-10); EOSINOPHILS # (AUTO) 0.3 10^3/uL (0.0-0.3); EOSINOPHILS % (AUTO) 3 % (0-10); HEMATOCRIT 27 % (40-54); HEMOGLOBIN 8.7 G/DL (13.3-17.7); LYMPHOCYTES # (AUTO) 1.2 X 10^3 (1.0-4.0); LYMPHOCYTES % (AUTO) 11 % (12-44); MEAN CORPUSCULAR HEMOGLOBIN 30 PG (25-34); MEAN CORPUSCULAR HGB CONC 33 G/DL (32-36); MEAN CORPUSCULAR VOLUME 92 FL (80-99); MEAN PLATELET VOLUME 9.4 FL (7.4-10.4); MONOCYTES % (AUTO) 9 % (0-12); NEUTROPHILS % (AUTO) 77 % (42-75); PLATELET COUNT 330 10^3/uL (130-400); RED BLOOD COUNT 2.91 10^6/uL (4.35-5.85); RED CELL DISTRIBUTION WIDTH 16.9 % (10.0-14.5); WHITE BLOOD COUNT 11.6 10^3/uL (4.3-11.0)
[2018-10-29 12:51] LABS: ALBUMIN 2.2 GM/DL (3.2-4.5); BILIRUBIN,TOTAL 0.5 MG/DL (0.1-1.0); CALCIUM 7.7 MG/DL (8.5-10.1); CREATININE SERUM 1.24 MG/DL (0.60-1.30); POTASSIUM 3.7 MMOL/L (3.6-5.0); TOTAL PROTEIN 4.4 GM/DL (6.4-8.2)
[2018-10-29 15:35] VITALS: BP 118/57
[2018-10-29] MEDS ORDERED: FUROSEMIDE 40 MG/4 ML INJ (LASIX) IVP ONE (16:00)
[2018-10-29] MEDS: TAMSULOSIN 0.4 MG (FLOMAX) CAP PO SCH (16:38)
[2018-10-29 19:20] VITALS: BP 125/62
[2018-10-29] MEDS: SIMvastatin 10 MG (ZOCOR) TAB PO SCH (20:31)
[2018-10-30] VITALS: BP 112/50
[2018-10-30 05:00] VITALS: BP 111/51
[2018-10-30 05:32] LABS: BASOPHILS % (AUTO) 0 % (0-10); EOSINOPHILS # (AUTO) 0.3 10^3/uL (0.0-0.3); EOSINOPHILS % (AUTO) 4 % (0-10); HEMATOCRIT 26 % (40-54); HEMOGLOBIN 8.5 G/DL (13.3-17.7); LYMPHOCYTES # (AUTO) 1.5 X 10^3 (1.0-4.0); LYMPHOCYTES % (AUTO) 15 % (12-44); MEAN CORPUSCULAR HEMOGLOBIN 30 PG (25-34); MEAN CORPUSCULAR HGB CONC 33 G/DL (32-36); MEAN CORPUSCULAR VOLUME 92 FL (80-99); MEAN PLATELET VOLUME 9.4 FL (7.4-10.4); MONOCYTES # (AUTO) 0.9 X 10^3 (0.0-1.0); MONOCYTES % (AUTO) 10 % (0-12); NEUTROPHILS % (AUTO) 71 % (42-75); PLATELET COUNT 316 10^3/uL (130-400); RED BLOOD COUNT 2.84 10^6/uL (4.35-5.85); RED CELL DISTRIBUTION WIDTH 16.7 % (10.0-14.5); WHITE BLOOD COUNT 9.8 10^3/uL (4.3-11.0)
[2018-10-30] MEDS: inSUlin ASPART (NovoLOG) 1 UNIT/0.01 ML (CHARGE PER UNIT) SC SCH ×4 (05:34→22:06)
[2018-10-30] MEDS: BETHANECHOL 25 MG (URECHOLINE) TAB PO SCH ×4 (05:36→21:43)
[2018-10-30] MEDS: LACTOBACILLUS Acidoph/Bulgar 1 GM (LACTINEX) PACKET PO SCH ×3 (05:36→21:43)
[2018-10-30] MEDS: MULTIVIT W/MINERALS TAB (THERAGRAN M) PO SCH (05:36)
[2018-10-30 05:48] LABS: ALBUMIN 2.2 GM/DL (3.2-4.5); BILIRUBIN,TOTAL 0.5 MG/DL (0.1-1.0); CALCIUM 7.8 MG/DL (8.5-10.1); CREATININE SERUM 1.28 MG/DL (0.60-1.30); POTASSIUM 3.3 MMOL/L (3.6-5.0); TOTAL PROTEIN 4.2 GM/DL (6.4-8.2)
[2018-10-30] MEDS: RT-ALBUTEROL SULF 2.5 MG/3 ML PRE-MIX VIAL INH SCH ×3 (06:46→20:19)
[2018-10-30] MEDS: PIOGLITAZONE 30MG (ACTOS) TAB PO SCH (07:00)
[2018-10-30] MEDS: metFORMIN 500 MG (GLUCOPHAGE) TAB PO SCH ×2 (07:00→16:36)
[2018-10-30 08:15] VITALS: BP 136/60
[2018-10-30] MEDS: IRON SUCROSE 200 MG/10 ML (VENOFER) VIAL IV SCH (09:43)
[2018-10-30] MEDS: ALLOPURINOL 300 MG (ZYLOPRIM) TAB PO SCH (09:44)
[2018-10-30] MEDS: DOCUSATE SODIUM 100 MG (COLACE) CAP PO SCH ×2 (09:44→21:43)
[2018-10-30] MEDS: OXYBUTYNIN (DITROPAN) 5 MG TAB PO SCH ×3 (09:44→21:43)
[2018-10-30] MEDS: FAMOTIDINE 20 MG (PEPCID) TABLET PO SCH (09:44)
[2018-10-30] MEDS: risperiDONE 0.25 MG (RisperDAL) TAB PO SCH ×2 (09:44→21:42)
[2018-10-30] MEDS: lisINopril 20 MG (PRINIVIL) TABLET PO SCH (09:44)
[2018-10-30] MEDS: meTOprolol TARTRATE 25 MG (LOPRESSOR) TABLET PO SCH ×2 (09:44→21:42)
[2018-10-30] MEDS: PHENAZOPYRIDINE 100 MG (PYRIDIUM) TABLET PO SCH ×3 (09:44→18:16)
[2018-10-30] MEDS: amLODIPine 5 MG (NORVASC) TAB PO SCH (09:44)
[2018-10-30] MEDS: SENNOSIDES 8.6 MG (SENOKOT) TAB PO SCH ×2 (09:44→21:44)
[2018-10-30] MEDS: AMIODARONE 200 MG (CORDARONE) TAB PO SCH (09:44)
[2018-10-30] MEDS: CEFEPIME INJECTION 1,000 MG in NS (IVPB) 50 ML IV SCH ×2 (09:45→21:42)
[2018-10-30] MEDS: FLUCONAZOLE 200 MG/100 ML 50 ML, EMPTY IV BAG (PVC) 1 EA IV SCH ×2 (09:45)
[2018-10-30] MEDS: ENOXAPARIN 40 MG/0.4 ML (LOVENOX) SYR SC SCH (09:45)
--- NOTE | 2018-10-30 11:24 | Progress Note (SOAP) ---
Subjective Date Seen by a Provider: Oct 30, 2018 Time Seen by a Provider: 11:22 Subjective/Events-last exam Markedly better, more awake and alert, still slight confused, but improved. Focused Exam Lactate Level 10/28/18 10:00: Lactic Acid Level 0.64 Objective Exam Vital Signs Date Time Temp Pulse Resp B/P (MAP) Pulse Ox O2 Delivery O2 Flow Rate FiO2 10/30/18 08:15 99.8 74 20 136/60 (85) 92 Room Air 10/30/18 06:46 Room Air 91 10/30/18 05:00 98.8 75 22 111/51 (71) 91 Room Air 10/30/18 00:00 99.2 69 22 112/50 (70) 90 Room Air 10/29/18 21:00 Room Air 10/29/18 20:18 Room Air 90 10/29/18 19:20 99.5 68 24 125/62 (83) 93 Room Air 10/29/18 15:35 98.2 70 28 118/57 (77) 93 Room Air 10/29/18 12:00 98.1 73 22 156/72 (100) 94 Room Air I & O 10/30/18 07:00 Intake Total 2320 ml Output Total 2640 ml Balance -320 ml Capillary Refill : General Appearance: No Apparent Distress Respiratory: No Accessory Muscle Use, No Respiratory Distress Cardiovascular: Regular Rate, Rhythm, Normal Peripheral Pulses Gastrointestinal: soft Extremity: Normal Capillary Refill, No Calf Tenderness Neurologic/Psychiatric: Alert Skin: Normal Color Results Lab Laboratory Tests 10/29/18 12:00: White Blood Count 11.6H, Red Blood Count 2.91L, Hemoglobin 8.7L, Hematocrit 27L , Mean Corpuscular Volume 92, Mean Corpuscular Hemoglobin 30, Mean Corpuscular Hemoglobin Concent 33, Red Cell Distribution Width 16.9H, Platelet Count 330, Mean Platelet Volume 9.4, Neutrophils (%) (Auto) 77H, Lymphocytes (%) (Auto) 11L , Monocytes (%) (Auto) 9, Eosinophils (%) (Auto) 3, Basophils (%) (Auto) 0, Neutrophils # (Auto) 9.0H, Lymphocytes # (Auto) 1.2, Monocytes # (Auto) 1.0, Eosinophils # (Auto) 0.3, Basophils # (Auto) 0.0, Sodium Level 139, Potassium Level 3.7, Chloride Level 108H, Carbon Dioxide Level 21, Anion Gap 10, Blood Urea Nitrogen 10, Creatinine 1.24, Estimat Glomerular Filtration Rate 56, BUN/ Creatinine Ratio 8, Glucose Level 134H, Calcium Level 7.7L, Corrected Calcium 9.1, Total Bilirubin 0.5, Aspartate Amino Transf (AST/SGOT) 47H, Alanine Aminotransferase (ALT/SGPT) 37, Alkaline Phosphatase 160H, Total Protein 4.4L, Albumin 2.2L 10/29/18 15:40: Glucometer 265H 10/29/18 20:46: Glucometer 74 10/30/18 05:10: Glucometer 89 10/30/18 05:25: White Blood Count 9.8, Red Blood Count 2.84L, Hemoglobin 8.5L, Hematocrit 26L, Mean Corpuscular Volume 92, Mean Corpuscular Hemoglobin 30, Mean Corpuscular Hemoglobin Concent 33, Red Cell Distribution Width 16.7H, Platelet Count 316, Mean Platelet Volume 9.4, Neutrophils (%) (Auto) 71, Lymphocytes (%) (Auto) 15, Monocytes (%) (Auto) 10, Eosinophils (%) (Auto) 4, Basophils (%) (Auto) 0, Neutrophils # (Auto) 7.0, Lymphocytes # (Auto) 1.5, Monocytes # (Auto) 0.9, Eosinophils # (Auto) 0.3, Basophils # (Auto) 0.0, Sodium Level 139, Potassium Level 3.3L, Chloride Level 107, Carbon Dioxide Level 22, Anion Gap 10, Blood Urea Nitrogen 11, Creatinine 1.28, Estimat Glomerular Filtration Rate 54, BUN/ Creatinine Ratio 9, Glucose Level 82, Calcium Level 7.8L, Corrected Calcium 9.2 , Total Bilirubin 0.5, Aspartate Amino Transf (AST/SGOT) 44H, Alanine Aminotransferase (ALT/SGPT) 37, Alkaline Phosphatase 146H, Total Protein 4.2L, Albumin 2.2L 10/30/18 10:47: Glucometer 132H Microbiology 10/28/18 Blood Culture - Preliminary, Resulted No growth 10/26/18 Urine Culture - Final, Complete Pseudomonas aeruginosa Assessment/Plan Assessment/Plan Assess & Plan/Chief Complaint Post-Op Delirium Lumbar Wound infection with Staph Epi Lumbar Hardware Failure Deconditioning Acute Blood Loss anemia UTI Delirium Very long, slow recovery, but improved from a few days ago. Clinical Quality Measures DVT/VTE Risk/Contraindication: Risk Factor Score Per Nursin RFS Level Per Nursing on Admit: 4+=Very High LEO BRANHAM MD Oct 30, 2018 11:24
--- NOTE | 2018-10-30 11:27 | Progress Note-Hospitalist ---
Subjective HPI/CC On Admission Date Seen by Provider: Oct 30, 2018 Time Seen by Provider: 10:30 CC: s/p spinal hardware failure replacement HPI: This is an 78-year-old white male who was transferred from inpatient rehabilitation department to ICU for close monitoring following spinal hardware failure replacement yesterday. He had an uncomplicated surgery and is currently recovering and doing well overall. Urinary output has decreased and blood pressure is 115 so will initiate low flow IV fluid of normal saline and encouraged him to take in nutrition and fluids today. He will be fitted for a shell back brace and then we will get him out of bed. Overall patient is doing much better was updated and patient feels better overall. Subjective/Events-last exam Patient more lucid today says confusion comes and goes Family the bedside Patient was tearful and depressed but I tried to reassure him since things are actually going in the right direction Family member met me outside in the [place] after exam and interview and asked why he was so dire on Wednesday and now he was doing okay and I told her that he has so many medical problems that although he is responding to treatment he has a long way to go before recovery so anything can happen at any time Patient denies any pain Will be up in a chair today Catheter in place Edema much improved after Lasix was given Creatinine stable Low potassium will be supplemented Lactinex will be started to try to avoid C. difficile colitis recurrence Review of Systems General: Fatigue Neurological: Other (depression) Focused Exam Lactate Level 10/28/18 10:00: Lactic Acid Level 0.64 Objective Exam Vital Signs Vital Signs Date Time Temp Pulse Resp B/P (MAP) Pulse Ox O2 Delivery O2 Flow Rate FiO2 10/30/18 08:15 99.8 74 20 136/60 (85) 92 Room Air 10/30/18 06:46 91 10/28/18 07:35 1.00 Capillary Refill : General Appearance: No Apparent Distress, WD/WN, Chronically ill Respiratory: Chest Non Tender, Lungs Clear, Normal Breath Sounds, No Accessory Muscle Use, No Respiratory Distress Cardiovascular: Regular Rate, Rhythm, No Edema, No Gallop, No JVD, No Murmur, Normal Peripheral Pulses Neurologic/Psychiatric: Alert, Oriented x3, No Motor/Sensory Deficits, Normal Mood/Affect Results/Procedures Lab Laboratory Tests 10/29/18 12:00 10/30/18 05:25 Patient resulted labs reviewed. Assessment/Plan Assessment and Plan Assess & Plan/Chief Complaint Assessment: Acute and severe delirium s/p stopped Fentanyl patch and started Risperdal with some improvement but then worsened and required Haldol due to severe aggression and delusions and it appears terminal delirium but now recovered a bit yesterday and today 10/30/18 which may lead to restarting rehab phase Recurrent severe back pain with referred lower abdominal pain similar to initial presentation obtained labs and CT scan and Dr Mc consultation which revealed displaced hardware in need of repeat surgery s/p on 10/20/18 POD # 9 Debility following spinal abscess status post 2 I&D's uncomplicated per Dr Mc Urinary retention acute maintained with leo but Dr Cortes consulted and he is appreciated but will place in-dwelling catheter for comfort C. difficile colitis resolved Severe anemia due to acute blood loss status post 4 units of blood while on MedSurg and ICU then 1 unit 10/20 then requiring another 2 units 7 days ago CAD DM CRI stable 1.5 baseline Yeast UTI Pseudomonas UTI on Cefepime Edema- resolved after Lasix given Hypokalemia Plan: Pain control but stopped Fentanyl patch since I suspected that to be the main factor in delirium but still an issue so increasing Risperdal and give Haldol for severe aggression but now appears to be terminal delirium but cleared a bit more today 10/30/18 Nebs Cefepime for Pseudomonas Guarded prognosis nonetheless although he appears to be improved immensely today Lactinex Potassium supplement SB evaluation Diagnosis/Problems Diagnosis/Problems (1) Pseudomonas urinary tract infection Status: Acute (2) Delirium Status: Resolved Resolution Date/Time: 10/30/18 @ 11:27 (3) Yeast UTI Status: Acute (4) Loosening of hardware in spine Status: Resolved Resolution Date/Time: 10/22/18 @ 12:52 (5) Intraspinal abscess and granuloma Status: Resolved Resolution Date/Time: 10/15/18 @ 14:02 (6) Urinary retention Status: Acute (7) Transfusion of blood during current hospitalization Status: Acute (8) Advanced age Status: Chronic (9) C. difficile colitis Status: Resolved Resolution Date/Time: 10/30/18 @ 11:27 (10) Renal insufficiency Status: Resolved Resolution Date/Time: 10/10/18 @ 09:41 (11) Leukocytosis Status: Resolved Qualifiers: Leukocytosis type: leukemoid reaction Qualified Codes: D72.823 - Leukemoid reaction Resolution Date/Time: 10/15/18 @ 14:02 (12) CAD (coronary artery disease) Status: Chronic Qualifiers: Coronary Disease-Associated Artery/Lesion type: viejas artery [place] vs. transplanted heart: viejas heart Associated angina: without angina Qualified Codes: I25.10 - Atherosclerotic heart disease of [place]jas coronary artery without angina pectoris (13) Atrial fibrillation Status: Chronic Qualifiers: Atrial fibrillation type: unspecified Qualified Codes: I48.91 - Unspecified atrial fibrillation (14) Hypokalemia Status: Acute (15) Edema Status: Acute Qualifiers: Edema type: localized Qualified Codes: R60.0 - Localized edema (16) In guarded condition Status: Acute Clinical Quality Measures DVT/VTE Risk/Contraindication: Risk Factor Score Per Nursin RFS Level Per Nursing on Admit: 4+=Very High MARQUEZ DELATORRE DO Oct 30, 2018 11:26
[2018-10-30] MEDS ORDERED: KCL 10 MEQ TAB (MICRO K) PO ONE (11:30)
[2018-10-30] MEDS ORDERED: IRON SUCROSE 200 MG/10 ML (VENOFER) VIAL IV ONE (11:30)
[2018-10-30] MEDS ORDERED: LACTOBACILLUS Acidoph/Bulgar 1 GM (LACTINEX) PACKET PO ONE (11:30)
[2018-10-30 12:28] VITALS: BP 102/56
[2018-10-30] MEDS: NS IV 1000 ML 1,000 ML IV SCH (13:41)
[2018-10-30] MEDS ORDERED: KCL 10 MEQ TAB (MICRO K) PO NR (13:45)
[2018-10-30 15:55] VITALS: BP 139/65
[2018-10-30] MEDS: TAMSULOSIN 0.4 MG (FLOMAX) CAP PO SCH (18:16)
[2018-10-30 19:35] VITALS: BP 142/61
[2018-10-30] MEDS: KCL 10 MEQ TAB (MICRO K) PO SCH (21:42)
[2018-10-30] MEDS: SIMvastatin 10 MG (ZOCOR) TAB PO SCH (21:43)
[2018-10-31] VITALS: BP 137/64
[2018-10-31] MEDS: NS IV 1000 ML 1,000 ML IV SCH (03:31)
[2018-10-31 04:00] VITALS: BP 162/72
[2018-10-31] MEDS: metFORMIN 500 MG (GLUCOPHAGE) TAB PO SCH (05:44)
[2018-10-31] MEDS: BETHANECHOL 25 MG (URECHOLINE) TAB PO SCH (05:44)
[2018-10-31] MEDS: PIOGLITAZONE 30MG (ACTOS) TAB PO SCH (05:45)
[2018-10-31] MEDS: MULTIVIT W/MINERALS TAB (THERAGRAN M) PO SCH (05:45)
[2018-10-31] MEDS: ACETAMINOPHEN 325 MG TABLET PO PRN (05:45)
[2018-10-31] MEDS: inSUlin ASPART (NovoLOG) 1 UNIT/0.01 ML (CHARGE PER UNIT) SC SCH (05:46)
[2018-10-31] MEDS: LACTOBACILLUS Acidoph/Bulgar 1 GM (LACTINEX) PACKET PO SCH (05:46)
--- NOTE | 2018-10-31 07:05 | Progress Note (SOAP) ---
Subjective Date Seen by a Provider: Oct 31, 2018 Time Seen by a Provider: 07:03 Subjective/Events-last exam Patient resting comfortably at this time, increase confusion and agitation during the night VSS Review of Systems Pulmonary: No Cough Gastrointestinal: No: Abdominal Pain Musculoskeletal: No: back pain, leg pain Neurological: Confusion Focused Exam Lactate Level 10/28/18 10:00: Lactic Acid Level 0.64 Objective Exam Vital Signs Date Time Temp Pulse Resp B/P (MAP) Pulse Ox O2 Delivery O2 Flow Rate FiO2 10/31/18 04:00 100.4 77 16 162/72 (102) 93 Room Air 10/31/18 00:00 99.6 65 20 137/64 (88) 94 Room Air 10/30/18 21:00 Room Air 10/30/18 20:19 Room Air 91 10/30/18 19:35 100.2 75 24 142/61 (88) 90 Room Air 10/30/18 15:55 98.7 70 24 139/65 (89) 93 Room Air 10/30/18 12:28 99.3 71 18 102/56 (71) 92 Room Air 10/30/18 09:00 Room Air 10/30/18 08:15 99.8 74 20 136/60 (85) 92 Room Air I & O 10/31/18 07:00 Intake Total 1360 ml Output Total 1230 ml Balance 130 ml Capillary Refill : General Appearance: No Apparent Distress Gastrointestinal: soft Neurologic/Psychiatric: No Motor/Sensory Deficits, Normal Mood/Affect, checker product design II- XII Norm as Tested Skin: Other (Wound vac in place) Results Lab Laboratory Tests 10/30/18 10:47: Glucometer 132H 10/30/18 12:30: 10/30/18 16:00: Glucometer 128H 10/30/18 20:44: Glucometer 231H 10/31/18 05:23: Glucometer 98 Microbiology 10/28/18 Blood Culture - Preliminary, Resulted No growth 10/26/18 Urine Culture - Final, Complete Pseudomonas aeruginosa Assessment/Plan Assessment/Plan Assess & Plan/Chief Complaint Lumbar wound abscess S/P I&D with hardware re-instrumentation Acute Delirium DM 2 UTI Wound Vac change today. We will return during vac change for inspection of wound Clinical Quality Measures DVT/VTE Risk/Contraindication: Risk Factor Score Per Nursin RFS Level Per Nursing on Admit: 4+=Very High WILNER HEREDIA Oct 31, 2018 07:05
[2018-10-31] MEDS: RT-ALBUTEROL SULF 2.5 MG/3 ML PRE-MIX VIAL INH SCH (07:27)
[2018-10-31 07:57] LABS: BASOPHILS % (AUTO) 0 % (0-10); EOSINOPHILS # (AUTO) 0.5 10^3/uL (0.0-0.3); EOSINOPHILS % (AUTO) 5 % (0-10); HEMATOCRIT 26 % (40-54); HEMOGLOBIN 8.6 G/DL (13.3-17.7); LYMPHOCYTES # (AUTO) 1.7 X 10^3 (1.0-4.0); LYMPHOCYTES % (AUTO) 18 % (12-44); MEAN CORPUSCULAR HEMOGLOBIN 30 PG (25-34); MEAN CORPUSCULAR HGB CONC 33 G/DL (32-36); MEAN CORPUSCULAR VOLUME 92 FL (80-99); MEAN PLATELET VOLUME 9.4 FL (7.4-10.4); MONOCYTES % (AUTO) 11 % (0-12); NEUTROPHILS # (AUTO) 6.4 X 10^3 (1.8-7.8); NEUTROPHILS % (AUTO) 67 % (42-75); PLATELET COUNT 289 10^3/uL (130-400); RED BLOOD COUNT 2.84 10^6/uL (4.35-5.85); RED CELL DISTRIBUTION WIDTH 17.1 % (10.0-14.5); WHITE BLOOD COUNT 9.6 10^3/uL (4.3-11.0)
[2018-10-31] MEDS ORDERED: TROUGH ORDER-PHARMACY XX NR (08:00)
[2018-10-31 08:18] LABS: ALBUMIN 2.2 GM/DL (3.2-4.5); BILIRUBIN,TOTAL 0.5 MG/DL (0.1-1.0); CALCIUM 7.6 MG/DL (8.5-10.1); CREATININE SERUM 1.27 MG/DL (0.60-1.30); POTASSIUM 3.6 MMOL/L (3.6-5.0); TOTAL PROTEIN 4.3 GM/DL (6.4-8.2)
[2018-10-31] MEDS: CEFEPIME INJECTION 1,000 MG in NS (IVPB) 50 ML IV SCH (08:24)
[2018-10-31] MEDS: ALLOPURINOL 300 MG (ZYLOPRIM) TAB PO SCH (08:34)
[2018-10-31] MEDS: AMIODARONE 200 MG (CORDARONE) TAB PO SCH (08:35)
[2018-10-31] MEDS: DOCUSATE SODIUM 100 MG (COLACE) CAP PO SCH (08:35)
[2018-10-31] MEDS: amLODIPine 5 MG (NORVASC) TAB PO SCH (08:35)
[2018-10-31] MEDS: risperiDONE 0.25 MG (RisperDAL) TAB PO SCH (08:35)
[2018-10-31] MEDS: OXYBUTYNIN (DITROPAN) 5 MG TAB PO SCH (08:35)
[2018-10-31] MEDS: PHENAZOPYRIDINE 100 MG (PYRIDIUM) TABLET PO SCH (08:35)
[2018-10-31] MEDS: lisINopril 20 MG (PRINIVIL) TABLET PO SCH (08:35)
[2018-10-31] MEDS: FAMOTIDINE 20 MG (PEPCID) TABLET PO SCH (08:35)
[2018-10-31] MEDS: KCL 10 MEQ TAB (MICRO K) PO SCH (08:35)
[2018-10-31] MEDS: meTOprolol TARTRATE 25 MG (LOPRESSOR) TABLET PO SCH (08:35)
[2018-10-31] MEDS: SENNOSIDES 8.6 MG (SENOKOT) TAB PO SCH (08:36)
--- NOTE | 2018-10-31 09:21 | Discharge Summary-Hospitalist ---
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 difficile colitis Status: Resolved (10) Renal insufficiency Status: Resolved (11) Leukocytosis Status: Resolved (12) CAD (coronary artery disease) Status: Chronic (13) Atrial fibrillation Status: Chronic (14) Hypokalemia Status: Acute (15) Edema Status: Acute (16) In guarded condition Status: Acute Discharge Summary Discharge Physical Exam Allergies: Coded Allergies: cephalexin (Verified Allergy, Unknown, 10/07/18) hydrocodone (Verified Allergy, Unknown, 10/07/18) Vitals & I&Os Vital Signs Date Time Temp Pulse Resp B/P (MAP) Pulse Ox O2 Delivery O2 Flow Rate FiO2 10/31/18 07:28 Room Air 90 10/31/18 04:00 100.4 77 16 162/72 (102) 93 10/28/18 07:35 1.00 General Appearance: No Apparent Distress, WD/WN, Chronically ill, Obese Respiratory: Chest Non Tender, Lungs Clear, Normal Breath Sounds, No Accessory Muscle Use, No Respiratory Distress Cardiovascular: Regular Rate, Rhythm, No Edema, No Gallop, No JVD, No Murmur, Normal Peripheral Pulses Neurologic/Psychiatric: Alert, No Motor/Sensory Deficits, Normal Mood/Affect, Disoriented Hospital Course Reviewed hospital course note below and agree with assessment, plan and course details. Labs (last 24 hrs) Microbiology 10/28/18 Blood Culture - Preliminary, Resulted No growth 10/26/18 Urine Culture - Final, Complete Pseudomonas aeruginosa Patient resulted labs reviewed. Pending Labs Discussion & Recommendations Discharge Planning: <30 minutes discharge planning Discharge Home Medications: Active Scripts Active Novolog (Insulin Aspart) 100 Unit/1 Ml Susp 0 Unit SC ACHS 30 Days Floranex Granules Packet (L. Acidophilus/[place]) 1 Each Gran.pack 1 Gm PO ACHS 30 Days Phenazopyridine HCl 100 Mg Tablet 100 Mg PO TIDPC 30 Days Tramadol HCl 50 Mg Tablet 50-100 Mg PO Q4H PRN 10 Days Fentanyl Patch 25 MCG (Fentanyl) 1 Each Patch.td72 25 Mcg TD Q72H 10 Days Amlodipine Besylate 5 Mg Tablet 5 Mg PO DAILY 30 Days Metoprolol Tartrate 25 Mg Tablet 25 Mg PO BID 30 Days Flomax (Tamsulosin HCl) 0.4 Mg Cap 0.4 Mg PO DAILY@1800 30 Days Bethanechol Chloride 10 Mg Tablet 10 Mg PO ACHS 30 Days Reported Amiodarone HCl 200 Mg Tablet 200 Mg PO DAILY Buprenorphine 1 Each Patch.tdwk 1 Patch TD WEEK Metformin HCl 500 Mg Tablet 500 Mg PO BID Pioglitazone HCl 45 Mg Tablet 45 Mg PO DAILY Lovastatin 20 Mg Tablet 20 Mg PO DAILY Allopurinol 300 Mg Tablet 300 Mg PO DAILY Lisinopril 20 Mg Tablet 20 Mg PO DAILY Oxybutynin Chloride 5 Mg Tablet 5 Mg PO TID Instructions to patient/family Please see electronic discharge instructions given to patient. Clinical Quality Measures DVT/VTE Risk/Contraindication: Risk Factor Score Per Nursin RFS Level Per Nursing on Admit: 4+=Very High ANTHONY GIRON MED STUDENT 10/31/18 1052: Discharge Summary Discharge Physical Exam Allergies: Coded Allergies: cephalexin (Verified Allergy, Unknown, 10/07/18) hydrocodone (Verified Allergy, Unknown, 10/07/18) General Appearance: No Apparent Distress, WD/WN Respiratory: Chest Non Tender, Lungs Clear, Normal Breath Sounds, No Accessory Muscle Use, No Respiratory Distress Cardiovascular: Regular Rate, Rhythm, No Edema, No Gallop, No JVD, No Murmur Gastrointestinal: Normal Bowel Sounds Skin: Normal Color, Warm/Dry Neurologic/Psychiatric: Alert, No Motor/Sensory Deficits, Disoriented Hospital Course Assessment: 1) Acute delirium 2) Pseudomonas UTI 3) Debility due to repeat surgeries 4) Intraspinal abscess 5) Urinary retention 6) Renal insufficiency 7) C. diff colitis (resolved) 8) Diabetes Plan: 1) Continue antibiotics for UTI 2) Ambulate to chair 3) 3 more weeks of vancomycin 4) Admit to swingbed 5) Physical rehabilitation consult 6) Wound vac change M/W/F 7) Possible inpatient rehab by end of week Hospital Course: The patient is an 78 y/o male who was admitted to ICU on 10/21 for monitoring after surgery for failed spinal hardware. He was found to have a BP of 115 and was started on IV fluids. It was also observed that the patient was having decreased urinary output. Patient reported that he was feeling well and his pain was well controlled. On 10/22 the patient states that he was doing well but required 2 more units of blood. reported that he was not eating well. Patients catheter was still in place. On 10/23 the patient reported reduce pain and his hgb had improved. On 10/24 the nursing staff reported that the patient began having delirium at night. On 10/25 the patient became agitated and started hallucinating. The patient was started on Risperdal and Fentanyl was discontinued. On 10/26 the nursing staff and reported that the delirium had slightly improved and he was not in pain. On 10/27 the patient became aggressive with the nursing staff and was administered a dose of Haldol. The reported that the patient was becoming more confused. On 10/28 antibiotic therapy for a Pseudomonas UTI was initiated. His delirium was worsened and his WBC count was elevated at 16.0. On 10/29 his delirium had much improved and the patient was able to answer questions. On 10/30 the patient was much more lucid and was having conversations with his family. This morning he is slightly confused but able to answer questions. He does not complain of pain and he will be admitted to swing-bed for close observation. Problem Qualifiers (1) Leukocytosis: Leukocytosis type: leukemoid reaction Qualified Codes: D72.823 - Leukemoid reaction (2) CAD (coronary artery disease): Coronary Disease-Associated Artery/Lesion type: [place] artery [place] vs. transplanted heart: [place] heart Associated angina: without angina Qualified Codes: I25.10 - Atherosclerotic heart disease of [place] coronary artery without angina pectoris (3) Atrial fibrillation: Atrial fibrillation type: unspecified Qualified Codes: I48.91 - Unspecified atrial fibrillation (4) Edema: Edema type: localized Qualified Codes: R60.0 - Localized edema MARQUEZ DELATORRE DO Oct 31, 2018 09:21 ANTHONY GIRON MED STUDENT Oct 31, 2018 10:52
[2018-10-31] MEDS: FLUCONAZOLE 200 MG/100 ML 50 ML, EMPTY IV BAG (PVC) 1 EA IV SCH ×2 (10:04)
== END 2018-10-31 10:10 | disposition swing bed (61) | DRG 459 ==
LOC: SDC 12:23 → ICU 12:23 → SDC 18:12 → ICU 18:12 → 4TH 10-23 16:00 → UNDOFXSDCSVC 10-23 16:00 → 4TH 10-23 16:00 → UNDOADMIN 10-23 16:01 → 4TH 10-23 16:01 → SDC 10-23 16:01 → 4TH 10-23 16:01 → UNDODISIN 10-31 10:10 → EDSTATUS 11-01 10:10
PROVIDERS: ADMIT Orthopaedic Surgery Orthopaedic Surgery of the Spine; ATTEND Orthopaedic Surgery Orthopaedic Surgery of the Spine
PROC: 0RGA071 Fusion of Thoracolumbar Vertebral Joint with Autologous Tissue Substitute, Posterior Approach, Posterior Column, Open Approach (ICD-10-PCS; 2018-10-20)
PROC: 0SG0071 Fusion of Lumbar Vertebral Joint with Autologous Tissue Substitute, Posterior Approach, Posterior Column, Open Approach (ICD-10-PCS; 2018-10-20)
PROC: 0SP004Z Removal of Internal Fixation Device from Lumbar Vertebral Joint, Open Approach (ICD-10-PCS; 2018-10-20)
PROC: 0SP304Z Removal of Internal Fixation Device from Lumbosacral Joint, Open Approach (ICD-10-PCS; 2018-10-20)
PROC: 0RG7071 Fusion of 2 to 7 Thoracic Vertebral Joints with Autologous Tissue Substitute, Posterior Approach, Posterior Column, Open Approach (ICD-10-PCS; principal; 2018-10-20 13:51)
DX: T84.216A Breakdown (mechanical) of internal fixation device of vertebrae, initial encounter (principal); T84.63XA Infection and inflammatory reaction due to internal fixation device of spine, initial encounter; G06.1 Intraspinal abscess and granuloma; D62 Acute posthemorrhagic anemia; A04.72 Enterocolitis due to Clostridium difficile, not specified as recurrent; B37.49 Other urogenital candidiasis; B96.5 Pseudomonas (aeruginosa) (mallei) (pseudomallei) as the cause of diseases classified elsewhere; Z51.5 Encounter for palliative care; Z66 Do not resuscitate; B95.8 Unspecified staphylococcus as the cause of diseases classified elsewhere; R41.0 Disorientation, unspecified; T40.4X5A Adverse effect of other synthetic narcotics, initial encounter; E87.6 Hypokalemia; I12.9 Hypertensive chronic kidney disease with stage 1 through stage 4 chronic kidney disease, or unspecified chronic kidney disease; N18.9 Chronic kidney disease, unspecified; I25.10 Atherosclerotic heart disease of native coronary artery without angina pectoris; I48.2 Chronic atrial fibrillation; E11.9 Type 2 diabetes mellitus without complications; F32.9 Major depressive disorder, single episode, unspecified; F41.9 Anxiety disorder, unspecified; N40.0 Benign prostatic hyperplasia without lower urinary tract symptoms; R33.9 Retention of urine, unspecified; E78.00 Pure hypercholesterolemia, unspecified; R05 Cough; R60.0 Localized edema; R54 Age-related physical debility; E66.9 Obesity, unspecified; Z68.39 Body mass index [BMI] 39.0-39.9, adult; Z95.1 Presence of aortocoronary bypass graft
CPT/HCPCS: 36415; 80048; 80053; 80202; 81000; 82962; 83540; 83605; 83735; 84100; 85007; 85014; 85018; 85025; 85027; 85652; 86141; 86850; 86900; 86901; 86920; 87040; 87077; 87088; 87186; 94640; 94664; 94760

== ENCOUNTER 2018-10-28 13:18 | Inpatient (IN) | payer MEDICARE, OTHER ==
[~2018-10-28] VITALS: Ht 162.6 cm; Wt 103.9 kg
[2018-10-31] MEDS ORDERED: MILK OF MAGNESIA 400 MG/5 ML 30 ML UDC PO PRN (10:15)
[2018-10-31] MEDS ORDERED: ONDANSETRON 4 MG/2 ML (SDV) Z0FRAN IV PRN (10:15)
[2018-10-31] MEDS ORDERED: FLEET ENEMA ADULT 1 EA BTL PR PRN (10:15)
[2018-10-31] MEDS ORDERED: ACETAMINOPHEN 650 MG SUPP (TYLENOL) PR PRN (10:15)
[2018-10-31] MEDS ORDERED: BISACODYL 10 MG SUPP (DULCOLAX) PR PRN (10:15)
[2018-10-31] MEDS ORDERED: ACETAMINOPHEN 325 MG TABLET PO PRN (10:15)
--- NOTE | 2018-10-31 11:37 | Physical Therapy Evaluation ---
PT Evaluation-General Medical Diagnosis Admission Date Oct 31, 2018 at 10:12 Medical Diagnosis: UTI/back surgery/hardware failure Onset Date: Oct 21, 2018 Therapy Diagnosis Therapy Diagnosis: generalized weakness/debility Height/Weight Height (Feet): 5 Height (Inches): 4.00 Weight (Pounds): 229 Weight (Ounces): 1.0 Precautions Precautions/Isolations: Fall Prevention, Standard Precautions Weight Bear Status Right Lower Extremity: Right Full Weight Bearing Left Lower Extremity: Left Full Weight Bearing Referral Physician: Christy Reason for Referral: Evaluation/Treatment Medical History Pertinent Medical History: Atrial Fib, CABG, CAD, DM, HTN Additional Medical History 4-5 major back surgeries in 6-8 weeks secondary to infection and hardware failure Current History SWB status secondary to UTI Reviewed History: Yes Social History Home: Single Level Current Living Status: Spouse Prior/Core FIM Prior Level of Function Therapy Code Descriptions/Definitions Functional [place] Measure: 0=Not Assessed/NA 4=Minimal Assistance 1=Total Assistance 5=Supervision or Setup 2=Maximal Assistance 6=Modified [place] 3=Moderate Assistance 7=Complete [place] Therapy Quality Codes: 6 Independent with activity with or without an assistive device 5 Patient requires set up or clean up by helper. Patient completes activity by themselves 4 Supervision or touching assist (CGA). [place] provide cues , steadying assist 3 The helper provides less than half the effort to complete the activity 2 The helper provides more than half the effort to complete the activity 1 Dependent. The helper does all the effort to complete an activity 7 Patient refused to complete or attempt activity 9 The patient did not perform the activity before the current illness or injury 88 Not attempted due to Medical conditions or safety concerns Functional Abilities and Goals: Independent: Patient completed the activities by him/herself, with or without an assistive device, with no assistance from a helper. Needed Some Help: Patient needed partial assistance from another person to complete activities. Dependent: A helper completed the activities for the patient. Unknown: Not Applicable: Bed Mobility: 3 Transfers (B,C,W/C) (FIM): 3 Gait: 1 Indoor Mobility (Ambulation): Needed Some Help Stairs: Needed Some Help Prior Devices Use: Walker Prior Device Use: FWW/w/c has been in hospital or care facility x 2-3 months PT Evaluation-Current Subjective Patient is more alert on this date. Spouse present. Patient is confused and mumbles. Pain Numeric Pain Scale: 0-No Pain Location: No Pain Reported Objective Patient Orientation: Confused, Mumbles Problem Solving: Poor Attachments: Hunt Catheter, IV ROM/Strength ROM Lower Extremities bilateral LE WFL Strenght Lower Extremities right LE 3+/5 grossly/left LE 3-/5 grossly (unable to formally test due to patient's confusion and inability to follow simple direction) Integumentary/Posture Integumentary wound vac thoracic to pelvis Bowel Incontinence: Yes Bladder Incontinence: Hunt Cath Posture trunk flexed posture Neuromuscular (Tone, Coordination, Reflexes) noted "twitching" of total body/severely diminished coordination Sensory Vision: Functional Hearing: Hearing Aid/Aides Sensation Right Lower Extremit: Impaired Sensation Left Lower Extremity: Impaired Transfers Therapy Code Descriptions/Definitions Functional [place] Measure: 0=Not Assessed/NA 4=Minimal Assistance 1=Total Assistance 5=Supervision or Setup 2=Maximal Assistance 6=Modified [place] 3=Moderate Assistance 7=Complete [place] Therapy Quality Codes: 6 Independent with activity with or without an assistive device 5 Patient requires set up or clean up by helper. Patient completes activity by themselves 4 Supervision or touching assist (CGA). [place] provide cues , steadying assist 3 The helper provides less than half the effort to complete the activity 2 The helper provides more than half the effort to complete the activity 1 Dependent. The helper does all the effort to complete an activity 7 Patient refused to complete or attempt activity 9 The patient did not perform the activity before the current illness or injury 88 Not attempted due to Medical conditions or safety concerns Transfers (B, C, W/C) (FIM): 2 Scootin Rollin Roll Left to Right (QC): 3 Supine to/from Sit: 3 Sit to/from Stand: 2 Sit to Lying (QC): 3 Lying to Sitting/Side of Bed(Q: 3 Sit to Stand (QC): 2 Chair/Sma-vc-Qitqv Xfer(QC): 2 max assist with sit to stand. improved bed mobility on this date Gait Does the Patient Walk?: No and Walking Goal IS indicated Mode of Locomotion: Both Anticipated Mode of Locomotion: Both Wheelchair Training Does the Pt Use a Wheelchair?: No Balance Sitting Static: Fair Sitting Dynamic: Fair Standing Static: Poor Standing Dynamic: Poor Treatment bilateral LE exercises AAROM 15 reps each AP, LAQ, hip flexion/sit to stand transfers x 4 sets maximum assist with patient standing x 20 sec each. Assessment/Needs 78 y.o. male, has been seen for several weeks to address functional strength and mobility. Patient is currently limited due to UTI and is receiving IV antibiotics. He is more alert and able to tolerate minimal activity with therapy. PT to address functional strength and mobility to improve current LOF. Rehab Potential: Guarded PT Filter Assembler Goals Longterm Goals PT Longterm Goals Time Frame: Nov 19, 2018 Transfers (B,C,W/C) (FIM): 4 Sit to Lying (QC): 4 Lying-Sitting on Side/Bed(QC): 4 Sit to Stand (QC): 4 Rollin Roll Left to Right (QC): 4 Chair/Vrl-qd-Yysxg Xfer(QC): 4 Car Transfer (QC): 4 Does the Patient Walk: No and Walking Goal IS indicated Gait (FIM): 1 Gait distance (FIM): 1=up to 49 ft Distance: 15' Walk 10 feet (QC): 4 Walk 10ft-Uneven Surface(QC): 4 Walk 50ft with 2 Turns (QC): 88 Walk 150 ft (QC): 88 Gait Level of Assist: 4 Gait Assistive Device: FWW PT Plan Problem List Problem List: Activity Tolerance, Functional Strength, Safety, Balance, Gait, Transfer Treatment/Plan Treatment Plan: Continue Plan of Care Treatment Plan: Bed Mobility, Education, Functional Activity Cris, Functional Strength, Gait, Safety, Therapeutic Exercise, Transfers Treatment Duration: Nov 19, 2018 Frequency: 6-11/wk as patient medical status improves Estimated Hrs Per Day: .5 hour per day Patient and/or Family Agrees t: Yes Discharge Recommendations Therapy D/C Recommendations: Home w/ Family Support, Shelter Placement, Shelter (TCU/NH) Time/GCodes Time In: 1040 Time Out: 1103 Total Billed Treatment Time: 23 Total Billed Treatment 1 visit EVModC 8 min FA 15 min KAL VERMA PT Oct 31, 2018 11:37
[2018-10-31] MEDS: LACTOBACILLUS Acidoph/Bulgar 1 GM (LACTINEX) PACKET PO SCH ×3 (12:04→20:56)
[2018-10-31] MEDS: BETHANECHOL 25 MG (URECHOLINE) TAB PO SCH ×3 (12:04→20:52)
[2018-10-31] MEDS: ENOXAPARIN 40 MG/0.4 ML (LOVENOX) SYR SC SCH (12:04)
[2018-10-31] MEDS: VANCOMYCIN INJECTION 1,000 MG in NS (IVPB) 250 ML IV SCH (12:05)
[2018-10-31] MEDS: inSUlin ASPART (NovoLOG) 1 UNIT/0.01 ML (CHARGE PER UNIT) SC SCH ×3 (12:05→20:50)
[2018-10-31] MEDS ORDERED: amLODIPine 5 MG (NORVASC) TAB PO NR (12:45)
[2018-10-31] MEDS: NS IV 1000 ML 1,000 ML IV SCH (13:12)
[2018-10-31] MEDS: PHENAZOPYRIDINE 100 MG (PYRIDIUM) TABLET PO SCH ×2 (13:13→17:35)
[2018-10-31] MEDS: OXYBUTYNIN (DITROPAN) 5 MG TAB PO SCH ×2 (13:13→20:51)
--- NOTE | 2018-10-31 13:31 | Physical Therapy Daily Note ---
PT Daily Note-Current Subjective Patient is very confused and states he wants to walk. PT had difficulty reasoning with patient on patient's inability to perform this activity. Finally agrees to back to bed. Pain Numeric Pain Scale: 5-Moderate Pain Location: Medial, Lower Location Body Site: Back Pain Description: Acute Mental Status Patient Orientation: Confused, Mumbles Attachments: Hunt Catheter, IV wound vac Transfers Therapy Code Descriptions/Definitions Functional [place] Measure: 0=Not Assessed/NA 4=Minimal Assistance 1=Total Assistance 5=Supervision or Setup 2=Maximal Assistance 6=Modified [place] 3=Moderate Assistance 7=Complete [place] Therapy Quality Codes: 6 Independent with activity with or without an assistive device 5 Patient requires set up or clean up by helper. Patient completes activity by themselves 4 Supervision or touching assist (CGA). [place] provide cues , steadying assist 3 The helper provides less than half the effort to complete the activity 2 The helper provides more than half the effort to complete the activity 1 Dependent. The helper does all the effort to complete an activity 7 Patient refused to complete or attempt activity 9 The patient did not perform the activity before the current illness or injury 88 Not attempted due to Medical conditions or safety concerns Transfers (B, C, W/C) (FIM): 2 Scootin Rollin Roll Left to Right (QC): 2 Supine to/from Sit: 2 Sit to/from Stand: 2 Sit to Lying (QC): 2 Sit to Stand (QC): 2 Chair/Cnl-su-Okiip Xfer(QC): 2 Bed to/from Chair: 2 max assist with all sit to stand and bed mobility with use of gait belt. Patient repositioned to side lying right with pillow placement for comfort. Weight Bearing Right Lower Extremity: Right Full Weight Bearing Left Lower Extremity: Left Full Weight Bearing Assessment Due to confusion, patient requires redirection to remain on task He has difficulty with simple direction. Due to multiple hardware failures, transfers to be performed with use of gait belt up high on torso with assist of 2 with SPT. DO NOT USE SIT TO STAND LIFT. This could compromise the thoracic/lumbar hardware and wound vac and overall healing process. Nursing notified. PT Information Tech Goals Information Tech Goals PT Information Tech Goals Time Frame: Nov 19, 2018 Transfers (B,C,W/C) (FIM): 4 Sit to Lying (QC): 4 Lying-Sitting on Side/Bed(QC): 4 Sit to Stand (QC): 4 Rollin Roll Left to Right (QC): 4 Chair/Yzn-xu-Rzaat Xfer(QC): 4 Car Transfer (QC): 4 Does the Patient Walk: No and Walking Goal IS indicated Gait (FIM): 1 Gait distance (FIM): 1=up to 49 ft Distance: 15' Walk 10 feet (QC): 4 Walk 10ft-Uneven Surface(QC): 4 Walk 50ft with 2 Turns (QC): 88 Walk 150 ft (QC): 88 Gait Level of Assist: 4 Gait Assistive Device: FWW PT Plan Treatment/Plan Treatment Plan: Continue Plan of Care Treatment Plan: Bed Mobility, Education, Functional Activity Cris, Functional Strength, Gait, Safety, Therapeutic Exercise, Transfers Treatment Duration: Nov 19, 2018 Frequency: 6-11/wk as patient medical status improves Estimated Hrs Per Day: .5 hour per day Patient and/or Family Agrees t: Yes Time/GCodes Time In: 1245 Time Out: 1318 Total Billed Treatment Time: 23 Total Billed Treatment 1 visit FA x 2 23 min KAL VERMA PT Oct 31, 2018 13:31
--- NOTE | 2018-10-31 15:02 | Occupational Therapy Eval ---
OT Evaluation-General/PLF Medical Diagnosis Admission Date Oct 31, 2018 at 10:12 Medical Diagnosis: UTI/back surgery/hardware failure Onset Date: Sep 27, 2018 Therapy Diagnosis Therapy Diagnosis: decr self care, weakness, decr funct mob, decr act rinku, confusion Height/Weight Height (Feet): 5 Height (Inches): 4.00 Weight (Pounds): 229 Weight (Ounces): 1.0 Precautions Precautions/Isolations: Fall Prevention, Standard Precautions Referral Physician: Christy Referral Reason: Evaluation/Treatment Medical History Pertinent Medical History: Atrial Fib, CABG, CAD, DM, HTN Additional Medical History Chronic back pain. BPH. Cataract surgery and 2 other surgeries L eye. Current History Has had 4 back surgeries since April, most recent 10-23-18. Includes stay on IRF but discharged to acute care for more surgery for hardware failure. Reviewed History: Yes Social History Home: Single Level Current Living Status: Spouse Entry Into Home: Stairs With Railing Steps Into Home: 3 ADL-Prior Level of Function Therapy Code Descriptions/Definitions Functional [place] Measure: 0=Not Assessed/NA 4=Minimal Assistance 1=Total Assistance 5=Supervision or Setup 2=Maximal Assistance 6=Modified [place] 3=Moderate Assistance 7=Complete [place] Therapy Quality Codes: 6 Independent with activity with or without an assistive device 5 Patient requires set up or clean up by helper. Patient completes activity by themselves 4 Supervision or touching assist (CGA). [place] provide cues , steadying assist 3 The helper provides less than half the effort to complete the activity 2 The helper provides more than half the effort to complete the activity 1 Dependent. The helper does all the effort to complete an activity 7 Patient refused to complete or attempt activity 9 The patient did not perform the activity before the current illness or injury 88 Not attempted due to Medical conditions or safety concerns Functional Abilities and Goals: Independent: Patient completed the activities by him/herself, with or without an assistive device, with no assistance from a helper. Needed Some Help: Patient needed partial assistance from another person to complete activities. Dependent: A helper completed the activities for the patient. Unknown: Not Applicable: ADL PLOF Comments Prior to back surgery in April, pt was able to manage his basic ADLs with no help. He also managed his medications and check book. 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 Self Care: Independent Functional Cognition: Independent DME/Equipment: Bath Chair, Shower, Tall Toilet OT Current Status Subjective Pt seen in room, up ini bed, agreeable to OT. Pain reported 4/10 when he wasn't moving (like when in bed) but said it could get up to 7/10. Appearance Initially alert but became more confused and agitated. Mental Status/Objective Patient Orientation: Person, Place, Time Attachments: Central Line, Hunt Catheter, IV, Telemetry, Other-See Comments ( wound vac) Current Glasses/Contacts: Yes Hearing Aids: Yes Dentures/Partials: No Hand Dominance: Right Upper Extremity ROM Grossly WFL except shoulder approx 80-90 degrees flex/abd Upper Extremity Coordination Fair Upper Extremity Strength Grossly 4/5 bilat (except at shoulders) ADL-Treatment ADL-Current Pt has had delirium post op and been quite confused. reported that he has been able to feed himself part of a hotdog today but he needs some assistance ( nursing reported that he is a feeder). Refused to brush teeth because he wasn't done eating, did wash face but not hands. Dependant with dressing. Dependant toileting, with Hunt and bedpan. Transfers max assist per PT eval. Dependant bathing. Eating (FIM): 3 (mod assist) Eating (QC): 3 (mod assist) Grooming (FIM): 3 (Washed face with washcloth but refused to wash hands. ) Oral Hygiene (QC): 7 (Refused) Bathing (FIM): 1 Shower/Bathe Self (QC): 1 Upper Body Dressing (FIM): 1 Upper Body Dressing (QC): 1 Lower Body Dressing (FIM): 1 Lower Body Dressing (QC): 1 On/Off Footwear (QC): 1 Toileting (FIM): 1 (Unable to manage clothing or hygiene. Hunt, bedpan) Toileting Hygiene (QC): 1 Toilet/Commode Transfer (FIM): 0 Toilet Transfer (QC): 88 Shower Transfer (FIM): 0 Education OT Patient Education: Purpose of tx/functional activities, Rehab process Teaching Recipient: Patient, Family Teaching Methods: Discussion Response to Teaching: Reinforcement Needed OT Short Term Goals Short Term Goals Time Frame: Nov 07, 2018 Eating(FIM): 5 Grooming(FIM): 4 Bathing(FIM): 3 Upper Body Dressing(FIM): 4 Lower Body Dressing(FIM): 3 Toileting(FIM): 3 Toilet/Commode Transfer(FIM): 3 Additional Short Term Goals: 1-Demonstrate ADL Tasks, 2-Verbalize Understanding , 3-ImproveStrength/Cris 1=Demonstrate adherence to instructed precautions during ADL tasks. 2=Patient will verbalize/demonstrate understanding of assistive devices/ modifications for ADL. 3=Patient will improve strength/tolerance for activity to enable patient to perform ADL's. OT Correction Goals Correction Goals Time Frame: Nov 19, 2018 Eating (FIM): 6 Eating (QC): 6 Groomin Oral Hygiene (QC): 5 Bathing(FIM): 5 Shower/Bathe Self (QC): 4 Upper Body Dressing(FIM): 5 Upper Body Dressing (QC): 4 Lower Body Dressing(FIM): 5 Lower Body Dressing (QC): 4 On/Off Footwear (QC): 5 Toileting(FIM): 5 Toileting Hygiene (QC): 4 Toilet/Commode Transfer(FIM): 5 Toilet/Commode Transfer (QC): 4 Shower Transfer(FIM): 4 Additional Goals: 1-Demonstrate ADL Tasks, 2-Verbalize Understanding, 3- ImproveStrength/Cris 1=Demonstrate adherence to instructed precautions during ADL tasks. 2=Patient will verbalize/demonstrate understanding of assistive devices/ modifications for ADL. 3=Patient will improve strength/tolerance for activity to enable patient to perform ADL's. OT Education/Plan Problem List/Assessment Assessment: Decreased Activ Tolerance, Decreased UE Strength, Dependent Transfers, Impaired Bed Mobility, Impaired Cognition, Impaired Funct Balance, Impaired Self-Care Skills, Restricted Funct UE ROM Pt would benefit from skilled OT to increase his independence in basic self care Discharge Recommendations Plan/Recommendations: Continue POC Treatment Plan/Plan of Care Treatment,Training & Education: Yes Patient would benefit from OT for education, treatment and training to promote independence in ADL's, mobility, safety and/or upper extremity function for ADL' s. Plan of Care: ADL Retraining, Functional Mobility, UE Funct Exercise/Act, UE Neuromus Re-Ed/Coord Treatment Duration: Nov 19, 2018 Frequency: 5 times per week Estimated Hrs Per Day: .5 hour per day Agreement: Yes Rehab Potential: Guarded Time/GCodes Start Time: 14:08 Stop Time: 14:24 Total Time Billed (hr/min): 16 Billed Treatment Time visit, 16 minutes evaluation high intensity CRISTIAN MERIDA OT Oct 31, 2018 15:02
[2018-10-31 16:40] VITALS: BP 155/86
[2018-10-31] MEDS: RT-ALBUTEROL SULF 2.5 MG/3 ML PRE-MIX VIAL INH SCH ×2 (16:52→18:52)
[2018-10-31] MEDS: TAMSULOSIN 0.4 MG (FLOMAX) CAP PO SCH (17:35)
[2018-10-31] MEDS: metFORMIN 500 MG (GLUCOPHAGE) TAB PO SCH (17:35)
[2018-10-31 18:13] VITALS: BP 155/86
[2018-10-31 20:25] VITALS: BP 163/72
[2018-10-31] MEDS: CEFEPIME INJECTION 1,000 MG in NS (IVPB) 50 ML IV SCH (20:49)
[2018-10-31] MEDS: risperiDONE 0.25 MG (RisperDAL) TAB PO SCH (20:52)
[2018-10-31] MEDS: DOCUSATE SODIUM 100 MG (COLACE) CAP PO SCH (20:52)
[2018-10-31] MEDS: SENNOSIDES 8.6 MG (SENOKOT) TAB PO SCH (20:53)
[2018-10-31] MEDS: SIMvastatin 10 MG (ZOCOR) TAB PO SCH (20:53)
[2018-10-31] MEDS: meTOprolol TARTRATE 25 MG (LOPRESSOR) TABLET PO SCH (20:53)
[2018-10-31] MEDS: KCL 10 MEQ TAB (MICRO K) PO SCH (20:55)
[2018-11-01] VITALS: BP 142/64
[2018-11-01] MEDS: NS IV 1000 ML 1,000 ML IV SCH ×3 (00:47→18:43)
[2018-11-01 04:00] VITALS: BP 144/57
[2018-11-01] MEDS: inSUlin ASPART (NovoLOG) 1 UNIT/0.01 ML (CHARGE PER UNIT) SC SCH ×4 (05:19→21:24)
[2018-11-01] MEDS: BETHANECHOL 25 MG (URECHOLINE) TAB PO SCH ×4 (06:45→21:23)
[2018-11-01] MEDS: PIOGLITAZONE 30MG (ACTOS) TAB PO SCH (06:45)
[2018-11-01] MEDS: LACTOBACILLUS Acidoph/Bulgar 1 GM (LACTINEX) PACKET PO SCH ×4 (06:45→21:23)
[2018-11-01] MEDS: metFORMIN 500 MG (GLUCOPHAGE) TAB PO SCH ×2 (06:45→17:30)
[2018-11-01] MEDS: MULTIVIT W/MINERALS TAB (THERAGRAN M) PO SCH (06:45)
[2018-11-01] MEDS: RT-ALBUTEROL SULF 2.5 MG/3 ML PRE-MIX VIAL INH SCH ×3 (07:20→22:27)
[2018-11-01 08:00] VITALS: BP 114/54
--- NOTE | 2018-11-01 08:43 | Progress Note-Hospitalist ---
MARQUEZ DELATORRE DO 11/01/18 0843: Subjective HPI/CC On Admission Date Seen by Provider: Nov 01, 2018 Time Seen by Provider: 08:30 Subjective/Events-last exam Patient a bit better mentation but now low grade fever with cough and mild tachypnea noted Cefepime and Vanc both on board so checking CXR and labs Updated son Filled out FMLA forms Review of Systems Pulmonary: Cough Objective Exam Vital Signs Vital Signs Date Time Temp Pulse Resp B/P (MAP) Pulse Ox O2 Delivery O2 Flow Rate FiO2 11/01/18 20:03 98.0 67 14 108/58 (75) 91 Room Air 11/01/18 15:33 21 Capillary Refill : General Appearance: No Apparent Distress, WD/WN, Chronically ill Respiratory: Chest Non Tender, Accessory Muscle Use, Crackles, Decreased Breath Sounds, Wheezing Cardiovascular: Regular Rate, Rhythm, No Edema, No Gallop, No JVD, No Murmur, Normal Peripheral Pulses Neurologic/Psychiatric: Alert, Disoriented Results/Procedures Lab Laboratory Tests 11/01/18 09:20 Patient resulted labs reviewed. Assessment/Plan Assessment and Plan Assess & Plan/Chief Complaint Assessment: 1) Acute delirium 2) Pseudomonas UTI 3) Debility due to repeat surgeries 4) Intraspinal abscess 5) Urinary retention 6) Renal insufficiency 7) C. diff colitis (resolved) 8) Diabetes PLan: Continue treatment Palliative care management is appreciated Monitor Diagnosis/Problems Diagnosis/Problems (1) Wheezing Status: Acute (2) Fever Status: Acute Qualifiers: Fever type: unspecified Qualified Codes: R50.9 - Fever, unspecified (3) Delirium Status: Acute (4) Pseudomonas urinary tract infection Status: Acute (5) Yeast UTI Status: Acute (6) Advanced age Status: Chronic (7) Renal insufficiency Status: Resolved Resolution Date/Time: 10/10/18 @ 09:41 ANTHONY GIRON MED STUDENT 11/01/18 0905: Subjective Subjective/Events-last exam Patient is still very confused and agitated Patient has not been eating well Son reports that the patient has not been complaining of pain Patient continues to decline Objective Exam General Appearance: Chronically ill Respiratory: Chest Non Tender, Wheezing Cardiovascular: Regular Rate, Rhythm Extremity: Pedal Edema Neurologic/Psychiatric: Disoriented Skin: Normal Color, Warm/Dry Assessment/Plan Assessment and Plan Assess & Plan/Chief Complaint Assessment: 1) Acute delirium 2) Pseudomonas UTI 3) Debility due to repeat surgeries 4) Intraspinal abscess 5) Urinary retention 6) Renal insufficiency 7) C. diff colitis (resolved) 8) Diabetes 9) Possible pneumonia Plan: 1) Continue antibiotics for UTI 2) Ambulate to chair 3) 3 more weeks of vancomycin 4) Admit to swingbed 5) Physical rehabilitation consult 6) Wound vac change M/W/F 7) Possible inpatient rehab by end of week 8) Breathing treatments 9) CXR MARQUEZ DELATORRE DO Nov 01, 2018 08:43 ANTHONY GIRON MED STUDENT Nov 01, 2018 09:05
[2018-11-01] MEDS: SENNOSIDES 8.6 MG (SENOKOT) TAB PO SCH ×2 (09:00→21:23)
[2018-11-01] MEDS: PHENAZOPYRIDINE 100 MG (PYRIDIUM) TABLET PO SCH ×3 (09:00→17:34)
[2018-11-01] MEDS: AMIODARONE 200 MG (CORDARONE) TAB PO SCH (09:01)
[2018-11-01] MEDS: FAMOTIDINE 20 MG (PEPCID) TABLET PO SCH (09:01)
[2018-11-01] MEDS: ALLOPURINOL 300 MG (ZYLOPRIM) TAB PO SCH (09:01)
[2018-11-01] MEDS: KCL 10 MEQ TAB (MICRO K) PO SCH ×2 (09:01→21:23)
[2018-11-01] MEDS: amLODIPine 5 MG (NORVASC) TAB PO SCH (09:01)
[2018-11-01] MEDS: DOCUSATE SODIUM 100 MG (COLACE) CAP PO SCH ×2 (09:02→21:23)
[2018-11-01] MEDS: OXYBUTYNIN (DITROPAN) 5 MG TAB PO SCH ×3 (09:02→21:23)
[2018-11-01] MEDS: lisINopril 20 MG (PRINIVIL) TABLET PO SCH (09:02)
[2018-11-01] MEDS: meTOprolol TARTRATE 25 MG (LOPRESSOR) TABLET PO SCH ×2 (09:02→21:24)
[2018-11-01] MEDS: risperiDONE 0.25 MG (RisperDAL) TAB PO SCH ×2 (09:02→21:23)
[2018-11-01] MEDS: ENOXAPARIN 40 MG/0.4 ML (LOVENOX) SYR SC SCH (09:03)
[2018-11-01] MEDS: CEFEPIME INJECTION 1,000 MG in NS (IVPB) 50 ML IV SCH ×2 (09:03→21:22)
--- NOTE | 2018-11-01 09:10 | Diagnostic Imaging Report ---
Indication: Fever and pneumonia. Frontal chest obtained at 837 hours a.m. and compared with 10/11/2018. There is cardiomegaly and poststernotomy change. There is mild central vascular congestion. There is new infiltrate in the right medial base. There is some infiltrate in the left medial base as well with obscuration of the left hemidiaphragm. There is no pneumothorax. Left-sided PICC line is unchanged with tip overlying the SVC. Impression: Cardiomegaly with mild increase in central vascular congestion compared to the prior study. There are new bibasilar infiltrates right greater than left. Dictated by: Dictated on workstation # [id number]
[2018-11-01 09:31] LABS: BASOPHILS # (AUTO) 0.1 10^3/uL (0.0-0.1); BASOPHILS % (AUTO) 1 % (0-10); EOSINOPHILS # (AUTO) 0.5 10^3/uL (0.0-0.3); EOSINOPHILS % (AUTO) 5 % (0-10); HEMATOCRIT 28 % (40-54); HEMOGLOBIN 8.9 G/DL (13.3-17.7); LYMPHOCYTES # (AUTO) 1.9 X 10^3 (1.0-4.0); LYMPHOCYTES % (AUTO) 18 % (12-44); MEAN CORPUSCULAR HEMOGLOBIN 29 PG (25-34); MEAN CORPUSCULAR HGB CONC 32 G/DL (32-36); MEAN CORPUSCULAR VOLUME 92 FL (80-99); MEAN PLATELET VOLUME 9.7 FL (7.4-10.4); MONOCYTES # (AUTO) 1.1 X 10^3 (0.0-1.0); MONOCYTES % (AUTO) 11 % (0-12); NEUTROPHILS % (AUTO) 66 % (42-75); PLATELET COUNT 280 10^3/uL (130-400); RED BLOOD COUNT 3.04 10^6/uL (4.35-5.85); RED CELL DISTRIBUTION WIDTH 16.8 % (10.0-14.5); WHITE BLOOD COUNT 10.5 10^3/uL (4.3-11.0)
[2018-11-01 09:49] LABS: ALBUMIN 2.5 GM/DL (3.2-4.5); BILIRUBIN,TOTAL 0.5 MG/DL (0.1-1.0); CREATININE SERUM 1.26 MG/DL (0.60-1.30); POTASSIUM 3.8 MMOL/L (3.6-5.0); TOTAL PROTEIN 4.6 GM/DL (6.4-8.2)
--- NOTE | 2018-11-01 09:51 | Physical Therapy Daily Note ---
PT Daily Note-Current Subjective Patient continues to be confused but more alert. Pain Numeric Pain Scale: 0-No Pain Location: No Pain Reported Mental Status Patient Orientation: Confused Attachments: Hunt Catheter, IV wound vac Transfers Therapy Code Descriptions/Definitions Functional [place] Measure: 0=Not Assessed/NA 4=Minimal Assistance 1=Total Assistance 5=Supervision or Setup 2=Maximal Assistance 6=Modified [place] 3=Moderate Assistance 7=Complete [place] Therapy Quality Codes: 6 Independent with activity with or without an assistive device 5 Patient requires set up or clean up by helper. Patient completes activity by themselves 4 Supervision or touching assist (CGA). [place] provide cues , steadying assist 3 The helper provides less than half the effort to complete the activity 2 The helper provides more than half the effort to complete the activity 1 Dependent. The helper does all the effort to complete an activity 7 Patient refused to complete or attempt activity 9 The patient did not perform the activity before the current illness or injury 88 Not attempted due to Medical conditions or safety concerns Transfers (B, C, W/C) (FIM): 2 Scootin Rollin Roll Left to Right (QC): 2 Supine to/from Sit: 2 Sit to/from Stand: 2 Sit to Lying (QC): 2 Sit to Stand (QC): 2 Chair/Qzk-yp-Blpfl Xfer(QC): 2 Bed to/from Chair: 2 max assist x 2 with sit to stand transfers x 3 sets with patient attempting to utilize FWW to take steps, however, patient is impulsive with use and unsafe by demonstrating abrupt sit to recliner with PT and assist of tech to attain safely Weight Bearing Right Lower Extremity: Right Full Weight Bearing Left Lower Extremity: Left Full Weight Bearing Exercises Supine Ex: Ankle pumps, Quad Set, Heel Slides Supine Reps: 15 (AAROM) Seated Therapy Exercises: Ankle pumps, Long arc quads Seated Reps: 15 (2 sets) Assessment Patient is improving very slowly with treatment plan due to medical status. Patient currently has been diagnosed with pneumonia. PT Pot Liner Goals Care Home Goals PT Care Home Goals Time Frame: Nov 19, 2018 Transfers (B,C,W/C) (FIM): 4 Sit to Lying (QC): 4 Lying-Sitting on Side/Bed(QC): 4 Sit to Stand (QC): 4 Rollin Roll Left to Right (QC): 4 Chair/Nxf-vk-Ksqbo Xfer(QC): 4 Car Transfer (QC): 4 Does the Patient Walk: No and Walking Goal IS indicated Gait (FIM): 1 Gait distance (FIM): 1=up to 49 ft Distance: 15' Walk 10 feet (QC): 4 Walk 10ft-Uneven Surface(QC): 4 Walk 50ft with 2 Turns (QC): 88 Walk 150 ft (QC): 88 Gait Level of Assist: 4 Gait Assistive Device: FWW PT Plan Treatment/Plan Treatment Plan: Continue Plan of Care Treatment Plan: Bed Mobility, Education, Functional Activity Cris, Functional Strength, Gait, Safety, Therapeutic Exercise, Transfers Treatment Duration: Nov 19, 2018 Frequency: 6-11/wk as patient medical status improves Estimated Hrs Per Day: .5 hour per day Patient and/or Family Agrees t: Yes Time/GCodes Time In: 845 Time Out: 908 Total Billed Treatment Time: 23 Total Billed Treatment 1 visit FA 10 min EX 13 min KAL VERMA PT Nov 01, 2018 09:51
[2018-11-01] MEDS: FLUCONAZOLE 200 MG/100 ML 50 ML, EMPTY IV BAG (PVC) 1 EA IV SCH ×2 (09:59)
[2018-11-01 12:00] VITALS: BP 111/70
--- NOTE | 2018-11-01 13:38 | Occupational Ther Daily Note ---
OT Current Status-Daily Note Subjective Pt seen in room, up in recliner, agreeable to OT. No pain mentioned Appearance Confused, often reaching for things that aren't there, looking for things. Has new pneumonia diagnosis Mental Status/Objective Patient Orientation: Person Therapy Code Descriptions/Definitions Functional [place] Measure: 0=Not Assessed/NA 4=Minimal Assistance 1=Total Assistance 5=Supervision or Setup 2=Maximal Assistance 6=Modified [place] 3=Moderate Assistance 7=Complete [place] ADL-Treatment Pt up in recliner, reaching for things that weren't there. Able to hold ice cream cup and feed himself, with supervision, which helped him focus. After tx, pt left up in recliner, present, all needs met. Therapy Code Descriptions/Definitions Functional [place] Measure: 0=Not Assessed/NA 4=Minimal Assistance 1=Total Assistance 5=Supervision or Setup 2=Maximal Assistance 6=Modified [place] 3=Moderate Assistance 7=Complete [place] Therapy Quality Codes: 6 Independent with activity with or without an assistive device 5 Patient requires set up or clean up by helper. Patient completes activity by themselves 4 Supervision or touching assist (CGA). [place] provide cues , steadying assist 3 The helper provides less than half the effort to complete the activity 2 The helper provides more than half the effort to complete the activity 1 Dependent. The helper does all the effort to complete an activity 7 Patient refused to complete or attempt activity 9 The patient did not perform the activity before the current illness or injury 88 Not attempted due to Medical conditions or safety concerns Eating (FIM): 5 (He was able to hold ice cream cup and feed himself, supervision. Dropped cup at one point and replaced it. Turned light on to make it easier to see what he was doing but he often had his eyes closed. Sometimes missed his mouth with the spoon but self-corrected. ) Education OT Patient Education: Progress toward Goal/Update tx plan, Purpose of tx/ functional activities Teaching Recipient: Patient Teaching Methods: Discussion Response to Teaching: Return Demonstration OT Short Term Goals Short Term Goals Time Frame: Nov 07, 2018 Eating(FIM): 5 Grooming(FIM): 4 Bathing(FIM): 3 Upper Body Dressing(FIM): 4 Lower Body Dressing(FIM): 3 Toileting(FIM): 3 Toilet/Commode Transfer(FIM): 3 Additional Short Term Goals: 1-Demonstrate ADL Tasks, 2-Verbalize Understanding , 3-ImproveStrength/Cris 1=Demonstrate adherence to instructed precautions during ADL tasks. 2=Patient will verbalize/demonstrate understanding of assistive devices/ modifications for ADL. 3=Patient will improve strength/tolerance for activity to enable patient to perform ADL's. OT Fdc Goals Electrical Cad Designer Goals Time Frame: Nov 19, 2018 Eating (FIM): 6 Eating (QC): 6 Groomin Oral Hygiene (QC): 5 Bathing(FIM): 5 Shower/Bathe Self (QC): 4 Upper Body Dressing(FIM): 5 Upper Body Dressing (QC): 4 Lower Body Dressing(FIM): 5 Lower Body Dressing (QC): 4 On/Off Footwear (QC): 5 Toileting(FIM): 5 Toileting Hygiene (QC): 4 Toilet/Commode Transfer(FIM): 5 Toilet/Commode Transfer (QC): 4 Shower Transfer(FIM): 4 Additional Goals: 1-Demonstrate ADL Tasks, 2-Verbalize Understanding, 3- ImproveStrength/Cris 1=Demonstrate adherence to instructed precautions during ADL tasks. 2=Patient will verbalize/demonstrate understanding of assistive devices/ modifications for ADL. 3=Patient will improve strength/tolerance for activity to enable patient to perform ADL's. OT Education/Plan Problem List/Assessment Pt would benefit from skilled OT to increase his independence in basic self care Discharge Recommendations Plan/Recommendations: Continue POC Treatment Plan/Plan of Care Patient would benefit from OT for education, treatment and training to promote independence in ADL's, mobility, safety and/or upper extremity function for ADL' s. Plan of Care: ADL Retraining, Functional Mobility, UE Funct Exercise/Act, UE Neuromus Re-Ed/Coord Treatment Duration: Nov 19, 2018 Frequency: 5 times per week Estimated Hrs Per Day: .5 hour per day Agreement: Yes Rehab Potential: Guarded Time/GCodes Start Time: 12:47 Stop Time: 13:02 Total Time Billed (hr/min): 15 Billed Treatment Time visit, 15 minutes ADL CRISTIAN MERIDA OT Nov 01, 2018 13:38
--- NOTE | 2018-11-01 14:31 | Physical Therapy Daily Note ---
PT Daily Note-Current Subjective Patient is in the recliner. Confused. Spouse present. Pain Numeric Pain Scale: 0-No Pain Location: No Pain Reported Mental Status Patient Orientation: Confused Attachments: Hunt Catheter, IV wound vac Transfers Therapy Code Descriptions/Definitions Functional [place] Measure: 0=Not Assessed/NA 4=Minimal Assistance 1=Total Assistance 5=Supervision or Setup 2=Maximal Assistance 6=Modified [place] 3=Moderate Assistance 7=Complete [place] Therapy Quality Codes: 6 Independent with activity with or without an assistive device 5 Patient requires set up or clean up by helper. Patient completes activity by themselves 4 Supervision or touching assist (CGA). [place] provide cues , steadying assist 3 The helper provides less than half the effort to complete the activity 2 The helper provides more than half the effort to complete the activity 1 Dependent. The helper does all the effort to complete an activity 7 Patient refused to complete or attempt activity 9 The patient did not perform the activity before the current illness or injury 88 Not attempted due to Medical conditions or safety concerns Transfers (B, C, W/C) (FIM): 1 Scootin Rollin Roll Left to Right (QC): 1 Supine to/from Sit: 1 Sit to/from Stand: 1 Sit to Lying (QC): 1 Sit to Stand (QC): 1 Chair/Jyp-de-Ivhbj Xfer(QC): 1 Bed to/from Chair: 1 patient is dependent assist with all mobility due to confusion and fatigue. Patient repositioned to side lying right with pillow placement and 4 rails up for safety. Weight Bearing Right Lower Extremity: Right Full Weight Bearing Left Lower Extremity: Left Full Weight Bearing Assessment Patient continues to have difficulty with following simple direction due to confusion. This PT voices concern to RN on possible sleep deprivation due to patient's family and staff report of patient not sleeping or able to rest appropriately. PT Alf Goals Hand Ironer Goals PT Hand Ironer Goals Time Frame: Nov 19, 2018 Transfers (B,C,W/C) (FIM): 4 Sit to Lying (QC): 4 Lying-Sitting on Side/Bed(QC): 4 Sit to Stand (QC): 4 Rollin Roll Left to Right (QC): 4 Chair/Zjs-zt-Fngkz Xfer(QC): 4 Car Transfer (QC): 4 Does the Patient Walk: No and Walking Goal IS indicated Gait (FIM): 1 Gait distance (FIM): 1=up to 49 ft Distance: 15' Walk 10 feet (QC): 4 Walk 10ft-Uneven Surface(QC): 4 Walk 50ft with 2 Turns (QC): 88 Walk 150 ft (QC): 88 Gait Level of Assist: 4 Gait Assistive Device: FWW PT Plan Treatment/Plan Treatment Plan: Continue Plan of Care Treatment Plan: Bed Mobility, Education, Functional Activity Cris, Functional Strength, Gait, Safety, Therapeutic Exercise, Transfers Treatment Duration: Nov 19, 2018 Frequency: 6-11/wk as patient medical status improves Estimated Hrs Per Day: .5 hour per day Patient and/or Family Agrees t: Yes Time/GCodes Time In: 1305 Time Out: 1320 Total Billed Treatment Time: 15 Total Billed Treatment 1 visit FA 15 min KAL VERMA PT Nov 01, 2018 14:31
[2018-11-01 15:55] VITALS: BP 133/76
[2018-11-01] MEDS: TAMSULOSIN 0.4 MG (FLOMAX) CAP PO SCH (17:30)
[2018-11-01 20:03] VITALS: BP 108/58
[2018-11-01] MEDS: SIMvastatin 10 MG (ZOCOR) TAB PO SCH (21:24)
[2018-11-02] VITALS: BP 116/59
[2018-11-02 04:00] VITALS: BP 142/56
[2018-11-02 06:14] LABS: BASOPHILS % (AUTO) 0 % (0-10); EOSINOPHILS # (AUTO) 0.4 10^3/uL (0.0-0.3); EOSINOPHILS % (AUTO) 4 % (0-10); HEMATOCRIT 26 % (40-54); HEMOGLOBIN 8.2 G/DL (13.3-17.7); LYMPHOCYTES # (AUTO) 1.8 X 10^3 (1.0-4.0); LYMPHOCYTES % (AUTO) 17 % (12-44); MEAN CORPUSCULAR HEMOGLOBIN 30 PG (25-34); MEAN CORPUSCULAR HGB CONC 32 G/DL (32-36); MEAN CORPUSCULAR VOLUME 94 FL (80-99); MEAN PLATELET VOLUME 9.2 FL (7.4-10.4); MONOCYTES # (AUTO) 0.9 X 10^3 (0.0-1.0); MONOCYTES % (AUTO) 9 % (0-12); NEUTROPHILS # (AUTO) 7.5 X 10^3 (1.8-7.8); NEUTROPHILS % (AUTO) 70 % (42-75); PLATELET COUNT 282 10^3/uL (130-400); RED BLOOD COUNT 2.77 10^6/uL (4.35-5.85); RED CELL DISTRIBUTION WIDTH 17.2 % (10.0-14.5); WHITE BLOOD COUNT 10.7 10^3/uL (4.3-11.0)
[2018-11-02 06:39] LABS: ALBUMIN 2.2 GM/DL (3.2-4.5); BILIRUBIN,TOTAL 0.5 MG/DL (0.1-1.0); CALCIUM 7.6 MG/DL (8.5-10.1); CREATININE SERUM 1.24 MG/DL (0.60-1.30); TOTAL PROTEIN 4.2 GM/DL (6.4-8.2)
[2018-11-02] MEDS: RT-ALBUTEROL SULF 2.5 MG/3 ML PRE-MIX VIAL INH SCH ×3 (07:21→19:15)
[2018-11-02] MEDS: CEFEPIME INJECTION 1,000 MG in NS (IVPB) 50 ML IV SCH ×2 (07:59→22:19)
[2018-11-02 08:00] VITALS: BP 118/56
--- NOTE | 2018-11-02 09:28 | Physical Therapy Daily Note ---
PT Daily Note-Current Subjective Patient in bed pre tx, agrees to PT, no complaints of pain. Patient is pleasant and cooperative but confused. Appearance Patient in recliner post tx with nurse call, phone, tray, all needs met. in room. Mental Status Patient Orientation: Person, Confused Attachments: Hunt Catheter, IV wound vac Transfers Therapy Code Descriptions/Definitions Functional [place] Measure: 0=Not Assessed/NA 4=Minimal Assistance 1=Total Assistance 5=Supervision or Setup 2=Maximal Assistance 6=Modified [place] 3=Moderate Assistance 7=Complete [place] Therapy Quality Codes: 6 Independent with activity with or without an assistive device 5 Patient requires set up or clean up by helper. Patient completes activity by themselves 4 Supervision or touching assist (CGA). [place] provide cues , steadying assist 3 The helper provides less than half the effort to complete the activity 2 The helper provides more than half the effort to complete the activity 1 Dependent. The helper does all the effort to complete an activity 7 Patient refused to complete or attempt activity 9 The patient did not perform the activity before the current illness or injury 88 Not attempted due to Medical conditions or safety concerns Transfers (B, C, W/C) (FIM): 2 Scootin Rollin Supine to/from Sit: 2 Sit to/from Stand: 2 Bed to/from Chair: 2 Cues for hand placement and safety. Weight Bearing Right Lower Extremity: Right Full Weight Bearing Left Lower Extremity: Left Full Weight Bearing Gait Training Gait (FIM): 1 Distance: 3' Gait Level of Assist: 2 Gait Persons Needed: 1 Gait Assistive Device: Handheld Assist Patient ambulated just a few steps to recliner from bed. He held onto therapist forearms. He tends to lunge toward chair to sit. Exercises Seated Therapy Exercises: Ankle pumps, Long arc quads Seated Reps: 20 Treatments bed mobility and transfers, ambulation, functional strengthening Assessment Current Status: Fair Progress improved ambulation PT Print Journalist Goals Half-Way Goals PT Half-Way Goals Time Frame: Nov 19, 2018 Transfers (B,C,W/C) (FIM): 4 Sit to Lying (QC): 4 Lying-Sitting on Side/Bed(QC): 4 Sit to Stand (QC): 4 Rollin Roll Left to Right (QC): 4 Chair/Nav-rh-Hhtph Xfer(QC): 4 Car Transfer (QC): 4 Does the Patient Walk: No and Walking Goal IS indicated Gait (FIM): 1 Gait distance (FIM): 1=up to 49 ft Distance: 15' Walk 10 feet (QC): 4 Walk 10ft-Uneven Surface(QC): 4 Walk 50ft with 2 Turns (QC): 88 Walk 150 ft (QC): 88 Gait Level of Assist: 4 Gait Assistive Device: FWW PT Plan Problem List Problem List: Activity Tolerance, Functional Strength, Safety, Balance, Gait, Transfer, Bed Mobility, ROM Treatment/Plan Treatment Plan: Continue Plan of Care Treatment Plan: Bed Mobility, Education, Functional Activity Cris, Functional Strength, Gait, Safety, Therapeutic Exercise, Transfers Treatment Duration: Nov 19, 2018 Frequency: 6-11/wk as patient medical status improves Estimated Hrs Per Day: .5 hour per day Patient and/or Family Agrees t: Yes Safety Risks/Education Patient Education: Gait Training, Transfer Techniques, Correct Positioning, Safety Issues Teaching Recipient: Patient Teaching Methods: Demonstration, Discussion Response to Teaching: Reinforcement Needed Time/GCodes Time In: 0900 Time Out: 0915 Total Billed Treatment Time: 15 Total Billed Treatment 1 visit FA 15' DAGOBERTO AGUILAR PT Nov 02, 2018 09:28
[2018-11-02] MEDS: DOCUSATE SODIUM 100 MG (COLACE) CAP PO SCH ×2 (09:36→22:19)
[2018-11-02] MEDS: FAMOTIDINE 20 MG (PEPCID) TABLET PO SCH (09:36)
[2018-11-02] MEDS: risperiDONE 0.25 MG (RisperDAL) TAB PO SCH ×2 (09:36→22:18)
[2018-11-02] MEDS: metFORMIN 500 MG (GLUCOPHAGE) TAB PO SCH ×2 (09:36→17:13)
[2018-11-02] MEDS: lisINopril 20 MG (PRINIVIL) TABLET PO SCH (09:36)
[2018-11-02] MEDS: amLODIPine 5 MG (NORVASC) TAB PO SCH (09:36)
[2018-11-02] MEDS: meTOprolol TARTRATE 25 MG (LOPRESSOR) TABLET PO SCH ×2 (09:36→22:19)
[2018-11-02] MEDS: MULTIVIT W/MINERALS TAB (THERAGRAN M) PO SCH (09:36)
[2018-11-02] MEDS: PHENAZOPYRIDINE 100 MG (PYRIDIUM) TABLET PO SCH ×3 (09:36→17:13)
[2018-11-02] MEDS: PIOGLITAZONE 30MG (ACTOS) TAB PO SCH (09:37)
[2018-11-02] MEDS: BETHANECHOL 25 MG (URECHOLINE) TAB PO SCH ×4 (09:37→22:18)
[2018-11-02] MEDS: SENNOSIDES 8.6 MG (SENOKOT) TAB PO SCH ×2 (09:37→22:20)
[2018-11-02] MEDS: KCL 10 MEQ TAB (MICRO K) PO SCH ×2 (09:37→22:19)
[2018-11-02] MEDS: ALLOPURINOL 300 MG (ZYLOPRIM) TAB PO SCH (09:37)
[2018-11-02] MEDS: OXYBUTYNIN (DITROPAN) 5 MG TAB PO SCH ×3 (09:37→22:19)
--- NOTE | 2018-11-02 09:42 | Progress Note-Urology ---
Progress Note-Urology Progress Notes/Assess & Plan Progress/Assessment & Plan PATIENT RESTING. URINE CLEAR. LEAVE MCRAE AND SEE HIM PRN Final Diagnosis URINE RETENTION COLE BLUM MD Nov 02, 2018 09:42
[2018-11-02] MEDS: AMIODARONE 200 MG (CORDARONE) TAB PO SCH (09:43)
--- NOTE | 2018-11-02 10:53 | Progress Note-Hospitalist ---
Subjective HPI/CC On Admission Date Seen by Provider: Nov 02, 2018 Time Seen by Provider: 09:00 Subjective/Events-last exam Pt doing much better at bedside Breathing treatments tolerated well No Fever Labs improved Overall confusion clearing Bowels are moving Eating and Drinking Maintaining good status for now. Review of Systems Pulmonary: Cough Objective Exam Vital Signs Vital Signs Date Time Temp Pulse Resp B/P (MAP) Pulse Ox O2 Delivery O2 Flow Rate FiO2 11/02/18 09:00 Room Air 11/02/18 08:00 100.7 77 18 118/56 (76) 89 11/01/18 15:33 21 Capillary Refill : General Appearance: No Apparent Distress, WD/WN, Chronically ill Respiratory: Chest Non Tender, Lungs Clear, Normal Breath Sounds, No Accessory Muscle Use, No Respiratory Distress Cardiovascular: Regular Rate, Rhythm, No Edema, No Gallop, No JVD, No Murmur, Normal Peripheral Pulses Neurologic/Psychiatric: Alert, Oriented x3, No Motor/Sensory Deficits, Normal Mood/Affect Results/Procedures Lab Laboratory Tests 11/02/18 06:05 Patient resulted labs reviewed. Assessment/Plan Assessment and Plan Assess & Plan/Chief Complaint Assessment: 1A) Pneumonia facility acquired on Cefepime and Nebs 1) Acute delirium 2) Pseudomonas UTI 3) Debility due to repeat surgeries 4) Intraspinal abscess 5) Urinary retention 6) Renal insufficiency 7) C. diff colitis (resolved) 8) Diabetes PLan: Continue treatment Palliative care management is appreciated Monitor Monitor labs Improved delirium Increase PO intake Abx coverage Diagnosis/Problems Diagnosis/Problems (1) Pneumonia Status: Acute Qualifiers: Pneumonia type: due to unspecified organism Laterality: bilateral Lung location: lower lobe of lung Qualified Codes: J18.1 - Lobar pneumonia, unspecified organism (2) Wheezing Status: Resolved Resolution Date/Time: 11/02/18 @ 11:37 (3) Fever Status: Resolved Qualifiers: Fever type: unspecified Qualified Codes: R50.9 - Fever, unspecified Resolution Date/Time: 11/02/18 @ 11:37 (4) Delirium Status: Acute (5) Pseudomonas urinary tract infection Status: Acute (6) Yeast UTI Status: Acute (7) Advanced age Status: Chronic (8) Renal insufficiency Status: Resolved Resolution Date/Time: 10/10/18 @ 09:41 MARQUEZ DELATORRE DO Nov 02, 2018 10:53
--- NOTE | 2018-11-02 10:56 | Physical Therapy Daily Note ---
PT Daily Note-Current Subjective Patient in recliner pre tx, agrees to PT, no complaints of pain at rest. Patient would like to get back to bed. Appearance Patient in bed post tx with nurse call, phone, tray, bed alarm on, in room. Mental Status Patient Orientation: Person, Confused Attachments: Oxygen, Hunt Catheter, IV wound vac Transfers Therapy Code Descriptions/Definitions Functional [place] Measure: 0=Not Assessed/NA 4=Minimal Assistance 1=Total Assistance 5=Supervision or Setup 2=Maximal Assistance 6=Modified [place] 3=Moderate Assistance 7=Complete [place] Therapy Quality Codes: 6 Independent with activity with or without an assistive device 5 Patient requires set up or clean up by helper. Patient completes activity by themselves 4 Supervision or touching assist (CGA). [place] provide cues , steadying assist 3 The helper provides less than half the effort to complete the activity 2 The helper provides more than half the effort to complete the activity 1 Dependent. The helper does all the effort to complete an activity 7 Patient refused to complete or attempt activity 9 The patient did not perform the activity before the current illness or injury 88 Not attempted due to Medical conditions or safety concerns Transfers (B, C, W/C) (FIM): 1 Scootin Rollin Supine to/from Sit: 1 Sit to/from Stand: 1 Bed to/from Chair: 1 Patient was dependent to stand and transfer. Therapist had to lift his full body weight to stand, patient was able to move his legs a little but could not take steps to the bed, patient had to be moved while being lifted to the bed and then so a sitting position. He layed down with assist of 2. Weight Bearing Right Lower Extremity: Right Full Weight Bearing Left Lower Extremity: Left Full Weight Bearing Treatments bed mobility and transfers Assessment Current Status: Poor Progress Patient very fatigued, no able to assist with transfers PT Student Success Advisor Goals Student Success Advisor Goals PT Student Success Advisor Goals Time Frame: Nov 19, 2018 Transfers (B,C,W/C) (FIM): 4 Sit to Lying (QC): 4 Lying-Sitting on Side/Bed(QC): 4 Sit to Stand (QC): 4 Rollin Roll Left to Right (QC): 4 Chair/Sku-rz-Cbhsi Xfer(QC): 4 Car Transfer (QC): 4 Does the Patient Walk: No and Walking Goal IS indicated Gait (FIM): 1 Gait distance (FIM): 1=up to 49 ft Distance: 15' Walk 10 feet (QC): 4 Walk 10ft-Uneven Surface(QC): 4 Walk 50ft with 2 Turns (QC): 88 Walk 150 ft (QC): 88 Gait Level of Assist: 4 Gait Assistive Device: FWW PT Plan Problem List Problem List: Activity Tolerance, Functional Strength, Safety, Balance, Gait, Transfer, Bed Mobility, ROM Treatment/Plan Treatment Plan: Continue Plan of Care Treatment Plan: Bed Mobility, Education, Functional Activity Cris, Functional Strength, Gait, Safety, Therapeutic Exercise, Transfers Treatment Duration: Nov 19, 2018 Frequency: 6-11/wk as patient medical status improves Estimated Hrs Per Day: .5 hour per day Patient and/or Family Agrees t: Yes Safety Risks/Education Patient Education: Transfer Techniques, Correct Positioning, Safety Issues Teaching Recipient: Patient Teaching Methods: Demonstration, Discussion Response to Teaching: Reinforcement Needed Time/GCodes Time In: 1040 Time Out: 1052 Total Billed Treatment Time: 12 Total Billed Treatment 1 visit FA Trupti' DAGOBERTO AGUILAR PT Nov 02, 2018 10:56
[2018-11-02] MEDS: NS IV 1000 ML 1,000 ML IV SCH (11:16)
[2018-11-02] MEDS: FLUCONAZOLE 200 MG/100 ML 50 ML, EMPTY IV BAG (PVC) 1 EA IV SCH ×2 (11:24)
[2018-11-02] MEDS: inSUlin ASPART (NovoLOG) 1 UNIT/0.01 ML (CHARGE PER UNIT) SC SCH ×4 (11:51→22:20)
[2018-11-02 12:00] VITALS: BP 171/70
[2018-11-02] MEDS: VANCOMYCIN INJECTION 1,000 MG in NS (IVPB) 250 ML IV SCH (12:08)
[2018-11-02] MEDS: ENOXAPARIN 40 MG/0.4 ML (LOVENOX) SYR SC SCH (12:08)
--- NOTE | 2018-11-02 14:46 | Occupational Ther Daily Note ---
OT Current Status-Daily Note Subjective Pt seen in room, up in bed, agreeable to OT. No pain mentioned Appearance Alert, cooperative once awakened Mental Status/Objective Therapy Code Descriptions/Definitions Functional [place] Measure: 0=Not Assessed/NA 4=Minimal Assistance 1=Total Assistance 5=Supervision or Setup 2=Maximal Assistance 6=Modified [place] 3=Moderate Assistance 7=Complete [place] ADL-Treatment Pt was initially sleeping but easily awakened. Pt's reported that he brushed his teeth with setup this morning. He also fed himself a milkshake and ate part of a banana but she is concerned that he's not eating much. She will continue to encourage him to participate in his own self care when he is able. Therapy Code Descriptions/Definitions Functional [place] Measure: 0=Not Assessed/NA 4=Minimal Assistance 1=Total Assistance 5=Supervision or Setup 2=Maximal Assistance 6=Modified [place] 3=Moderate Assistance 7=Complete [place] Therapy Quality Codes: 6 Independent with activity with or without an assistive device 5 Patient requires set up or clean up by helper. Patient completes activity by themselves 4 Supervision or touching assist (CGA). [place] provide cues , steadying assist 3 The helper provides less than half the effort to complete the activity 2 The helper provides more than half the effort to complete the activity 1 Dependent. The helper does all the effort to complete an activity 7 Patient refused to complete or attempt activity 9 The patient did not perform the activity before the current illness or injury 88 Not attempted due to Medical conditions or safety concerns Other Treatment Pt was willing to complete bilat UE AROM and rolled on to his back to do the exercises. He was able to track repetitions and said that it felt good to move his arms. L forearm has protective pillow for IV. Pt left on his back, HOB elevated, L arm elevated on pillows, all needs met. Education OT Patient Education: Exercise program, Purpose of tx/functional activities Teaching Recipient: Patient, Family Teaching Methods: Demonstration Response to Teaching: Verbalize Understanding, Return Demonstration OT Short Term Goals Short Term Goals Time Frame: Nov 07, 2018 Eating(FIM): 5 Grooming(FIM): 4 Bathing(FIM): 3 Upper Body Dressing(FIM): 4 Lower Body Dressing(FIM): 3 Toileting(FIM): 3 Toilet/Commode Transfer(FIM): 3 Additional Short Term Goals: 1-Demonstrate ADL Tasks, 2-Verbalize Understanding , 3-ImproveStrength/Cris 1=Demonstrate adherence to instructed precautions during ADL tasks. 2=Patient will verbalize/demonstrate understanding of assistive devices/ modifications for ADL. 3=Patient will improve strength/tolerance for activity to enable patient to perform ADL's. OT Long-Term Goals System Technologist Goals Time Frame: Nov 19, 2018 Eating (FIM): 6 Eating (QC): 6 Groomin Oral Hygiene (QC): 5 Bathing(FIM): 5 Shower/Bathe Self (QC): 4 Upper Body Dressing(FIM): 5 Upper Body Dressing (QC): 4 Lower Body Dressing(FIM): 5 Lower Body Dressing (QC): 4 On/Off Footwear (QC): 5 Toileting(FIM): 5 Toileting Hygiene (QC): 4 Toilet/Commode Transfer(FIM): 5 Toilet/Commode Transfer (QC): 4 Shower Transfer(FIM): 4 Additional Goals: 1-Demonstrate ADL Tasks, 2-Verbalize Understanding, 3- ImproveStrength/Cris 1=Demonstrate adherence to instructed precautions during ADL tasks. 2=Patient will verbalize/demonstrate understanding of assistive devices/ modifications for ADL. 3=Patient will improve strength/tolerance for activity to enable patient to perform ADL's. OT Education/Plan Problem List/Assessment Pt would benefit from skilled OT to increase his independence in basic self care Discharge Recommendations Plan/Recommendations: Continue POC Treatment Plan/Plan of Care Patient would benefit from OT for education, treatment and training to promote independence in ADL's, mobility, safety and/or upper extremity function for ADL' s. Plan of Care: ADL Retraining, Functional Mobility, UE Funct Exercise/Act, UE Neuromus Re-Ed/Coord Treatment Duration: Nov 19, 2018 Frequency: 5 times per week Estimated Hrs Per Day: .5 hour per day Agreement: Yes Rehab Potential: Guarded Time/GCodes Start Time: 14:12 Stop Time: 14:27 Total Time Billed (hr/min): 15 Billed Treatment Time visit, 5 minutes ADL, 10 minutes exercise CRISTIAN MERIDA OT Nov 02, 2018 14:46
[2018-11-02 16:51] VITALS: BP 108/50
[2018-11-02] MEDS: LACTOBACILLUS Acidoph/Bulgar 1 GM (LACTINEX) PACKET PO SCH ×2 (17:09→21:00)
[2018-11-02] MEDS: TAMSULOSIN 0.4 MG (FLOMAX) CAP PO SCH (17:13)
[2018-11-02] MEDS: IRON SUCROSE 200 MG/10 ML (VENOFER) VIAL IV SCH (17:34)
[2018-11-02 20:00] VITALS: BP 118/53
[2018-11-02] MEDS: SIMvastatin 10 MG (ZOCOR) TAB PO SCH (22:19)
[2018-11-03] VITALS: BP 125/59
[2018-11-03] MEDS: NS IV 1000 ML 1,000 ML IV SCH ×2 (03:14→19:22)
[2018-11-03 04:00] VITALS: BP 152/65
[2018-11-03] MEDS: metFORMIN 500 MG (GLUCOPHAGE) TAB PO SCH ×2 (06:47→17:30)
[2018-11-03] MEDS: MULTIVIT W/MINERALS TAB (THERAGRAN M) PO SCH (06:47)
[2018-11-03] MEDS: PIOGLITAZONE 30MG (ACTOS) TAB PO SCH (06:47)
[2018-11-03] MEDS: BETHANECHOL 25 MG (URECHOLINE) TAB PO SCH ×4 (06:47→20:40)
[2018-11-03] MEDS: inSUlin ASPART (NovoLOG) 1 UNIT/0.01 ML (CHARGE PER UNIT) SC SCH ×4 (06:47→20:41)
[2018-11-03] MEDS: LACTOBACILLUS Acidoph/Bulgar 1 GM (LACTINEX) PACKET PO SCH ×4 (06:47→20:40)
[2018-11-03] MEDS: RT-ALBUTEROL SULF 2.5 MG/3 ML PRE-MIX VIAL INH SCH ×3 (06:57→19:08)
[2018-11-03 07:30] LABS: BASOPHILS % (AUTO) 0 % (0-10); EOSINOPHILS # (AUTO) 0.4 10^3/uL (0.0-0.3); EOSINOPHILS % (AUTO) 4 % (0-10); HEMATOCRIT 28 % (40-54); HEMOGLOBIN 8.7 G/DL (13.3-17.7); LYMPHOCYTES # (AUTO) 1.7 X 10^3 (1.0-4.0); LYMPHOCYTES % (AUTO) 16 % (12-44); MEAN CORPUSCULAR HEMOGLOBIN 29 PG (25-34); MEAN CORPUSCULAR HGB CONC 31 G/DL (32-36); MEAN CORPUSCULAR VOLUME 94 FL (80-99); MEAN PLATELET VOLUME 9.8 FL (7.4-10.4); MONOCYTES % (AUTO) 9 % (0-12); NEUTROPHILS # (AUTO) 7.7 X 10^3 (1.8-7.8); NEUTROPHILS % (AUTO) 71 % (42-75); PLATELET COUNT 289 10^3/uL (130-400); RED BLOOD COUNT 2.96 10^6/uL (4.35-5.85); RED CELL DISTRIBUTION WIDTH 17.6 % (10.0-14.5); WHITE BLOOD COUNT 10.8 10^3/uL (4.3-11.0)
[2018-11-03 07:46] LABS: ALBUMIN 2.3 GM/DL (3.2-4.5); BILIRUBIN,TOTAL 0.4 MG/DL (0.1-1.0); CREATININE SERUM 1.27 MG/DL (0.60-1.30); POTASSIUM 4.1 MMOL/L (3.6-5.0); TOTAL PROTEIN 4.6 GM/DL (6.4-8.2)
[2018-11-03 08:46] VITALS: BP 112/52
--- NOTE | 2018-11-03 09:42 | Occupational Ther Daily Note ---
OT Current Status-Daily Note Subjective Pt alert, lying in bed. Pt on bedpan. Agrees to therapy. No c/o pain at this time. Mental Status/Objective Patient Orientation: Person, Place, Time, Situation Therapy Code Descriptions/Definitions Functional [place] Measure: 0=Not Assessed/NA 4=Minimal Assistance 1=Total Assistance 5=Supervision or Setup 2=Maximal Assistance 6=Modified [place] 3=Moderate Assistance 7=Complete [place] Attachments: Drains, IV, Oxygen ADL-Treatment Pt using bedpan. Pt able to roll side to side with min A then held self there. Assist to lift LE in sidelying to cleanse [place] area/buttocks. Assist to cleanse and take bed bath. Pt able to lift UE's so nrsg could complete upper body bathing. Assist to scoot up in bed x2. After therapy, pt lying on L side. Call light/phone in reach. Family in room. All needs met in room. Therapy Code Descriptions/Definitions Functional [place] Measure: 0=Not Assessed/NA 4=Minimal Assistance 1=Total Assistance 5=Supervision or Setup 2=Maximal Assistance 6=Modified [place] 3=Moderate Assistance 7=Complete [place] Therapy Quality Codes: 6 Independent with activity with or without an assistive device 5 Patient requires set up or clean up by helper. Patient completes activity by themselves 4 Supervision or touching assist (CGA). [place] provide cues , steadying assist 3 The helper provides less than half the effort to complete the activity 2 The helper provides more than half the effort to complete the activity 1 Dependent. The helper does all the effort to complete an activity 7 Patient refused to complete or attempt activity 9 The patient did not perform the activity before the current illness or injury 88 Not attempted due to Medical conditions or safety concerns Bathing (FIM): 1 Shower/Bathe Self (QC): 1 Toileting (FIM): 1 Toileting Hygiene (QC): 1 OT Short Term Goals Short Term Goals Time Frame: Nov 07, 2018 Eating(FIM): 5 Grooming(FIM): 4 Bathing(FIM): 3 Upper Body Dressing(FIM): 4 Lower Body Dressing(FIM): 3 Toileting(FIM): 3 Toilet/Commode Transfer(FIM): 3 Additional Short Term Goals: 1-Demonstrate ADL Tasks, 2-Verbalize Understanding , 3-ImproveStrength/Cris 1=Demonstrate adherence to instructed precautions during ADL tasks. 2=Patient will verbalize/demonstrate understanding of assistive devices/ modifications for ADL. 3=Patient will improve strength/tolerance for activity to enable patient to perform ADL's. OT Mcc Goals Mcc Goals Time Frame: Nov 19, 2018 Eating (FIM): 6 Eating (QC): 6 Groomin Oral Hygiene (QC): 5 Bathing(FIM): 5 Shower/Bathe Self (QC): 4 Upper Body Dressing(FIM): 5 Upper Body Dressing (QC): 4 Lower Body Dressing(FIM): 5 Lower Body Dressing (QC): 4 On/Off Footwear (QC): 5 Toileting(FIM): 5 Toileting Hygiene (QC): 4 Toilet/Commode Transfer(FIM): 5 Toilet/Commode Transfer (QC): 4 Shower Transfer(FIM): 4 Additional Goals: 1-Demonstrate ADL Tasks, 2-Verbalize Understanding, 3- ImproveStrength/Cris 1=Demonstrate adherence to instructed precautions during ADL tasks. 2=Patient will verbalize/demonstrate understanding of assistive devices/ modifications for ADL. 3=Patient will improve strength/tolerance for activity to enable patient to perform ADL's. OT Education/Plan Problem List/Assessment Pt would benefit from skilled OT to increase his independence in basic self care Discharge Recommendations Plan/Recommendations: Continue POC Treatment Plan/Plan of Care Patient would benefit from OT for education, treatment and training to promote independence in ADL's, mobility, safety and/or upper extremity function for ADL' s. Plan of Care: ADL Retraining, Functional Mobility, UE Funct Exercise/Act, UE Neuromus Re-Ed/Coord Treatment Duration: Nov 19, 2018 Frequency: 5 times per week Estimated Hrs Per Day: .5 hour per day Agreement: Yes Rehab Potential: Guarded Time/GCodes Start Time: 09:06 Stop Time: 09:30 Total Time Billed (hr/min): 24 Billed Treatment Time 1 visit-ADL 2 (24 min) EKTA DONATO Nov 03, 2018 09:42
[2018-11-03] MEDS: PHENAZOPYRIDINE 100 MG (PYRIDIUM) TABLET PO SCH ×3 (09:54→17:30)
[2018-11-03] MEDS: risperiDONE 0.25 MG (RisperDAL) TAB PO SCH ×2 (09:55→20:40)
[2018-11-03] MEDS: amLODIPine 5 MG (NORVASC) TAB PO SCH (09:55)
[2018-11-03] MEDS: ALLOPURINOL 300 MG (ZYLOPRIM) TAB PO SCH (09:55)
[2018-11-03] MEDS: AMIODARONE 200 MG (CORDARONE) TAB PO SCH (09:56)
[2018-11-03] MEDS: KCL 10 MEQ TAB (MICRO K) PO SCH ×2 (09:56→20:40)
[2018-11-03] MEDS: OXYBUTYNIN (DITROPAN) 5 MG TAB PO SCH ×3 (09:56→20:40)
[2018-11-03] MEDS: FAMOTIDINE 20 MG (PEPCID) TABLET PO SCH (09:56)
[2018-11-03] MEDS: lisINopril 20 MG (PRINIVIL) TABLET PO SCH (09:56)
[2018-11-03] MEDS: meTOprolol TARTRATE 25 MG (LOPRESSOR) TABLET PO SCH ×2 (09:56→20:40)
[2018-11-03] MEDS: CEFEPIME INJECTION 1,000 MG in NS (IVPB) 50 ML IV SCH (09:57)
[2018-11-03] MEDS: SENNOSIDES 8.6 MG (SENOKOT) TAB PO SCH ×2 (10:00→20:40)
[2018-11-03] MEDS: DOCUSATE SODIUM 100 MG (COLACE) CAP PO SCH ×2 (10:00→20:40)
[2018-11-03] MEDS: ENOXAPARIN 40 MG/0.4 ML (LOVENOX) SYR SC SCH (10:01)
--- NOTE | 2018-11-03 10:55 | Progress Note-Hospitalist ---
MARQUEZ DELATORRE DO 11/03/18 1055: Subjective HPI/CC On Admission Date Seen by Provider: Nov 03, 2018 Time Seen by Provider: 10:00 Subjective/Events-last exam Patient is much more alert and diminished delirium Daughter at he bedside Loose stools so laxatives will be held and maintained on Lactinex due to h/o C diff Cefepime 7 days today so will DC Nebs helping wheezing IRF evaluation. Review of Systems General: Fatigue Musculoskeletal: back pain Objective Exam Vital Signs Vital Signs Date Time Temp Pulse Resp B/P (MAP) Pulse Ox O2 Delivery O2 Flow Rate FiO2 11/03/18 19:08 93 Nasal Cannula 2.00 11/03/18 16:00 98.2 70 18 120/47 (71) 11/01/18 15:33 21 Capillary Refill : General Appearance: No Apparent Distress, WD/WN, Chronically ill Respiratory: Chest Non Tender, Lungs Clear, Normal Breath Sounds, No Accessory Muscle Use, No Respiratory Distress Cardiovascular: Regular Rate, Rhythm, No Gallop, No JVD, No Murmur, Normal Peripheral Pulses Extremity: Pedal Edema Neurologic/Psychiatric: Alert, Oriented x3, No Motor/Sensory Deficits, Normal Mood/Affect Skin: Normal Color, Warm/Dry Results/Procedures Lab Laboratory Tests 11/03/18 07:05 Patient resulted labs reviewed. Assessment/Plan Assessment and Plan Assess & Plan/Chief Complaint Assessment: 1A) Pneumonia facility acquired on Cefepime and Nebs 1) Acute delirium 2) Pseudomonas UTI 3) Debility due to repeat surgeries 4) Intraspinal abscess 5) Urinary retention 6) Renal insufficiency 7) C. diff colitis (resolved) 8) Diabetes PLan: Continue treatment Palliative care management is appreciated since he is still very complex and prognosis guarded Monitor Monitor labs Improved delirium Increase PO intake Abx DC since completed treatment Diagnosis/Problems Diagnosis/Problems (1) Pneumonia Status: Resolved Qualifiers: Pneumonia type: due to unspecified organism Laterality: bilateral Lung location: lower lobe of lung Qualified Codes: J18.1 - Lobar pneumonia, unspecified organism Resolution Date/Time: 11/03/18 @ 20:18 (2) Wheezing Status: Resolved Resolution Date/Time: 11/02/18 @ 11:37 (3) Fever Status: Resolved Qualifiers: Fever type: unspecified Qualified Codes: R50.9 - Fever, unspecified Resolution Date/Time: 11/02/18 @ 11:37 (4) Delirium Status: Resolved Resolution Date/Time: 11/03/18 @ 20:18 (5) Pseudomonas urinary tract infection Status: Resolved Resolution Date/Time: 11/03/18 @ 20:18 (6) Yeast UTI Status: Resolved Resolution Date/Time: 11/03/18 @ 20:18 (7) Advanced age Status: Chronic (8) Renal insufficiency Status: Resolved Resolution Date/Time: 10/10/18 @ 09:41 ANTHONY GIRON MED STUDENT 11/03/18 1111: Subjective Subjective/Events-last exam Patient is more alert and responding to questions this am He is still confused at times Family member reports diarrhea yesterday Patient states that he is not in pain Patients lungs sound much improved Objective Exam General Appearance: No Apparent Distress, WD/WN Respiratory: Chest Non Tender, Lungs Clear, Normal Breath Sounds, No Accessory Muscle Use, No Respiratory Distress Cardiovascular: Regular Rate, Rhythm, No Gallop, No JVD, No Murmur Extremity: Pedal Edema Neurologic/Psychiatric: Alert Skin: Normal Color, Warm/Dry Assessment/Plan Assessment and Plan Assess & Plan/Chief Complaint Assessment: 1) Acute delirium 2) Pneumonia 3) Debility due to back surgeries 4) Spinal abscess 5) Pseudomonas UTI 6) Diabetes Plan: 1) Continue IV abx 2) Continue oral abx 3) Continue nebulizer treatments 4) PT evaluation MARQUEZ DELATORRE DO Nov 03, 2018 10:55 ANTHONY GIRON MED STUDENT Nov 03, 2018 11:11
--- NOTE | 2018-11-03 11:17 | Physical Therapy Daily Note ---
PT Daily Note-Current Subjective Patient is more alert, however, confused. Mental Status Patient Orientation: Confused Attachments: Oxygen, Hunt Catheter, IV wound vac Transfers Therapy Code Descriptions/Definitions Functional [place] Measure: 0=Not Assessed/NA 4=Minimal Assistance 1=Total Assistance 5=Supervision or Setup 2=Maximal Assistance 6=Modified [place] 3=Moderate Assistance 7=Complete [place] Therapy Quality Codes: 6 Independent with activity with or without an assistive device 5 Patient requires set up or clean up by helper. Patient completes activity by themselves 4 Supervision or touching assist (CGA). [place] provide cues , steadying assist 3 The helper provides less than half the effort to complete the activity 2 The helper provides more than half the effort to complete the activity 1 Dependent. The helper does all the effort to complete an activity 7 Patient refused to complete or attempt activity 9 The patient did not perform the activity before the current illness or injury 88 Not attempted due to Medical conditions or safety concerns Transfers (B, C, W/C) (FIM): 1 Scootin Rollin Roll Left to Right (QC): 4 Supine to/from Sit: 4 Sit to/from Stand: 4 Sit to Lying (QC): 4 Sit to Stand (QC): 1 Chair/Sgc-ys-Dkwmp Xfer(QC): 1 Bed to/from Chair: 1 Patient performed sit to stand to FWW x 1 set with stand x 10 seconds before bilateral LE "gave out" on him and he was lowered to bed. Patient requires dependent assist with sit to stand and SPT bed to chair. Weight Bearing Right Lower Extremity: Right Full Weight Bearing Left Lower Extremity: Left Full Weight Bearing Exercises Seated Therapy Exercises: Ankle pumps, Long arc quads, Hip flexion Seated Reps: 15 (2 sets) Assessment Patient is more alert, however, is confused and continues to require dependent assist with sit to stand and SPT. Patient left LE continues to be weak and patient c/o patient, however, unable to rate due to confusion. From a PT standpoint, patient will require extended care facility to continued with therapies secondary to inability to tolerate extensive therapies. 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 Mechanical Maintenance Worker Goals PT [facility] Goals Time Frame: Nov 19, 2018 Transfers (B,C,W/C) (FIM): 4 Sit to Lying (QC): 4 Lying-Sitting on Side/Bed(QC): 4 Sit to Stand (QC): 4 Rollin Roll Left to Right (QC): 4 Chair/Eid-bz-Adudk Xfer(QC): 4 Car Transfer (QC): 4 Does the Patient Walk: No and Walking Goal IS indicated Gait (FIM): 1 Gait distance (FIM): 1=up to 49 ft Distance: 15' Walk 10 feet (QC): 4 Walk 10ft-Uneven Surface(QC): 4 Walk 50ft with 2 Turns (QC): 88 Walk 150 ft (QC): 88 Gait Level of Assist: 4 Gait Assistive Device: FWW PT Plan Treatment/Plan Treatment Plan: Continue Plan of Care Treatment Plan: Bed Mobility, Education, Functional Activity Cris, Functional Strength, Gait, Safety, Therapeutic Exercise, Transfers Treatment Duration: Nov 19, 2018 Frequency: 6-11/wk as patient medical status improves Estimated Hrs Per Day: .5 hour per day Patient and/or Family Agrees t: Yes Time/GCodes Time In: 1005 Time Out: 1028 Total Billed Treatment Time: 23 Total Billed Treatment 1 visit FA 14 min EX 9 min KAL VERMA PT Nov 03, 2018 11:17
[2018-11-03 12:00] VITALS: BP 121/51
[2018-11-03] MEDS ORDERED: FLUCONAZOLE 200 MG/100 ML 100 ML IV ONE (12:41)
[2018-11-03] MEDS: FLUCONAZOLE 200 MG/100 ML 50 ML, EMPTY IV BAG (PVC) 1 EA IV SCH ×2 (13:04)
--- NOTE | 2018-11-03 15:30 | Physical Therapy Daily Note ---
PT Daily Note-Current Subjective Spouse requests no OOB activity this p.m. due to increase confusion and impulsive behavior. Pain Numeric Pain Scale: 0-No Pain Location: No Pain Reported Mental Status Patient Orientation: Confused Attachments: Hunt Catheter, IV wound vac Transfers Therapy Code Descriptions/Definitions Functional [place] Measure: 0=Not Assessed/NA 4=Minimal Assistance 1=Total Assistance 5=Supervision or Setup 2=Maximal Assistance 6=Modified [place] 3=Moderate Assistance 7=Complete [place] Therapy Quality Codes: 6 Independent with activity with or without an assistive device 5 Patient requires set up or clean up by helper. Patient completes activity by themselves 4 Supervision or touching assist (CGA). [place] provide cues , steadying assist 3 The helper provides less than half the effort to complete the activity 2 The helper provides more than half the effort to complete the activity 1 Dependent. The helper does all the effort to complete an activity 7 Patient refused to complete or attempt activity 9 The patient did not perform the activity before the current illness or injury 88 Not attempted due to Medical conditions or safety concerns Weight Bearing Right Lower Extremity: Right Full Weight Bearing Left Lower Extremity: Left Full Weight Bearing Exercises Supine Ex: Ankle pumps, Quad Set, Heel Slides, Straight leg raise, Hip abd/add Supine Reps: 15 (3 sets AAROM) Assessment Patient tolerated treatment well. Patient repositioned to slight sidelying left with pillow placement. Patient continues to tolerate minimal activity. 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 Cold Working Supervisor Goals [facility] Goals Time Frame: Nov 19, 2018 Transfers (B,C,W/C) (FIM): 4 Sit to Lying (QC): 4 Lying-Sitting on Side/Bed(QC): 4 Sit to Stand (QC): 4 Rollin Roll Left to Right (QC): 4 Chair/Oyh-mp-Xgtke Xfer(QC): 4 Car Transfer (QC): 4 Does the Patient Walk: No and Walking Goal IS indicated Gait (FIM): 1 Gait distance (FIM): 1=up to 49 ft Distance: 15' Walk 10 feet (QC): 4 Walk 10ft-Uneven Surface(QC): 4 Walk 50ft with 2 Turns (QC): 88 Walk 150 ft (QC): 88 Gait Level of Assist: 4 Gait Assistive Device: FWW PT Plan Treatment/Plan Treatment Plan: Continue Plan of Care Treatment Plan: Bed Mobility, Education, Functional Activity Cris, Functional Strength, Gait, Safety, Therapeutic Exercise, Transfers Treatment Duration: Nov 19, 2018 Frequency: 6-11/wk as patient medical status improves Estimated Hrs Per Day: .5 hour per day Patient and/or Family Agrees t: Yes Time/GCodes Time In: 1451 Time Out: 1505 Total Billed Treatment Time: 14 Total Billed Treatment 1 visit EX 14 min KAL VERMA PT Nov 03, 2018 15:30
[2018-11-03 16:00] VITALS: BP 120/47
[2018-11-03] MEDS: TAMSULOSIN 0.4 MG (FLOMAX) CAP PO SCH (17:30)
[2018-11-03] MEDS: HALOPERIDOL 5 MG/ML (HALDOL) AMP IM PRN (19:20)
[2018-11-03 20:20] VITALS: BP 150/67
[2018-11-03] MEDS: SIMvastatin 10 MG (ZOCOR) TAB PO SCH (20:40)
[2018-11-04] MEDS: inSUlin ASPART (NovoLOG) 1 UNIT/0.01 ML (CHARGE PER UNIT) SC SCH ×4 (05:52→23:24)
[2018-11-04] MEDS: metFORMIN 500 MG (GLUCOPHAGE) TAB PO SCH ×2 (06:43→16:11)
[2018-11-04] MEDS: MULTIVIT W/MINERALS TAB (THERAGRAN M) PO SCH (06:43)
[2018-11-04] MEDS: PIOGLITAZONE 30MG (ACTOS) TAB PO SCH (06:44)
[2018-11-04] MEDS: BETHANECHOL 25 MG (URECHOLINE) TAB PO SCH ×4 (06:44→22:00)
[2018-11-04] MEDS: LACTOBACILLUS Acidoph/Bulgar 1 GM (LACTINEX) PACKET PO SCH (06:44)
[2018-11-04 06:53] VITALS: BP 108/71
[2018-11-04] MEDS: RT-ALBUTEROL SULF 2.5 MG/3 ML PRE-MIX VIAL INH SCH (07:17)
[2018-11-04 07:29] LABS: BASOPHILS % (AUTO) 0 % (0-10); EOSINOPHILS # (AUTO) 0.6 10^3/uL (0.0-0.3); EOSINOPHILS % (AUTO) 6 % (0-10); HEMATOCRIT 28 % (40-54); HEMOGLOBIN 8.7 G/DL (13.3-17.7); LYMPHOCYTES # (AUTO) 1.4 X 10^3 (1.0-4.0); LYMPHOCYTES % (AUTO) 14 % (12-44); MEAN CORPUSCULAR HEMOGLOBIN 29 PG (25-34); MEAN CORPUSCULAR HGB CONC 31 G/DL (32-36); MEAN CORPUSCULAR VOLUME 94 FL (80-99); MEAN PLATELET VOLUME 9.8 FL (7.4-10.4); MONOCYTES % (AUTO) 10 % (0-12); NEUTROPHILS # (AUTO) 7.2 X 10^3 (1.8-7.8); NEUTROPHILS % (AUTO) 70 % (42-75); PLATELET COUNT 320 10^3/uL (130-400); RED BLOOD COUNT 2.97 10^6/uL (4.35-5.85); RED CELL DISTRIBUTION WIDTH 17.7 % (10.0-14.5); WHITE BLOOD COUNT 10.3 10^3/uL (4.3-11.0)
[2018-11-04 07:55] LABS: ALBUMIN 2.4 GM/DL (3.2-4.5); BILIRUBIN,TOTAL 0.6 MG/DL (0.1-1.0); CALCIUM 7.9 MG/DL (8.5-10.1); CREATININE SERUM 1.25 MG/DL (0.60-1.30); POTASSIUM 3.8 MMOL/L (3.6-5.0); TOTAL PROTEIN 4.9 GM/DL (6.4-8.2)
--- NOTE | 2018-11-04 08:28 | Progress Note-Hospitalist ---
Subjective HPI/CC On Admission Date Seen by Provider: Nov 04, 2018 Time Seen by Provider: 10:30 Subjective/Events-last exam Patient doing well but confusion comes and goes Overall very debilitated and now looking at swing bed in [place] close to home Last day of vancomycin will be 12/02/18 to complete 6 weeks Cefepime discontinued yesterday since completed treatment for pseudomonas UTI and pneumonia Lungs are clear today and changing nebulizer treatments to as needed twice daily Pain is under control Bowels are moving Updated Will monitor closely Wound VAC in place Review of Systems General: Fatigue Objective Exam Vital Signs Vital Signs Date Time Temp Pulse Resp B/P (MAP) Pulse Ox O2 Delivery O2 Flow Rate FiO2 11/04/18 10:04 93 Nasal Cannula 1.00 11/04/18 06:53 98.8 77 20 108/71 (83) 11/01/18 15:33 21 Capillary Refill : General Appearance: No Apparent Distress, WD/WN, Chronically ill Respiratory: Chest Non Tender, Lungs Clear, Normal Breath Sounds, No Accessory Muscle Use, No Respiratory Distress Cardiovascular: Regular Rate, Rhythm, No Edema, No Gallop, No JVD, No Murmur, Normal Peripheral Pulses Neurologic/Psychiatric: Alert, No Motor/Sensory Deficits, Normal Mood/Affect, Disoriented (but improved) Results/Procedures Lab Laboratory Tests 11/04/18 07:07 Patient resulted labs reviewed. Assessment/Plan Assessment and Plan Assess & Plan/Chief Complaint Assessment: 1A) s/p completed treatment for Pneumonia facility acquired 1) Acute delirium improved 2) s/p Pseudomonas UTI completed treatment 3) Debility due to repeat surgeries 4) Intraspinal abscess 5) Urinary retention maintained on cath 6) Renal insufficiency stable 7) C. diff colitis (resolved) 8) Diabetes PLan: Continue treatment Monitor Monitor labs Improved delirium Increase PO intake Abx DC since completed treatment Swing bed [place]? Diagnosis/Problems Diagnosis/Problems (1) Pneumonia Status: Resolved Qualifiers: Pneumonia type: due to unspecified organism Laterality: bilateral Lung location: lower lobe of lung Qualified Codes: J18.1 - Lobar pneumonia, unspecified organism Resolution Date/Time: 11/03/18 @ 20:18 (2) Wheezing Status: Resolved Resolution Date/Time: 11/02/18 @ 11:37 (3) Fever Status: Resolved Qualifiers: Fever type: unspecified Qualified Codes: R50.9 - Fever, unspecified Resolution Date/Time: 11/02/18 @ 11:37 (4) Delirium Status: Resolved Resolution Date/Time: 11/03/18 @ 20:18 (5) Pseudomonas urinary tract infection Status: Resolved Resolution Date/Time: 11/03/18 @ 20:18 (6) Yeast UTI Status: Resolved Resolution Date/Time: 11/03/18 @ 20:18 (7) Advanced age Status: Chronic (8) Renal insufficiency Status: Resolved Resolution Date/Time: 10/10/18 @ 09:41 MARQUEZ DELATORRE DO Nov 04, 2018 08:28
[2018-11-04] MEDS: KCL 10 MEQ TAB (MICRO K) PO SCH ×2 (08:41→22:00)
[2018-11-04] MEDS: DOCUSATE SODIUM 100 MG (COLACE) CAP PO SCH ×2 (08:41→22:00)
[2018-11-04] MEDS: PHENAZOPYRIDINE 100 MG (PYRIDIUM) TABLET PO SCH ×3 (08:41→16:11)
[2018-11-04] MEDS: meTOprolol TARTRATE 25 MG (LOPRESSOR) TABLET PO SCH ×2 (08:41→22:00)
[2018-11-04] MEDS: AMIODARONE 200 MG (CORDARONE) TAB PO SCH (08:42)
[2018-11-04] MEDS: risperiDONE 0.25 MG (RisperDAL) TAB PO SCH ×2 (08:42→22:00)
[2018-11-04] MEDS: lisINopril 20 MG (PRINIVIL) TABLET PO SCH (08:42)
[2018-11-04] MEDS: amLODIPine 5 MG (NORVASC) TAB PO SCH (08:42)
[2018-11-04] MEDS: ALLOPURINOL 300 MG (ZYLOPRIM) TAB PO SCH (08:42)
[2018-11-04] MEDS: FAMOTIDINE 20 MG (PEPCID) TABLET PO SCH (08:42)
[2018-11-04] MEDS: SENNOSIDES 8.6 MG (SENOKOT) TAB PO SCH ×2 (08:42→21:59)
[2018-11-04] MEDS: OXYBUTYNIN (DITROPAN) 5 MG TAB PO SCH ×3 (08:43→21:59)
[2018-11-04] MEDS: IRON SUCROSE 200 MG/10 ML (VENOFER) VIAL IV SCH (08:46)
[2018-11-04] MEDS ORDERED: RT-ALBUTEROL SULF 2.5 MG/3 ML PRE-MIX VIAL INH PRN (10:00)
[2018-11-04] MEDS: ENOXAPARIN 40 MG/0.4 ML (LOVENOX) SYR SC SCH (10:32)
[2018-11-04] MEDS: VANCOMYCIN INJECTION 1,000 MG in NS (IVPB) 250 ML IV SCH (10:33)
[2018-11-04] MEDS: LACTOBACILLUS ACIDOPHILUS (PROBIOTIC) CAPSULE PO SCH ×3 (11:30→21:59)
--- NOTE | 2018-11-04 11:41 | Physical Therapy Daily Note ---
PT Daily Note-Current Subjective Patient more alert on this date. Spouse present. Pain Numeric Pain Scale: 0-No Pain Location: No Pain Reported Mental Status Patient Orientation: Confused Attachments: Oxygen, Hunt Catheter, IV wound vac Transfers Therapy Code Descriptions/Definitions Functional [place] Measure: 0=Not Assessed/NA 4=Minimal Assistance 1=Total Assistance 5=Supervision or Setup 2=Maximal Assistance 6=Modified [place] 3=Moderate Assistance 7=Complete [place] Therapy Quality Codes: 6 Independent with activity with or without an assistive device 5 Patient requires set up or clean up by helper. Patient completes activity by themselves 4 Supervision or touching assist (CGA). [place] provide cues , steadying assist 3 The helper provides less than half the effort to complete the activity 2 The helper provides more than half the effort to complete the activity 1 Dependent. The helper does all the effort to complete an activity 7 Patient refused to complete or attempt activity 9 The patient did not perform the activity before the current illness or injury 88 Not attempted due to Medical conditions or safety concerns Transfers (B, C, W/C) (FIM): 2 Scootin Rollin Roll Left to Right (QC): 2 Supine to/from Sit: 4 Sit to/from Stand: 2 Sit to Lying (QC): 2 Sit to Stand (QC): 2 Chair/Kea-te-Yapdk Xfer(QC): 2 Bed to/from Chair: 2 Patient performed sit to stand to FWW x 5 sets with max assist x 2. Noted left LE continues to remain weak. Weight Bearing Right Lower Extremity: Right Full Weight Bearing Left Lower Extremity: Left Full Weight Bearing Gait Training Does the Patient Walk?: No and Walking Goal IS indicated Gait (FIM): 1 Distance (FIM): 1=up to 49 ft Distance: 5 steps Gait Level of Assist: 2 Gait Persons Needed: 2 Gait Assistive Device: FWW patient performed side stepping with FWW and max assist x 2 bed to chair Exercises Supine Ex: Ankle pumps, Quad Set Supine Reps: 15 Seated Therapy Exercises: Ankle pumps, Long arc quads Seated Reps: 15 Assessment Patient tolerated treatment well and is up in recliner with needs met. Patient slowly improving with gross motor skills. PT Half-Way Goals Respiratory Care Faculty Goals PT Respiratory Care Faculty Goals Time Frame: Nov 19, 2018 Transfers (B,C,W/C) (FIM): 4 Sit to Lying (QC): 4 Lying-Sitting on Side/Bed(QC): 4 Sit to Stand (QC): 4 Rollin Roll Left to Right (QC): 4 Chair/Smz-ig-Aanjv Xfer(QC): 4 Car Transfer (QC): 4 Does the Patient Walk: No and Walking Goal IS indicated Gait (FIM): 1 Gait distance (FIM): 1=up to 49 ft Distance: 15' Walk 10 feet (QC): 4 Walk 10ft-Uneven Surface(QC): 4 Walk 50ft with 2 Turns (QC): 88 Walk 150 ft (QC): 88 Gait Level of Assist: 4 Gait Assistive Device: FWW PT Plan Treatment/Plan Treatment Plan: Continue Plan of Care Treatment Plan: Bed Mobility, Education, Functional Activity Cris, Functional Strength, Gait, Safety, Therapeutic Exercise, Transfers Treatment Duration: Nov 19, 2018 Frequency: 6-11/wk as patient medical status improves Estimated Hrs Per Day: .5 hour per day Patient and/or Family Agrees t: Yes Time/GCodes Time In: 1112 Time Out: 1135 Total Billed Treatment Time: 23 Total Billed Treatment 1 visit FA 15 min EX 8 min KAL VERMA PT Nov 04, 2018 11:40
[2018-11-04] MEDS: NS IV 1000 ML 1,000 ML IV SCH (13:58)
--- NOTE | 2018-11-04 14:47 | Physical Therapy Progress Note ---
Therapy Progress Note Patient's family request no treatment this p.m. due to patient is resting comfortable. PT to resume in KAL Burns PT Nov 04, 2018 14:47
--- NOTE | 2018-11-04 15:14 | Occ Therapy Progress Note ---
Therapy Progress Note 4600 Pt's reported that he just finished getting wound vac changed and was too tired for therapy. She did mention that he fed himself his lunch with only setup. Will continue to follow. visit CRISTIAN MERIDA OT Nov 04, 2018 15:14
[2018-11-04] MEDS: TAMSULOSIN 0.4 MG (FLOMAX) CAP PO SCH (16:11)
[2018-11-04 20:30] VITALS: BP 160/64
[2018-11-04] MEDS: SIMvastatin 10 MG (ZOCOR) TAB PO SCH (21:59)
[2018-11-05] MEDS: NS IV 1000 ML 1,000 ML IV SCH ×2 (00:34→16:54)
[2018-11-05] MEDS: inSUlin ASPART (NovoLOG) 1 UNIT/0.01 ML (CHARGE PER UNIT) SC SCH ×4 (05:22→22:16)
[2018-11-05] MEDS: PIOGLITAZONE 30MG (ACTOS) TAB PO SCH (06:20)
[2018-11-05] MEDS: metFORMIN 500 MG (GLUCOPHAGE) TAB PO SCH ×2 (06:20→16:54)
[2018-11-05] MEDS: LACTOBACILLUS ACIDOPHILUS (PROBIOTIC) CAPSULE PO SCH ×4 (06:21→22:13)
[2018-11-05] MEDS: MULTIVIT W/MINERALS TAB (THERAGRAN M) PO SCH (06:21)
[2018-11-05] MEDS: BETHANECHOL 25 MG (URECHOLINE) TAB PO SCH ×4 (06:21→22:10)
[2018-11-05] MEDS: OXYBUTYNIN (DITROPAN) 5 MG TAB PO SCH ×3 (07:54→22:10)
[2018-11-05] MEDS: FAMOTIDINE 20 MG (PEPCID) TABLET PO SCH (07:54)
[2018-11-05] MEDS: SENNOSIDES 8.6 MG (SENOKOT) TAB PO SCH ×2 (07:54→22:11)
[2018-11-05] MEDS: lisINopril 20 MG (PRINIVIL) TABLET PO SCH (07:54)
[2018-11-05] MEDS: ALLOPURINOL 300 MG (ZYLOPRIM) TAB PO SCH (07:55)
[2018-11-05] MEDS: KCL 10 MEQ TAB (MICRO K) PO SCH ×2 (07:56→22:14)
[2018-11-05] MEDS: meTOprolol TARTRATE 25 MG (LOPRESSOR) TABLET PO SCH ×2 (07:56→22:14)
[2018-11-05] MEDS: DOCUSATE SODIUM 100 MG (COLACE) CAP PO SCH ×2 (07:59→22:11)
[2018-11-05] MEDS: BISACODYL 5 MG (DULCOLAX) TABLET PO PRN (08:00)
[2018-11-05] MEDS: PHENAZOPYRIDINE 100 MG (PYRIDIUM) TABLET PO SCH ×3 (08:00→16:54)
[2018-11-05] MEDS: amLODIPine 5 MG (NORVASC) TAB PO SCH (08:00)
[2018-11-05] MEDS: AMIODARONE 200 MG (CORDARONE) TAB PO SCH (08:00)
[2018-11-05] MEDS: risperiDONE 0.25 MG (RisperDAL) TAB PO SCH ×2 (08:05→22:11)
[2018-11-05 08:30] VITALS: BP 140/65
[2018-11-05] MEDS: ENOXAPARIN 40 MG/0.4 ML (LOVENOX) SYR SC SCH (11:03)
--- NOTE | 2018-11-05 11:39 | Progress Note-Hospitalist ---
Subjective HPI/CC On Admission Date Seen by Provider: Nov 05, 2018 Time Seen by Provider: 10:30 Subjective/Events-last exam Patient overall improved Less confused last night Bowels moved 2 days ago and he was given BM regimen today Pain is well controlled Wound vac in place Labs reviewed Swing bed [place] likely the best for the patient Review of Systems Gastrointestinal: Constipation Objective Exam Vital Signs Vital Signs Date Time Temp Pulse Resp B/P (MAP) Pulse Ox O2 Delivery O2 Flow Rate FiO2 11/05/18 09:00 Nasal Cannula 1.00 11/05/18 08:30 99.8 71 19 140/65 (90) 95 11/01/18 15:33 21 Capillary Refill : General Appearance: No Apparent Distress, WD/WN, Chronically ill Respiratory: Chest Non Tender, Lungs Clear, Normal Breath Sounds, No Accessory Muscle Use, No Respiratory Distress Cardiovascular: Regular Rate, Rhythm, No Edema, No Gallop, No JVD, No Murmur, Normal Peripheral Pulses Neurologic/Psychiatric: Alert, Oriented x3, No Motor/Sensory Deficits, Normal Mood/Affect Results/Procedures Lab Patient resulted labs reviewed. Assessment/Plan Assessment and Plan Assess & Plan/Chief Complaint Assessment: 1A) s/p completed treatment for Pneumonia facility acquired 1) Acute delirium improved 2) s/p Pseudomonas UTI completed treatment 3) Debility due to repeat surgeries 4) Intraspinal abscess 5) Urinary retention maintained on cath 6) Renal insufficiency stable 7) C. diff colitis (resolved) 8) Diabetes PLan: Continue treatment Monitor Monitor labs Improved delirium Increase PO intake Abx DC since completed treatment Swing bed [place]? Diagnosis/Problems Diagnosis/Problems (1) Pneumonia Status: Resolved Qualifiers: Pneumonia type: due to unspecified organism Laterality: bilateral Lung location: lower lobe of lung Qualified Codes: J18.1 - Lobar pneumonia, unspecified organism Resolution Date/Time: 11/03/18 @ 20:18 (2) Wheezing Status: Resolved Resolution Date/Time: 11/02/18 @ 11:37 (3) Fever Status: Resolved Qualifiers: Fever type: unspecified Qualified Codes: R50.9 - Fever, unspecified Resolution Date/Time: 11/02/18 @ 11:37 (4) Delirium Status: Resolved Resolution Date/Time: 11/03/18 @ 20:18 (5) Pseudomonas urinary tract infection Status: Resolved Resolution Date/Time: 11/03/18 @ 20:18 (6) Yeast UTI Status: Resolved Resolution Date/Time: 11/03/18 @ 20:18 (7) Advanced age Status: Chronic (8) Renal insufficiency Status: Resolved Resolution Date/Time: 10/10/18 @ 09:41 MARQUEZ DELATORRE DO Nov 05, 2018 11:39
--- NOTE | 2018-11-05 12:14 | Physical Therapy Daily Note ---
PT Daily Note-Current Subjective Pt L sidelying upon arrival. SP present. Pt agrees to PT. Mental Status Patient Orientation: Person, Place, Situation Attachments: Oxygen, Other-See Comments (Wound Vac.) Transfers Therapy Code Descriptions/Definitions Functional [place] Measure: 0=Not Assessed/NA 4=Minimal Assistance 1=Total Assistance 5=Supervision or Setup 2=Maximal Assistance 6=Modified [place] 3=Moderate Assistance 7=Complete [place] Therapy Quality Codes: 6 Independent with activity with or without an assistive device 5 Patient requires set up or clean up by helper. Patient completes activity by themselves 4 Supervision or touching assist (CGA). [place] provide cues , steadying assist 3 The helper provides less than half the effort to complete the activity 2 The helper provides more than half the effort to complete the activity 1 Dependent. The helper does all the effort to complete an activity 7 Patient refused to complete or attempt activity 9 The patient did not perform the activity before the current illness or injury 88 Not attempted due to Medical conditions or safety concerns Scootin Supine to/from Sit: 4 Sit to/from Stand: 1 Sit to Stand (QC): 1 Weight Bearing Right Lower Extremity: Right Full Weight Bearing Left Lower Extremity: Left Full Weight Bearing Gait Training Does the Patient Walk?: Yes Distance (FIM): 1=up to 49 ft Distance: 5' Gait Level of Assist: 1 Gait Persons Needed: 1 Gait Assistive Device: FWW Exercises Seated Therapy Exercises: Ankle pumps, Long arc quads, Hip flexion, Kicking activity Seated Reps: 15 Treatments Pt transfer to EOB before DIRECTOR MARKETING & Tech assist pt to standing using FWW. Pt ambulates to nearby recliner to catch breathe. Pt completes Seated Ex in recliner. Pt has all needs met at end of tx. Assessment Current Status: Fair Progress Pt continues to demonstrate weakness with sit to stand and ambulation. PT Urban Designer Goals [facility] Goals PT [facility] Goals Time Frame: Nov 19, 2018 Transfers (B,C,W/C) (FIM): 4 Sit to Lying (QC): 4 Lying-Sitting on Side/Bed(QC): 4 Sit to Stand (QC): 4 Rollin Roll Left to Right (QC): 4 Chair/Itu-qe-Hklza Xfer(QC): 4 Car Transfer (QC): 4 Does the Patient Walk: No and Walking Goal IS indicated Gait (FIM): 1 Gait distance (FIM): 1=up to 49 ft Distance: 15' Walk 10 feet (QC): 4 Walk 10ft-Uneven Surface(QC): 4 Walk 50ft with 2 Turns (QC): 88 Walk 150 ft (QC): 88 Gait Level of Assist: 4 Gait Assistive Device: FWW PT Plan Problem List Problem List: Activity Tolerance, Functional Strength, Safety, Balance, Gait, Transfer Treatment/Plan Treatment Plan: Continue Plan of Care Treatment Plan: Bed Mobility, Education, Functional Activity Cris, Functional Strength, Gait, Safety, Therapeutic Exercise, Transfers Treatment Duration: Nov 19, 2018 Frequency: 6-11/wk as patient medical status improves Estimated Hrs Per Day: .5 hour per day Patient and/or Family Agrees t: Yes Safety Risks/Education Patient Education: Gait Training, Transfer Techniques, Correct Positioning, Safety Issues Teaching Recipient: Patient Teaching Methods: Discussion Response to Teaching: Verbalize Understanding Time/GCodes Time In: 1100 Time Out: 1120 Total Billed Treatment Time: 20 Total Billed Treatment 1, FA (20m) G Codes Necessary: BENJAMIN Flores PTA Nov 05, 2018 12:14
[2018-11-05 16:00] VITALS: BP 157/66
[2018-11-05] MEDS: HALOPERIDOL 5 MG/ML (HALDOL) AMP IM PRN (16:08)
[2018-11-05] MEDS: TAMSULOSIN 0.4 MG (FLOMAX) CAP PO SCH (16:54)
[2018-11-05 20:00] VITALS: BP 184/62
[2018-11-05] MEDS: SIMvastatin 10 MG (ZOCOR) TAB PO SCH (22:14)
[2018-11-06 00:10] VITALS: BP 150/65
[2018-11-06 03:55] VITALS: BP 160/70
[2018-11-06] MEDS: inSUlin ASPART (NovoLOG) 1 UNIT/0.01 ML (CHARGE PER UNIT) SC SCH ×4 (06:24→21:10)
[2018-11-06] MEDS: NS IV 1000 ML 1,000 ML IV SCH ×2 (06:31→22:23)
[2018-11-06] MEDS: metFORMIN 500 MG (GLUCOPHAGE) TAB PO SCH ×2 (06:33→17:18)
[2018-11-06] MEDS: BETHANECHOL 25 MG (URECHOLINE) TAB PO SCH ×4 (06:33→21:53)
[2018-11-06] MEDS: PIOGLITAZONE 30MG (ACTOS) TAB PO SCH (06:34)
[2018-11-06] MEDS: LACTOBACILLUS ACIDOPHILUS (PROBIOTIC) CAPSULE PO SCH ×4 (06:34→21:54)
[2018-11-06] MEDS: MULTIVIT W/MINERALS TAB (THERAGRAN M) PO SCH (06:34)
[2018-11-06 08:00] VITALS: BP 137/65
[2018-11-06] MEDS: PHENAZOPYRIDINE 100 MG (PYRIDIUM) TABLET PO SCH ×3 (09:03→17:18)
[2018-11-06] MEDS: IRON SUCROSE 200 MG/10 ML (VENOFER) VIAL IV SCH (09:03)
[2018-11-06] MEDS: FAMOTIDINE 20 MG (PEPCID) TABLET PO SCH (09:04)
[2018-11-06] MEDS: meTOprolol TARTRATE 25 MG (LOPRESSOR) TABLET PO SCH ×2 (09:04→22:00)
[2018-11-06] MEDS: amLODIPine 5 MG (NORVASC) TAB PO SCH (09:04)
[2018-11-06] MEDS: KCL 10 MEQ TAB (MICRO K) PO SCH ×2 (09:04→21:54)
[2018-11-06] MEDS: ALLOPURINOL 300 MG (ZYLOPRIM) TAB PO SCH (09:04)
[2018-11-06] MEDS: AMIODARONE 200 MG (CORDARONE) TAB PO SCH (09:04)
[2018-11-06] MEDS: DOCUSATE SODIUM 100 MG (COLACE) CAP PO SCH ×2 (09:04→21:54)
[2018-11-06] MEDS: OXYBUTYNIN (DITROPAN) 5 MG TAB PO SCH ×3 (09:04→21:53)
[2018-11-06] MEDS: lisINopril 20 MG (PRINIVIL) TABLET PO SCH (09:05)
[2018-11-06] MEDS: SENNOSIDES 8.6 MG (SENOKOT) TAB PO SCH ×2 (09:05→21:54)
[2018-11-06] MEDS: risperiDONE 0.25 MG (RisperDAL) TAB PO SCH ×2 (09:05→21:54)
[2018-11-06] MEDS: BISACODYL 5 MG (DULCOLAX) TABLET PO PRN (09:06)
[2018-11-06] MEDS: ENOXAPARIN 40 MG/0.4 ML (LOVENOX) SYR SC SCH (10:01)
[2018-11-06] MEDS: VANCOMYCIN INJECTION 1,000 MG in NS (IVPB) 250 ML IV SCH (10:01)
--- NOTE | 2018-11-06 11:44 | Progress Note-Hospitalist ---
Subjective HPI/CC On Admission Date Seen by Provider: Nov 06, 2018 Time Seen by Provider: 11:00 Subjective/Events-last exam Patient doing well today Overall has no issues except did have confusion and a bit combative with so Haldol was given Scheduled Risperdal still successful for the patient Overall doing well [place] swing bed is a good option for tomorrow Review of Systems General: Fatigue Objective Exam Vital Signs Vital Signs Date Time Temp Pulse Resp B/P (MAP) Pulse Ox O2 Delivery O2 Flow Rate FiO2 11/06/18 09:00 Nasal Cannula 1.00 11/06/18 08:00 97.5 66 20 137/65 (89) 93 11/01/18 15:33 21 Capillary Refill : General Appearance: No Apparent Distress, WD/WN, Chronically ill Respiratory: Chest Non Tender, Lungs Clear, Normal Breath Sounds, No Accessory Muscle Use, No Respiratory Distress Cardiovascular: Regular Rate, Rhythm, No Edema, No Gallop, No JVD, No Murmur, Normal Peripheral Pulses Neurologic/Psychiatric: Alert, No Motor/Sensory Deficits, Normal Mood/Affect, Disoriented Results/Procedures Lab Patient resulted labs reviewed. Assessment/Plan Assessment and Plan Assess & Plan/Chief Complaint Assessment: 1A) s/p completed treatment for Pneumonia facility acquired 1) Acute delirium improved 2) s/p Pseudomonas UTI completed treatment 3) Debility due to repeat surgeries 4) Intraspinal abscess 5) Urinary retention maintained on cath 6) Renal insufficiency stable 7) C. diff colitis (resolved) 8) Diabetes PLan: Continue treatment Monitor Monitor labs Improved delirium Increase PO intake Abx DC since completed treatment Swing bed [place]? Diagnosis/Problems Diagnosis/Problems (1) Delirium Status: Acute (2) Pneumonia Status: Resolved Qualifiers: Pneumonia type: due to unspecified organism Laterality: bilateral Lung location: lower lobe of lung Qualified Codes: J18.1 - Lobar pneumonia, unspecified organism Resolution Date/Time: 11/03/18 @ 20:18 (3) Wheezing Status: Resolved Resolution Date/Time: 11/02/18 @ 11:37 (4) Fever Status: Resolved Qualifiers: Fever type: unspecified Qualified Codes: R50.9 - Fever, unspecified Resolution Date/Time: 11/02/18 @ 11:37 (5) Pseudomonas urinary tract infection Status: Resolved Resolution Date/Time: 11/03/18 @ 20:18 (6) Yeast UTI Status: Resolved Resolution Date/Time: 11/03/18 @ 20:18 (7) Advanced age Status: Chronic (8) Renal insufficiency Status: Resolved Resolution Date/Time: 10/10/18 @ 09:41 MARQUEZ DELATORRE DO Nov 06, 2018 11:44
[2018-11-06] MEDS: TAMSULOSIN 0.4 MG (FLOMAX) CAP PO SCH (17:18)
[2018-11-06 20:00] VITALS: BP 143/62
[2018-11-06] MEDS: SIMvastatin 10 MG (ZOCOR) TAB PO SCH (21:55)
[2018-11-07 05:31] LABS: BASOPHILS % (AUTO) 0 % (0-10); EOSINOPHILS # (AUTO) 0.3 10^3/uL (0.0-0.3); EOSINOPHILS % (AUTO) 4 % (0-10); HEMATOCRIT 25 % (40-54); HEMOGLOBIN 7.9 G/DL (13.3-17.7); LYMPHOCYTES # (AUTO) 1.5 X 10^3 (1.0-4.0); LYMPHOCYTES % (AUTO) 16 % (12-44); MEAN CORPUSCULAR HEMOGLOBIN 31 PG (25-34); MEAN CORPUSCULAR HGB CONC 32 G/DL (32-36); MEAN CORPUSCULAR VOLUME 96 FL (80-99); MONOCYTES # (AUTO) 1.1 X 10^3 (0.0-1.0); MONOCYTES % (AUTO) 11 % (0-12); NEUTROPHILS # (AUTO) 6.8 X 10^3 (1.8-7.8); NEUTROPHILS % (AUTO) 70 % (42-75); PLATELET COUNT 268 10^3/uL (130-400); RED BLOOD COUNT 2.58 10^6/uL (4.35-5.85); RED CELL DISTRIBUTION WIDTH 18.6 % (10.0-14.5); WHITE BLOOD COUNT 9.8 10^3/uL (4.3-11.0)
[2018-11-07 05:56] LABS: ALANINE AMINOTRANSFERASE 40 U/L (0-55); ALBUMIN 2.2 GM/DL (3.2-4.5); ALKALINE PHOSPHATASE 188 U/L (40-136); BILIRUBIN,TOTAL 0.3 MG/DL (0.1-1.0); BUN/CREATININE RATIO 14; CALCIUM 7.7 MG/DL (8.5-10.1); CARBON DIOXIDE 22 MMOL/L (21-32); CHLORIDE 107 MMOL/L (98-107); CREATININE SERUM 1.14 MG/DL (0.60-1.30); GFR ESTIMATED > 60; GLUCOSE 127 MG/DL (70-105); POTASSIUM 4.5 MMOL/L (3.6-5.0); SODIUM 135 MMOL/L (135-145); TOTAL PROTEIN 4.3 GM/DL (6.4-8.2)
[2018-11-07] MEDS: inSUlin ASPART (NovoLOG) 1 UNIT/0.01 ML (CHARGE PER UNIT) SC SCH ×4 (06:05→23:49)
[2018-11-07] MEDS: MULTIVIT W/MINERALS TAB (THERAGRAN M) PO SCH (06:32)
[2018-11-07] MEDS: PIOGLITAZONE 30MG (ACTOS) TAB PO SCH (06:32)
[2018-11-07] MEDS: BETHANECHOL 25 MG (URECHOLINE) TAB PO SCH ×4 (06:33→22:45)
[2018-11-07] MEDS: metFORMIN 500 MG (GLUCOPHAGE) TAB PO SCH ×2 (06:33→16:34)
[2018-11-07] MEDS: LACTOBACILLUS ACIDOPHILUS (PROBIOTIC) CAPSULE PO SCH ×4 (06:33→22:46)
[2018-11-07 08:00] VITALS: BP 134/62
--- NOTE | 2018-11-07 08:30 | Physical Therapy Daily Note ---
PT Daily Note-Current Subjective Nsg reports pt may be discharging to [place] this afternoon for medical care. Pt reports he has no pain when laying still, but some pain with movement Appearance upon arrival into pt's room, pt laying supine in bed with head elevated, confused. At end of session, pt supine in bed with head and LE's elevated, call light phone and bedside table within reach Mental Status Patient Orientation: Person, Eyes Open Transfers Therapy Code Descriptions/Definitions Functional [place] Measure: 0=Not Assessed/NA 4=Minimal Assistance 1=Total Assistance 5=Supervision or Setup 2=Maximal Assistance 6=Modified [place] 3=Moderate Assistance 7=Complete [place] Therapy Quality Codes: 6 Independent with activity with or without an assistive device 5 Patient requires set up or clean up by helper. Patient completes activity by themselves 4 Supervision or touching assist (CGA). Ewen provide cues , steadying assist 3 The helper provides less than half the effort to complete the activity 2 The helper provides more than half the effort to complete the activity 1 Dependent. The helper does all the effort to complete an activity 7 Patient refused to complete or attempt activity 9 The patient did not perform the activity before the current illness or injury 88 Not attempted due to Medical conditions or safety concerns Transfers (B, C, W/C) (FIM): 3 Scootin Rollin Roll Left to Right (QC): 4 Weight Bearing Right Lower Extremity: Right Full Weight Bearing Left Lower Extremity: Left Full Weight Bearing Exercises Supine Ex: Bridging, Ankle pumps, Quad Set, Rolling, Heel Slides, Short Arc Quads, Straight leg raise, Hip abd/add Supine Reps: 20 (10-20, worked each exercise to fatigue) re instruction and constant redirection required with most exercises and activities. AROM to AAROM with supine exercises Treatments exercise, bed mobility rolling and scooting, report of fatigue by end of session Assessment Current Status: Fair Progress improving on rolling left and and right using bedrails, improving on scooting up in bed using bedrails and max verb inst, min assist. Too confused and fatigued to perform transfer training this am PT Director Executive Communications Goals Chcf Goals PT Director Executive Communications Goals Time Frame: Nov 19, 2018 Transfers (B,C,W/C) (FIM): 4 Sit to Lying (QC): 4 Lying-Sitting on Side/Bed(QC): 4 Sit to Stand (QC): 4 Rollin Roll Left to Right (QC): 4 Chair/Cyl-is-Sdvsk Xfer(QC): 4 Car Transfer (QC): 4 Does the Patient Walk: No and Walking Goal IS indicated Gait (FIM): 1 Gait distance (FIM): 1=up to 49 ft Distance: 15' Walk 10 feet (QC): 4 Walk 10ft-Uneven Surface(QC): 4 Walk 50ft with 2 Turns (QC): 88 Walk 150 ft (QC): 88 Gait Level of Assist: 4 Gait Assistive Device: FWW PT Plan Problem List Problem List: Activity Tolerance, Functional Strength, Safety, Gait, Transfer, Bed Mobility, ROM Treatment/Plan Treatment Plan: Continue Plan of Care Treatment Plan: Bed Mobility, Education, Functional Activity Cris, Functional Strength, Gait, Safety, Therapeutic Exercise, Transfers Treatment Duration: Nov 19, 2018 Frequency: 6-11/wk as patient medical status improves Estimated Hrs Per Day: .5 hour per day Patient and/or Family Agrees t: Yes Safety Risks/Education reviewed importance of continuing exercises throughout the day Time/GCodes Time In: 817 Time Out: 856 Total Billed Treatment Time: 39 Total Billed Treatment 1 visit FA 14 EX 25 NOHEMI ALCARAZ REAL ESTATE SERVICES ADMINISTRATOR Nov 07, 2018 08:30
[2018-11-07] MEDS: meTOprolol TARTRATE 25 MG (LOPRESSOR) TABLET PO SCH ×2 (08:47→22:46)
[2018-11-07] MEDS: PHENAZOPYRIDINE 100 MG (PYRIDIUM) TABLET PO SCH ×3 (08:47→18:16)
[2018-11-07] MEDS: KCL 10 MEQ TAB (MICRO K) PO SCH ×2 (08:47→22:46)
[2018-11-07] MEDS: amLODIPine 5 MG (NORVASC) TAB PO SCH (08:48)
[2018-11-07] MEDS: AMIODARONE 200 MG (CORDARONE) TAB PO SCH (08:48)
[2018-11-07] MEDS: lisINopril 20 MG (PRINIVIL) TABLET PO SCH (08:48)
[2018-11-07] MEDS: FAMOTIDINE 20 MG (PEPCID) TABLET PO SCH (08:49)
[2018-11-07] MEDS: risperiDONE 0.25 MG (RisperDAL) TAB PO SCH ×2 (08:50→22:46)
[2018-11-07] MEDS: OXYBUTYNIN (DITROPAN) 5 MG TAB PO SCH ×3 (08:50→22:46)
[2018-11-07] MEDS: ALLOPURINOL 300 MG (ZYLOPRIM) TAB PO SCH (08:50)
[2018-11-07] MEDS: SENNOSIDES 8.6 MG (SENOKOT) TAB PO SCH ×2 (08:51→23:48)
[2018-11-07] MEDS: DOCUSATE SODIUM 100 MG (COLACE) CAP PO SCH ×2 (08:51→23:48)
--- NOTE | 2018-11-07 10:05 | Progress Note-Hospitalist ---
MARQUEZ DELATORRE DO 11/07/18 1004: Subjective HPI/CC On Admission Date Seen by Provider: Nov 07, 2018 Time Seen by Provider: 09:30 Subjective/Events-last exam Patient doing well overall Conferred with Dr Mc who can oversee the wound vac at [place] Catheter will be attempted to be DC and if issues will put back in and I did confer with Dr Cortes BM+ Review of Systems Neurological: Confusion Objective Exam Vital Signs Vital Signs Date Time Temp Pulse Resp B/P (MAP) Pulse Ox O2 Delivery O2 Flow Rate FiO2 11/07/18 21:00 Room Air 11/07/18 18:00 98.6 72 18 185/77 (113) 93 1.00 Capillary Refill : General Appearance: No Apparent Distress, WD/WN, Chronically ill Respiratory: Chest Non Tender, Lungs Clear, Normal Breath Sounds, No Accessory Muscle Use, No Respiratory Distress Cardiovascular: Regular Rate, Rhythm, No Gallop, No JVD, No Murmur, Normal Peripheral Pulses Back: Decreased Range of Motion Extremity: Pedal Edema (+2) Neurologic/Psychiatric: Alert, Oriented x3, No Motor/Sensory Deficits, Normal Mood/Affect Skin: Normal Color, Warm/Dry Results/Procedures Lab Laboratory Tests 11/07/18 05:20 Patient resulted labs reviewed. Assessment/Plan Assessment and Plan Assess & Plan/Chief Complaint Assessment: 1A) s/p completed treatment for Pneumonia facility acquired 1) Acute delirium improved 2) s/p Pseudomonas UTI completed treatment 3) Debility due to repeat surgeries 4) Intraspinal abscess 5) Urinary retention maintained on cath 6) Renal insufficiency stable 7) C. diff colitis (resolved) 8) Diabetes PLan: Continue treatment Monitor Monitor labs Improved delirium Increase PO intake Abx DC since completed treatment Swing bed [place]? DC catheter Diagnosis/Problems Diagnosis/Problems (1) Delirium Status: Acute (2) Pneumonia Status: Resolved Qualifiers: Pneumonia type: due to unspecified organism Laterality: bilateral Lung location: lower lobe of lung Qualified Codes: J18.1 - Lobar pneumonia, unspecified organism Resolution Date/Time: 11/03/18 @ 20:18 (3) Wheezing Status: Resolved Resolution Date/Time: 11/02/18 @ 11:37 (4) Fever Status: Resolved Qualifiers: Fever type: unspecified Qualified Codes: R50.9 - Fever, unspecified Resolution Date/Time: 11/02/18 @ 11:37 (5) Pseudomonas urinary tract infection Status: Resolved Resolution Date/Time: 11/03/18 @ 20:18 (6) Yeast UTI Status: Resolved Resolution Date/Time: 11/03/18 @ 20:18 (7) Advanced age Status: Chronic (8) Renal insufficiency Status: Resolved Resolution Date/Time: 10/10/18 @ 09:41 RAQUEL THAO MED STUDENT 11/07/18 1054: Subjective Subjective/Events-last exam Pt is doing well- awake in bed during interview Nursing reports he was able to walk by himself with his walker last night Hgb down 7.9 Denies any pain No bowel/bladder dysfunction Objective Exam General Appearance: No Apparent Distress, Chronically ill, Obese Neck: Full Range of Motion Respiratory: Chest Non Tender, Lungs Clear, No Respiratory Distress Cardiovascular: Regular Rate, Rhythm, No Murmur, Normal Peripheral Pulses Extremity: Non Tender, Pedal Edema (+2) Neurologic/Psychiatric: Alert Assessment/Plan Assessment and Plan Assess & Plan/Chief Complaint Assessment: s/p hospital acquired pneumonia Acute delirium - improving Anemia s/p Pseudomonas UTI s/p spinal surgeries Debility Urinary retention Diabetes Plan: d/c nasal canula d/c cath if cleared by urology Continue to ambulate [place] swing bed tomorrow Diagnosis/Problems Diagnosis/Problems (1) Anemia Status: Acute (2) Urinary retention Status: Acute (3) Delirium Status: Acute (4) Diabetes mellitus Status: Chronic (5) UTI (urinary tract infection) due to Enterococcus Status: Resolved Resolution Date/Time: 10/05/18 @ 13:55 (6) Renal insufficiency Status: Resolved Resolution Date/Time: 10/10/18 @ 09:41 (7) Pseudomonas urinary tract infection Status: Resolved Resolution Date/Time: 11/03/18 @ 20:18 (8) Edema Status: Acute MARQUEZ DELATORRE DO Nov 07, 2018 10:04 RAQUEL THAO MED STUDENT Nov 07, 2018 10:54
[2018-11-07] MEDS: ENOXAPARIN 40 MG/0.4 ML (LOVENOX) SYR SC SCH (10:23)
--- NOTE | 2018-11-07 13:37 | Occupational Ther Daily Note ---
OT Current Status-Daily Note Subjective Pt seen in room, up in bed, agreeable to OT. No pain mentioned. Appearance Alert, cooperative. reported he still gonzalez a little confusion at times. Mental Status/Objective Therapy Code Descriptions/Definitions Functional [place] Measure: 0=Not Assessed/NA 4=Minimal Assistance 1=Total Assistance 5=Supervision or Setup 2=Maximal Assistance 6=Modified [place] 3=Moderate Assistance 7=Complete [place] ADL-Treatment reported that she just set up his meal and he fed himself without assistance. He was also able to drink his Ensure without help. He brushed his teeth and washed his face with setup, no cues for sequencing. He has not been able to dress yet and still needs help putting on slipper socks due to LE edema. [place] catheter just removed today and he hasn't had to use the urinal yet. Has not been up to [facility] [place] [place] for BM, still using bedpan. His reported that the back of the BSC presses on his wound/wound vac tubing. Bathing not addressed. Discharge delayed until tomorrow. Pt left up in bed, PT in room. Therapy Code Descriptions/Definitions Functional [place] Measure: 0=Not Assessed/NA 4=Minimal Assistance 1=Total Assistance 5=Supervision or Setup 2=Maximal Assistance 6=Modified [place] 3=Moderate Assistance 7=Complete [place] Therapy Quality Codes: 6 Independent with activity with or without an assistive device 5 Patient requires set up or clean up by helper. Patient completes activity by themselves 4 Supervision or touching assist (CGA). [place] provide cues , steadying assist 3 The helper provides less than half the effort to complete the activity 2 The helper provides more than half the effort to complete the activity 1 Dependent. The helper does all the effort to complete an activity 7 Patient refused to complete or attempt activity 9 The patient did not perform the activity before the current illness or injury 88 Not attempted due to Medical conditions or safety concerns Eating (FIM): 5 Eating (QC): 5 Grooming (FIM): 5 Oral Hygiene (QC): 5 Upper Body Dressing (QC): 88 Lower Body Dressing (QC): 88 On/Off Footwear (QC): 1 Toileting Hygiene (QC): 1 Toilet Transfer (QC): 88 Education OT Patient Education: Progress toward Goal/Update tx plan, Purpose of tx/ functional activities Teaching Recipient: Patient, Family Teaching Methods: Discussion Response to Teaching: Verbalize Understanding, Return Demonstration OT Short Term Goals Short Term Goals Time Frame: Nov 07, 2018 Eating(FIM): 5 Grooming(FIM): 4 Bathing(FIM): 3 Upper Body Dressing(FIM): 4 Lower Body Dressing(FIM): 3 Toileting(FIM): 3 Toilet/Commode Transfer(FIM): 3 Additional Short Term Goals: 1-Demonstrate ADL Tasks, 2-Verbalize Understanding , 3-ImproveStrength/Cris 1=Demonstrate adherence to instructed precautions during ADL tasks. 2=Patient will verbalize/demonstrate understanding of assistive devices/ modifications for ADL. 3=Patient will improve strength/tolerance for activity to enable patient to perform ADL's. OT Correction Goals Polysomnographic Technologist Goals Time Frame: Nov 19, 2018 Eating (FIM): 6 Eating (QC): 6 Groomin Oral Hygiene (QC): 5 Bathing(FIM): 5 Shower/Bathe Self (QC): 4 Upper Body Dressing(FIM): 5 Upper Body Dressing (QC): 4 Lower Body Dressing(FIM): 5 Lower Body Dressing (QC): 4 On/Off Footwear (QC): 5 Toileting(FIM): 5 Toileting Hygiene (QC): 4 Toilet/Commode Transfer(FIM): 5 Toilet/Commode Transfer (QC): 4 Shower Transfer(FIM): 4 Additional Goals: 1-Demonstrate ADL Tasks, 2-Verbalize Understanding, 3- ImproveStrength/Cris 1=Demonstrate adherence to instructed precautions during ADL tasks. 2=Patient will verbalize/demonstrate understanding of assistive devices/ modifications for ADL. 3=Patient will improve strength/tolerance for activity to enable patient to perform ADL's. OT Education/Plan Problem List/Assessment Pt would benefit from skilled OT to increase his independence in basic self care Discharge Recommendations Plan/Recommendations: Continue POC Treatment Plan/Plan of Care Patient would benefit from OT for education, treatment and training to promote independence in ADL's, mobility, safety and/or upper extremity function for ADL' s. Plan of Care: ADL Retraining, Functional Mobility, UE Funct Exercise/Act, UE Neuromus Re-Ed/Coord Treatment Duration: Nov 19, 2018 Frequency: 5 times per week Estimated Hrs Per Day: .5 hour per day Agreement: Yes Rehab Potential: Guarded Time/GCodes Start Time: 13:12 Stop Time: 13:27 Total Time Billed (hr/min): 15 Billed Treatment Time visit, 15 minutes ADL CRISTIAN MERIDA OT Nov 07, 2018 13:37
[2018-11-07] MEDS: NS IV 1000 ML 1,000 ML IV SCH (14:07)
--- NOTE | 2018-11-07 14:30 | Physical Therapy Daily Note ---
PT Daily Note-Current Subjective Patient and spouse agree to PT. Report they will transfer to OSH tomorrow. Pain Numeric Pain Scale: 5-Moderate Pain Location: Medial, Lower Location Body Site: Back Pain Description: Ache, Pressure Mental Status Patient Orientation: Person, Time, Situation Transfers Therapy Code Descriptions/Definitions Functional [place] Measure: 0=Not Assessed/NA 4=Minimal Assistance 1=Total Assistance 5=Supervision or Setup 2=Maximal Assistance 6=Modified [place] 3=Moderate Assistance 7=Complete [place] Therapy Quality Codes: 6 Independent with activity with or without an assistive device 5 Patient requires set up or clean up by helper. Patient completes activity by themselves 4 Supervision or touching assist (CGA). [place] provide cues , steadying assist 3 The helper provides less than half the effort to complete the activity 2 The helper provides more than half the effort to complete the activity 1 Dependent. The helper does all the effort to complete an activity 7 Patient refused to complete or attempt activity 9 The patient did not perform the activity before the current illness or injury 88 Not attempted due to Medical conditions or safety concerns Transfers (B, C, W/C) (FIM): 3 Scootin Rollin Roll Left to Right (QC): 3 Supine to/from Sit: 3 Sit to/from Stand: 3 Sit to Lying (QC): 3 Sit to Stand (QC): 3 sit to stand transfer to W x 4 sets with sidestepping to left. left LE continues to "give out" during activity due to pain and weakness. Weight Bearing Right Lower Extremity: Right Full Weight Bearing Left Lower Extremity: Left Full Weight Bearing Assessment Patient tolerated treatment well and returned to bed for wound care to change wound vac. Plan dismissal to OSH tomorrow. PT Otr Refrigerated Cdl Truck Driver Goals Otr Refrigerated Cdl Truck Driver Goals PT Custodial Goals Time Frame: Nov 19, 2018 Transfers (B,C,W/C) (FIM): 4 Sit to Lying (QC): 4 Lying-Sitting on Side/Bed(QC): 4 Sit to Stand (QC): 4 Rollin Roll Left to Right (QC): 4 Chair/Zbm-qm-Hmhpf Xfer(QC): 4 Car Transfer (QC): 4 Does the Patient Walk: No and Walking Goal IS indicated Gait (FIM): 1 Gait distance (FIM): 1=up to 49 ft Distance: 15' Walk 10 feet (QC): 4 Walk 10ft-Uneven Surface(QC): 4 Walk 50ft with 2 Turns (QC): 88 Walk 150 ft (QC): 88 Gait Level of Assist: 4 Gait Assistive Device: FWW PT Plan Treatment/Plan Treatment Plan: Continue Plan of Care Treatment Plan: Bed Mobility, Education, Functional Activity Cris, Functional Strength, Gait, Safety, Therapeutic Exercise, Transfers Treatment Duration: Nov 19, 2018 Frequency: 6-11/wk as patient medical status improves Estimated Hrs Per Day: .5 hour per day Patient and/or Family Agrees t: Yes Time/GCodes Time In: 1327 Time Out: 1342 Total Billed Treatment Time: 15 Total Billed Treatment 1 visit FA 15 min KAL VERMA PT Nov 07, 2018 14:29
[2018-11-07 18:00] VITALS: BP 185/77
[2018-11-07] MEDS: TAMSULOSIN 0.4 MG (FLOMAX) CAP PO SCH (18:16)
[2018-11-07] MEDS: SIMvastatin 10 MG (ZOCOR) TAB PO SCH (22:46)
[2018-11-08] MEDS: HALOPERIDOL 5 MG/ML (HALDOL) AMP IM PRN (01:50)
[2018-11-08] MEDS: PIOGLITAZONE 30MG (ACTOS) TAB PO SCH (06:57)
[2018-11-08] MEDS: MULTIVIT W/MINERALS TAB (THERAGRAN M) PO SCH (06:57)
[2018-11-08] MEDS: BETHANECHOL 25 MG (URECHOLINE) TAB PO SCH ×2 (06:57→11:49)
[2018-11-08] MEDS: metFORMIN 500 MG (GLUCOPHAGE) TAB PO SCH (06:57)
[2018-11-08] MEDS: LACTOBACILLUS ACIDOPHILUS (PROBIOTIC) CAPSULE PO SCH ×2 (06:57→11:49)
[2018-11-08] MEDS: inSUlin ASPART (NovoLOG) 1 UNIT/0.01 ML (CHARGE PER UNIT) SC SCH ×2 (06:58→11:36)
[2018-11-08] MEDS ORDERED: LIDOCAINE UROJET 2% GEL 10 ML PKG ONE (07:44)
[2018-11-08 08:00] VITALS: BP 151/63
[2018-11-08] MEDS ORDERED: LIDOCAINE UROJET 2% GEL 10 ML PKG TOP ONE (08:15)
[2018-11-08] MEDS: lisINopril 20 MG (PRINIVIL) TABLET PO SCH (08:46)
[2018-11-08] MEDS: amLODIPine 5 MG (NORVASC) TAB PO SCH (08:46)
[2018-11-08] MEDS: PHENAZOPYRIDINE 100 MG (PYRIDIUM) TABLET PO SCH ×2 (08:46→13:59)
[2018-11-08] MEDS: AMIODARONE 200 MG (CORDARONE) TAB PO SCH (08:47)
[2018-11-08] MEDS: KCL 10 MEQ TAB (MICRO K) PO SCH (08:47)
[2018-11-08] MEDS: FAMOTIDINE 20 MG (PEPCID) TABLET PO SCH (08:47)
[2018-11-08] MEDS: DOCUSATE SODIUM 100 MG (COLACE) CAP PO SCH (08:47)
[2018-11-08] MEDS: meTOprolol TARTRATE 25 MG (LOPRESSOR) TABLET PO SCH (08:47)
[2018-11-08] MEDS: ALLOPURINOL 300 MG (ZYLOPRIM) TAB PO SCH (08:47)
[2018-11-08] MEDS: IRON SUCROSE 200 MG/10 ML (VENOFER) VIAL IV SCH (08:47)
[2018-11-08] MEDS: SENNOSIDES 8.6 MG (SENOKOT) TAB PO SCH (08:48)
[2018-11-08] MEDS: risperiDONE 0.25 MG (RisperDAL) TAB PO SCH (08:51)
--- NOTE | 2018-11-08 09:44 | Progress Note-Urology ---
Progress Note-Urology Progress Notes/Assess & Plan Progress/Assessment & Plan FAILED TOV. NURSES UNABLE TO INSERT MCRAE BECAUSE OF SIGNIFICANT EDEMA AND SWELLING OF PENIS AND GENITALIA. I WAS ABLE TO INSERT MCRAE. RECOMMENDATIONS: 1.O.K TO DISCHARGE 2. KEEP MCRAE IN FOR 2 WEEKS (WASHOUT OF OXYBUTIN) AND IF NO SWELLING TOV 3. SCROTAL SUPPORT AND ELEVATION OF GENITALIA 4. DIURESIS 5. KEEP ON FLOMAX AND URECHOLINE 6. FOLLOW UP PRN, UROLOGIST IN [place] IF EASIER ON PATIENT AND FAMILY OR MYSELF IF PREFER Final Diagnosis URINE RETENTION AND EDEMA GENITALIA COLE BLUM MD Nov 08, 2018 09:44
[2018-11-08] MEDS ORDERED: RISP0.253 PO (09:55)
[2018-11-08] MEDS ORDERED: HALO5VIA12 IM (09:55)
[2018-11-08] MEDS ORDERED: FAMO20TA5 PO (09:55)
[2018-11-08] MEDS ORDERED: ENOX40DI8 SC (09:55)
[2018-11-08] MEDS ORDERED: POTA10TA6 PO (09:55)
--- NOTE | 2018-11-08 09:57 | Discharge Summary-Hospitalist ---
MARQUEZ DELATORRE DO 11/08/18 0957: Diagnosis/Chief Complaint Date of Admission Oct 31, 2018 at 10:12 Date of Discharge Discharge Date: Nov 08, 2018 Discharge Diagnosis (1) Anemia Status: Chronic (2) Urinary retention Status: Acute (3) Delirium Status: Acute (4) Diabetes mellitus Status: Chronic (5) UTI (urinary tract infection) due to Enterococcus Status: Resolved (6) Renal insufficiency Status: Resolved (7) Pseudomonas urinary tract infection Status: Resolved (8) Edema Status: Acute Discharge Summary Discharge Physical Exam Allergies: Coded Allergies: cephalexin (Verified Allergy, Unknown, 10/07/18) hydrocodone (Verified Allergy, Unknown, 10/07/18) Vitals & I&Os Vital Signs Date Time Temp Pulse Resp B/P (MAP) Pulse Ox O2 Delivery O2 Flow Rate FiO2 11/08/18 14:25 70 20 151/63 94 Room Air 11/08/18 08:00 98.2 1.00 General Appearance: No Apparent Distress, WD/WN, Chronically ill, Obese Respiratory: Chest Non Tender, Lungs Clear, Normal Breath Sounds, No Accessory Muscle Use, No Respiratory Distress Cardiovascular: Regular Rate, Rhythm, No Edema, No Gallop, No JVD, No Murmur, Normal Peripheral Pulses Skin: Normal Color, Warm/Dry Neurologic/Psychiatric: Alert, Oriented x3, No Motor/Sensory Deficits, Normal Mood/Affect Hospital Course Hospital course: patient was admitted to swing bed for wound vac management and close monitoring of co-morbidities. Pt tolerated Vanc well and will complete that on 12/02/18. Midline was maintained without event. Pseudomonas UTI dx along with pneumonia and completed Cefepime treatment. Delirium was a challenge during the entire hospital course and required Risperdal and Haldol with good results. Overall patient improved and was able to be transported closer to home in [place] on Swing bed to Dr Chambers's service.I updated Dr Mc personally. Labs (last 24 hrs) Laboratory Tests 11/07/18 21:32: Glucometer 194H 11/08/18 05:46: Glucometer 111H 11/08/18 10:38: Vancomycin Level Trough 11.8 11/08/18 11:18: Glucometer 127H Microbiology 11/07/18 C. difficile GDH Antigen & Toxins - Final, Complete Patient resulted labs reviewed. Pending Labs Laboratory Tests 11/08/18 10:38: Vancomycin Level Trough 11.8 11/08/18 11:18: Glucometer 127 Discussion & Recommendations Discharge Planning: <30 minutes discharge planning Discharge Home Medications: Active Scripts Active Vancomycin 1 G/100Ml-0.9% NaCl (Vancomycin/0.9 % Sod Chloride) 1 Gm/100 Ml Plast..bag 1 Gm IV Q48H NEXT DOSE DUE ON 11/10 LAST DOSE IS DUE ON 12/02/18 Famotidine 20 Mg Tablet 20 Mg PO DAILY 30 Days Klor-Con 10 (Potassium Chloride) 10 Meq Tablet.er 10 Meq PO BID 30 Days Risperidone 0.25 Mg Tablet 0.5 Mg PO BID 30 Days Haloperidol Lactate 5 Mg/1 Ml Vial 1 Mg IM Q6HR PRN 30 Days Enoxaparin Sodium 40 Mg/0.4 Ml Syringe 40 Mg SC DAILY@1030 30 Days Novolog (Insulin Aspart) 100 Unit/1 Ml Susp 0 Unit SC ACHS 30 Days Floranex Granules Packet (L. Acidophilus/Bulgaricus) 1 Each Gran.pack 1 Gm PO ACHS 30 Days Phenazopyridine HCl 100 Mg Tablet 100 Mg PO TIDPC 30 Days Tramadol HCl 50 Mg Tablet 50-100 Mg PO Q4H PRN 10 Days Amlodipine Besylate 5 Mg Tablet 5 Mg PO DAILY 30 Days Metoprolol Tartrate 25 Mg Tablet 25 Mg PO BID 30 Days Flomax (Tamsulosin HCl) 0.4 Mg Cap 0.4 Mg PO DAILY@1800 30 Days Bethanechol Chloride 10 Mg Tablet 10 Mg PO ACHS 30 Days Reported Amiodarone HCl 200 Mg Tablet 200 Mg PO DAILY Metformin HCl 500 Mg Tablet 500 Mg PO BID Pioglitazone HCl 45 Mg Tablet 45 Mg PO DAILY Lovastatin 20 Mg Tablet 20 Mg PO DAILY Allopurinol 300 Mg Tablet 300 Mg PO DAILY Lisinopril 20 Mg Tablet 20 Mg PO DAILY Instructions to patient/family Please see electronic discharge instructions given to patient. RAQUEL THAO MED STUDENT 11/08/18 1128: Discharge Summary Discharge Physical Exam Allergies: Coded Allergies: cephalexin (Verified Allergy, Unknown, 10/07/18) hydrocodone (Verified Allergy, Unknown, 10/07/18) General Appearance: Chronically ill, Obese Respiratory: Chest Non Tender, Lungs Clear, No Respiratory Distress Cardiovascular: Regular Rate, Rhythm, No Murmur Extremity: Non Tender, Pedal Edema Skin: Normal Color, Warm/Dry, Pallor Neurologic/Psychiatric: No Motor/Sensory Deficits, Normal Mood/Affect Hospital Course This is an 78 yo male who was admitted to [facility] on 10/31 after a complicated hospital stay for close observation due to multiple previous spinal surgeries, Pseudomonas UTI, pneumonia, and delirium. His UTI and pneumonia resolved on abx without any complications. Pt continues to have urinary retention and has failed attempts at removing catheter. His delirium waxed and waned throughout his stay but is improving overall. Pt will be d/isrrael to [facility] where he can continue his recovery closer to home. Problem Qualifiers (1) Anemia: Anemia type: iron deficiency Iron deficiency anemia type: chronic blood loss Qualified Codes: D50.0 - Iron deficiency anemia secondary to blood loss ( chronic) (2) Diabetes mellitus: Diabetes mellitus type: type 2 Diabetes mellitus prison insulin use: without termite control technician use Diabetes mellitus complication status: with circulatory complication Diabetes mellitus complication detail: with other circulatory complications Qualified Codes: E11.59 - Type 2 diabetes mellitus with other circulatory complications (3) Edema: Edema type: localized Qualified Codes: R60.0 - Localized edema MARQUEZ DELATORRE DO Nov 08, 2018 09:57 RAQUEL THAO MED STUDENT Nov 08, 2018 11:28
[2018-11-08] MEDS ORDERED: TROUGH ORDER-PHARMACY XX NR (10:00)
[2018-11-08] MEDS ORDERED: VANC1PLA10 IV (10:29)
--- NOTE | 2018-11-08 11:14 | Therapy Team Discharge Summary ---
Therapy Discharge Summary Discharge Recommendations Date of Discharge Therapy D/C Recommendations: Home w/ Family Support, Residential Placement, Shelter (TCU/NH) Physical Therapy Patient transferring to OSH on this date for continued care. Patient continues to require max to mod assist with all bed mobility and transfers and is able to take a few steps with FWW and max assist. Patient left LE does "give out" during ambulation. Patient upon evaluation required dependent assist with all mobility due to weakness and pain. Patient continues to be confused and presents with 2+ pitting edema total body. Patient will benefit from continued skilled therapy to improve current LOF. Goals address but not attained. Occupational Therapy Decreased Activ Tolerance, Decreased UE Strength, Dependent Transfers, Impaired Bed Mobility, Impaired Cognition, Impaired Funct Balance, Impaired Self-Care Skills, Restricted Funct UE ROM PT Penitentiary Goals Penitentiary Goals PT Gun Sealing Machine Operator Goals Time Frame: Nov 19, 2018 Transfers (B,C,W/C) (FIM): 4 Sit to Lying (QC): 4 Lying-Sitting on Side/Bed(QC): 4 Sit to Stand (QC): 4 Rollin Chair/Byy-fp-Lisxg Xfer(QC): 4 Does the Patient Walk: No and Walking Goal IS indicated Gait (FIM): 1 Gait distance (FIM): 1=up to 49 ft Distance: 15' Walk 50ft with 2 Turns (QC): 88 Walk 150 ft (QC): 88 Gait Level of Assist: 4 Gait Assistive Device: FWW OT Gun Sealing Machine Operator Goals Penitentiary Goals Time Frame: Nov 19, 2018 Eating (FIM): 6 Eating (QC): 6 Groomin Oral Hygiene (QC): 5 Bathing(FIM): 5 Upper Body Dressing(FIM): 5 Lower Body Dressing(FIM): 5 Toileting(FIM): 5 Toileting Hygiene (QC): 4 Toilet/Commode Transfer(FIM): 5 Toilet/Commode Transfer (QC): 4 Shower Transfer(FIM): 4 Additional Goals: 1-Demonstrate ADL Tasks, 2-Verbalize Understanding, 3- ImproveStrength/Cris 1=Demonstrate adherence to instructed precautions during ADL tasks. 2=Patient will verbalize/demonstrate understanding of assistive devices/ modifications for ADL. 3=Patient will improve strength/tolerance for activity to enable patient to perform ADL's. KAL VERMA PT Nov 08, 2018 11:13
[2018-11-08] MEDS: ENOXAPARIN 40 MG/0.4 ML (LOVENOX) SYR SC SCH (11:49)
[2018-11-08] MEDS: VANCOMYCIN INJECTION 1,000 MG in NS (IVPB) 250 ML IV SCH (11:50)
[2018-11-08 14:25] VITALS: BP 151/63
--- NOTE | 2018-11-08 15:39 | Therapy Team Discharge Summary ---
Therapy Discharge Summary Discharge Recommendations Date of Discharge Nov 08, 2018 at 14:25 Therapy D/C Recommendations: Home w/ Family Support, Halfway Placement, Longterm (TCU/NH) Occupational Therapy Pt admitted to [facility] status following back surgery/hardware failure. Pt had post op delirium, impacting ability to participate in therapy. At admission pt required mod assist for eating and grooming and was dependent for dressing and bathing. Skilled OT intervention focused on ADL training strengthening. Goals were addressed, but not met. Pt is able to feed self and complete grooming with set up, but still requires total assist for LE dressing. Pt is discharging this date to outside facility for continued care. D/c SWB OT at this time. Decreased Activ Tolerance, Decreased UE Strength, Dependent Transfers, Impaired Bed Mobility, Impaired Cognition, Impaired Funct Balance, Impaired Self-Care Skills, Restricted Funct UE ROM PT Prison Goals [employer] Goals PT [employer] Goals Time Frame: Nov 19, 2018 Transfers (B,C,W/C) (FIM): 4 Sit to Lying (QC): 4 Lying-Sitting on Side/Bed(QC): 4 Sit to Stand (QC): 4 Rollin Chair/Cft-cq-Hlzeh Xfer(QC): 4 Does the Patient Walk: No and Walking Goal IS indicated Gait (FIM): 1 Gait distance (FIM): 1=up to 49 ft Distance: 15' Walk 50ft with 2 Turns (QC): 88 Walk 150 ft (QC): 88 Gait Level of Assist: 4 Gait Assistive Device: FWW OT Prison Goals [employer] Goals Time Frame: Nov 19, 2018 Eating (FIM): 6 Eating (QC): 6 Groomin Oral Hygiene (QC): 5 Bathing(FIM): 5 Upper Body Dressing(FIM): 5 Lower Body Dressing(FIM): 5 Toileting(FIM): 5 Toileting Hygiene (QC): 4 Toilet/Commode Transfer(FIM): 5 Toilet/Commode Transfer (QC): 4 Shower Transfer(FIM): 4 Additional Goals: 1-Demonstrate ADL Tasks, 2-Verbalize Understanding, 3- ImproveStrength/Cris 1=Demonstrate adherence to instructed precautions during ADL tasks. 2=Patient will verbalize/demonstrate understanding of assistive devices/ modifications for ADL. 3=Patient will improve strength/tolerance for activity to enable patient to perform ADL's. KASANDRA JIM OT Nov 08, 2018 15:39
== END 2018-11-08 14:25 | disposition swing bed (61) | DRG 94 ==
LOC: 4TH 10-31 10:12
PROVIDERS: ADMIT Internal Medicine; ATTEND Internal Medicine
DX: G06.1 Intraspinal abscess and granuloma (principal); J18.9 Pneumonia, unspecified organism; B37.49 Other urogenital candidiasis; N39.0 Urinary tract infection, site not specified; B96.5 Pseudomonas (aeruginosa) (mallei) (pseudomallei) as the cause of diseases classified elsewhere; B95.2 Enterococcus as the cause of diseases classified elsewhere; R41.0 Disorientation, unspecified; Z66 Do not resuscitate; R33.9 Retention of urine, unspecified; N28.9 Disorder of kidney and ureter, unspecified; E11.9 Type 2 diabetes mellitus without complications; R54 Age-related physical debility; N50.89 Other specified disorders of the male genital organs; D50.0 Iron deficiency anemia secondary to blood loss (chronic)
CPT/HCPCS: 36415; 71045; 80053; 80202; 82962; 83540; 85025; 87324; 87449; 94640; 94760